=== PATIENT | male | born 1945 | race Caucasian/White ===

== ENCOUNTER 2019-09-27 08:11 | Outpatient (CLI) | payer OTHER, SELFPAY ==
[2019-09-27 09:05] LABS: INR 1.02 (0.8-1.2)
== END 2019-09-27 08:12 | disposition home or self-care (01) ==
LOC: RAD 08:15
PROVIDERS: Family Provider Emergency Medicine Emergency Medical Services; PCP Emergency Medicine Emergency Medical Services; Visit Provider Emergency Medicine Emergency Medical Services
DX: D49.2 Neoplasm of unspecified behavior of bone, soft tissue, and skin (principal); M24.08 Loose body, other site; M41.86 Other forms of scoliosis, lumbar region; M48.061 Spinal stenosis, lumbar region without neurogenic claudication; Z96.82 Presence of neurostimulator; Z98.890 Other specified postprocedural states
CPT/HCPCS: 85610

== ENCOUNTER 2019-10-12 08:54 | Outpatient (CLI) | payer OTHER, SELFPAY ==
--- NOTE | 2019-10-12 09:10 | IR_ITS ---
WS: [id number] MYELOGRAM LUMBAR SPINE Fluoroscopic guided lumbar myelogram CLINICAL INFORMATION: NEOPLASM UNSPECIFIED BEHAVIOR OF BONE,SOFT TISSUE AND SKIN COMPARISON: November 03, 2018 TECHNIQUE: The procedure, including risks, benefits, and complications, were discussed with the patie nt who agreed to proceed. A timeout was performed to confirm correct patient, procedure, and site. Using sterile technique, the patient was prepped and draped in the usual sterile fashion. After admin istration of local anesthesia using 1% preservative-free lidocaine and using fluoroscopic guidance, a 22-gauge spinal needle was advanced into the subarachnoid space at the L2-3 level. Subsequently 13 c c of Omnipaque 240 was administered into the thecal sac. The needle was removed and hemostasis was ac hieved. Spot fluoroscopic images were obtained. FLUOROSCOPIC TIME: 0.[address] myelogram report for additional detail. IR/IR myelogram sp lumbar [id number] IMPRESSION: 1. Uncomplicated lumbar myelogram. 2. Please see CT myelogram report for anatomic detail.
--- NOTE | 2019-10-12 09:10 | CT_ITS ---
WS: [id number] CT LUMBAR SPINE TECHNIQUE: Contrast-enhanced CT of the lumbar spine with coronal and sagittal reformatted images. CLINICAL INFORMATION: NEOPLASM UNSPECIFIED BEHAVIOR OF BONE,SOFT TISSUE AND SKIN COMPARISON: CT myelogram November 03, 2018 DLP: 1737.[address] scans at [facility] use at least one of these dose optimization techniques: automat ed exposure control; mA and/or kV adjustment per patient size (includes targeted exams where dose is matched to clinical indication); or iterative reconstruction. FINDINGS: 6 lumbar type vertebral bodies in keeping with the prior numbering convention. L6 is transi tional. No instability on flexion-extension. Lumbar scoliosis convex right. Multilevel degenerative d isc disease with vacuum disc phenomenon. Grade 1 anterolisthesis L4 on L5 measuring 4.1 mm is unchang ed. Slight retrolisthesis L1 on L2 and L2 on L3. Alignment is overall unchanged since 2019. Disc space na rrowing worse at L5-L6 with subchondral cystic change. Endplate sclerosis L3-L4 and L5-L6. Previously described intrathecal nodule at the L4 level measuring 5.1 mm is unchanged from previous m ost consistent with a small schwannoma L1-L2: Mild annular bulging. Vacuum disc phenomenon. Spinal canal and foramen are patent. L2-L3: Mild annular bulging. Mild facet arthropathy. Mild left and no significant right foraminal sveta rowing. L3-L4: Vacuum disc phenomenon with osteophytic ridging. Moderate central canal stenosis. Moderate fac et arthropathy ligament flavum hypertrophy. Moderate left and no significant right foraminal narrowin g. L4-L5: Severe central canal stenosis unchanged from previous. Advanced facet arthropathy. Severe left greater than right foraminal narrowing. L5-L6: Disc osteophyte complex with endplate ridging. Moderate right greater than left foraminal narr owing. Mild central canal stenosis. Narrowing of the subarticular recess. Moderate facet arthropathy. Osteophytic ridging. Spinal canal and foramen are patent. L6 is partially sacralized in the right. Visualized pelvic bony structures: Normal. Paravertebral soft tissues: Normal. CT/CT lumbar spine w con [id number] IMPRESSION: 1. 6 lumbar type vertebral bodies labeled 1 through 6 for the purposes of this dictation. L6 is transitional and partially sacralized. 2. 5 mm intrathecal nodule at the L4 level likely represents a small schwannom a and is unchanged. 3. Lumbar scoliosis with advanced multilevel degenerative disc disease is unch anged. 4. Stable grade 1 anterolisthesis L4 on L5. No instability on flexion-extensio n. 5. Severe central canal stenosis L4-5 is unchanged. 6. Multilevel foraminal narrowing is stable. 7. Partially visualized dorsal spinal stimulator
[2019-10-12] MEDS: iohexol 240 mg/mL 50 mL Btl INTRATHECA (10:21)
== END 2019-10-12 08:55 | disposition home or self-care (01) ==
LOC: RADWPI 08:59
PROVIDERS: Family Provider Emergency Medicine Emergency Medical Services; PCP Emergency Medicine Emergency Medical Services; Visit Provider Emergency Medicine Emergency Medical Services
DX: D49.2 Neoplasm of unspecified behavior of bone, soft tissue, and skin (principal); M47.896 Other spondylosis, lumbar region; M48.061 Spinal stenosis, lumbar region without neurogenic claudication; Z96.82 Presence of neurostimulator; M41.86 Other forms of scoliosis, lumbar region
CPT/HCPCS: 62304; 72120; 72132; J2001

== ENCOUNTER → 2019-11-13 09:04 | Outpatient (BNVA) | payer OTHER, SELFPAY | PROVIDERS: Family Provider Emergency Medicine Emergency Medical Services; PCP Emergency Medicine Emergency Medical Services; Referring Provider Emergency Medicine Emergency Medical Services; Visit Provider Specialist | DX: M25.512 Pain in left shoulder (principal); M19.012 Primary osteoarthritis, left shoulder | CPT/HCPCS: 73030 ==

== ENCOUNTER 2020-01-10 08:00 | Day surgery (SDC) | payer OTHER, SELFPAY ==
[2020-01-10 10:55] VITALS: BMI 31.8
--- NOTE | 2020-01-10 11:03 | ECG_ITS ---
Measurements Intervals [place] Rate: 72 P: 41 [place]: 168 QRS: 5 QRSD: 97 T: 31 QT: 378 QTc: 415 SINUS RHYTHM WITH SINUS ARRHYTHMIA Compared to ECG 10/05/2017 11:20:39 Myocardial infarct finding no longer present Electronically Signed On 01-10-2020 20:08:31 CDT by Mariela Borden M.D. [id number]
--- NOTE | 2020-01-10 11:04 | PC.NURSE ---
ANESTHESIA UNABLE TO SEE PT AT THIS TIME, WILL SEE HIM DOS.
== END 2020-01-10 09:00 | disposition home or self-care (01) ==
LOC: OPS 04-04 14:59
PROVIDERS: PCP Emergency Medicine Emergency Medical Services; Visit Provider Specialist
DX: Z01.818 Encounter for other preprocedural examination (principal); M19.012 Primary osteoarthritis, left shoulder
CPT/HCPCS: 93005

== ENCOUNTER 2020-04-16 12:23 | Outpatient (CLI) | payer OTHER, SELFPAY ==
--- NOTE | 2020-04-16 12:37 | IR_ITS ---
WS: [id number] SHOULDER ARTHROGRAM LEFT Fluoroscopic guided left shoulder arthrogram CLINICAL INFORMATION: ARTHRITIS OF LEFT SHOULDER Fluoroscopy time 0.5 minutes COMPARISON: None. PROCEDURE: The procedure including risks, benefits and complications were discussed with the patient, who agreed to proceed. Using sterile technique, the patient was prepped and draped in the usual ster ile fashion. After 1% lidocaine injection using fluoroscopic guidance, a 22-gauge spinal needle was a dvanced into the glenohumeral joint via the rotator interval. Approximately 13 ml of a solution conta ining 10 ml normal saline and 10 ml Omnipaque 300 was administered. No immediate complications. FLUOROSCOPY TIME: 0.5 minutes. IR/IR arthrogram shoulderLT [id number] IMPRESSION: Uncomplicated fluoroscopic-guided left shoulder arthrogram. CT to follow.
[2020-04-16] MEDS: iohexol 300 mg/mL 50 mL Btl INTRA-ARTI (13:41)
--- NOTE | 2020-04-16 14:00 | CT_ITS ---
WS: [id number] CT LEFT SHOULDER ARTHROGRAM TECHNIQUE: CT left shoulder arthrogram with coronal and sagittal reformatted images. CLINICAL INFORMATION: ARTHRITIS OF LEFT SHOULDER COMPARISON: None. DLP: 753.[address] scans at [facility] use at least one of these dose optimization techniques: automat ed exposure control; mA and/or kV adjustment per patient size (includes targeted exams where dose is matched to clinical indication); or iterative reconstruction. FINDINGS: Mild degenerative arthritis at the AC joint. Loss of the subacromial space. Advanced degenerative art hritis of the glenohumeral joint with hypertrophic spurring along the inferior glenoid. No acute frac tures. Mild subchondral cystic change involving the humeral head. Calcified loose bodies in the subco racoid bursa. Large loose bodies measuring up to 3.5 x 1.5 cm. Marked degenerative fraying of the gle noid labrum. Biceps labral anchor appears intact. Chronic thinning of the distal supraspinatus. Supraspinatus intact distally. Mild chronic thinning of the infraspinatus which is intact. Normal teres minor. Subscapularis tendon appears intact. Normal b iceps tendon in the proximal bicipital groove. Biceps tendon along the mid humerus appears irregular and partially calcified likely due to chronic tear and tendinopathy. This appears chronically torn di stally. Visualized left lung is normal in appearance. CT/CT shoulder LT w con [id number] IMPRESSION: 1. Advanced arthritis the glenohumeral joint with loss of the joint space and subchondral cystic change. Chronic mild flattening of the humeral head likely p osttraumatic or degenerative. 2. Subacromial narrowing with chronic thinning of the supraspinatus distally w hich appears intact. Infraspinatus and teres minor appear intact. Subscapularis appears intact. No full-thickness rotator cuff tears. 3. Calcified loose bodies in the subcoracoid bursa the largest measuring 3.5 x 1.5 cm. 4. Biceps tendon is intact within the bicipital groove proximally. This is irr egular and thickened along the proximal to mid humerus with evidence of chronic tear and tendinopathy. This appears chronically torn distally.
== END 2020-04-16 12:24 | disposition home or self-care (01) ==
PROVIDERS: PCP Emergency Medicine Emergency Medical Services; Visit Provider Specialist
DX: M19.012 Primary osteoarthritis, left shoulder (principal)
CPT/HCPCS: 23350; 73201; 77002; Q9967

== ENCOUNTER 2020-10-04 14:30 | Inpatient (IN) | payer OTHER, MEDICARE, SELFPAY ==
[2020-10-04] VITALS (12 sets, daily range): BP systolic 111–137; BP diastolic 63–87; PULSE 48–112; RESP 18–28; TEMP 36.9–37.3; O2SAT 85–98; BMI 32.6
--- NOTE | 2020-10-04 15:03 | PC.NURSE ---
upon transporting from w/c to bed pt becomes very dyspneic and o2 sats consistently 80% on ra and bp dropped to 91/65. pt placed on 4l nc. pt reports hx of copd but does not use home o2
--- NOTE | 2020-10-04 15:18 | PC.NURSE ---
rt contacted for abg and to place pt on high flow oxygen per verbal order from cesilia
--- NOTE | 2020-10-04 15:24 | XR_ITS ---
WS: [id number] PORTABLE CHEST HISTORY: dyspnea, low o2 sats COMPARISON: 10/05/2017 New mild interstitial thickening throughout both lungs, predominantly in the periphery and at the nai g bases. No pleural effusion or pneumothorax. Cardiac size: Normal. Mediastinum/Aorta: Normal mediastinum. Advanced degenerative changes at the glenohumeral joints. Stimulator electrodes noted over the mid thoracic spine. XR/XR chest 1V portable [id number] IMPRESSION: New mild peripheral and basilar interstitial thickening. May be due to pneumoni tis or interval development of interstitial lung disease.
[2020-10-04 15:49] LABS: ABG PCO2 34.7 mmHg (35-45); ABG PH Result 7.42 (7.35-7.45); Alveolar-Arterial Oxygen Gradi 8.4 mmHg (5-10); Arterial Blood Gas Hematocrit 43.9 % (42-52); Base Excess ABG -1.4 mmol/L (-2.0-2.0); Blood Gas Allen Test Pos; Blood Gas Operator Identificat AMH; Blood Gas Sample Site Radial, left; Blood Gas Sample Type Arterial; Carboxyhemoglobin 1.3 %THgb (0.4-20.1); HCO3 ABG 22.5 mmol/L (22-26); HGB O2 Sat 80.9 % (95-100); Ionized Calcium Level - ABG 1.1 mmol/L (1.1-1.4); Methemoglobin 0.7 % (0.4-1.5); Oxygen Device ROOM AIR; Oxygen Saturation ABG 82.5; Potassium Level - ABG 4.4 mmol/L (3.5-5.0); Total Hemoglobin 14.3 g/dL (14-18)
--- NOTE | 2020-10-04 16:08 | ECG_ITS ---
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 Measurements Intervals [place] Rate: 107 P: [place]: QRS: -12 QRSD: 97 T: 69 QT: 314 QTc: 419 Interpretive Statements ATRIAL FIBRILLATION WITH RAPID VENTRICULAR RESPONSE NONSPECIFIC T-WAVE ABNORMALITY ABNORMAL RHYTHM ECG Compared to ECG 01/10/2020 11:00:30 T-wave abnormality now present Sinus rhythm no longer present Sinus arrhythmia no longer present Electronically Signed On 10-04-2020 16:16:47 [employer] WORK[employer] by Lupe Du M.D. [id number]
[2020-10-04 16:11] LABS: INR 1.11 (0.8-1.2)
[2020-10-04 16:12] LABS: Hematocrit 42.5 % (42.0-52.0); Hemoglobin 13.5 g/dL (11.7-16.6); Mean Corpuscular HGB Conc 31.8 g/dL (30.0-36.0); Mean Corpuscular Hemoglobin 28.1 pg (28.0-34.0); Mean Corpuscular Volume 88.5 fL (80-94); Mean Platelet Volume 8.8 fL (7.4-10.4); Platelet Count 258 10^3/cmm (130-400); Red Cell Distribution Width 14.5 % (12.1-15.1); White Blood Count 9.1 10^3/uL (4.0-10.0)
[2020-10-04 16:14] LABS: D Dimer 0.65 ug/mIFEU (0-0.59)
[2020-10-04 16:17] LABS: Lactic Sepsis W/Reflex 1.3 mmol/L (0.5-2.2)
[2020-10-04 16:18] LABS: Alanine Aminotransferase 30 U/L (0-41); Albumin Level 3.4 g/dL (3.5-5.2); Alkaline Phosphatase 78 IU/L (40-130); Blood Urea Nitrogen 51 mg/dL (8-23); C Reactive Protein 152.4 mg/L (0.0-4.9); Calcium 7.9 mg/dL (8.5-10.5); Carbon Dioxide 23 mmol/L (22-29); Chloride 96 mmol/L (98-107); Ferritin 975 ng/mL (30-400); Globulin 2.6 g/dL (1.3-4.6); Glucose 98 mg/dL (65-115); Osmolality Calculated 288 mOsm/kg (285-295); Sodium 132 mmol/L (136-145); Total Bilirubin 0.4 mg/dL (0.15-1.2)
[2020-10-04 16:20] LABS: Anion Gap 18.3 (5-19); Aspartate Amino Transferase 54 U/L (0-40); Potassium 5.3 mmol/L (3.5-5.1)
[2020-10-04 16:31] LABS: Influenza A by IFA Negative (Negative); Influenza B by IFA Negative (Negative); SARS Covid-2 Antigen Positive (Negative)
--- NOTE | 2020-10-04 16:37 | W.ED.COVID ---
HPI - COVID General: Chief Complaint: COVID symptoms Stated Complaint: fever, sob, covid symptoms Time Seen by Provider: 10/04/20 14:54 Source: patient Mode of arrival: ambulatory Limitations: no limitations Triage information: Has fever, cough or shortness of breath. No known COVID + exposure last 14 days History of Present Illness: HPI Narrative: Patient is a 75-year-old male with a history of hypertension and COPD who presents to the emergency department with fever, cough, shortness of breath that has been going on for about 4 days. He got tested at the [facility] for COVID-19 yesterday but the results are still pending. Because his symptoms are worsening he is here to be evaluated. MD complaint: has COVID symptoms Prior covid testing: yes, results pending at other location COVID 19 common symptoms: positive fever(s), chills, cough, dyspnea, fatigue, body aches and diarrhea; negative headache(s), loss of sense of smell and/or taste, throat pain, nasal congestion, nausea or vomiting COVID 19 other sytmptoms: positive requiring oxygen; negative chest pressure, chest pain, pleuritic pain, respiratory distress, cyanosis, lethargy, confusion, new neurological complaints or other concerning symptoms Onset (ago): day(s) (4) Severity: severe Pertinent comorbid conditions: hypertension and COPD/respiratory disease Treatment prior to arrival: none COVID Results: SARS-CoV-2 Antigen (Rapid) Positive (Negative) H 10/04/20 15:45 10/04/20 Nasal/Oral Coronavirus 2019 PCR Pending 10/04/20 15:45 10/04/20 Review of Systems General: Reports: 10 or more systems reviewed and unremarkable except in HPI and below Const: Reports: fever(s), chills, body aches and fatigue Eyes: Denies: change in vision or blurry vision ENMT: Denies: throat pain or nasal congestion Card: Denies: chest pain Resp: Reports: dyspnea GI: Reports: diarrhea; Denies: nausea or vomiting : Denies: flank pain, dysuria, urinary frequency, urinary urgency or urinary hesitancy Musc: Denies: neck pain, back pain or extremity swelling Skin/Breast: Denies: rash, pruritus or erythema Neuro: Denies: headache(s) or confusion Endo: Denies: polyuria, polydipsia or tired all the time PFSH ED PFSH: Medical History (Updated 10/04/20 @ 21:40 by Adenike Reyes MD, 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 [place] [place]) H/O arthroscopic knee surgery H/O carpal tunnel repair H/O vasectomy S/P insertion of spinal cord stimulator (~10/15/16) Family History Grandmother Cancer Social History (Reviewed 10/04/20 @ 19:00 by Adenike Reyes MD, [facility] [place]) Smoking and tobacco status: former smoker Alcohol intake: current Lives independently: Yes Household members: spouse Marital status: Current occupational status: retired Physical Exam Const: COMMON NORMALS: average body habitus, patient oriented x3, no limitations, healthy appearing, alert and well nourished GENERAL APPEARANCE: ill appearing NUTRITIONAL APPEARANCE: obese HENMT: COMMON NORMALS: normocephalic, atraumatic and moist oral mucous membranes HEAD & SCALP: normocephalic and atraumatic Neck/C-Spine: COMMON NORMALS: no meningeal signs and no JVD Resp: COMMON NORMALS: No retractions, No use of accessory muscles and percussion normal EFFORT & INSPECTION: Yes tachypneic, Yes respiratory distress and Yes labored AUSCULTATION: crackles and diminished lung sounds PERCUSSION: percussion normal Cardio: COMMON NORMALS: no JVD, regular rhythm, S1 normal heart sound present, S2 normal heart sound present, No gallops present (Cardio), No clicks present (Cardio), No murmurs present (Cardio), No rub (Cardio) and Peripheral pulses 2+ throughout RATE: tachycardic RHYTHM: regular rhythm HEART SOUNDS: S1 normal heart sound present and S2 normal heart sound present PERIPHERAL PULSES: Peripheral pulses 2+ throughout GI: COMMON NORMALS: Normal to inspection, nondistended, normoactive bowel sounds present, Soft to palpation, non-tender, No hepatosplenomegaly present, no masses and no bruits PALPATION: Yes Soft to palpation and Yes No hepatosplenomegaly present Extremity: COMMON NORMALS: normal to inspection, full ROM, capillary refill normal, no calf tenderness and no pedal edema Neuro: COMMON NORMALS: patient oriented x3 SENSORIUM/ORIENTATION: Yes alert MENINGEAL SIGNS: Yes no meningeal signs Skin: COMMON NORMALS: no rashes or lesions noted, no wounds, turgor normal, no jaundice, no petechiae and no mottling GENERAL SKIN EXAM: no rashes or lesions noted and turgor normal Course Consultations: Consultation #1: Discussed the patient with Dr. Gonzalez, hospitalist. He kindly accepted patient to his service. Time: 16:35 Vital Signs: Vital signs: Vital Signs Temperature 98.5 F 10/04/20 20:00 Pulse Rate 96 10/04/20 21:05 Respiratory Rate 20 H 10/04/20 20:58 Blood Pressure 117/63 10/04/20 20:01 Pulse Oximetry 91 10/04/20 20:58 MDM - COVID MDM Narrative: Medical decision making narrative: 75-year-old male who presents to the emergency department with fever, shortness of breath, difficulty breathing. He was hypoxic with significant hypoxemia on his blood gas. He required high flow oxygen to maintain his oxygen saturations. He tested positive for COVID-19 in the ED, and he is admitted to the hospital for further evaluation and management. In the ED he was given a dose of remdesivir and dexamethasone. Medical Records: Attestation: I reviewed the patient's medical records. Lab Data: Attestation: I reviewed the patient's lab results. Labs: Lab Results 10/04/20 10/04/20 10/04/20 Range/Units 15:38 15:44 15:44 WBC 9.1 (4.0-10.0) 10^3/ uL RBC 4.80 (4.1-5.3) 10^6/u L Hgb 13.5 (11.7-16.6) g/dL Hct 42.5 (42.0-52.0) % MCV 88.5 (80-94) fL MCH 28.1 (28.0-34.0) pg MCHC 31.8 (30.0-36.0) g/dL RDW 14.5 (12.1-15.1) % Plt Count 258 (130-400) 10^3/c mm MPV 8.8 (7.4-10.4) fL Total Counted 100 (0-100) Atypical Lymphs % 0.0 (0-5) % Absolute Neutrophi ls 8.1 H (1.4-6.5) 10^3/c mm Segmented Neutroph ils 69 % Abs Segm Neuts (Ma n) 6.3 (1.6-7.1) 10/cmm Band Neutrophils 20.0 % Abs Band Neuts (Ma n) 1.8 H (0.0-1.2) 10^3/c mm Lymphocytes (Manua l) 8 % Monocytes (Manual) 3.0 % Absolute Monocytes 0.3 (0.1-0.6) 10^3/c mm Eosinophils (Manua l) 0 % Absolute Eosinophi ls 0.0 (0.0-0.7) 10^3/c mm Basophils (Manual) 0.0 % Absolute Basophils 0.0 (0.0-0.2) 10^3/c mm Platelet Estimate Normal (Normal) Anisocytosis 1+ H PT (12.1-14.9) SECO NDS INR (0.8-1.2) Fibrinogen (174-498) mg/dL D-Dimer (0-0.59) ug/mIFE U Specimen Type Arterial Sample Site Radial, left ABG pH 7.42 (7.35-7.45) ABG pCO2 34.7 L (35-45) mmHg ABG pO2 44.0 L (80.0-100.0) mmH g ABG HCO3 22.5 (22-26) mmol/L ABG O2 Saturation 82.5 ABG Base Excess -1.4 (-2.0-2.0) mmol/ L Walt Test Pos A-a O2 Gradient 8.4 (5-10) mmHg Hematocrit 43.9 (42-52) % Hgb O2 Saturation 80.9 L (95-100) % Carboxyhemoglobin 1.3 (0.4-20.1) %THgb Methemoglobin 0.7 (0.4-1.5) % Total Hemoglobin 14.3 (14-18) g/dL Sodium 131.0 132 L (131-143) mmol/L Potassium 4.4 5.3 H (3.5-5.0) mmol/L Glucose 111.0 98 (70-115) mg/dL Ionized Calcium 1.1 (1.1-1.4) mmol/L O2 Delivery Device Room air FiO2 21.0 % Inventory Clerk ID Amh Chloride 96 L (98-107) mmol/L Carbon Dioxide 23 (22-29) mmol/L Anion Gap 18.3 (5-19) BUN 51 H (8-23) mg/dL Creatinine 1.9 H (0.7-1.2) mg/dL GFR Calculation Not Reportable Calculated Osmolal ity 288 (285-295) mOsm/k g Lactic Acid (0.5-2.2) mmol/L Calcium 7.9 L (8.5-10.5) mg/dL Ferritin 975 H (30-400) ng/mL Total Bilirubin 0.4 (0.15-1.2) mg/dL AST 54 H (0-40) U/L ALT 30 (0-41) U/L Alkaline Phosphata se 78 (40-130) IU/L C-Reactive Protein 152.4 H (0.0-4.9) mg/L Total Protein 6.0 L (6.6-8.7) g/dL Albumin 3.4 L (3.5-5.2) g/dL Globulin 2.6 (1.3-4.6) g/dL Influenza Type A A g (Negative) Influenza Type B A g (Negative) SARS-CoV-2 Ag (Rap id) (Negative) 10/04/20 10/04/20 10/04/20 Range/Units 15:44 15:44 15:45 WBC (4.0-10.0) 10^3/ uL RBC (4.1-5.3) 10^6/u L Hgb (11.7-16.6) g/dL Hct (42.0-52.0) % MCV (80-94) fL MCH (28.0-34.0) pg MCHC (30.0-36.0) g/dL RDW (12.1-15.1) % Plt Count (130-400) 10^3/c mm MPV (7.4-10.4) fL Total Counted (0-100) Atypical Lymphs % (0-5) % Absolute Neutrophi ls (1.4-6.5) 10^3/c mm Segmented Neutroph ils % Abs Segm Neuts (Ma n) (1.6-7.1) 10/cmm Band Neutrophils % Abs Band Neuts (Ma n) (0.0-1.2) 10^3/c mm Lymphocytes (Manua l) % Monocytes (Manual) % Absolute Monocytes (0.1-0.6) 10^3/c mm Eosinophils (Manua l) % Absolute Eosinophi ls (0.0-0.7) 10^3/c mm Basophils (Manual) % Absolute Basophils (0.0-0.2) 10^3/c mm Platelet Estimate (Normal) Anisocytosis PT 14.70 (12.1-14.9) SECO NDS INR 1.11 (0.8-1.2) Fibrinogen 772 H (174-498) mg/dL D-Dimer 0.65 H (0-0.59) ug/mIFE U Specimen Type Sample Site ABG pH (7.35-7.45) ABG pCO2 (35-45) mmHg ABG pO2 (80.0-100.0) mmH g ABG HCO3 (22-26) mmol/L ABG O2 Saturation ABG Base Excess (-2.0-2.0) mmol/ L Walt Test A-a O2 Gradient (5-10) mmHg Hematocrit (42-52) % Hgb O2 Saturation (95-100) % Carboxyhemoglobin (0.4-20.1) %THgb Methemoglobin (0.4-1.5) % Total Hemoglobin (14-18) g/dL Sodium (131-143) mmol/L Potassium (3.5-5.0) mmol/L Glucose (70-115) mg/dL Ionized Calcium (1.1-1.4) mmol/L O2 Delivery Device FiO2 % Inventory Clerk ID Chloride (98-107) mmol/L Carbon Dioxide (22-29) mmol/L Anion Gap (5-19) BUN (8-23) mg/dL Creatinine (0.7-1.2) mg/dL GFR Calculation Calculated Osmolal ity (285-295) mOsm/k g Lactic Acid 1.3 (0.5-2.2) mmol/L Calcium (8.5-10.5) mg/dL Ferritin (30-400) ng/mL Total Bilirubin (0.15-1.2) mg/dL AST (0-40) U/L ALT (0-41) U/L Alkaline Phosphata se (40-130) IU/L C-Reactive Protein (0.0-4.9) mg/L Total Protein (6.6-8.7) g/dL Albumin (3.5-5.2) g/dL Globulin (1.3-4.6) g/dL Influenza Type A A g Negative (Negative) Influenza Type B A g Negative (Negative) SARS-CoV-2 Ag (Rap id) (Negative) 10/04/20 Range/Units 15:45 WBC (4.0-10.0) 10^3/ uL RBC (4.1-5.3) 10^6/u L Hgb (11.7-16.6) g/dL Hct (42.0-52.0) % MCV (80-94) fL MCH (28.0-34.0) pg MCHC (30.0-36.0) g/dL RDW (12.1-15.1) % Plt Count (130-400) 10^3/c mm MPV (7.4-10.4) fL Total Counted (0-100) Atypical Lymphs % (0-5) % Absolute Neutrophi ls (1.4-6.5) 10^3/c mm Segmented Neutroph ils % Abs Segm Neuts (Ma n) (1.6-7.1) 10/cmm Band Neutrophils % Abs Band Neuts (Ma n) (0.0-1.2) 10^3/c mm Lymphocytes (Manua l) % Monocytes (Manual) % Absolute Monocytes (0.1-0.6) 10^3/c mm Eosinophils (Manua l) % Absolute Eosinophi ls (0.0-0.7) 10^3/c mm Basophils (Manual) % Absolute Basophils (0.0-0.2) 10^3/c mm Platelet Estimate (Normal) Anisocytosis PT (12.1-14.9) SECO NDS INR (0.8-1.2) Fibrinogen (174-498) mg/dL D-Dimer (0-0.59) ug/mIFE U Specimen Type Sample Site ABG pH (7.35-7.45) ABG pCO2 (35-45) mmHg ABG pO2 (80.0-100.0) mmH g ABG HCO3 (22-26) mmol/L ABG O2 Saturation ABG Base Excess (-2.0-2.0) mmol/ L Walt Test A-a O2 Gradient (5-10) mmHg Hematocrit (42-52) % Hgb O2 Saturation (95-100) % Carboxyhemoglobin (0.4-20.1) %THgb Methemoglobin (0.4-1.5) % Total Hemoglobin (14-18) g/dL Sodium (131-143) mmol/L Potassium (3.5-5.0) mmol/L Glucose (70-115) mg/dL Ionized Calcium (1.1-1.4) mmol/L O2 Delivery Device FiO2 % Inventory Clerk ID Chloride (98-107) mmol/L Carbon Dioxide (22-29) mmol/L Anion Gap (5-19) BUN (8-23) mg/dL Creatinine (0.7-1.2) mg/dL GFR Calculation Calculated Osmolal ity (285-295) mOsm/k g Lactic Acid (0.5-2.2) mmol/L Calcium (8.5-10.5) mg/dL Ferritin (30-400) ng/mL Total Bilirubin (0.15-1.2) mg/dL AST (0-40) U/L ALT (0-41) U/L Alkaline Phosphata se (40-130) IU/L C-Reactive Protein (0.0-4.9) mg/L Total Protein (6.6-8.7) g/dL Albumin (3.5-5.2) g/dL Globulin (1.3-4.6) g/dL Influenza Type A A g (Negative) Influenza Type B A g (Negative) SARS-CoV-2 Ag (Rap id) Positive H (Negative) Imaging Data: CXR: Attestation: I personally reviewed and interpreted this imaging study as follows: Radiologist's impression: [address] [address] XRay Report Signed Patient: Abdiel DuranJesseeraimundo #: [id number] : 5Acct#:[id number] Age/Sex: 75 / MADM Date: 10/04/20 Loc: ERRoom/Bed: Attending Dr: Ordering Provider/Ordering MD: Adenike Reyes MD, [facility] Date of Service: 10/04/20 Procedure(s): XR chest 1V portable [id number] Accession Number(s): [id number] Report Number: [id number] WS: [id number] PORTABLE CHEST HISTORY: dyspnea, low o2 sats COMPARISON: 10/05/2017 New mild interstitial thickening throughout both lungs, predominantly in the periphery and at the lung bases. No pleural effusion or pneumothorax. Cardiac size: Normal. Mediastinum/Aorta: Normal mediastinum. Advanced degenerative changes at the glenohumeral joints. Stimulator electrodes noted over the mid thoracic spine. XR/XR chest 1V portable [id number] IMPRESSION: New mild peripheral and basilar interstitial thickening. May be due to pneumonitis or interval development of interstitial lung disease. Dictated By:Harper Escobar DO Signed By:Harper Escobar DOSigned Date/Time:10/04/201558 DD/ 1558 CT Chest: Attestation: I personally reviewed and interpreted this imaging study as follows: Radiologist's impression: [address] [address] [address] Scan Report Signed Patient: Sebastian Duran #: [id number] : 5Acct#:[id number] Age/Sex: 75 / MADM Date: 10/04/20 Loc: [facility]/Bed: [facility] Attending Dr: Abelardo Gonzalez MD Ordering Provider/Ordering MD: Adenike Reyes MD, [facility] Date of Service: 10/04/20 Procedure(s): CT chest wo [facility] [address] Accession Number(s): [id number] Report Number: [id number] PROCEDURE INFORMATION: Exam: CT Chest Without Contrast; Diagnostic Exam date and time: 10/04/2020 7:50 PM Age: 75 years old Clinical indication: Cough and shortness of breath; Prior surgery; Surgery type: Nerve stim; Additional info: Covid, SOB TECHNIQUE: Imaging protocol: Diagnostic computed tomography of the chest without contrast. Radiation optimization: All CT scans at this facility use at least one of these dose optimization techniques: automated exposure control; mA and/or kV adjustment per patient size (includes targeted exams where dose is matched to clinical indication); or iterative reconstruction. COMPARISON: CR XR chest 1V portable [id number] 10/04/2020 3:42 PM RADIATION DOSE METRICS: Total DLP (mGy-cm): 968.78 FINDINGS: Tubes, catheters and devices: Thoracic spine epidural stimulator device terminates at the superior margin of T6 within the posterior epidural space. Lungs: Patchy scattered irregular ground-glass attenuation opacities both centrally and peripherally in both lungs. Mild to moderate diffuse emphysema. No focal endobronchial lesion. Pleural spaces: Trace left-sided pleural effusion. Heart: Unremarkable. No cardiomegaly. No pericardial effusion. Aorta: Unremarkable. No aortic aneurysm. Lymph nodes: Unremarkable. No enlarged lymph nodes. 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 Thoracic spinal alignment is anatomic. No aggressive bone lesion or acute fracture. Soft tissues: Unremarkable. CT/CT chest wo con [id number] IMPRESSION: 1. Scattered nonspecific airspace disease in both lungs. 2. Imaging features can be seen with COVID-19 pneumonia, though are nonspecific and can occur with a variety of infectious and noninfectious processes. (Reference: Kwabena) REFERENCES: Kwabena Blakely, et al., Radiological Society of [place] Expert Consensus Statement on Reporting Chest CT Findings Related to COVID-19. Endorsed by the Society of Thoracic Radiology, the [place] [employer], and RSNA. Published November 08, 2019. Radiation Dose CTDIVOL = (mGy): DLP = 968.78 (mGy-cm) Dictated By:Sherman Salinas Signed By:Reji Salinas Date/Time:10/04/202028 DD/ 26 EKG Data: EKG 1: Attestation: I personally reviewed and interpreted this EKG as follows: EKG interpretation date: 10/04/20 EKG interpretation time: 15:42 Prior EKG tracings: not available for review Interpretation: Atrial fibrillation with RVR. Heart rate [address] changes. COVID Results: SARS-CoV-2 Antigen (Rapid) Positive (Negative) H 10/04/20 15:45 10/04/20 Nasal/Oral Coronavirus 2019 PCR Pending 10/04/20 15:45 10/04/20 Critical Care Time Critical Care Time: Critical Care Time: Yes Total Critical Care Time: 60 Attestation: This case had a high probability of a clinically significant, sudden, or life threatening deterioration of this patient's condition which required my full and direct attention, intervention and personal management. Discharge Plan Discharge Patient Disposition: Admitted As Inpatient Admit Provider: Abelardo Gonzalez Clinical Impression: Pneumonia due to COVID-19 virus, Hyperkalemia, Hyponatremia, GEETHA (acute kidney injury) Respiratory failure with hypoxia Qualifiers: Chronicity: acute Qualified Code(s): J96.01 - Acute respiratory failure with hypoxia Condition: Stable Coding Level of Care Code ED Car Shifter for [facility] Fwd Exam Comprehensive
[2020-10-04] MEDS: remdesivir 200 MG in sodium chloride 0.9% (100 ml) 100 ML 100 MG IV (16:49)
[2020-10-04] MEDS: dexamethasone 4 mg/mL INJ 6 MG IVP (16:50)
[2020-10-04] MEDS: sodium chloride 0.9% 1,000 ML 999 ML IV (16:50)
[2020-10-04 16:51] LABS: Absolute Segmented Neutrophil 6.3 10/cmm (1.6-7.1); Band Neutrophils Absolute 1.8 10^3/cmm (0.0-1.2); Lymphocytes 8 %; Monocytes Absolute 0.3 10^3/cmm (0.1-0.6); Segmented Neutrophils 69 %; Total Cells Counted 100 (0-100)
[2020-10-04 16:52] LABS: Absolute Neutrophil 8.1 10^3/cmm (1.4-6.5); Anisocytosis 1+; Eosinophils 0 %; Platelet Estimate Normal (Normal)
[2020-10-04 17:06] LABS: Fibrinogen 772 mg/dL (174-498)
--- NOTE | 2020-10-04 17:45 | PM.HP ---
Providers/Chief Complaint Primary Care Provider: Keshawn Little DO Chief Complaint: fever, sob, covid symptoms History of Present Illness Abdiel Duran is a 75 year old male with past medical history of hypertension,COPD, came in with chief complaint of worsening shortness of breath fever cough, started about a week, shortness of breath and cough is progressively worsened,currently he says that he is short of breath even with minimal exertion,he is also complaining of progressively worsening of nonproductive cough.He is having fever at home. His has also got similar symptom. Upon arrival in the ER he was worked up for the above-mentioned, complaint. X-ray chest: mild peripheral and basilar interstitial thickening. May be due to pneumonitis or interval development of interstitial lung disease. ABG: pH: 7.4, PCO2: 34, PO2: 44, on room air. Rapid Covid testing: Positive Pertinent lab: Sodium 132, K: 5.3 , serum creatinine: 1.9 , lactic acid: 1.9, fibrinogen: 772, D-dimer: 0.65. Pertinent medications: Started on remdesivir 5-day course. Dexamethasone 6 mg IV x1 dose. Review of Systems Card: Denies: palpitations, edema, swelling of feet/ankles, dyspnea on exertion, orthopnea or leg pain with exertion GI: Denies: abdominal pain, nausea, vomiting or constipation : Denies: flank pain or difficulty urinating Musc: Denies: back pain, extremity pain or extremity swelling Neuro: Denies: headache(s), difficulty walking or confusion Medications/Allergies Home Medications Medication Instructions Recorded Confirmed Last Taken Type budesonide-formoterol HFA 160 2 puff INHALATION BID@0800,1900 10/23/19 10/04/20 10/04/20 History mcg-4.5 mcg/actuation aerosol inhaler cetirizine 10 mg capsule 10 mg PO DAILY@0800 cap 10/23/19 10/04/20 10/04/20 History cholecalciferol (vitamin D3) 1,250 1,250 mcg PO DAILY@0800 10/23/19 10/04/20 10/04/20 History mcg (50,000 unit) tablet cyclobenzaprine 10 mg tablet 10 mg PO TID PRN 10/23/19 10/04/20 Unknown History diltiazem HCl 240 mg 240 mg PO DAILY@0800 10/23/19 10/04/20 10/04/20 History capsule,extended release 24 hr ipratropium 20 mcg-albuterol 100 1 puff INHALATION QID PRN 10/23/19 10/04/20 Unknown History mcg/actuation mist for inhalation levothyroxine 50 mcg capsule 50 mcg PO DAILY@0800 10/23/19 10/04/20 10/04/20 History lisinopril 40 mg tablet 40 mg PO DAILY@0800 10/23/19 10/04/20 10/04/20 History naproxen 500 mg tablet 500 mg PO DAILY PRN tab 10/23/19 10/04/20 Unknown History guaifenesin 400 mg tablet 400 mg PO Q4H PRN 11/13/19 10/04/20 10/04/20 History custom orthotics #1 ea 07/03/20 10/04/20 Unknown Rx acetaminophen [Tylenol Extra 500 mg PO Q6H PRN 10/04/20 10/04/20 Unknown History Strength] ketoconazole 1 applic TOPICAL BID 10/04/20 10/04/20 Unknown History Allergies Allergy/AdvReac Type Severity Reaction Status Date / Time Sulfa (Sulfonamide Allergy Mild Unknown Verified 10/04/20 14:32 Antibiotics) tamsulosin [From Flomax] AdvReac Mild rash Verified 10/04/20 14:32 PFSH Acute PFSH: Medical History (Updated 10/04/20 @ 18:04 by Abelardo Gonzalez MD) COPD (chronic obstructive pulmonary disease) History of cardiac dysrhythmia Hydrocele, left 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, lumbar region Spondylolisthesis, lumbar region Urinary retention Surgical History H/O arthroscopic knee surgery H/O carpal tunnel repair H/O vasectomy S/P insertion of spinal cord stimulator (~10/15/16) Family History Grandmother Cancer Social History Smoking and tobacco status: former smoker Alcohol intake: current Lives independently: Yes Household members: spouse Marital status: Current occupational status: retired Vitals/I&O/Wt Last Vital Signs Temp 99.2 F 10/04/20 14:32 Pulse 101 H 10/04/20 17:20 Resp 28 H 10/04/20 17:20 BP 137/87 10/04/20 17:14 Pulse Ox 85 L 10/04/20 17:20 Weight last 48 hrs Weight 100.244 kg Physical Exam Const: COMMON NORMALS: patient oriented x3 HENMT: COMMON NORMALS: normocephalic and atraumatic HEAD & SCALP: normocephalic and atraumatic EXTERNAL EAR: Yes external ears normal Chest: CHEST: Yes Symmetrical chest wall rise Resp: OTHER: Diminished air entry likely secondary to body habitus. Cardio: COMMON NORMALS: regular rate, regular rhythm, S1 normal heart sound present, S2 normal heart sound present, No gallops present (Cardio), No murmurs present (Cardio), No rub (Cardio) and Peripheral pulses 2+ throughout RATE: regular rate RHYTHM: regular rhythm HEART SOUNDS: S1 normal heart sound present and S2 normal heart sound present PERIPHERAL PULSES: Peripheral pulses 2+ throughout GI: COMMON NORMALS: Normal to inspection, nondistended, normoactive bowel sounds present, Soft to palpation, non-tender, No hepatosplenomegaly present and no masses AUSCULTATION: Yes normoactive bowel sounds PALPATION: Yes Soft to palpation and Yes No hepatosplenomegaly present RECTAL EXAM: Yes deferred Extremity: COMMON NORMALS: no clubbing, cyanosis or edema and no pedal edema Neuro: COMMON NORMALS: patient oriented x3 Data : 10/04/20 15:44 10/04/20 15:44 Micro: Microbiology 10/04/20 15:44 Blood Culture - Preliminary Blood SPECIMEN COLLECTED A&P Assessment and plan (1) Respiratory failure with hypoxia: Acute hypoxic respiratory failure 2/2 Covid pneumonia. Decadron 6 mg I.V daily for 10 days Remdesivir 200 mg IV x1 dose - > 100 mg IV daily x 4 days Vitamin C 500 mg po daily Zinc 50 mg po daily Nebs Robutasssin DM PRN for cough Levaquin 750 mg IV daily ( 10/04 ) On HHFONC 60 % and 35Ls Lovenox 40 subcu every 12 hours Pro-calcitonin : Ferritin :975 CRP:152 D-dimer: 0.65 Monitor Serial chest x-ray: Monitor ABG: Airborne/droplet precautions Status: Acute (2) Pneumonia due to COVID-19 virus: Status: Acute (3) COPD (chronic obstructive pulmonary disease): Status: Acute (4) GEETHA (acute kidney injury): GEETHA: Versus GEETHA on worsening CKD Baseline serum creatinine: Unknown Admission serum creatinine 1.9 Status: Acute (5) Hypertension: Status: Acute (6) Hyperkalemia: Status: Acute (7) Hyponatremia: Status: Acute Additional A&P Information Code Status: Full code DVT prophylaxis: Lovenox Attestations Medical Necessity Statement*: Patient needs to be in hospital for management of respiratory failure secondary to Covid PNA. Anticipated length of stay greater than 2 midnight. Coding Level of Care Code Acute [employer]ol[employer] Management Technician for [facility] Fwd Exam Detailed Diagnoses Respiratory failure with hypoxia J96.91 Pneumonia due to COVID-19 virus U07.1; J12.89 COPD (chronic obstructive pulmonary disease) J44.9 GEETHA (acute kidney injury) N17.9 Hypertension I10 Hyperkalemia E87.5 Hyponatremia E87.1
[2020-10-04] MEDS: levofloxacin-dextrose 5 % 750 MG/150 ML PREMIX 100 MG IV (18:05)
[2020-10-04] MEDS: enoxaparin 40 mg/0.4 mL Syringe SUBCUT (18:05)
--- NOTE | 2020-10-04 18:47 | PC.NURSE ---
attempted to call report, unknown who is the nurse assigned, states will call back
[2020-10-04] MEDS: FUROsemide 10 mg/mL SDV 4mL 40 MG IVP (19:15)
--- NOTE | 2020-10-04 19:38 | PC.NURSE ---
report given to sung becerra
[2020-10-04 21:46] LABS: Add Urine Microscopic? NO
[2020-10-04 21:58] LABS: Bilirubin Urine Neg (Negative); Blood Urine Neg (Negative); Glucose Urine UA Norm (Normal); Ketones Urine Negative (Negative); Leukocyte Esterase Urine Negative (Negative); Nitrate Urine Negative (Negative); Protein Urine Neg (Negative); Urine Appearance Clear (CLEAR); Urine Color Yellow (Yellow); Urobilinogen Urine Norm (Negative); pH Urine 5 (5-7)
[2020-10-05] VITALS (15 sets, daily range): BP systolic 99–136; BP diastolic 57–75; PULSE 82–93; RESP 17–24; TEMP 36.4–37.1; O2SAT 87–95
[2020-10-05] MEDS: dexamethasone 4 mg/mL INJ 6 MG IVP (06:16)
[2020-10-05] MEDS: enoxaparin 40 mg/0.4 mL Syringe SUBCUT ×2 (06:17→18:48)
[2020-10-05 06:58] LABS: Hemoglobin 12.1 g/dL (11.7-16.6); Lymphocytes # 0.4 10^3/uL (0.8-4.8); Lymphocytes % 6.4 %; Mean Corpuscular HGB Conc 31.8 g/dL (30.0-36.0); Mean Corpuscular Hemoglobin 27.9 pg (28.0-34.0); Mean Corpuscular Volume 87.6 fL (80-94); Mean Platelet Volume 8.7 fL (7.4-10.4); Monocytes # 0.4 10^3/uL (0.2-0.9); Monocytes % 5.9 %; Neutrophils # 5.88 10^3/uL (1.8-7.7); Neutrophils % 87.3 %; Nucleated Red Blood Cells % 0 %; Platelet Count 278 10^3/cmm (130-400); Red Blood Count 4.34 10^6/uL (4.1-5.3); Red Cell Distribution Width 14.4 % (12.1-15.1); White Blood Count 6.7 10^3/uL (4.0-10.0)
[2020-10-05 07:17] LABS: INR 1.17 (0.8-1.2)
[2020-10-05 07:20] LABS: D Dimer 0.66 ug/mIFEU (0-0.59)
[2020-10-05 07:25] LABS: NT Pro B Type Natriuretic Pept 90 pg/mL (0-450); Procalcitonin 0.23 ng/mL (0-0.5); Thyroid Stimulating Hormone 0.66 uIU/mL (0.27-4.20)
[2020-10-05 07:39] LABS: Alanine Aminotransferase 28 U/L (0-41); Albumin Level 2.9 g/dL (3.5-5.2); Alkaline Phosphatase 66 IU/L (40-130); Anion Gap 19.7 (5-19); Aspartate Amino Transferase 37 U/L (0-40); Blood Urea Nitrogen 50 mg/dL (8-23); Calcium 7.6 mg/dL (8.5-10.5); Carbon Dioxide 20 mmol/L (22-29); Chloride 101 mmol/L (98-107); Globulin 3.1 g/dL (1.3-4.6); Glucose 138 mg/dL (65-115); Magnesium 2.5 mg/dL (1.7-2.3); Osmolality Calculated 298 mOsm/kg (285-295); Potassium 4.7 mmol/L (3.5-5.1); Sodium 136 mmol/L (136-145); Total Bilirubin 0.2 mg/dL (0.15-1.2)
[2020-10-05 08:07] LABS: Ferritin 936 ng/mL (30-400)
[2020-10-05 09:02] LABS: Erythrocyte Sedimentation Rate 53 mm/hr (0-10)
[2020-10-05] MEDS: zinc gluconate 50 mg Tablet PO (09:40)
[2020-10-05] MEDS: cetirizine 10 mg Tablet PO (09:40)
[2020-10-05] MEDS: dilTIAZem ER (24HR) 240 mg Capsule PO (09:41)
[2020-10-05] MEDS: ascorbic acid 500 mg Tablet 1000 MG PO ×2 (09:41→18:47)
[2020-10-05] MEDS: lisinopril 20 mg Tablet 40 MG PO (09:41)
[2020-10-05] MEDS: levothyroxine 50 mcg Tablet PO (09:41)
[2020-10-05] MEDS: FUROsemide 10 mg/mL SDV 4mL 40 MG IVP (09:55)
--- NOTE | 2020-10-05 14:47 | PM.PN ---
Subjective Subjective: Interval history: Patient was seen and examined this morning.Was complaining of epigastric discomfort, SOB has improved. Currently on heated high flow oxygen through nasal cannula. 65% FiO2 and 40 L flow. He has remained afebrile, vitals and labs have been reviewed. Medications: Reviewed: Yes Vitals/I&O/Wt Last Vital Signs Temp 98.7 F 10/05/20 12:00 Pulse 89 10/05/20 12:18 Resp 24 H 10/05/20 12:18 BP 136/75 10/05/20 12:00 Pulse Ox 91 10/05/20 12:18 10/04/20 10/05/20 10/05/20 22:59 06:59 14:59 Intake Total 390 / 390 200 / 590 240 / 240 Output Total 1300 / 1300 300 / 1600 Balance -910 / -910 -100 / -1010 240 / 240 Weight last 48 hrs Weight 99.518 kg Weight 100.244 kg Physical Exam Const: COMMON NORMALS: patient oriented x3 HENMT: COMMON NORMALS: normocephalic, atraumatic and external ears normal HEAD & SCALP: normocephalic and atraumatic EXTERNAL EAR: Yes external ears normal Chest: CHEST: Yes Symmetrical chest wall rise Resp: OTHER: Diminished air entry at bases. Cardio: COMMON NORMALS: regular rate, regular rhythm, S1 normal heart sound present, S2 normal heart sound present, No gallops present (Cardio), No murmurs present (Cardio), No rub (Cardio) and Peripheral pulses 2+ throughout RATE: regular rate RHYTHM: regular rhythm HEART SOUNDS: S1 normal heart sound present and S2 normal heart sound present PERIPHERAL PULSES: Peripheral pulses 2+ throughout GI: COMMON NORMALS: Normal to inspection, nondistended, normoactive bowel sounds present, Soft to palpation, non-tender, No hepatosplenomegaly present and no masses AUSCULTATION: Yes normoactive bowel sounds PALPATION: Yes Soft to palpation and Yes No hepatosplenomegaly present RECTAL EXAM: Yes deferred Extremity: COMMON NORMALS: no clubbing, cyanosis or edema and no pedal edema Neuro: COMMON NORMALS: patient oriented x3 Data : 10/05/20 06:16 10/05/20 06:16 Micro: Microbiology 10/04/20 17:27 Blood Culture - Preliminary Blood SPECIMEN COLLECTED 02/19/21 15:44 Blood Culture - Preliminary Blood SPECIMEN COLLECTED A&P Assessment and plan (1) Respiratory failure with hypoxia: Acute hypoxic respiratory failure 2/2 Covid pneumonia. Decadron 6 mg I.V daily for 10 days Remdesivir 200 mg IV x1 dose - > 100 mg IV daily x 4 days Vitamin C 500 mg po daily Zinc 50 mg po daily Nebs Robutasssin DM PRN for cough Levaquin 750 mg IV daily ( 10/04 ) On HHFONC 60 % and 35Ls Lovenox 40 subcu every 12 hours Pro-calcitonin : Ferritin :975 CRP:152 D-dimer: 0.65 C.T chest without contrast : Patchy scattered irregular ground-glass attenuation opacities both centrally and peripherally in both lungs. Mild to moderate diffuse emphysema. Monitor Serial chest x-ray: Monitor ABG: Airborne/droplet precautions Status: Acute Qualifiers: Chronicity: acute Qualified Code(s): J96.01 - Acute respiratory failure with hypoxia (2) Pneumonia due to COVID-19 virus: Status: Acute (3) COPD (chronic obstructive pulmonary disease): Status: Acute (4) GEETHA (acute kidney injury): GEETHA: Versus GEETHA on worsening CKD Baseline serum creatinine: Unknown Admission serum creatinine 1.9 Status: Acute (5) Hypertension: Status: Acute (6) Hyperkalemia: Status: Acute (7) Hyponatremia: Status: Acute Additional A&P Information Code Status: Full code DVT prophylaxis: Lovenox Attestations Medical Necessity Statement*: Patient needs to be in hospital for management of respiratory failure secondary to Covid pna Coding Level of Care Code Acute Crop Roller for [facility] Diagnoses Respiratory failure with hypoxia J96.01 Chronicity: acute Pneumonia due to COVID-19 virus U07.1; J12.89 COPD (chronic obstructive pulmonary disease) J44.9 GEETHA (acute kidney injury) N17.9 Hypertension I10 Hyperkalemia E87.5 Hyponatremia E87.1
[2020-10-05] MEDS: remdesivir 100 MG in sodium chloride 0.9% (100 ml) 100 ML IV (18:50)
[2020-10-05] MEDS: pantoprazole DR 40 mg Tablet PO (22:29)
[2020-10-06] VITALS (17 sets, daily range): BP systolic 93–114; BP diastolic 53–73; PULSE 18–93; RESP 17–80; TEMP 36.9–37.2; O2SAT 88–92
[2020-10-06 05:58] LABS: Basophils % 0.1 %; Hemoglobin 12.4 g/dL (11.7-16.6); Lymphocytes # 0.7 10^3/uL (0.8-4.8); Lymphocytes % 6.9 %; Mean Corpuscular HGB Conc 31.8 g/dL (30.0-36.0); Mean Corpuscular Hemoglobin 28.4 pg (28.0-34.0); Mean Corpuscular Volume 89.4 fL (80-94); Mean Platelet Volume 8.5 fL (7.4-10.4); Monocytes # 0.6 10^3/uL (0.2-0.9); Monocytes % 5.9 %; Neutrophils # 8.83 10^3/uL (1.8-7.7); Neutrophils % 86.4 %; Nucleated Red Blood Cells % 0 %; Platelet Count 326 10^3/cmm (130-400); Red Blood Count 4.36 10^6/uL (4.1-5.3); Red Cell Distribution Width 14.3 % (12.1-15.1); White Blood Count 10.2 10^3/uL (4.0-10.0)
[2020-10-06 06:12] LABS: D Dimer 0.46 ug/mIFEU (0-0.59)
[2020-10-06] MEDS: dexamethasone 4 mg/mL INJ 6 MG IVP (06:13)
[2020-10-06 06:18] LABS: Alanine Aminotransferase 26 U/L (0-41); Albumin Level 2.8 g/dL (3.5-5.2); Alkaline Phosphatase 61 IU/L (40-130); Anion Gap 17.3 (5-19); Aspartate Amino Transferase 29 U/L (0-40); Blood Urea Nitrogen 65 mg/dL (8-23); C Reactive Protein 76.6 mg/L (0.0-4.9); Calcium 7.7 mg/dL (8.5-10.5); Carbon Dioxide 22 mmol/L (22-29); Chloride 101 mmol/L (98-107); Globulin 3.2 g/dL (1.3-4.6); Glucose 156 mg/dL (65-115); Osmolality Calculated 304 mOsm/kg (285-295); Potassium 4.3 mmol/L (3.5-5.1); Sodium 136 mmol/L (136-145); Total Bilirubin 0.2 mg/dL (0.15-1.2)
[2020-10-06 06:43] LABS: Glucose Point of Care 149 mg/dL (70-110)
[2020-10-06] MEDS: enoxaparin 40 mg/0.4 mL Syringe SUBCUT ×2 (06:56→17:05)
[2020-10-06 07:18] LABS: Erythrocyte Sedimentation Rate 72 mm/hr (0-10)
[2020-10-06] MEDS: pantoprazole DR 40 mg Tablet PO (08:44)
[2020-10-06] MEDS: cetirizine 10 mg Tablet PO (08:44)
[2020-10-06] MEDS: levothyroxine 50 mcg Tablet PO (08:44)
[2020-10-06] MEDS: ascorbic acid 500 mg Tablet 1000 MG PO ×2 (08:44→17:05)
[2020-10-06] MEDS: dilTIAZem ER (24HR) 240 mg Capsule PO (08:45)
[2020-10-06] MEDS: zinc gluconate 50 mg Tablet PO (08:45)
[2020-10-06] MEDS: FUROsemide 10 mg/mL SDV 4mL 40 MG IVP (08:56)
[2020-10-06 10:54] LABS: Ferritin 917 ng/mL (30-400)
[2020-10-06 11:23] LABS: Glucose Point of Care 282 mg/dL (70-110)
[2020-10-06 13:42] LABS: Coronavirus Test Green County Detected
[2020-10-06] MEDS: levofloxacin-dextrose 5 % 750 MG/150 ML PREMIX 100 MG IV (17:05)
[2020-10-06 17:17] LABS: Glucose Point of Care 205 mg/dL (70-110)
[2020-10-06] MEDS: remdesivir 100 MG in sodium chloride 0.9% (100 ml) 100 ML IV (18:51)
--- NOTE | 2020-10-06 19:00 | P.PN_ITS ---
Subjective Subjective: Interval history: was seen and examined this morning.His shortness of breath has improved.His supplemental oxygen requirement continues to remain currently he is on heated high flow oxygen through nasal cannula: Fio2: 70 % with 40 L/MIN. He has remained afebrile.Has good urine output. His other Vitals and labs have been reviewed. Medications: Reviewed: Yes Vitals/I&O/Wt Last Vital Signs Temp 98.6 F 10/06/20 15:35 Pulse 77 10/06/20 15:35 Resp 17 10/06/20 15:35 BP 93/57 10/06/20 15:35 Pulse Ox 90 10/06/20 15:35 10/06/20 10/06/20 10/06/20 06:59 14:59 22:59 Intake Total 660 / 1480 240 / 240 290 / 530 Output Total 460 / 660 400 / 400 Balance 200 / 820 -160 / -160 290 / 130 Weight last 48 hrs Weight 89.811 kg Weight 99.518 kg Physical Exam Const: COMMON NORMALS: patient oriented x3 HENMT: COMMON NORMALS: normocephalic, atraumatic and external ears normal HEAD & SCALP: normocephalic and atraumatic EXTERNAL EAR: Yes external ears normal Chest: CHEST: Yes Symmetrical chest wall rise Resp: OTHER: Diminished air entry at bases. Cardio: COMMON NORMALS: regular rate, regular rhythm, S1 normal heart sound present, S2 normal heart sound present, No gallops present (Cardio), No murmurs present (Cardio), No rub (Cardio) and Peripheral pulses 2+ throughout RATE: regular rate RHYTHM: regular rhythm HEART SOUNDS: S1 normal heart sound present and S2 normal heart sound present PERIPHERAL PULSES: Peripheral pulses 2+ throughout GI: COMMON NORMALS: Normal to inspection, nondistended, normoactive bowel sounds present, Soft to palpation, non-tender, No hepatosplenomegaly present and no masses AUSCULTATION: Yes normoactive bowel sounds PALPATION: Yes Soft to palpation and Yes No hepatosplenomegaly present RECTAL EXAM: Yes deferred Extremity: COMMON NORMALS: no clubbing, cyanosis or edema and no pedal edema Neuro: COMMON NORMALS: patient oriented x3 Data : 10/06/20 05:48 10/06/20 05:48 Micro: Microbiology 10/04/20 17:27 Blood Culture - Preliminary Blood NEGATIVE TO DATE 10/04/20 15:44 Blood Culture - Preliminary Blood NEGATIVE TO DATE A&P Assessment and plan (1) Respiratory failure with hypoxia: Acute hypoxic respiratory failure 2/2 Covid pneumonia. Decadron 6 mg I.V daily for 10 days Remdesivir 200 mg IV x1 dose - > 100 mg IV daily x 4 days Vitamin C 500 mg po daily Zinc 50 mg po daily Nebs Robutasssin DM PRN for cough Levaquin 750 mg IV daily ( 10/04 ) On HHFONC 70 % and 40Ls Lovenox 40 subcu every 12 hours Lasix 40 i.v Daily Pro-calcitonin :0.23 Ferritin :975 CRP:152 D-dimer: 0.65---> 0.66--> 0.46 C.T chest without contrast : Patchy scattered irregular ground-glass attenuation opacities both centrally and peripherally in both lungs. Mild to moderate diffuse emphysema. Monitor Serial chest x-ray: Monitor ABG: Airborne/droplet precautions Status: Acute Qualifiers: Chronicity: acute Qualified Code(s): J96.01 - Acute respiratory failure with hypoxia (2) Pneumonia due to COVID-19 virus: Status: Acute (3) COPD (chronic obstructive pulmonary disease): Status: Acute (4) GEETHA (acute kidney injury): GEETHA: Versus GEETHA on worsening CKD Baseline serum creatinine: Unknown Admission serum creatinine 1.9 Status: Acute (5) Hypertension: B/P Well controlled Status: Acute (6) Hyperkalemia: Resolved Status: Acute (7) Hyponatremia: Resolved Status: Acute Additional A&P Information Code Status: Full code DVT prophylaxis: Lovenox Attestations Medical Necessity Statement*: Patient needs to be in hospital for the management of R/F 2/2 COVID PNA Coding Level of Care Code Acute Maintenance Craftsman for [facility] Fwd Diagnoses Respiratory failure with hypoxia J96.01 Chronicity: acute Pneumonia due to COVID-19 virus U07.1; J12.89 COPD (chronic obstructive pulmonary disease) J44.9 GEETHA (acute kidney injury) N17.9 Hypertension I10 Hyperkalemia E87.5 Hyponatremia E87.1
[2020-10-07] VITALS (36 sets, daily range): BP systolic 91–123; BP diastolic 55–76; PULSE 72–139; RESP 16–34; TEMP 36.3–37.2; O2SAT 82–94; BMI 31.1
[2020-10-07 02:53] LABS: ABG PCO2 32.1 mmHg (35-45); ABG PH Result 7.43 (7.35-7.45); Arterial Blood Gas Hematocrit 38.5 % (42-52); Base Excess ABG -2.2 mmol/L (-2.0-2.0); Blood Gas Allen Test Pos; Blood Gas Sample Site Radial, left; Blood Gas Sample Type Arterial; Carboxyhemoglobin 0.6 %THgb (0.4-20.1); HCO3 ABG 21.4 mmol/L (22-26); HGB O2 Sat 90.5 % (95-100); Ionized Calcium Level - ABG 1.1 mmol/L (1.1-1.4); Methemoglobin 0.8 % (0.4-1.5); Oxygen Device NC; Oxygen Saturation ABG 91.8; PO2 ABG 57.9 mmHg (80.0-100.0); Potassium Level - ABG 4.2 mmol/L (3.5-5.0); Total Hemoglobin 12.6 g/dL (14-18)
[2020-10-07 05:19] LABS: Basophils % 0.1 %; Hematocrit 37.1 % (42.0-52.0); Lymphocytes # 0.8 10^3/uL (0.8-4.8); Lymphocytes % 6.9 %; Mean Corpuscular HGB Conc 32.3 g/dL (30.0-36.0); Mean Corpuscular Hemoglobin 28.5 pg (28.0-34.0); Mean Corpuscular Volume 88.1 fL (80-94); Mean Platelet Volume 8.8 fL (7.4-10.4); Monocytes # 0.6 10^3/uL (0.2-0.9); Monocytes % 5.4 %; Neutrophils # 9.45 10^3/uL (1.8-7.7); Nucleated Red Blood Cells % 0 %; Platelet Count 351 10^3/cmm (130-400); Red Blood Count 4.21 10^6/uL (4.1-5.3); Red Cell Distribution Width 14.2 % (12.1-15.1); White Blood Count 10.9 10^3/uL (4.0-10.0)
[2020-10-07 05:27] LABS: D Dimer <= 0.27 ug/mIFEU (0-0.59)
[2020-10-07 05:32] LABS: Alanine Aminotransferase 25 U/L (0-41); Albumin Level 2.9 g/dL (3.5-5.2); Alkaline Phosphatase 59 IU/L (40-130); Anion Gap 18.5 (5-19); Aspartate Amino Transferase 23 U/L (0-40); Blood Urea Nitrogen 70 mg/dL (8-23); C Reactive Protein 36.4 mg/L (0.0-4.9); Calcium 7.6 mg/dL (8.5-10.5); Carbon Dioxide 21 mmol/L (22-29); Chloride 98 mmol/L (98-107); Globulin 3.1 g/dL (1.3-4.6); Glucose 157 mg/dL (65-115); Osmolality Calculated 300 mOsm/kg (285-295); Potassium 4.5 mmol/L (3.5-5.1); Sodium 133 mmol/L (136-145); Total Bilirubin 0.2 mg/dL (0.15-1.2)
[2020-10-07] MEDS: enoxaparin 40 mg/0.4 mL Syringe SUBCUT ×2 (05:37→17:56)
--- NOTE | 2020-10-07 06:00 | XR_ITS ---
WS: [id number] Exam: XR chest 1V portable [id number] Date/Time of Exam: 10/07/2020 6:20 AM Reason For Exam: PNA Comparison 10/04/2020. Again noted are scattered patchy airspace densities in both lungs which show no change. This could re present active pneumonia or chronic pulmonary disease. Plaque atelectasis in the left base is stable. Normal heart size. No pleural effusions or pneumothorax. The mediastinum is not widened. Monitoring leads superimpose the chest. XR/XR chest 1V portable [id number] IMPRESSION: 1. Patchy airspace densities noted in both lungs showing no change. This may re present active pneumonia or chronic pulmonary disease.
[2020-10-07 06:07] LABS: Erythrocyte Sedimentation Rate 68 mm/hr (0-10)
[2020-10-07] MEDS: dexamethasone 4 mg/mL INJ 6 MG IVP (06:59)
[2020-10-07] MEDS: cetirizine 10 mg Tablet PO (07:46)
[2020-10-07] MEDS: levothyroxine 50 mcg Tablet PO (07:47)
[2020-10-07] MEDS: dilTIAZem ER (24HR) 240 mg Capsule PO (07:48)
[2020-10-07 07:52] LABS: Ferritin 848 ng/mL (30-400)
[2020-10-07] MEDS: pantoprazole DR 40 mg Tablet PO (08:01)
[2020-10-07] MEDS: ascorbic acid 500 mg Tablet 1000 MG PO ×2 (08:01→17:57)
[2020-10-07] MEDS: zinc gluconate 50 mg Tablet PO (08:01)
[2020-10-07] MEDS: FUROsemide 10 mg/mL SDV 4mL 40 MG IVP (08:01)
--- NOTE | 2020-10-07 08:57 | PC.SOCIAL ---
IMM Update storage center manager gave IMM update to patient via phone. He understood. 10/07/20 @ 8:50am Initialed, dated, timed and placed in chart.
--- NOTE | 2020-10-07 17:53 | PM.PN ---
Subjective Subjective: Interval history: 02 sat 87-88% on 70% fi02 40lpm Medications: Reviewed: Yes Vitals/I&O/Wt Last Vital Signs Temp 98.9 F 10/07/20 10:44 Pulse 78 10/07/20 15:23 Resp 20 H 10/07/20 15:22 BP 113/59 10/07/20 10:44 Pulse Ox 92 10/07/20 15:22 10/07/20 10/07/20 10/07/20 06:59 14:59 22:59 Intake Total 100 / 630 720 / 720 Output Total 640 / 1340 200 / 200 Balance -540 / -710 520 / 520 Weight last 48 hrs Weight 95.821 kg Weight 89.811 kg Physical Exam Narrative: EXAM NARRATIVE: GEN: Awake, alert and oriented, no acute distress CVS: S1S2 N RS: CTA B/L Abd: Soft, nt/nd , bs+ MIRROR MAKER: no focal neuro deficits Data : 10/07/20 04:53 10/07/20 04:53 A&P Assessment and plan (1) Respiratory failure with hypoxia: Acute hypoxic respiratory failure 2/2 Covid pneumonia. Decadron 6 mg I.V daily for 10 days Remdesivir 200 mg IV x1 dose - > 100 mg IV daily x 4 days Vitamin C 500 mg po daily Zinc 50 mg po daily Nebs Robutasssin DM PRN for cough Levaquin 750 mg IV daily ( 10/04 ) On HHFONC 70 % and 40Ls Lovenox 40 subcu every 12 hours Lasix 40 i.v Daily Pro-calcitonin :0.23 Ferritin :975 CRP:152 D-dimer: 0.65---> 0.66--> 0.46 C.T chest without contrast : Patchy scattered irregular ground-glass attenuation opacities both centrally and peripherally in both lungs. Mild to moderate diffuse emphysema. Monitor Serial chest x-ray: Monitor ABG: Airborne/droplet precautions Status: Acute Qualifiers: Chronicity: acute Qualified Code(s): J96.01 - Acute respiratory failure with hypoxia (2) Pneumonia due to COVID-19 virus: Status: Acute (3) COPD (chronic obstructive pulmonary disease): Status: Acute (4) GEETHA (acute kidney injury): GEETHA: Versus GEETHA on worsening CKD Baseline serum creatinine: Unknown Admission serum creatinine 1.9 Status: Acute (5) Hypertension: B/P Well controlled Status: Acute (6) Hyperkalemia: Resolved Status: Acute (7) Hyponatremia: Resolved Status: Acute Additional A&P Information Code Status: Full code DVT prophylaxis: Lovenox Attestations Medical Necessity Statement*: move to ICU for increasing 02 requirements, closely monitor, may need to proceed to intubation Coding Level of Care Code Acute Visiting Nurse for [facility] Fwd Diagnoses Respiratory failure with hypoxia J96.01 Chronicity: acute Pneumonia due to COVID-19 virus U07.1; J12.89 COPD (chronic obstructive pulmonary disease) J44.9 GEETHA (acute kidney injury) N17.9 Hypertension I10 Hyperkalemia E87.5 Hyponatremia E87.1
--- NOTE | 2020-10-07 17:57 | PC.RESP ---
Pulmonary Rehab information sent to patient.
[2020-10-07] MEDS: remdesivir 100 MG in sodium chloride 0.9% (100 ml) 100 ML IV (18:45)
[2020-10-08] VITALS (42 sets, daily range): BP systolic 100–143; BP diastolic 56–108; PULSE 73–103; RESP 16–34; TEMP 36.8–37.3; O2SAT 70–91
[2020-10-08 05:37] LABS: Basophils % 0.2 %; Hematocrit 41.3 % (42.0-52.0); Hemoglobin 12.9 g/dL (11.7-16.6); Lymphocytes # 0.6 10^3/uL (0.8-4.8); Mean Corpuscular HGB Conc 31.2 g/dL (30.0-36.0); Mean Corpuscular Hemoglobin 28.3 pg (28.0-34.0); Mean Corpuscular Volume 90.6 fL (80-94); Mean Platelet Volume 8.6 fL (7.4-10.4); Monocytes # 0.5 10^3/uL (0.2-0.9); Monocytes % 4.3 %; Neutrophils # 9.83 10^3/uL (1.8-7.7); Neutrophils % 89.6 %; Nucleated Red Blood Cells % 0 %; Platelet Count 386 10^3/cmm (130-400); Red Blood Count 4.56 10^6/uL (4.1-5.3); Red Cell Distribution Width 14.2 % (12.1-15.1)
[2020-10-08 06:07] LABS: Alanine Aminotransferase 26 U/L (0-41); Albumin Level 2.9 g/dL (3.5-5.2); Alkaline Phosphatase 83 IU/L (40-130); Anion Gap 15.6 (5-19); Aspartate Amino Transferase 24 U/L (0-40); Blood Urea Nitrogen 61 mg/dL (8-23); Calcium 8.3 mg/dL (8.5-10.5); Carbon Dioxide 23 mmol/L (22-29); Chloride 103 mmol/L (98-107); Globulin 3.2 g/dL (1.3-4.6); Glucose 173 mg/dL (65-115); Osmolality Calculated 305 mOsm/kg (285-295); Potassium 4.6 mmol/L (3.5-5.1); Sodium 137 mmol/L (136-145); Total Bilirubin 0.3 mg/dL (0.15-1.2); Total Protein 6.1 g/dL (6.6-8.7)
[2020-10-08] MEDS: dexamethasone 4 mg/mL INJ 6 MG IVP (06:30)
[2020-10-08] MEDS: enoxaparin 40 mg/0.4 mL Syringe SUBCUT ×2 (06:31→18:56)
[2020-10-08 06:49] LABS: Procalcitonin 0.08 ng/mL (0-0.5)
[2020-10-08 07:01] LABS: C Reactive Protein 25.9 mg/L (0.0-4.9)
[2020-10-08] MEDS: FUROsemide 10 mg/mL SDV 4mL 40 MG IVP (09:35)
[2020-10-08] MEDS: zinc gluconate 50 mg Tablet PO (09:35)
[2020-10-08] MEDS: ascorbic acid 500 mg Tablet 1000 MG PO ×2 (09:35→18:56)
--- NOTE | 2020-10-08 09:35 | PC.CHAP ---
Pastoral Care Encounter/Spiritual Assessment Type of Contact [] Declined director of safety visit [] Patient/Family/Request visit [] Outpatient visit [] Follow-up visit [] Physician referral [] Code/Alert [x] Routine visit [] Staff referral [] Actively dying [] Patient sleeping [] Family support [] [] Out of room [] Palliative care [] [] Receiving care in room [] Pre-surgical visit [] Trauma [] Long length of stay [x] ICU visit [] Other: Relational/Emotional Strength [] Patient feels connected with others/family/visitors/staff [] Distress [] Loneliness/isolation [] Abandonment Spirituality of Patient [] Person of Allie [] Attends Hindu of their Allie [] Believes in Prayer [] Reads Bible or Spiritism materials [] There are Spiritual issues to be addressed Operations Intelligence Interventions [x] Prayer [] Active listening [] Non-anxious presence [] Spiritual/emotional support [] Crisis/trauma care [] Spiritual counseling [] Bereavement support [] Provided bereavement packet [] Provided Bible/devotional materials [] Provided toy/stuffed animal, coloring book to patient or family member [] Provided Communion [] Anointing/[place] [] Salvation [x] Completed spiritual assessment [] Other: Impact on Illness or Injury [] Angry [] Fearful [] Anxious [] Often cries [] Exhaustion [] Unable to work [] Unable to attend jain [] Unable to walk/stand [] Unable to read [] Unable to drive [] Unable to eat/drink [] Unable to sleep [] Unable to be with family [] Patient intubated [] Other: Summary Time spent with patient
[2020-10-08] MEDS: dilTIAZem ER (24HR) 240 mg Capsule PO (09:36)
[2020-10-08] MEDS: levothyroxine 50 mcg Tablet PO (09:36)
[2020-10-08] MEDS: cetirizine 10 mg Tablet PO (09:36)
[2020-10-08] MEDS: pantoprazole DR 40 mg Tablet PO (09:36)
--- NOTE | 2020-10-08 15:50 | P.PN_ITS ---
Subjective Subjective: Interval history: feels subjective improvement today, less dyspnea, fi02 65% @ 40lpm today, ambulating in the room Medications: Reviewed: Yes Vitals/I&O/Wt Last Vital Signs Temp 98.5 F 10/08/20 04:00 Pulse 88 10/08/20 12:54 Resp 18 10/08/20 12:50 BP 143/108 10/08/20 12:00 Pulse Ox 90 10/08/20 12:50 10/08/20 10/08/20 10/08/20 06:59 14:59 22:59 Intake Total 250 / 1540 240 / 240 Output Total 550 / 1300 550 / 550 Balance -300 / 240 -310 / -310 Weight last 48 hrs Weight 95.831 g Weight 95.821 kg Physical Exam Narrative: EXAM NARRATIVE: GEN: Awake, alert and oriented, no acute distress HEENT: heated hi flow NC in place CVS: S1S2 N RS: Fine crackles at B/L lung bases Abd: Soft, nt/nd , bs+ SEMICONDUCTOR WAFERS SAW OPERATOR: no focal neuro deficits Data : 10/08/20 05:00 10/08/20 05:00 A&P Assessment and plan (1) Respiratory failure with hypoxia: Acute hypoxic respiratory failure 09/17 Covid pneumonia. Decadron 6 mg I.V daily for 10 days Remdesivir 200 mg IV x1 dose - > 100 mg IV daily x 4 days started 10/04- Vitamin C 500 mg po daily Zinc 50 mg po daily Nebs Robutasssin DM PRN for cough Levaquin 750 mg IV daily ( 10/04 - ) On HHFONC 65% % and 40Ls Lovenox 40 subcu every 12 hours Lasix 40 i.v Daily Pro-calcitonin :0.23 --> 0.08 Ferritin :975 CRP:152 --> 25.9 D-dimer: 0.65---> 0.66--> 0.46 C.T chest without contrast : Patchy scattered irregular ground-glass attenuation opacities both centrally and peripherally in both lungs. Mild to moderate diffuse emphysema. Monitor Serial chest x-ray: stable on 10/07 Monitor ABG: Airborne/droplet precautions Status: Acute Qualifiers: Chronicity: acute Qualified Code(s): J96.01 - Acute respiratory failure with hypoxia (2) Pneumonia due to COVID-19 virus: Status: Acute (3) COPD (chronic obstructive pulmonary disease): Status: Acute (4) GEETHA (acute kidney injury): GEETHA: Versus GEETHA on worsening CKD Baseline serum creatinine: Unknown Admission serum creatinine 1.9, now improved at 1.6 Status: Acute (5) Hypertension: B/P Well controlled Status: Acute (6) Hyperkalemia: Resolved Status: Acute (7) Hyponatremia: Resolved Status: Acute Additional A&P Information Code Status: Full code DVT prophylaxis: Lovenox Inflammtory markers trending down, CXR stable 10/07, high fi02 requirements thouh symptomatically feel sbetter, continue to closely monitor in the ICU Attestations Medical Necessity Statement*: hypoxic respiratory failure 09/17 COVID ARDS , monitor closely in the ICU Critical Care Time: The high probability of a clinically significant, sudden or life threatening deterioration of the patient's [respiratory] system(s) required my full and direct attention, intervention and personal management. The critical care time is as shown. This time is in addition to time spent performing any reported procedures but includes the following: [x] Data and vital sign review and interpretation [x] Patient assessment, examination and intervention [x] Documentation [x] Medication orders and management Critical Care Time (min): 35 Coding Level of Care Code Acute Watch Engineer for [facility] Fwd Diagnoses Respiratory failure with hypoxia J96.01 Chronicity: acute Pneumonia due to COVID-19 virus U07.1; J12.89 COPD (chronic obstructive pulmonary disease) J44.9 GEETHA (acute kidney injury) N17.9 Hypertension I10 Hyperkalemia E87.5 Hyponatremia E87.1
[2020-10-08] MEDS: remdesivir 100 MG in sodium chloride 0.9% (100 ml) 100 ML 300 MG IV (18:56)
[2020-10-08] MEDS: levofloxacin-dextrose 5 % 750 MG/150 ML PREMIX 150 MG IV (18:56)
[2020-10-08] MEDS: acetaminophen 325 mg Tablet 650 MG PO (21:48)
[2020-10-09] VITALS (33 sets, daily range): BP systolic 95–141; BP diastolic 60–80; PULSE 77–127; RESP 17–35; TEMP 36.7–37.2; O2SAT 75–95
[2020-10-09] MEDS: dexamethasone 4 mg/mL INJ 6 MG IVP (06:03)
[2020-10-09] MEDS: enoxaparin 40 mg/0.4 mL Syringe SUBCUT ×2 (06:03→18:26)
--- NOTE | 2020-10-09 09:19 | PC.CHAP ---
Pastoral Care Encounter/Spiritual Assessment Type of Contact [] Declined expert witness visit [] Patient/Family/Request visit [] Outpatient visit [] Follow-up visit [] Physician referral [] Code/Alert [x] Routine visit [] Staff referral [] Actively dying [] Patient sleeping [] Family support [] [] Out of room [] Palliative care [] [] Receiving care in room [] Pre-surgical visit [] Trauma [] Long length of stay [x] ICU visit [] Other: Relational/Emotional Strength [] Patient feels connected with others/family/visitors/staff [] Distress [] Loneliness/isolation [] Abandonment Spirituality of Patient [] Person of Allie [] Attends Mormon of their Allie [] Believes in Prayer [] Reads Bible or Jew materials [] There are Spiritual issues to be addressed Certified Wellness Program Coordinator Interventions [x] Prayer [] Active listening [] Non-anxious presence [] Spiritual/emotional support [] Crisis/trauma care [] Spiritual counseling [] Bereavement support [] Provided bereavement packet [] Provided Bible/devotional materials [] Provided toy/stuffed animal, coloring book to patient or family member [] Provided Communion [] Anointing/Welcome [] Salvation [x] Completed spiritual assessment [] Other: Impact on Illness or Injury [] Angry [] Fearful [] Anxious [] Often cries [] Exhaustion [] Unable to work [] Unable to attend gnosticist [] Unable to walk/stand [] Unable to read [] Unable to drive [] Unable to eat/drink [] Unable to sleep [] Unable to be with family [] Patient intubated [] Other: Summary Time spent with patient
[2020-10-09] MEDS: ascorbic acid 500 mg Tablet 1000 MG PO ×2 (11:13→18:26)
[2020-10-09] MEDS: zinc gluconate 50 mg Tablet PO (11:13)
[2020-10-09] MEDS: dilTIAZem ER (24HR) 240 mg Capsule PO (11:14)
[2020-10-09] MEDS: pantoprazole DR 40 mg Tablet PO (11:14)
[2020-10-09] MEDS: cetirizine 10 mg Tablet PO (11:14)
[2020-10-09] MEDS: levothyroxine 50 mcg Tablet PO (11:14)
[2020-10-09] MEDS: FUROsemide 10 mg/mL SDV 4mL 40 MG IVP (11:14)
--- NOTE | 2020-10-09 17:00 | ECG_ITS ---
[facility] Test Date: 2020-10-09 Pat Name: Abdiel Duran Department: Room: [facility] Gender: Male Lawyers: : 1945 Requested By: Maggie Cook Order Number: [id number] Reading MD: SHANAE OSORIO Measurements Intervals [place] Rate: 95 P: SD: QRS: -17 QRSD: 99 T: 65 QT: 326 QTc: 411 Interpretive Statements ATRIAL FIBRILLATION ABNORMAL RHYTHM ECG Compared to ECG 10/04/2020 15:42:17 T-wave abnormality no longer present Electronically Signed On 10-09-2020 20:08:22 OUTSIDE UPHOLSTERER by SHANAE OSORIO [id number]
--- NOTE | 2020-10-09 20:05 | ECG_ITS ---
[facility] Test Date: 2020-10-09 Pat Name: Abdiel Duran Department: Room: [facility] Gender: Male [employer] Advanced Operator Maintainer: : 1945 Requested By: Maggie Cook Order Number: [id number] Ernestina MD: Lupe Du M.D. Measurements Intervals [place] Rate: 102 P: MN: QRS: -15 QRSD: 106 T: 77 QT: 336 QTc: 438 Interpretive Statements Multifocal atrial tachycardia ABNORMAL RHYTHM ECG Compared to ECG 10/09/2020 17:18:28 No significant changes Electronically Signed On 10-10-2020 20:09:44 MOTORBOAT MECHANIC HELPER by Lupe Du M.D. [email or web address]
[2020-10-10] VITALS (34 sets, daily range): BP systolic 100–135; BP diastolic 58–82; PULSE 71–113; RESP 13–28; TEMP 36.9–37.2; O2SAT 77–94
[2020-10-10] MEDS: dexamethasone 4 mg/mL INJ 6 MG IVP (06:00)
[2020-10-10] MEDS: enoxaparin 40 mg/0.4 mL Syringe SUBCUT (06:00)
[2020-10-10] MEDS: levothyroxine 50 mcg Tablet PO (07:44)
[2020-10-10] MEDS: cetirizine 10 mg Tablet PO (07:44)
[2020-10-10] MEDS: dilTIAZem ER (24HR) 240 mg Capsule PO (07:44)
[2020-10-10] MEDS: FUROsemide 10 mg/mL SDV 4mL 40 MG IVP (08:55)
[2020-10-10] MEDS: pantoprazole DR 40 mg Tablet PO (08:55)
[2020-10-10] MEDS: ascorbic acid 500 mg Tablet 1000 MG PO ×2 (08:55→17:57)
[2020-10-10] MEDS: zinc gluconate 50 mg Tablet PO (08:55)
--- NOTE | 2020-10-10 10:43 | PC.NURSE ---
Nurse assisted patient with bedside exercises. Stood at bed side and walked in place. Nurse changed linens and gown while patient was up, and ordered efferdent for dental care.
[2020-10-10] MEDS: efferdent effervescent 1 EACH DENTAL (11:37)
--- NOTE | 2020-10-10 13:14 | PC.NURSE ---
NUrse encouraged patient to do some exercises again. Suggested standing and walking in place, but patient said he is very tired. WOuld like to try agian later.
[2020-10-10] MEDS: levofloxacin-dextrose 5 % 750 MG/150 ML PREMIX 100 MG IV (17:57)
[2020-10-10] MEDS: acetaminophen 325 mg Tablet 650 MG PO (18:08)
[2020-10-10] MEDS: apixaban 5 mg Tablet PO (20:02)
--- NOTE | 2020-10-10 20:51 | PC.NURSE ---
ASSUMING CARE Patient resting in chair watching tv on F[employer] on 45L and 55%. Levaquin running. Patient is alert and oriented x 4 and denies any needs at this time. Call light in reach.
--- NOTE | 2020-10-10 21:32 | PM.PN ---
Subjective Subjective: Interval history: States feeling subjectively improved, however continues to be on 60% FiO2 at 40 L/min. Noted to be desaturating down to early 80s with minimal ambulation today. Denies any chest pain. Atrial fibrillation noted, anticoagulation started. Medications: Reviewed: Yes Vitals/I&O/Wt Last Vital Signs Temp 98.8 F 10/10/20 20:00 Pulse 91 10/10/20 20:25 Resp 19 H 10/10/20 20:23 BP 135/69 10/10/20 20:00 Pulse Ox 91 10/10/20 20:23 10/10/20 10/10/20 10/10/20 06:59 14:59 22:59 Intake Total 150 / 1760 600 / 600 390 / 990 Output Total 250 / 1950 1125 / 1125 250 / 1375 Balance -100 / -190 -525 / -525 140 / -385 Weight last 48 hrs Weight 95.913 kg Weight 95.824 g Physical Exam Narrative: EXAM NARRATIVE: GEN: Awake, alert and oriented, no acute distress HEENT: heated hi flow NC in place CVS: S1S2 N RS: Fine crackles at B/L lung bases Abd: Soft, nt/nd , bs+ SLUDGE CONTROL ATTENDANT: no focal neuro deficits Data : 10/08/20 05:00 10/08/20 05:00 Micro: Microbiology 10/04/20 17:27 Blood Culture - Final Blood NO GROWTH AFTER 5 DAYS 10/04/20 15:44 Blood Culture - Final Blood NO GROWTH AFTER 5 DAYS A&P Assessment and plan (1) Respiratory failure with hypoxia: Acute hypoxic respiratory failure 2/2 Covid pneumonia. Decadron 6 mg I.V daily for 10 days Remdesivir 200 mg IV x1 dose - > 100 mg IV daily x 4 days; 10/04-10/08 Vitamin C 500 mg po daily Zinc 50 mg po daily Nebs Robutasssin DM PRN for cough Levaquin 750 mg IV daily ( 10/04 - ) On HHFONC 65% % and 40Ls Lovenox 40 subcu every 12 hours Lasix 40 i.v Daily Pro-calcitonin :0.23 --> 0.08 Ferritin :975 CRP:152 --> 25.9 D-dimer: 0.65---> 0.66--> 0.46 C.T chest without contrast : Patchy scattered irregular ground-glass attenuation opacities both centrally and peripherally in both lungs. Mild to moderate diffuse emphysema. Monitor Serial chest x-ray: stable on 10/07 Monitor ABG: Airborne/droplet precautions Status: Acute Qualifiers: Chronicity: acute Qualified Code(s): J96.01 - Acute respiratory failure with hypoxia (2) Pneumonia due to COVID-19 virus: Status: Acute (3) COPD (chronic obstructive pulmonary disease): Status: Acute (4) GEETHA (acute kidney injury): GEETHA: Versus GEETHA on worsening CKD Baseline serum creatinine: Unknown Admission serum creatinine 1.9, now improved at 1.6 Status: Acute (5) Hypertension: B/P Well controlled Status: Acute (6) Hyperkalemia: Resolved Status: Acute (7) Hyponatremia: Resolved Status: Acute (8) Atrial fibrillation: currently rate controlled started eliquis 5mg po BID Status: Acute Additional A&P Information Code Status: Full code DVT prophylaxis: Lovenox Continues to have high fi02 requirements, desaturates with minimal exertion in room, closely monitor in ICU Dispo: LTAC vs home if able to be weaned off Hi flow Date of positive test : 10/04/20 Attestations Medical Necessity Statement*: respiratory failure 2/2 COVID, needs close monitoring Coding Level of Care Code Acute Editor & Co Founder for [facility] Fwd Diagnoses Respiratory failure with hypoxia J96.01 Chronicity: acute Pneumonia due to COVID-19 virus U07.1; J12.89 COPD (chronic obstructive pulmonary disease) J44.9 GEETHA (acute kidney injury) N17.9 Hypertension I10 Hyperkalemia E87.5 Hyponatremia E87.1 Atrial fibrillation I48.91
[2020-10-11] VITALS (34 sets, daily range): BP systolic 100–143; BP diastolic 57–85; PULSE 72–106; RESP 16–29; TEMP 36.6–37.1; O2SAT 79–91
--- NOTE | 2020-10-11 01:14 | PC.NURSE ---
DESATURATION Patients oxygen saturation noted to be decreasing, but patient does not appear to be in respiratory distress or short of breath. Respiratory notified and changed cannula. Patients oxygen has been greater than 90% since cannula changed.
--- NOTE | 2020-10-11 04:00 | XR_ITS ---
WS: [id number] Exam: XR chest 1V portable [id number] Date/Time of Exam: 10/11/2020 5:09 AM Reason For Exam: f/up infiltrates Comparison 10/07/2020. Some increase in infiltrate and atelectasis in the right lower lung zone since prior study. Left basa l pulmonary infiltrates have improved. Normal heart size. The mediastinum is not widened. Monitoring leads superimpose the chest. Advanced degenerative changes of both shoulders. XR/XR chest 1V portable [id number] IMPRESSION: 1. Some increase in infiltrate and atelectasis in the right lower lung zone sin ce prior study. Left basal infiltrates show improvement. No other change.
[2020-10-11 04:39] LABS: Basophils % 0.1 %; Eosinophils % 0.3 %; Hemoglobin 13.5 g/dL (11.7-16.6); Lymphocytes # 0.6 10^3/uL (0.8-4.8); Lymphocytes % 4.7 %; Mean Corpuscular HGB Conc 32.1 g/dL (30.0-36.0); Mean Platelet Volume 8.7 fL (7.4-10.4); Monocytes # 0.4 10^3/uL (0.2-0.9); Monocytes % 3.6 %; Neutrophils # 10.48 10^3/uL (1.8-7.7); Neutrophils % 90.1 %; Nucleated Red Blood Cells % 0 %; Platelet Count 519 10^3/cmm (130-400); Red Blood Count 4.83 10^6/uL (4.1-5.3); Red Cell Distribution Width 13.5 % (12.1-15.1); White Blood Count 11.6 10^3/uL (4.0-10.0)
[2020-10-11 04:56] LABS: Alanine Aminotransferase 27 U/L (0-41); Albumin Level 2.9 g/dL (3.5-5.2); Alkaline Phosphatase 70 IU/L (40-130); Anion Gap 14.9 (5-19); Aspartate Amino Transferase 14 U/L (0-40); Blood Urea Nitrogen 52 mg/dL (8-23); Calcium 8.3 mg/dL (8.5-10.5); Carbon Dioxide 26 mmol/L (22-29); Chloride 98 mmol/L (98-107); Globulin 3.6 g/dL (1.3-4.6); Glucose 183 mg/dL (65-115); Osmolality Calculated 297 mOsm/kg (285-295); Potassium 4.9 mmol/L (3.5-5.1); Sodium 134 mmol/L (136-145); Total Bilirubin 0.6 mg/dL (0.15-1.2); Total Protein 6.5 g/dL (6.6-8.7)
[2020-10-11] MEDS: dexamethasone 4 mg/mL INJ 6 MG IVP (06:12)
--- NOTE | 2020-10-11 06:25 | PC.NURSE ---
SHIFT SUMMARY Patient has been in chair this shift and alert and oriented x 4. Patient had 475 mL of bright yellow urine output. No PRN medications given and no complaints of pain. Afebrile. HHFNC this shift at 45L and 55%. See previous desaturation note.
[2020-10-11] MEDS: pantoprazole DR 40 mg Tablet PO (08:25)
[2020-10-11] MEDS: dilTIAZem ER (24HR) 240 mg Capsule PO (08:34)
[2020-10-11] MEDS: levothyroxine 50 mcg Tablet PO (08:34)
[2020-10-11] MEDS: ascorbic acid 500 mg Tablet 1000 MG PO ×2 (08:35→17:19)
[2020-10-11] MEDS: FUROsemide 10 mg/mL SDV 4mL 40 MG IVP (08:35)
[2020-10-11] MEDS: apixaban 5 mg Tablet PO ×2 (08:35→21:32)
[2020-10-11] MEDS: zinc gluconate 50 mg Tablet PO (08:35)
[2020-10-11] MEDS: cetirizine 10 mg Tablet PO (08:35)
--- NOTE | 2020-10-11 10:17 | PC.CHAP ---
Pastoral Care Encounter/Spiritual Assessment Type of Contact [] Declined stamping die maker bench visit [] Patient/Family/Request visit [] Outpatient visit [] Follow-up visit [] Physician referral [] Code/Alert [x] Routine visit [] Staff referral [] Actively dying [] Patient sleeping [] Family support [] [] Out of room [] Palliative care [] [] Receiving care in room [] Pre-surgical visit [] Trauma [] Long length of stay [x] ICU visit [] Other: Relational/Emotional Strength [] Patient feels connected with others/family/visitors/staff [] Distress [] Loneliness/isolation [] Abandonment Spirituality of Patient [] Person of Allie [] Attends Yarsani of their Allie [] Believes in Prayer [] Reads Bible or Sabianism materials [] There are Spiritual issues to be addressed Spot Facer Interventions [x] Prayer [] Active listening [] Non-anxious presence [] Spiritual/emotional support [] Crisis/trauma care [] Spiritual counseling [] Bereavement support [] Provided bereavement packet [] Provided Bible/devotional materials [] Provided toy/stuffed animal, coloring book to patient or family member [] Provided Communion [] Anointing/[place] [] Salvation [x] Completed spiritual assessment [] Other: Impact on Illness or Injury [] Angry [] Fearful [] Anxious [] Often cries [] Exhaustion [] Unable to work [] Unable to attend yarsanism [] Unable to walk/stand [] Unable to read [] Unable to drive [] Unable to eat/drink [] Unable to sleep [] Unable to be with family [] Patient intubated [] Other: Summary Time spent with patient
[2020-10-11] MEDS: ondansetron 2 mg/ML SDV 2 mL 4 MG IVP (14:07)
--- NOTE | 2020-10-11 17:53 | PC.NURSE ---
Dr Viera rounded at 1700, discussed with patient about [facility], waiting results from [facility] Recieved [facility] results from [facility] at 1730, COVID positive test was on the 03 of October, plan to send patient to [facility] Wednesday.
[2020-10-11] MEDS: levofloxacin-dextrose 5 % 750 MG/150 ML PREMIX 100 MG IV (17:56)
--- NOTE | 2020-10-11 18:36 | P.PN_ITS ---
Subjective Subjective: Interval history: Saturating between 87 to 91%. Currently on heated high flow 65% FiO2 at 40 L/min. Patient reports feeling unchanged, however does appear more fatigued compared to previous exams. Reports today that he had tested positive for Covid at the [facility] on October 03, 2020. Medications: Reviewed: Yes Vitals/I&O/Wt Last Vital Signs Temp 98.8 F 10/11/20 16:00 Pulse 86 10/11/20 17:00 Resp 28 H 10/11/20 17:00 BP 105/65 10/11/20 17:00 Pulse Ox 84 L 10/11/20 17:00 10/11/20 10/11/20 10/11/20 06:59 14:59 22:59 Intake Total 590 / 590 350 / 940 Output Total 200 / 1850 1200 / 1200 200 / 1400 Balance -200 / -860 -610 / -610 150 / -460 Weight last 48 hrs Weight 95.913 kg Physical Exam Narrative: EXAM NARRATIVE: GEN: Awake, alert and oriented, no acute distress HEENT: heated hi flow NC in place CVS: S1S2 N RS: Fine crackles at B/L lung bases Abd: Soft, nt/nd , bs+ PROGRAM ENGINEER: no focal neuro deficits Data : 10/11/20 04:04 10/11/20 04:04 A&P Assessment and plan (1) Respiratory failure with hypoxia: Acute hypoxic respiratory failure 2/2 Covid pneumonia. Decadron 6 mg I.V daily for 10 days Remdesivir 200 mg IV x1 dose - > 100 mg IV daily x 4 days; 10/04-10/08 Vitamin C 500 mg po daily Zinc 50 mg po daily Nebs Robutasssin DM PRN for cough Levaquin 750 mg IV daily ( 10/04 - ) On HHFONC 65% % and 40Ls Lovenox 40 subcu every 12 hours Lasix 40 i.v Daily Pro-calcitonin :0.23 --> 0.08 Ferritin :975 CRP:152 --> 25.9 D-dimer: 0.65---> 0.66--> 0.46 C.T chest without contrast : Patchy scattered irregular ground-glass attenuation opacities both centrally and peripherally in both lungs. Mild to moderate diffuse emphysema. Monitor Serial chest x-ray: stable on 10/07 Monitor ABG: Airborne/droplet precautions Status: Acute Qualifiers: Chronicity: acute Qualified Code(s): J96.01 - Acute respiratory failure with hypoxia (2) Pneumonia due to COVID-19 virus: Status: Acute (3) COPD (chronic obstructive pulmonary disease): Status: Acute (4) GEETHA (acute kidney injury): GEETHA: Versus GEETHA on worsening CKD Baseline serum creatinine: Unknown Admission serum creatinine 1.9, now improved at 1.6 Status: Acute (5) Hypertension: B/P Well controlled Status: Acute (6) Hyperkalemia: Resolved Status: Acute (7) Hyponatremia: Resolved Status: Acute (8) Atrial fibrillation: currently rate controlled started eliquis 5mg po BID Status: Acute Additional A&P Information Code Status: Full code DVT prophylaxis: Lovenox Continues to have high fi02 requirements, desaturates with minimal exertion in room, closely monitor in ICU Dispo: LTAC vs home if able to be weaned off Hi flow Date of positive test : 10/03/2020 Plan for today: Continue supplemental oxygen via heated high flow, still at bedtime saturates with exertion from bedside commode to chair and into bed. Appears more fatigued than on previous exams. Continue to wean off of heated high flow. Attestations Medical Necessity Statement*: Patient still with extremely high FiO2 requirements, unable to be weaned off of high flow oxygen at this time, will plan to discharge to LTAC if remains stable over the next 24 to 48 hours. Coding Level of Care Code Acute Corrosion Control Engineer for [facility] Diagnoses Respiratory failure with hypoxia J96.01 Chronicity: acute Pneumonia due to COVID-19 virus U07.1; J12.89 COPD (chronic obstructive pulmonary disease) J44.9 GEETHA (acute kidney injury) N17.9 Hypertension I10 Hyperkalemia E87.5 Hyponatremia E87.1 Atrial fibrillation I48.91
--- NOTE | 2020-10-11 18:45 | PC.NURSE ---
Received bedside report on patient from Franca LANGFORD. Assumed care at this time.
[2020-10-12] VITALS (44 sets, daily range): BP systolic 92–127; BP diastolic 62–76; PULSE 75–99; RESP 13–29; TEMP 36.4–37; O2SAT 73–92; BMI 31.2
[2020-10-12] MEDS: dexamethasone 4 mg/mL INJ 6 MG IVP (06:35)
--- NOTE | 2020-10-12 07:51 | P.PN_ITS ---
Subjective Subjective: Interval history: progress note from 10/09 , no new complaints, wishes to return home, has been counselled extensively today that Hi flow NC will not be able to be replicated at home. Medications: Reviewed: Yes Vitals/I&O/Wt Last Vital Signs Temp 97.5 F L 10/12/20 04:00 Pulse 78 10/12/20 06:00 Resp 24 H 10/12/20 04:00 BP 99/68 10/12/20 04:00 Pulse Ox 86 L 10/12/20 04:00 10/11/20 10/12/20 10/12/20 22:59 06:59 14:59 Intake Total 350 / 940 220 / 1160 Output Total 200 / 1400 700 / 2100 Balance 150 / -460 -480 / -940 Weight last 48 hrs Weight 95.913 kg Physical Exam Narrative: EXAM NARRATIVE: GEN: Awake, alert and oriented, no acute distress CVS: S1S2 N RS: CTA B/L Abd: Soft, nt/nd , bs+ FILAMENT WOUND PARTS FABRICATOR: no focal neuro deficits Data : 10/11/20 04:04 10/11/20 04:04 A&P Additional A&P Information (1) Respiratory failure with hypoxia: Acute hypoxic respiratory failure 09/17 Covid pneumonia. Decadron 6 mg I.V daily for 10 days Remdesivir 200 mg IV x1 dose - > 100 mg IV daily x 4 days started 10/04-10/08 Vitamin C 500 mg po daily Zinc 50 mg po daily Nebs Robutasssin DM PRN for cough Levaquin 750 mg IV daily ( 10/04 - ) On HHFONC 65% % and 40Ls Lovenox 40 subcu every 12 hours Lasix 40 i.v Daily Pro-calcitonin :0.23 --> 0.08 Ferritin :975 CRP:152 --> 25.9 D-dimer: 0.65---> 0.66--> 0.46 C.T chest without contrast : Patchy scattered irregular ground-glass attenuation opacities both centrally and peripherally in both lungs. Mild to moderate diffuse emphysema. Monitor Serial chest x-ray: stable on 10/07 Monitor ABG: Airborne/droplet precautions (2) Pneumonia due to COVID-19 virus: (3) COPD (chronic obstructive pulmonary disease): (4) GEETHA (acute kidney injury): Improving (5) Hypertension: B/P Well controlled Code Status: Full code DVT prophylaxis: Lovenox Attestations Medical Necessity Statement*: needing Hi Flow nasal cannula, cannot be replicated at home Coding Level of Care Code Acute Ophthalmic Medical Technician for Charlee Givens
[2020-10-12] MEDS: cetirizine 10 mg Tablet PO (08:09)
[2020-10-12] MEDS: levothyroxine 50 mcg Tablet PO (08:09)
[2020-10-12] MEDS: dilTIAZem ER (24HR) 240 mg Capsule PO (08:09)
[2020-10-12] MEDS: zinc gluconate 50 mg Tablet PO (08:09)
[2020-10-12] MEDS: ascorbic acid 500 mg Tablet 1000 MG PO ×2 (08:09→17:17)
[2020-10-12] MEDS: pantoprazole DR 40 mg Tablet PO (08:09)
[2020-10-12] MEDS: FUROsemide 10 mg/mL SDV 4mL 40 MG IVP (08:09)
[2020-10-12] MEDS: apixaban 5 mg Tablet PO ×2 (08:10→21:57)
--- NOTE | 2020-10-12 13:40 | PM.PN ---
Subjective Subjective: Interval history: no new complaints, continues on hi flow NC at 65% fi02 at 40lpm, does not wish to try sleep in prone position, prefers to be in recliner Medications: Reviewed: Yes Vitals/I&O/Wt Last Vital Signs Temp 98.6 F 10/12/20 08:00 Pulse 78 10/12/20 12:39 Resp 16 10/12/20 12:39 BP 127/70 10/12/20 11:00 Pulse Ox 92 10/12/20 12:39 10/11/20 10/12/20 10/12/20 22:59 06:59 14:59 Intake Total 350 / 940 220 / 1160 300 / 300 Output Total 200 / 1400 700 / 2100 750 / 750 Balance 150 / -460 -480 / -940 -450 / -450 Weight last 48 hrs Weight 95.913 kg Physical Exam Narrative: EXAM NARRATIVE: GEN: Awake, alert and oriented, no acute distress CVS: S1S2 N RS: CTA B/L Abd: Soft, nt/nd , bs+ GENERAL MERCHANDISE MANAGER: no focal neuro deficits Data : 10/11/20 04:04 10/11/20 04:04 A&P Assessment and plan (1) Respiratory failure with hypoxia: Acute hypoxic respiratory failure 09/17 Covid pneumonia. Decadron 6 mg I.V daily for 10 days Remdesivir 200 mg IV x1 dose - > 100 mg IV daily x 4 days; 10/04-10/08 Vitamin C 500 mg po daily Zinc 50 mg po daily Nebs Robutasssin DM PRN for cough Levaquin 750 mg IV daily ( 10/04 - ) On HHFONC 65% % and 40Ls Lovenox 40 subcu every 12 hours Lasix 40 i.v Daily Pro-calcitonin :0.23 --> 0.08 Ferritin :975 CRP:152 --> 25.9 D-dimer: 0.65---> 0.66--> 0.46 C.T chest without contrast : Patchy scattered irregular ground-glass attenuation opacities both centrally and peripherally in both lungs. Mild to moderate diffuse emphysema. Monitor Serial chest x-ray: stable on 10/07 Monitor ABG: Airborne/droplet precautions until 10 days Plan for today: wean down fi02 to 50% and monitor response Status: Acute Qualifiers: Chronicity: acute Qualified Code(s): J96.01 - Acute respiratory failure with hypoxia (2) Pneumonia due to COVID-19 virus: Status: Acute (3) COPD (chronic obstructive pulmonary disease): Status: Acute (4) GEETHA (acute kidney injury): GEETHA: Versus GEETHA on worsening CKD Baseline serum creatinine: Unknown Admission serum creatinine 1.9, now improved at 1.6 Status: Acute (5) Hypertension: B/P Well controlled Status: Acute (6) Hyperkalemia: Resolved Status: Acute (7) Hyponatremia: Resolved Status: Acute (8) Atrial fibrillation: currently rate controlled started eliquis 5mg po BID Status: Acute Additional A&P Information Plan to today: wean down fi02 to 50%, monitor for response, mild nose bleed today, monitor for now, if persisting or worsened, will need to hold eliquis. Dispo: Transfer to LTAC, pending placement, will need to be off isolation precautions prior to transfer, awaiting 10 day ann, unable to discharge home as heated Hi flow cannot be replcated at home. Add nasal saline drops Attestations Medical Necessity Statement*: pending LTAC transfer, needs to be off isolation, cannot return home on Hi flow Coding Level of Care Code Acute Potato Chip Packaging Machine Operator for [facility] Diagnoses Respiratory failure with hypoxia J96.01 Chronicity: acute Pneumonia due to COVID-19 virus U07.1; J12.89 COPD (chronic obstructive pulmonary disease) J44.9 GEETHA (acute kidney injury) N17.9 Hypertension I10 Hyperkalemia E87.5 Hyponatremia E87.1 Atrial fibrillation I48.91
--- NOTE | 2020-10-12 17:03 | PC.NURSE ---
Patient plan with Dr Viera is to go to [facility] on wednesday, We changed the patients FIo2 to 50% to see how the patient would tolerate it, Dr Viera is okay with patients saturation being 88 and above on 50% and wants us to titrate up by 5% instead of jumping straight to 65% Patient tolerates 50%n well except with activity he drops down to 84-85% but recovers after.
[2020-10-12] MEDS: levofloxacin-dextrose 5 % 750 MG/150 ML PREMIX 100 MG IV (17:16)
[2020-10-13] VITALS (46 sets, daily range): BP systolic 98–135; BP diastolic 58–98; PULSE 60–800; RESP 16–31; TEMP 36.9–37.2; O2SAT 35–95
--- NOTE | 2020-10-13 02:40 | PC.NURSE ---
ASSUMING CARE Report received from ANASTASIYA Schulte. Patient resting in chair on HHFNC at 40L and 50%. Reported by day shift RN that patient has been on 50% since around 3 PM. Levaquin is running. Patient complaining of pain in the wrist where levaquin infusing, nurse checked site, red and swollen. Right wrist IV removed and new IV obtained in L forearm. Patient is alert and oriented x 4 and denies any pain or needs at this time.
--- NOTE | 2020-10-13 03:41 | PC.NURSE ---
BM Patient had small BM on BSC, but was telling nurse he felt it was difficult to go and requests stool softener. Dr. Hall notified.
[2020-10-13] MEDS: sennosides-docusate Tablet 1 TAB PO ×2 (04:25→08:09)
[2020-10-13] MEDS: dexamethasone 4 mg/mL INJ 6 MG IVP (06:23)
[2020-10-13] MEDS: FUROsemide 10 mg/mL SDV 4mL 40 MG IVP (08:06)
[2020-10-13] MEDS: cetirizine 10 mg Tablet PO (08:07)
[2020-10-13] MEDS: dilTIAZem ER (24HR) 240 mg Capsule PO (08:07)
[2020-10-13] MEDS: levothyroxine 50 mcg Tablet PO (08:07)
[2020-10-13] MEDS: apixaban 5 mg Tablet PO ×2 (08:07→20:31)
[2020-10-13] MEDS: zinc gluconate 50 mg Tablet PO (08:09)
[2020-10-13] MEDS: pantoprazole DR 40 mg Tablet PO (08:10)
[2020-10-13] MEDS: ascorbic acid 500 mg Tablet 1000 MG PO ×2 (08:13→17:34)
--- NOTE | 2020-10-13 16:54 | PC.NURSE ---
Patient Plan for [facility] tomorrow, Dr Brownlee came by at 1600 and talked to patient about goals of care, able to wean Oxygen down to 55% and flow down to 35, Patient up in chair, diuresing well had over 1L of urine out.
--- NOTE | 2020-10-13 17:31 | PM.PN ---
Subjective Subjective: Interval history: Oxygen requirements mildly improving today.'s been titrated down to 35 L/min, 55% FiO2. Saturating 89 to 90% on the same. No new complaints. Medications: Reviewed: Yes Vitals/I&O/Wt Last Vital Signs Temp 99 F 10/13/20 12:00 Pulse 80 10/13/20 15:42 Resp 18 10/13/20 15:41 BP 107/69 10/13/20 15:30 Pulse Ox 89 L 10/13/20 15:41 10/13/20 10/13/20 10/13/20 06:59 14:59 22:59 Intake Total 500 / 1290 550 / 550 Output Total 375 / 1875 1325 / 1325 Balance 125 / -585 -775 / -775 Weight last 48 hrs Weight 95.913 kg Physical Exam Narrative: EXAM NARRATIVE: GEN: Awake, alert and oriented, no acute distress CVS: S1S2 N RS: CTA B/L Abd: Soft, nt/nd , bs+ INSIDE UPHOLSTERER: no focal neuro deficits Data : 10/11/20 04:04 10/11/20 04:04 A&P Assessment and plan (1) Respiratory failure with hypoxia: Acute hypoxic respiratory failure 09/17 Covid pneumonia. Decadron 6 mg I.V daily for 10 days Remdesivir 200 mg IV x1 dose - > 100 mg IV daily x 4 days; 10/04-10/08 Vitamin C 500 mg po daily Zinc 50 mg po daily Nebs Robutasssin DM PRN for cough Levaquin 750 mg IV daily ( 10/04 - ) On HHFONC 65% % and 40Ls Lovenox 40 subcu every 12 hours Lasix 40 i.v Daily Pro-calcitonin :0.23 --> 0.08 Ferritin :975 CRP:152 --> 25.9 D-dimer: 0.65---> 0.66--> 0.46 C.T chest without contrast : Patchy scattered irregular ground-glass attenuation opacities both centrally and peripherally in both lungs. Mild to moderate diffuse emphysema. Monitor Serial chest x-ray: stable on 10/07 Monitor ABG: Airborne/droplet precautions until 10 days Status: Acute Qualifiers: Chronicity: acute Qualified Code(s): J96.01 - Acute respiratory failure with hypoxia (2) Pneumonia due to COVID-19 virus: Status: Acute (3) COPD (chronic obstructive pulmonary disease): Status: Acute (4) GEETHA (acute kidney injury): GEETHA: Versus GEETHA on worsening CKD Baseline serum creatinine: Unknown Admission serum creatinine 1.9, now improved at 1.6 Status: Acute (5) Hypertension: B/P Well controlled Status: Acute (6) Hyperkalemia: Resolved Status: Acute (7) Hyponatremia: Resolved Status: Acute (8) Atrial fibrillation: currently rate controlled started eliquis 5mg po BID Status: Acute Additional A&P Information Plan to today: Oxygen weaned down to 55% FiO2 at 35 L/min. Currently tolerating. Does not wish to try prone positioning to sleep. Prefers to be in his recliner. No further nosebleeds Dispo: Transfer to LTAC, likely in the upcoming 24 hours for continuous attempts at weaning off of heated high flow. Attestations Medical Necessity Statement*: Needs heated high flow, which cannot be replicated outside of hospital setting, desaturates with minimal exertion. Critical Care Time: Critical Care Time (min): 35 Coding Level of Care Code Acute Product Safety Associate for [employer] Diagnoses Respiratory failure with hypoxia J96.01 Chronicity: acute Pneumonia due to COVID-19 virus U07.1; J12.89 COPD (chronic obstructive pulmonary disease) J44.9 GEETHA (acute kidney injury) N17.9 Hypertension I10 Hyperkalemia E87.5 Hyponatremia E87.1 Atrial fibrillation I48.91
--- NOTE | 2020-10-13 18:23 | PC.SOCIAL ---
IM follow explained and copy provided. No questions voiced
[2020-10-14] VITALS (33 sets, daily range): BP systolic 89–139; BP diastolic 56–78; PULSE 76–108; RESP 17–28; TEMP 36.6–36.9; O2SAT 80–95
[2020-10-14] MEDS: dexamethasone 4 mg/mL INJ 6 MG IVP (06:07)
[2020-10-14] MEDS: cetirizine 10 mg Tablet PO (07:41)
[2020-10-14] MEDS: dilTIAZem ER (24HR) 240 mg Capsule PO (07:42)
[2020-10-14] MEDS: levothyroxine 50 mcg Tablet PO (07:42)
[2020-10-14] MEDS: pantoprazole DR 40 mg Tablet PO (08:14)
[2020-10-14] MEDS: ascorbic acid 500 mg Tablet 1000 MG PO ×2 (08:15→17:02)
[2020-10-14] MEDS: FUROsemide 10 mg/mL SDV 4mL 40 MG IVP ×2 (08:15→16:55)
[2020-10-14] MEDS: sennosides-docusate Tablet 1 TAB PO (08:16)
[2020-10-14] MEDS: zinc gluconate 50 mg Tablet PO (08:16)
[2020-10-14] MEDS: apixaban 5 mg Tablet PO ×2 (08:16→21:31)
--- NOTE | 2020-10-14 09:32 | PC.CHAP ---
Pastoral Care Encounter/Spiritual Assessment Type of Contact [] Declined hall director visit [] Patient/Family/Request visit [] Outpatient visit [] Follow-up visit [] Physician referral [] Code/Alert [x] Routine visit [] Staff referral [] Actively dying [] Patient sleeping [] Family support [] [] Out of room [] Palliative care [] [] Receiving care in room [] Pre-surgical visit [] Trauma [] Long length of stay [x] ICU visit [] Other: Relational/Emotional Strength [] Patient feels connected with others/family/visitors/staff [] Distress [] Loneliness/isolation [] Abandonment Spirituality of Patient [] Person of Allie [] Attends Oriental Orthodox of their Allie [] Believes in Prayer [] Reads Bible or Restorationist materials [] There are Spiritual issues to be addressed Computer Forensic Examiner Interventions [x] Prayer [] Active listening [] Non-anxious presence [] Spiritual/emotional support [] Crisis/trauma care [] Spiritual counseling [] Bereavement support [] Provided bereavement packet [] Provided Bible/devotional materials [] Provided toy/stuffed animal, coloring book to patient or family member [] Provided Communion [] Anointing/[place] [] Salvation [x] Completed spiritual assessment [] Other: Impact on Illness or Injury [] Angry [] Fearful [] Anxious [] Often cries [] Exhaustion [] Unable to work [] Unable to attend hoahaoism [] Unable to walk/stand [] Unable to read [] Unable to drive [] Unable to eat/drink [] Unable to sleep [] Unable to be with family [] Patient intubated [] Other: Summary Time spent with patient
--- NOTE | 2020-10-14 13:01 | PM.PN ---
Subjective Subjective: Interval history: Patient was seen and examined this morning, he was sitting comfortably in the chair,continue to be on heated high flow oxygen through nasal cannula. He has been afebrile.His other vitals and labs have been reviewed. Medications: Reviewed: Yes Vitals/I&O/Wt Last Vital Signs Temp 98.4 F 10/14/20 02:42 Pulse 90 10/14/20 12:28 Resp 18 10/14/20 12:28 BP 125/56 10/14/20 12:00 Pulse Ox 89 L 10/14/20 12:28 10/13/20 10/14/20 10/14/20 22:59 06:59 14:59 Intake Total 200 / 750 100 / 850 200 / 200 Output Total 300 / 1625 400 / 2025 850 / 850 Balance -100 / -875 -300 / -1175 -650 / -650 Weight last 48 hrs Weight 95.913 kg Physical Exam Const: COMMON NORMALS: patient oriented x3 HENMT: COMMON NORMALS: normocephalic, atraumatic and external ears normal HEAD & SCALP: normocephalic and atraumatic EXTERNAL EAR: Yes external ears normal Chest: CHEST: Yes Symmetrical chest wall rise Resp: OTHER: Diminished air entry at bases. Cardio: COMMON NORMALS: regular rate, regular rhythm, S1 normal heart sound present, S2 normal heart sound present, No gallops present (Cardio), No murmurs present (Cardio), No rub (Cardio) and Peripheral pulses 2+ throughout RATE: regular rate RHYTHM: regular rhythm HEART SOUNDS: S1 normal heart sound present and S2 normal heart sound present PERIPHERAL PULSES: Peripheral pulses 2+ throughout GI: COMMON NORMALS: Normal to inspection, nondistended, normoactive bowel sounds present, Soft to palpation, non-tender, No hepatosplenomegaly present and no masses AUSCULTATION: Yes normoactive bowel sounds PALPATION: Yes Soft to palpation and Yes No hepatosplenomegaly present RECTAL EXAM: Yes deferred Extremity: COMMON NORMALS: no clubbing, cyanosis or edema and no pedal edema Neuro: COMMON NORMALS: patient oriented x3 Data : 10/11/20 04:04 10/11/20 04:04 A&P Assessment and plan (1) Respiratory failure with hypoxia: Acute hypoxic respiratory failure 2/2 Covid pneumonia. Decadron 6 mg I.V daily for 10 days Remdesivir 200 mg IV x1 dose - > 100 mg IV daily x 4 days; 10/04-10/08 Vitamin C 500 mg po daily Zinc 50 mg po daily Nebs Robutasssin DM PRN for cough Levaquin 750 mg IV daily ( 10/04 - ) On HHFONC 65% % and 40Ls Eliquis 5 mg q12 h daily Lasix 40 i.v Daily Pro-calcitonin :0.23 --> 0.08 Ferritin :975 CRP:152 --> 25.9 D-dimer: 0.65---> 0.66--> 0.46 C.T chest without contrast : Patchy scattered irregular ground-glass attenuation opacities both centrally and peripherally in both lungs. Mild to moderate diffuse emphysema. Monitor Serial chest x-ray: Monitor ABG: Airborne/droplet precautions until 10 days Status: Acute Qualifiers: Chronicity: acute Qualified Code(s): J96.01 - Acute respiratory failure with hypoxia (2) Pneumonia due to COVID-19 virus: Status: Acute (3) COPD (chronic obstructive pulmonary disease): Status: Acute (4) GEETHA (acute kidney injury): GEETHA: Versus GEETHA on worsening CKD Baseline serum creatinine: Unknown Admission serum creatinine 1.9, now improved at 1.6 Status: Acute (5) Hypertension: B/P Well controlled Status: Acute (6) Hyperkalemia: Resolved Status: Acute (7) Atrial fibrillation: currently rate controlled Cardizem CD 240 MG PO DAILY eliquis 5mg po BID Status: Acute (8) Hyponatremia: Status: Acute Additional A&P Information Code Status :Full code Dispo: Transfer to LTAC, likely in the upcoming 24 hours for continuous attempts at weaning off of heated high flow. Attestations Medical Necessity Statement*: Patient needs to be in hospital for management of respiratory failure secondary to Covid pneumonia Coding Level of Care Code Acute River Guide for [facility] Diagnoses Respiratory failure with hypoxia J96.01 Chronicity: acute Pneumonia due to COVID-19 virus U07.1; J12.89 COPD (chronic obstructive pulmonary disease) J44.9 GEETHA (acute kidney injury) N17.9 Hypertension I10 Hyperkalemia E87.5 Atrial fibrillation I48.91 Hyponatremia E87.1
--- NOTE | 2020-10-14 18:45 | PC.NURSE ---
Received bedside report on patient from Gosia LANGFORD. Assumed care at this time. Patient remains sitting up in recliner with no complaints voiced.
[2020-10-15] VITALS (29 sets, daily range): BP systolic 100–130; BP diastolic 59–84; PULSE 78–105; RESP 14–27; TEMP 36.5–37.1; O2SAT 84–94
[2020-10-15] MEDS: dexamethasone 4 mg/mL INJ 6 MG IVP (06:33)
[2020-10-15] MEDS: cetirizine 10 mg Tablet PO (07:43)
[2020-10-15] MEDS: levothyroxine 50 mcg Tablet PO (07:43)
[2020-10-15] MEDS: dilTIAZem ER (24HR) 240 mg Capsule PO (07:43)
[2020-10-15] MEDS: ascorbic acid 500 mg Tablet 1000 MG PO ×2 (08:35→18:23)
[2020-10-15] MEDS: zinc gluconate 50 mg Tablet PO (08:35)
[2020-10-15] MEDS: pantoprazole DR 40 mg Tablet PO (08:35)
[2020-10-15] MEDS: sennosides-docusate Tablet 1 TAB PO (08:35)
[2020-10-15] MEDS: FUROsemide 10 mg/mL SDV 4mL 40 MG IVP (08:35)
[2020-10-15] MEDS: cyclobenzaprine 10 mg Tablet PO (08:36)
[2020-10-15] MEDS: apixaban 5 mg Tablet PO ×2 (08:36→21:30)
[2020-10-15 09:03] LABS: Basophils % 0.2 %; Eosinophils % 0.2 %; Hematocrit 48.2 % (42.0-52.0); Hemoglobin 15.5 g/dL (11.7-16.6); Lymphocytes # 1.3 10^3/uL (0.8-4.8); Lymphocytes % 7.6 %; Mean Corpuscular HGB Conc 32.2 g/dL (30.0-36.0); Mean Corpuscular Hemoglobin 27.9 pg (28.0-34.0); Mean Corpuscular Volume 86.8 fL (80-94); Monocytes # 1.1 10^3/uL (0.2-0.9); Monocytes % 6.6 %; Neutrophils # 14.06 10^3/uL (1.8-7.7); Neutrophils % 83.8 %; Nucleated Red Blood Cells % 0 %; Platelet Count 512 10^3/cmm (130-400); Red Blood Count 5.55 10^6/uL (4.1-5.3); Red Cell Distribution Width 13.2 % (12.1-15.1); White Blood Count 16.8 10^3/uL (4.0-10.0)
[2020-10-15 09:21] LABS: Alanine Aminotransferase 17 U/L (0-41); Albumin Level 3.3 g/dL (3.5-5.2); Alkaline Phosphatase 75 IU/L (40-130); Blood Urea Nitrogen 67 mg/dL (8-23); Calcium 8.7 mg/dL (8.5-10.5); Carbon Dioxide 26 mmol/L (22-29); Chloride 94 mmol/L (98-107); Globulin 3.6 g/dL (1.3-4.6); Glucose 154 mg/dL (65-115); Osmolality Calculated 292 mOsm/kg (285-295); Sodium 130 mmol/L (136-145); Total Bilirubin 0.8 mg/dL (0.15-1.2); Total Protein 6.9 g/dL (6.6-8.7)
[2020-10-15 09:32] LABS: Anion Gap 15.1 (5-19); Aspartate Amino Transferase 17 U/L (0-40); Potassium 5.1 mmol/L (3.5-5.1)
--- NOTE | 2020-10-15 09:43 | PC.CHAP ---
Pastoral Care Encounter/Spiritual Assessment Type of Contact [] Declined line ordering clinician visit [] Patient/Family/Request visit [] Outpatient visit [] Follow-up visit [] Physician referral [] Code/Alert [x] Routine visit [] Staff referral [] Actively dying [] Patient sleeping [] Family support [] [] Out of room [] Palliative care [] [] Receiving care in room [] Pre-surgical visit [] Trauma [] Long length of stay [x] ICU visit [] Other: Relational/Emotional Strength [] Patient feels connected with others/family/visitors/staff [] Distress [] Loneliness/isolation [] Abandonment Spirituality of Patient [] Person of Allie [] Attends Amish of their Allie [] Believes in Prayer [] Reads Bible or Mandaen materials [] There are Spiritual issues to be addressed It Technical Specialist Interventions [x] Prayer [] Active listening [] Non-anxious presence [] Spiritual/emotional support [] Crisis/trauma care [] Spiritual counseling [] Bereavement support [] Provided bereavement packet [] Provided Bible/devotional materials [] Provided toy/stuffed animal, coloring book to patient or family member [] Provided Communion [] Anointing/[place] [] Salvation [x] Completed spiritual assessment [] Other: Impact on Illness or Injury [] Angry [] Fearful [] Anxious [] Often cries [] Exhaustion [] Unable to work [] Unable to attend jewish [] Unable to walk/stand [] Unable to read [] Unable to drive [] Unable to eat/drink [] Unable to sleep [] Unable to be with family [] Patient intubated [] Other: Summary Time spent with patient
--- NOTE | 2020-10-15 11:47 | PC.SOCIAL ---
IMM Update. Page 2. IMM update given to , Lisa over the phone. She verbalized an understanding. Intialed, dated, and timed in the chart.
--- NOTE | 2020-10-15 18:45 | PC.NURSE ---
Received report on patient from Iwona LANGFORD. Assumed care at this time.
--- NOTE | 2020-10-15 18:56 | P.PN_ITS ---
Subjective Subjective: Interval history: Patient was seen and examined this morning.He is comfortably sitting in his recliner. Has no active complaints.Supplemental oxygen requirement is going down. Vitals and labs have been reviewed. Medications: Reviewed: Yes Vitals/I&O/Wt Last Vital Signs Temp 97.7 F 10/15/20 12:00 Pulse 79 10/15/20 16:00 Resp 23 H 10/15/20 18:00 BP 100/73 10/15/20 18:00 Pulse Ox 89 L 10/15/20 18:00 10/15/20 10/15/20 10/15/20 06:59 14:59 22:59 Intake Total 240 / 540 500 / 500 500 / 1000 Output Total 750 / 2400 650 / 650 700 / 1350 Balance -510 / -1860 -150 / -150 -200 / -350 Weight last 48 hrs Weight 95.913 kg Physical Exam Const: COMMON NORMALS: patient oriented x3 HENMT: COMMON NORMALS: normocephalic, atraumatic and external ears normal HEAD & SCALP: normocephalic and atraumatic EXTERNAL EAR: Yes external ears normal Chest: CHEST: Yes Symmetrical chest wall rise Resp: OTHER: Diminished air entry at bases. Cardio: COMMON NORMALS: regular rate, regular rhythm, S1 normal heart sound present, S2 normal heart sound present, No gallops present (Cardio), No murmurs present (Cardio), No rub (Cardio) and Peripheral pulses 2+ throughout RATE: regular rate RHYTHM: regular rhythm HEART SOUNDS: S1 normal heart sound present and S2 normal heart sound present PERIPHERAL PULSES: Peripheral pulses 2+ throughout GI: COMMON NORMALS: Normal to inspection, nondistended, normoactive bowel sounds present, Soft to palpation, non-tender, No hepatosplenomegaly present and no masses AUSCULTATION: Yes normoactive bowel sounds PALPATION: Yes Soft to palpation and Yes No hepatosplenomegaly present RECTAL EXAM: Yes deferred Extremity: COMMON NORMALS: no clubbing, cyanosis or edema and no pedal edema Neuro: COMMON NORMALS: patient oriented x3 Data : 10/15/20 08:47 10/15/20 08:47 A&P Assessment and plan (1) Respiratory failure with hypoxia: Acute hypoxic respiratory failure 2/2 Covid pneumonia. Completed Decadron 6 mg I.V daily for 10 days Remdesivir 200 mg IV x1 dose - > 100 mg IV daily x 4 days; 10/04-10/08 Vitamin C 500 mg po daily Zinc 50 mg po daily Nebs Robutasssin DM PRN for cough Levaquin 750 mg IV daily ( 10/04 -10/15 ) On HHFONC 65% % and 40Ls Eliquis 5 mg q12 h daily Initially on Lasix 40 i.v Daily.Now on Lasix 40 po daily. Pro-calcitonin :0.23 --> 0.08 Ferritin :975 CRP:152 --> 25.9 D-dimer: 0.65---> 0.66--> 0.46 C.T chest without contrast : Patchy scattered irregular ground-glass attenuation opacities both centrally and peripherally in both lungs. Mild to moderate diffuse emphysema. Monitor Serial chest x-ray: Monitor ABG: Airborne/droplet precautions until 10 days Status: Acute Qualifiers: Chronicity: acute Qualified Code(s): J96.01 - Acute respiratory failure with hypoxia (2) Pneumonia due to COVID-19 virus: Status: Acute (3) COPD (chronic obstructive pulmonary disease): Status: Acute (4) GEETHA (acute kidney injury): GEETHA: Versus GEETHA on worsening CKD Baseline serum creatinine: Unknown Admission serum creatinine 1.9, now improved at 1.6 Status: Acute (5) Hypertension: B/P Well controlled Status: Acute (6) Hyperkalemia: Resolved Status: Acute (7) Atrial fibrillation: currently rate controlled Cardizem CD 240 MG PO DAILY eliquis 5mg po BID Status: Acute (8) Hyponatremia: Status: Acute Additional A&P Information Code Status :Full code Dispo: Transfer to LTAC, likely in the upcoming 24 hours for continuous attempts at weaning off of heated high flow. Attestations Medical Necessity Statement*: Patient is to the hospital for management of respiratory failure2/2 Covid pneumonia. 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
[2020-10-16] VITALS (34 sets, daily range): BP systolic 93–125; BP diastolic 55–81; PULSE 77–110; RESP 13–28; TEMP 36.4–36.9; O2SAT 84–92
[2020-10-16] MEDS: acetaminophen 325 mg Tablet 650 MG PO (00:55)
--- NOTE | 2020-10-16 03:54 | PC.NURSE ---
Up to BSC with stand by assist. Moderate formed BM. Retured to chair with standby assist. Sats dropped to 85% with activity but slowly returned to low 90's.
[2020-10-16 03:55] LABS: Basophils % 0.2 %; Eosinophils # 0.1 10^3/uL (0.0-0.8); Eosinophils % 0.7 %; Hematocrit 48.7 % (42.0-52.0); Hemoglobin 15.4 g/dL (11.7-16.6); Lymphocytes # 1.4 10^3/uL (0.8-4.8); Lymphocytes % 7.7 %; Mean Corpuscular HGB Conc 31.6 g/dL (30.0-36.0); Mean Corpuscular Hemoglobin 27.8 pg (28.0-34.0); Mean Corpuscular Volume 88.1 fL (80-94); Mean Platelet Volume 8.5 fL (7.4-10.4); Monocytes # 1.2 10^3/uL (0.2-0.9); Monocytes % 6.9 %; Neutrophils # 14.43 10^3/uL (1.8-7.7); Neutrophils % 82.2 %; Nucleated Red Blood Cells % 0 %; Platelet Count 461 10^3/cmm (130-400); Red Blood Count 5.53 10^6/uL (4.1-5.3); Red Cell Distribution Width 13.3 % (12.1-15.1); White Blood Count 17.6 10^3/uL (4.0-10.0)
[2020-10-16 04:18] LABS: Anion Gap 16.7 (5-19); Blood Urea Nitrogen 68 mg/dL (8-23); Calcium 8.2 mg/dL (8.5-10.5); Carbon Dioxide 25 mmol/L (22-29); Chloride 95 mmol/L (98-107); Glucose 165 mg/dL (65-115); Osmolality Calculated 297 mOsm/kg (285-295); Potassium 4.7 mmol/L (3.5-5.1); Sodium 132 mmol/L (136-145)
[2020-10-16] MEDS: pantoprazole DR 40 mg Tablet PO (08:44)
[2020-10-16] MEDS: cetirizine 10 mg Tablet PO (08:44)
[2020-10-16] MEDS: ascorbic acid 500 mg Tablet 1000 MG PO ×2 (08:44→18:03)
[2020-10-16] MEDS: sennosides-docusate Tablet 1 TAB PO (08:44)
[2020-10-16] MEDS: FUROsemide 40 mg Tablet PO (08:44)
[2020-10-16] MEDS: levothyroxine 50 mcg Tablet PO (08:44)
[2020-10-16] MEDS: dilTIAZem ER (24HR) 240 mg Capsule PO (08:44)
[2020-10-16] MEDS: zinc gluconate 50 mg Tablet PO (08:44)
[2020-10-16] MEDS: apixaban 5 mg Tablet PO (08:45)
--- NOTE | 2020-10-16 09:24 | XR_ITS ---
WS: [id number] PORTABLE CHEST HISTORY: SOB COMPARISON: 10/11/2020 Hyperexpanded lungs from emphysema. Moderate peripheral interstitial thickening with coarse reticular pattern. Atelectasis is subsegmental at the LEFT costophrenic angle. Overall slight improvement sinc e 10/11/2020. Slight improvement in pulmonary congestion. No pleural effusion or pneumothorax. Cardiac size: Normal. Mediastinum/Aorta: Mild atherosclerosis aorta. No osseous abnormality seen. XR/XR chest 1V portable [id number] IMPRESSION: 1. Mild improvement in the bilateral pulmonary opacifications probably due to Covid 19. 2. Mild improvement in pulmonary congestion.
--- NOTE | 2020-10-16 15:22 | P.PN_ITS ---
Subjective Subjective: Interval history: Patient was seen and examined this morning.He is comfortably sitting in his recliner. Has no active complaints.Supplemental oxygen requirement is going down. Vitals and labs have been reviewed. Medications: Reviewed: Yes Vitals/I&O/Wt Last Vital Signs Temp 97.5 F L 10/16/20 11:00 Pulse 85 10/16/20 14:30 Resp 26 H 10/16/20 14:30 BP 101/69 10/16/20 14:30 Pulse Ox 90 10/16/20 14:30 10/16/20 10/16/20 10/16/20 06:59 14:59 22:59 Intake Total 180 / 1180 320 / 320 Output Total 600 / 1950 925 / 925 Balance -420 / -770 -605 / -605 Physical Exam Const: COMMON NORMALS: patient oriented x3 HENMT: COMMON NORMALS: normocephalic, atraumatic and external ears normal HEAD & SCALP: normocephalic and atraumatic EXTERNAL EAR: Yes external ears normal Chest: CHEST: Yes Symmetrical chest wall rise Resp: OTHER: Diminished air entry at bases. Cardio: COMMON NORMALS: regular rate, regular rhythm, S1 normal heart sound present, S2 normal heart sound present, No gallops present (Cardio), No murmurs present (Cardio), No rub (Cardio) and Peripheral pulses 2+ throughout RATE: regular rate RHYTHM: regular rhythm HEART SOUNDS: S1 normal heart sound present and S2 normal heart sound present PERIPHERAL PULSES: Peripheral pulses 2+ throughout GI: COMMON NORMALS: Normal to inspection, nondistended, normoactive bowel sounds present, Soft to palpation, non-tender, No hepatosplenomegaly present and no masses AUSCULTATION: Yes normoactive bowel sounds PALPATION: Yes Soft to palpation and Yes No hepatosplenomegaly present RECTAL EXAM: Yes deferred Extremity: COMMON NORMALS: no clubbing, cyanosis or edema and no pedal edema Neuro: COMMON NORMALS: patient oriented x3 Data : 10/16/20 03:26 10/16/20 03:26 A&P Assessment and plan (1) Respiratory failure with hypoxia: Acute hypoxic respiratory failure 2/2 Covid pneumonia. Completed Decadron 6 mg I.V daily for 10 days Remdesivir 200 mg IV x1 dose - > 100 mg IV daily x 4 days; 10/04-10/08 Vitamin C 500 mg po daily Zinc 50 mg po daily Nebs Robutasssin DM PRN for cough Levaquin 750 mg IV daily ( 10/04 -10/15 ) On HFONC 8Ls/Min Eliquis 5 mg q12 h daily Initially on Lasix 40 i.v Daily.Now on Lasix 40 po daily. Pro-calcitonin :0.23 --> 0.08 Ferritin :975 CRP:152 --> 25.9 D-dimer: 0.65---> 0.66--> 0.46 C.T chest without contrast : Patchy scattered irregular ground-glass attenuation opacities both centrally and peripherally in both lungs. Mild to moderate diffuse emphysema. Monitor Serial chest x-ray: Monitor ABG: Airborne/droplet precautions until 10 days Status: Acute Qualifiers: Chronicity: acute Qualified Code(s): J96.01 - Acute respiratory failure with hypoxia (2) Pneumonia due to COVID-19 virus: Status: Acute (3) COPD (chronic obstructive pulmonary disease): Status: Acute (4) GEETHA (acute kidney injury): GEETHA: Versus GEETHA on worsening CKD Baseline serum creatinine: Unknown Admission serum creatinine 1.9, now improved at 1.6 Status: Acute (5) Hypertension: B/P Well controlled Status: Acute (6) Hyperkalemia: Resolved Status: Acute (7) Atrial fibrillation: currently rate controlled Cardizem CD 240 MG PO DAILY eliquis 5mg po BID Status: Acute (8) Hyponatremia: Status: Acute Additional A&P Information Code Status :Full code Dispo: Transfer to LTAC, likely in the upcoming 24 hours for continuous attempts at weaning off of heated high flow. Attestations Medical Necessity Statement*: Patient needs to be in hospital for management of respiratory failure 2/2 to COVID PNA Coding Level of Care Code Acute Supervisor [employer] for [facility] Fwd Diagnoses Respiratory failure with hypoxia J96.01 Chronicity: acute Pneumonia due to COVID-19 virus U07.1; J12.89 COPD (chronic obstructive pulmonary disease) J44.9 GEETHA (acute kidney injury) N17.9 Hypertension I10 Hyperkalemia E87.5 Atrial fibrillation I48.91 Hyponatremia E87.1
--- NOTE | 2020-10-16 15:43 | PM.TDS ---
Transfer Summary Providers Date of Admission: 10/04/20 16:40 Date of Discharge: 10/16/20 Attending Provider at Admission: Abelardo Gonzalez MD Attending Provider at Transfer: Abelardo Gonzalez MD Primary Care Provider: Keshawn Little DO Anticipated Date of Transfer: Anticipated date of transfer: 10/16/20 Receiving Facility & Provider: Receiving Provider: [] Receiving facility: [] Diagnoses at Discharge Discharge Diagnosis (1) Respiratory failure with hypoxia: Status: Acute Permanent problem details: Improving Qualifiers: Chronicity: acute Qualified Code(s): J96.01 - Acute respiratory failure with hypoxia (2) Pneumonia due to COVID-19 virus: Status: Acute (3) COPD (chronic obstructive pulmonary disease): Status: Chronic (4) GEETHA (acute kidney injury): Status: Acute Permanent problem details: GEETHA V/S GEETHA ON CKD Stage 3 (5) Hypertension: Status: Chronic (6) Atrial fibrillation: Status: Acute Reason for Visit Reason for Visit: fever, sob, covid symptoms Hospital Course Hospital Course 75 year old male with past medical history of hypertension,COPD, came in with chief complaint of worsening shortness of breath fever cough, started about a week, shortness of breath and cough is progressively worsened,currently he says that he is short of breath even with minimal exertion,he is also complaining of progressively worsening of nonproductive cough.He is having fever at home. His has also got similar symptom. Upon arrival in the ER he was worked up for the above-mentioned, complaint. X-ray chest: mild peripheral and basilar interstitial thickening. May be due to pneumonitis or interval development of interstitial lung disease. ABG: pH: 7.4, PCO2: 34, PO2: 44, on room air. Rapid Covid testing: Positive Pertinent lab: Sodium 132, K: 5.3 , serum creatinine: 1.9 , lactic acid: 1.9, fibrinogen: 772, D-dimer: 0.65. Pertinent medications: Started on remdesivir 5-day course. Dexamethasone 6 mg IV x1 dose. He was admitted for the management of Ac Hypoxic r/f 2/2 covid PNA/Possible superimposed bacterial PNA/ Respiratory failure with hypoxia: Acute hypoxic respiratory failure 2/2 Covid pneumonia. Completed Decadron 6 mg I.V daily for 10 days Remdesivir 200 mg IV x1 dose - > 100 mg IV daily x 4 days; 10/04-10/08 Vitamin C 500 mg po daily , Zinc 50 mg po daily Duo Nebs Robutasssin DM PRN for cough Levaquin 750 mg IV daily ( 10/04 -10/15 ) On HFONC 8Ls/Min, Eliquis 5 mg q12 h daily Initially on Lasix 40 i.v Daily.Now on Lasix 40 po daily. currently on hold for worsening SCR. C.T chest without contrast : Patchy scattered irregular ground-glass attenuation opacities both centrally and peripherally in both lungs. Mild to moderate diffuse emphysema.Hospital course was complicated by new onset A. fib, currently rate controlled on Cardizem CD 240 MG PO DAILY. On eliquis 5mg po BID. For GEETHA: Versus GEETHA on worsening CKD stage 3 Baseline serum creatinine: Unknown Admission serum creatinine 1.9, current scr is 2.Will hold lasix for now.Continue to monitor BMP.Gentle I.V Hydration. Patient has responded well to the above medical management and is being transferred to [facility] ( [facility] for continued care as he is still on HFONC 8Ls/Min. Physical Exam Const: COMMON NORMALS: patient oriented x3 HENMT: COMMON NORMALS: normocephalic, atraumatic and external ears normal HEAD & SCALP: normocephalic and atraumatic EXTERNAL EAR: Yes external ears normal Chest: CHEST: Yes Symmetrical chest wall rise Resp: OTHER: Diminished air entry at bases. Cardio: COMMON NORMALS: regular rate, regular rhythm, S1 normal heart sound present, S2 normal heart sound present, No gallops present (Cardio), No murmurs present (Cardio), No rub (Cardio) and Peripheral pulses 2+ throughout RATE: regular rate RHYTHM: regular rhythm HEART SOUNDS: S1 normal heart sound present and S2 normal heart sound present PERIPHERAL PULSES: Peripheral pulses 2+ throughout GI: COMMON NORMALS: Normal to inspection, nondistended, normoactive bowel sounds present, Soft to palpation, non-tender, No hepatosplenomegaly present and no masses AUSCULTATION: Yes normoactive bowel sounds PALPATION: Yes Soft to palpation and Yes No hepatosplenomegaly present RECTAL EXAM: Yes deferred Extremity: COMMON NORMALS: no clubbing, cyanosis or edema and no pedal edema Neuro: COMMON NORMALS: patient oriented x3 TS Data Data Completed and Pending: Completed Studies During Hospitalization Category Date Time Status CT chest wo con 7 1250 Urgent Cat Scan 10/04/20 16:37 Completed XR chest 1V loly ble 34030 AM LABS Exams 10/11/20 04:00 Completed XR chest 1V loly ble 05166 Routine Exams 10/07/20 06:00 Completed XR chest 1V loly ble [id number] Routine Exams 10/16/20 09:24 Completed XR chest 1V loly ble [id number] Stat Exams 10/04/20 15:24 Completed Labs from last 24 hours 10/16/20 10/16/20 03:26 03:26 WBC 17.6 H RBC 5.53 H Hgb 15.4 Hct 48.7 MCV 88.1 MCH 27.8 L MCHC 31.6 RDW 13.3 Plt Count 461 H MPV 8.5 Neut % (Auto) 82.2 Lymph % (Auto) 7.7 [place] % (Auto) 6.9 Eos % (Auto) 0.7 Baso % (Auto) 0.2 Neut # (Auto) 14.43 H Lymph # (Auto) 1.4 [place] # (Auto) 1.2 H Eos # (Auto) 0.1 Baso # (Auto) 0.0 Nucleated RBC % (a uto) 0 Nucleated RBCs # 0.0 Sodium 132 L Potassium 4.7 Chloride 95 L Carbon Dioxide 25 Anion Gap 16.7 BUN 68 H Creatinine 2.0 H GFR Calculation Not Reportable Glucose 165 H Calculated Osmolal ity 297 H Calcium 8.2 L Vitals: Last Vital Signs Temp 97.5 F L 10/16/20 11:00 Pulse 85 10/16/20 14:30 Resp 26 H 10/16/20 14:30 BP 101/69 10/16/20 14:30 Pulse Ox 90 10/16/20 14:30 TS Medications Medications Home Medications budesonide-formoterol HFA 160 mcg-4.5 mcg/actuation aerosol inhaler 2 puff INHALATION BID@0800,1900 10/23/19 [History Confirmed 10/04/20] cetirizine 10 mg capsule 10 mg PO DAILY@0800 cap 10/23/19 [History Confirmed 10/04/20] cholecalciferol (vitamin D3) 1,250 mcg (50,000 unit) tablet 1,250 mcg PO DAILY@0800 10/23/19 [History Confirmed 10/04/20] cyclobenzaprine 10 mg tablet 10 mg PO TID PRN 10/23/19 [History Confirmed 10/04/20] diltiazem HCl 240 mg capsule,extended release 24 hr 240 mg PO DAILY@0800 10/23/19 [History Confirmed 10/04/20] ipratropium 20 mcg-albuterol 100 mcg/actuation mist for inhalation 1 puff INHALATION QID PRN 10/23/19 [History Confirmed 10/04/20] levothyroxine 50 mcg capsule 50 mcg PO DAILY@0800 10/23/19 [History Confirmed 10/04/20] lisinopril 40 mg tablet 40 mg PO DAILY@0800 10/23/19 [History Confirmed 10/04/20] naproxen 500 mg tablet 500 mg PO DAILY PRN tab 10/23/19 [History Confirmed 10/04/20] guaifenesin 400 mg tablet 400 mg PO Q4H PRN 11/13/19 [History Confirmed 10/04/20] custom orthotics #1 ea 07/03/20 [Rx Confirmed 10/04/20] acetaminophen [Tylenol Extra Strength] 500 mg PO Q6H PRN 10/04/20 [History Confirmed 10/04/20] ketoconazole 1 applic TOPICAL BID 10/04/20 [History Confirmed 10/04/20] Active Medications Acetaminophen (Acetaminophen 325 Mg Tablet) 650 mg PO Q6H PRN PRN Reason: Mild/Mod Pain Or Temp >/= 101 Last Admin: 10/16/20 00:55 Dose: 650 mg Documented by: Albuterol/Ipratropium (Ipratropium-Albuterol 4 Gm Mdi) 1 puff INHALATION QID PRN PRN Reason: Shortness Of Breath Last Admin: 10/16/20 08:08 Dose: 1 puff Documented by: Apixaban (Apixaban 5 Mg Tablet) 5 mg PO BID@0900,2100 [facility] Last Admin: 10/16/20 08:45 Dose: 5 mg Documented by: Ascorbic Acid (Ascorbic Acid 500 Mg Tablet) 1,000 mg PO BID [facility] Last Admin: 10/16/20 08:44 Dose: 1,000 mg Documented by: Bisacodyl (Bisacodyl 5 Mg Tablet) 10 mg PO DAILY PRN PRN Reason: CONSTIPATION Cetirizine HCl (Cetirizine 10 Mg Tablet) 10 mg PO DAILY@0800 [facility] Last Admin: 10/16/20 08:44 Dose: 10 mg Documented by: Cyclobenzaprine HCl (Cyclobenzaprine 10 Mg Tablet) 10 mg PO TID PRN PRN Reason: muscle spasms Last Admin: 10/15/20 08:36 Dose: 10 mg Documented by: Diltiazem HCl (Diltiazem Er (24hr) 240 Mg Capsule) 240 mg PO DAILY@0800 [facility] Last Admin: 10/16/20 08:44 Dose: 240 mg Documented by: Furosemide (Furosemide 40 Mg Tablet) 40 mg PO DAILY@0800 [facility] Last Admin: 10/16/20 08:44 Dose: 40 mg Documented by: Lanolin (Lanolin Oint 7 Gm) 1 applic TOPICAL PRN PRN PRN Reason: DRYNESS Levothyroxine Sodium (Levothyroxine 50 Mcg Tablet) 50 mcg PO DAILY@0800 [facility] Last Admin: 10/16/20 08:44 Dose: 50 mcg Documented by: Naloxone HCl (Naloxone 0.4 Mg/Ml Sdv) 0.1 mg IVP Q2M PRN PRN Reason: OPIATERV Non-Formulary Medication (Cholecalciferol (Vitamin D3)) 1,250 mcg PO DAILY@0800 [facility] Last Admin: 10/16/20 08:41 Dose: Not Given Documented by: Non-Formulary Medication (Guaifenesin) 400 mg PO Q4H PRN PRN Reason: Cough Ondansetron HCl (Ondansetron 2 Mg/Ml Sdv 2 Ml) 4 mg IVP Q8H PRN PRN Reason: vomiting, or N/V if npo Last Admin: 10/11/20 14:07 Dose: 4 mg Documented by: Pantoprazole Sodium (Pantoprazole Dr 40 Mg Tablet) 40 mg PO DAILY [facility] Last Admin: 10/16/20 08:44 Dose: 40 mg Documented by: Fluticasone/Salmeterol (Fluticasone-Salmeterol 500-50 Diskus) 1 puff INHALATION BID.RESPIRATORY [facility] Last Admin: 10/16/20 08:07 Dose: 1 puff Documented by: Senna/Docusate Sodium (Sennosides-Docusate Tablet) 1 tab PO DAILY [facility] Last Admin: 10/16/20 08:44 Dose: 1 tab Documented by: Sodium Chloride (Saline Nasal [place] 44ml Btl) 1 spray NASAL PRN PRN PRN Reason: DRYNESS Zinc Gluconate (Zinc Gluconate 50 Mg Tablet) 50 mg PO DAILY [facility] Last Admin: 10/16/20 08:44 Dose: 50 mg Documented by: Discharge Plan Discharge Patient Disposition: Xfer [facility] Condition: Stable Prescriptions: New Vitamin C 500 mg Tablet 1,000 mg PO BID 10 Days Qty: 40 RF: 0 zinc gluconate 50 mg Tablet 50 mg PO DAILY 10 Days RF: 0 Eliquis 5 mg Tablet 5 mg PO BID@0900,2100 30 Days RF: 3 Continued guaifenesin 400 mg tablet 400 mg PO Q4H PRN (Reason: Cough) RF: 0 Combivent Respimat 20-100 mcg/actuation mist 1 puff INHALATION QID PRN (Reason: Shortness Of Breath) RF: 0 cholecalciferol (vitamin D3) 1,250 mcg (50,000 unit) tablet 1,250 mcg PO DAILY@0800 RF: 0 levothyroxine 50 mcg capsule 50 mcg PO DAILY@0800 RF: 0 diltiazem HCl 240 mg capsule,extended release 24hr 240 mg PO DAILY@0800 RF: 0 cetirizine 10 mg capsule 10 mg PO DAILY@0800 RF: 0 Symbicort 160-4.5 mcg/actuation HFA aerosol inhaler 2 puff INHALATION BID@0800,1900 RF: 0 cyclobenzaprine 10 mg tablet 10 mg PO TID PRN (Reason: muscle spasms) RF: 0 ketoconazole 2 % cream 1 applic TOPICAL BID RF: 0 Tylenol Extra Strength 500 mg Tablet 500 mg PO Q6H PRN (Reason: Pain) RF: 0 Held lisinopril 40 mg tablet 40 mg PO DAILY@0800 RF: 0 Hold Instructions: Resume on 10/30/20. Discontinued naproxen 500 mg tablet 500 mg PO DAILY PRN (Reason: Pain) RF: 0 No Action (DME) custom orthotics See Rx Instructions .Route .MEDSUPPLY Qty: 1 RF: 0 Discharge Orders: Discharge Order (Routine); Ordered 10/16/20 Ordered By: Abelardo Gonzalez Discharge Diet: Low Salt Discharge Activity: Resume usual activity Transfer Attestations Time Spent in Transfer Care*: less than 30 min Specific Discharge Activities: Specific discharge activities: educating patient, educating and/or supporting family/caregiver, discussing with behavioral health case manager/social workers/dc planners, documenting/other paperwork and evaluating patient/reviewing data Status at Transfer: Cognitive status at transfer: cognitively intact, Behavioral status at transfer: cooperative, Functional status at transfer: independent ambulation Overall status at transfer: patient is progressing back to baseline Quality Metrics Clinical Quality Measures: During this hospital stay, did patient experience: None Coding Level of Care Code Acute Chief Ophthalmic Technician for [facility] Fwd Exam Detailed Diagnoses Respiratory failure with hypoxia J96.01 Chronicity: acute Pneumonia due to COVID-19 virus U07.1; J12.89 COPD (chronic obstructive pulmonary disease) J44.9 GEETHA (acute kidney injury) N17.9 Hypertension I10 Atrial fibrillation I48.91
--- NOTE | 2020-10-16 17:50 | PC.NURSE ---
Patient sitting up to the chair, has a transfer order but instead is going to select, received a bed at 1500, patient will be transfering to room 110 to [facility] in [facility], aware. Dr Gonzalez at bedside at this time, discussed goals of care with patient, and placed transfer to [facility] discharge orders. Report called to Rosy at [facility] at 1600. Patients belongings packed up and ready including, cell phone, rfid systems architect, laptop, wallet, clothes, and shoes. Waiting on EMS to arrive at 1815
== END 2020-10-16 18:30 | DRG 177 ==
LOC: ER 16:46 → MEDSURG 18:32 → ICU 10-07 14:01
PROVIDERS: Student in an Organized Health Care Education/Training Program; Admitting Provider Internal Medicine; Emergency Provider Family Medicine; PCP Emergency Medicine Emergency Medical Services; Visit Provider Internal Medicine
DX: U07.1 COVID-19 (principal); J12.82 Pneumonia due to coronavirus disease 2019; J96.01 Acute respiratory failure with hypoxia; N17.9 Acute kidney failure, unspecified; E87.1 Hypo-osmolality and hyponatremia; I12.9 Hypertensive chronic kidney disease with stage 1 through stage 4 chronic kidney disease, or unspecified chronic kidney disease; N18.30 Chronic kidney disease, stage 3 unspecified; J43.9 Emphysema, unspecified; Z85.89 Personal history of malignant neoplasm of other organs and systems; M43.16 Spondylolisthesis, lumbar region; Z96.82 Presence of neurostimulator; Z87.891 Personal history of nicotine dependence; I48.91 Unspecified atrial fibrillation
CPT/HCPCS: 36415; 36416; 36600; 71045; 71250; 80048; 80051; 80053; 81003; 82330; 82728; 82805; 82962; 83605; 83735; 83880; 84145; 84443; 85007; 85025; 85027; 85378; 85384; 85610; 85651; 86140; 87040; 87426; 87635; 87804; 93005; 94640; 94762; 96365; 96367; 96372; 96375; 99285; J1100; J1650; J1940; J1956; J2405; J3535; J7030

== ENCOUNTER 2021-03-27 13:03 | Outpatient (CLI) | payer OTHER, SELFPAY ==
--- NOTE | 2021-03-27 13:30 | USCV_ITS ---
Abdiel Duran Age: 75 Gender: M : 1945 Exam Date: 03/27/2021 13:14 Ordering Phys: Ramon Toussaint M.D ([email or web address]) Technologist: Jessi Becerra [place]am [place] [facility] [place]ication: AFIB BP: / HR: 93 Rhythm: Sinus Technical Quality: Adequate MEASUREMENTS (Male / Female) Normal Values 2D ECHO LV Diastolic Diameter PLAX 4.2 cm 4.2 - 5.9 / 3.9 - 5.3 cm LV Systolic Diameter PLAX 3.4 cm LV Chamber Size 3.0 cm IVS Diastolic Thickness 1.3 cm 0.6 - 1.0 / 0.6 - 0.9 cm IVS Systolic Thickness 1.4 cm LVPW Diastolic Thickness 1.3 cm 0.6 - 1.0 / 0.6 - 0.9 cm LVPW Systolic Thickness 1.7 cm RV Chamber Size 3.0 cm LVOT Diameter 2.0 cm LV Ejection Fraction 2D Teich 40.4 % LV Ejection Fraction MOD 2C 64.8 % LV Ejection Fraction 2C AL 63.8 % LA Diameter 2.7 cm LA Width 2.3 cm LA Height 4.5 cm RA Width 3.3 cm RA Height 3.1 cm Aorta at Sinotubular Diameter 3.5 cm M-MODE LV Diastolic Diameter MM 4.5 cm 4.2 - 5.9 / 3.9 - 5.3 cm LV Systolic Diameter MM 2.4 cm LV Ejection Fraction MM Teich 77.7 % IVS Diastolic Thickness MM 1.3 cm 0.6 - 1.0 / 0.6 - 0.9 cm IVS Systolic Thickness MM 1.7 cm LVPW Diastolic Thickness MM 1.6 cm 0.6 - 1.0 / 0.6 - 0.9 cm LVPW Systolic Thickness MM 2.0 cm Aortic Annulus Diameter 3.9 cm LA Ao Ratio MM 0.9 MV E Point Septal Separation 0.7 cm DOPPLER AV Peak Velocity 207.4 cm/s LVOT Peak Velocity 98.0 cm/s AV Area Cont Eq vti 1.7 cm squared AV Area Cont Eq pk 1.5 cm squared MV Area PHT 2.5 cm squared Mitral E to A Ratio 0.7 MV E' Velocity 41.5 cm/s Mitral E to MV E' Ratio 7.3 Mitral E to LV E' Lateral Ratio 9.0 Mitral E to LV E' Septal Ratio 6.1 TR Peak Velocity 178.6 cm/s TR Peak Gradient 12.8 mmHg TR Mean Velocity 117.1 cm/s TR Mean Gradient 6.5 mmHg TR Velocity Time Integral 37.4 cm TV Peak E Velocity 80.0 cm/s Right Atrial Pressure 3.0 mmHg Pulmonary Artery Systolic Pressu 15.8 mmHg PV Peak Velocity 83.0 cm/s RV Acceleration Time 0.1 s RV Ejection Time 0.3 s RV AcT/ET 0.4 FINDINGS Left Ventricle Normal left ventricular size. LV systolic function is normal with EF of 50-55%.No regional wall motion abnormalities. Diastolic function is indeterminate because of atrial fibrillation Right Ventricle The right ventricle is normal in size and function. Right Atrium The right atrium is normal in size. Left Atrium The left atrium is normal in size. Mitral Valve Structurally normal mitral valve without significant stenosis or prolapse. There is no mitral regurgitation. Aortic Valve Structurally normal aortic valve without significant sclerosis or stenosis. There is no aortic regurgitation. Tricuspid Valve Structurally normal tricuspid valve without significant stenosis or regurgitation. Insufficient TR jet to calculate RVSP Pulmonic Valve Not well visualized Pericardium Normal pericardium without effusion. Aorta Normal ascending aorta dimension. CONCLUSIONS Technically limited echocardiogram because of atrial fibrillation LV systolic function is normal with EF of 50-55%. Diastolic function is indeterminate because of atrial fibrillation No significant valvular heart disease noted No comparison studies are available Ramon Toussaint MD (Electronically Signed) Final Date: 31 March 2021 16:22 S
== END 2021-03-27 13:04 | disposition home or self-care (01) ==
LOC: US 13:07
PROVIDERS: PCP Emergency Medicine Emergency Medical Services; Visit Provider Internal Medicine
DX: I48.91 Unspecified atrial fibrillation (principal)
CPT/HCPCS: 93306

== ENCOUNTER 2021-05-14 08:39 | Outpatient (CLI) | payer OTHER, SELFPAY ==
--- NOTE | 2021-05-14 08:59 | CT_ITS ---
WS: [id number] CT CHEST TECHNIQUE: Noncontrast CT of the chest with coronal and sagittal reformatted images. CLINICAL INFORMATION: HEMOPTYSIS COMPARISON: October 04, 2020 DLP: 766.[address] scans at [facility] use at least one of these dose optimization techniques: automated e xposure control; mA and/or kV adjustment per patient size (includes targeted exams where dose is matc hed to clinical indication); or iterative reconstruction. FINDINGS: Advanced chronic emphysematous changes. Previously described groundglass infiltrates have improved an d essentially resolved since October 04, 2020. Tiny amount of residual faint hazy groundglass infilt rates in the right upper lobe laterally, right lower lobe and lingula. No focal pneumonia or pleural fluid. Normal caliber thoracic aorta. Coronary calcification. Small esophageal hiatal hernia. Adrenal glands are normal. Fatty atrophy of the pancreas. Left hepatic cyst or hemangioma measuring 18 mm. Addition al smaller low-attenuation lesions too small to characterize but likely hepatic cysts. These appear u nchanged. Mild thoracic kyphosis. Dorsal spinal stimulator. CT/CT chest wo con [id number] IMPRESSION: 1. Advanced chronic emphysematous changes. 2. Previously described hazy groundglass infiltrates have essentially resolved compared to October 04, 2020 3. Tiny amount of faint residual hazy subpleural infiltrates in the right uppe r lobe laterally, right lower lobe and lingula. 4. No focal pneumonia or pleural fluid. 5. No mediastinal or hilar lymphadenopathy. 6. No other changes from previous.
== END 2021-05-14 08:40 | disposition home or self-care (01) ==
PROVIDERS: PCP Emergency Medicine Emergency Medical Services; Visit Provider Emergency Medicine Emergency Medical Services
DX: R04.2 Hemoptysis (principal); R91.8 Other nonspecific abnormal finding of lung field
CPT/HCPCS: 71250

== ENCOUNTER 2021-10-08 12:11 | Emergency (ER) | payer OTHER, SELFPAY ==
[2021-10-08 12:14] VITALS: BP 154/80; PULSE 82; RESP 20; TEMP 36.4; O2SAT 95; BMI 32.5
--- NOTE | 2021-10-08 12:27 | ED_ITS ---
HPI - Extremity Problem General: Chief complaint: Extremity Injury, Lower Stated complaint: Lower back in severe pain Time Seen by Provider: 10/08/21 12:14 Source: patient Mode of arrival: ambulatory Limitations: no limitations History of Present Illness: 76-year-old male has a history of chronic back pain he states he is a pain stimulator he has been having increasing pain over the last 2 weeks he states it is much worse with sudden movements and walking. States he feels like he is having spasm in his low back denies any bowel or bladder incontinence rates his pain a 5 out of 10 currently is improved with rest. Associated symptoms: Deny chest pain, fever(s) or rash Review of Systems Const: Denies: fever(s), chills, body aches or change in appetite Eyes: Denies: blurry vision or eye discomfort ENMT: Denies: throat pain or dental pain Card: Denies: chest pain Resp: Denies: dyspnea GI: Denies: abdominal pain, nausea, vomiting or diarrhea : Denies: dysuria Musc: Reports: back pain Skin/Breast: Denies: rash Neuro: Denies: headache(s) Psych: Denies: depression Guy/Lymph: Denies: easy bruising All/Imm: Denies: urticaria PFSH ED PFSH: Medical History (Updated 10/08/21 @ 12:28 by Juan Murray MD) Acute bronchitis with chronic obstructive pulmonary disease (COPD) GEETHA (acute kidney injury) GEETHA V/S GEETHA ON CKD Stage 3 Atrial fibrillation COPD (chronic obstructive pulmonary disease) COPD (chronic obstructive pulmonary disease) History of cardiac dysrhythmia Hydrocele, left Hyperkalemia Hypertension Hyponatremia Hyponatremia 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, lumbar region Pneumonia due to COVID-19 virus Respiratory failure with hypoxia Improving Spondylolisthesis, lumbar region Testalgia Urinary retention Surgical History H/O arthroscopic knee surgery H/O carpal tunnel repair H/O vasectomy S/P insertion of spinal cord stimulator (~10/15/16) Family History Grandmother Cancer Social History Smoking and tobacco status: never smoked Quit status (tobacco): has quit using tobacco Year quit tobacco: 1984 Alcohol intake: current Lives independently: Yes Household members: spouse Marital status: Current occupational status: retired Physical Exam Const: COMMON NORMALS: no acute distress, patient oriented x3 and healthy appearing HENMT: COMMON NORMALS: normocephalic and atraumatic HEAD & SCALP: normocephalic and atraumatic Eye: COMMON NORMALS: Equal, round and reactive pupils present and EOMs intact bilaterally PUPIL: Yes Equal, round and reactive pupils present Neck/C-Spine: COMMON NORMALS: full ROM and supple Chest: COMMONS NORMALS: normal inspection of the chest and normal palpation of entire chest wall Resp: COMMON NORMALS: normal respiratory effort, No retractions, No use of accessory muscles and clear to auscultation bilaterally AUSCULTATION: clear to auscultation bilaterally Cardio: COMMON NORMALS: regular rate, regular rhythm and No murmurs present (Cardio) RATE: regular rate RHYTHM: regular rhythm GI: COMMON NORMALS: Normal to inspection, nondistended, normoactive bowel sounds present, Soft to palpation, non-tender and no masses PALPATION: Yes Soft to palpation Back/Pelvis: OTHER: Lower paraspinal tenderness is no midline tenderness no saddle anesthesia Extremity: COMMON NORMALS: normal to inspection and full ROM Neuro: COMMON NORMALS: patient oriented x3, moves all extremities and no focal motor deficits Psych: COMMON NORMALS: mental status grossly normal, Normal thought process present and cooperative THOUGHT PROCESS: Normal thought process present Skin: COMMON NORMALS: no rashes or lesions noted and no wounds GENERAL SKIN EXAM: no rashes or lesions noted Course Vital Signs: Vital signs: Vital Signs Temperature 97.5 F L 10/08/21 12:14 Pulse Rate 82 10/08/21 12:14 Respiratory Rate 20 H 10/08/21 12:14 Blood Pressure 154/80 10/08/21 12:14 Pulse Oximetry 95 10/08/21 12:14 MDM - Extremity (Nontraumatic) Medical Decision Making Patient presents with low back pain that is chronic in nature is no signs of cord compression or epidural abscess we will start patient on pain meds along with muscle relaxer he is to follow-up with his chronic pain specialist in 3 to 5 days return if worsening. Discharge Plan Discharge Patient Disposition: Home Clinical Impression: Chronic back pain Condition: Stable Prescriptions: New hydrocodone-acetaminophen 5-325 mg tablet 1 tab PO Q6H PRN (Reason: pain) Qty: 14 0RF methocarbamol 750 mg tablet 750 mg PO Q6H PRN (Reason: spasms) Qty: 20 0RF Naprosyn 500 mg tablet 500 mg PO BID PRN (Reason: pain) Qty: 20 0RF No Action guaifenesin 400 mg tablet 400 mg PO Q4H PRN (Reason: Cough) 0RF Combivent Respimat 20-100 mcg/actuation mist 1 puff INHALATION QID PRN (Reason: Shortness Of Breath) 0RF cholecalciferol (vitamin D3) 1,250 mcg (50,000 unit) tablet 1,250 mcg PO DAILY@0800 0RF levothyroxine 50 mcg capsule 50 mcg PO DAILY@0800 0RF lisinopril 40 mg tablet 40 mg PO DAILY@0800 0RF Hold Instructions: Resume on 10/30/20. diltiazem HCl 240 mg capsule,extended release 24hr 240 mg PO DAILY@0800 0RF cetirizine 10 mg capsule 10 mg PO DAILY@0800 0RF Symbicort 160-4.5 mcg/actuation HFA aerosol inhaler 2 puff INHALATION BID@0800,1900 0RF cyclobenzaprine 10 mg tablet 10 mg PO TID PRN (Reason: muscle spasms) 0RF albuterol sulfate 90 mcg/actuation HFA aerosol inhaler 1 inh inhalation QID PRN (Reason: shortness of breath or wheezing) Qty: 8.5 5RF Spiriva Respimat 1.25 mcg/actuation mist 2 puff inhalation DAILY Qty: 4 3RF (DME) custom orthotics See Rx Instructions .Route .MEDSUPPLY Qty: 1 0RF Rx Instructions: As directed prednisone 20 mg tablet 60 mg PO DAILY Qty: 21 0RF doxycycline hyclate 100 mg tablet 100 mg PO BID Qty: 20 0RF Tylenol Extra Strength 500 mg Tablet 500 mg PO Q6H PRN (Reason: Pain) 0RF Discharge Orders: Discharge ED (Routine); Ordered 10/08/21 Ordered By: Juan Murray Referrals: Keshawn Little, [Primary Care Provider] - Discharge Diet: Advance as tolerated Discharge Activity: Resume usual activity Patient Instructions: Back Pain (ED), Opioid Safety Coding Level of Care Code ED Lead Recreation Assistant for Charlee Givens
[2021-10-08] MEDS: dexamethasone 10 mg/mL INJ IM (12:36)
[2021-10-08] MEDS: ketorolac 30 mg/mL INJ IM (12:36)
[2021-10-08 12:37] VITALS: BP 138/71; PULSE 77; RESP 16; TEMP 36.6; O2SAT 98
== END 2021-10-08 12:45 | disposition home or self-care (01) ==
PROVIDERS: Emergency Provider Emergency Medicine; PCP Emergency Medicine Emergency Medical Services
DX: G89.29 Other chronic pain (principal); M54.9 Dorsalgia, unspecified; J44.9 Chronic obstructive pulmonary disease, unspecified; I10 Essential (primary) hypertension; Z87.891 Personal history of nicotine dependence
CPT/HCPCS: 96372; 99283; J1100; J1885

== ENCOUNTER → 2021-10-31 13:02 | Outpatient (BNVA) | payer OTHER, SELFPAY | PROVIDERS: PCP Emergency Medicine Emergency Medical Services; Visit Provider Registered Nurse Neonatal Intensive Care | DX: S49.91XA Unspecified injury of right shoulder and upper arm, initial encounter (principal); X58.XXXA Exposure to other specified factors, initial encounter; M19.011 Primary osteoarthritis, right shoulder | CPT/HCPCS: 73030 ==

== ENCOUNTER 2021-11-01 11:52 | Emergency (ER) | payer OTHER, SELFPAY ==
[2021-11-01 12:11] VITALS: BP 148/84; PULSE 97; RESP 16; TEMP 37.1; O2SAT 99; BMI 34.0
--- NOTE | 2021-11-01 12:55 | W.ED.EXTPRO ---
HPI - Extremity Problem General: Chief complaint: Extremity Injury, Upper Stated complaint: Rt Shoulder hurting cant move properly Time Seen by Provider: 11/01/21 11:59 History of Present Illness: Patient presents with right shoulder pain. Patient's had difficulty with his shoulders over the last few years but made worse from a fall this week history patient fell and struck 's computer desk in his head pretty good pain since then. Patient was seen at urgent care and x-rays ordered which showed significant arthrosis and degenerative disease possible fracture. Patient already had appointment made for orthopedic follow-up patient is requesting treatment for pain. Associated symptoms: Deny chest pain, fever(s) or rash Review of Systems Narrative: Patient states had general weakness in his legs since he had a Covid shot. And he fell yesterday which is happened couple times striking his right shoulder and computer desk went to urgent care had x-ray done. Patient is follow-up at the [facility] for his weakness. Const: Denies: fever(s), chills or body aches Eyes: Denies: eye discomfort ENMT: Denies: throat pain Card: Denies: chest pain Resp: Denies: dyspnea GI: Denies: abdominal pain, nausea or vomiting Musc: Reports: joint pain Skin/Breast: Denies: rash Neuro: Denies: headache(s) Psych: Denies: depression or suicidal ideation [facility] ED PFSH: Medical History (Updated 11/01/21 @ 12:49 by JAGDEEP Luis) Acute bronchitis with chronic obstructive pulmonary disease (COPD) GEETHA (acute kidney injury) GEETHA V/S GEETHA ON CKD Stage 3 Atrial fibrillation COPD (chronic obstructive pulmonary disease) COPD (chronic obstructive pulmonary disease) History of cardiac dysrhythmia Hydrocele, left Hyperkalemia Hypertension Hyponatremia Hyponatremia 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, lumbar region Pneumonia due to COVID-19 virus Respiratory failure with hypoxia Improving Spondylolisthesis, lumbar region Testalgia Urinary retention Surgical History H/O arthroscopic knee surgery H/O carpal tunnel repair H/O vasectomy S/P insertion of spinal cord stimulator (~10/15/16) Family History Grandmother Cancer Social History Smoking and tobacco status: never smoked Quit status (tobacco): has quit using tobacco Year quit tobacco: 1984 Alcohol intake: current Lives independently: Yes Household members: spouse Marital status: Current occupational status: retired Physical Exam Const: COMMON NORMALS: no acute distress, patient oriented x3 and alert HENMT: COMMON NORMALS: normocephalic and external ears normal HEAD & SCALP: normocephalic EXTERNAL EAR: Yes external ears normal Eye: COMMON NORMALS: EOMs intact bilaterally Neck/C-Spine: COMMON NORMALS: no JVD Resp: COMMON NORMALS: normal respiratory effort and No use of accessory muscles Cardio: COMMON NORMALS: no JVD GI: INSPECTION: Yes normal to inspection Extremity: RIGHT UPPER EXTREMITY: Yes shoulder joint (Nurse throughout the joint.) Right shoulder: Yes Right shoulder joint inspection exam (Normal), Yes palpation, Yes Right shoulder joint ROM exam (Significantly decreased due to pain) and Yes Right shoulder joint neurovascular exam (Intact) Neuro: COMMON NORMALS: patient oriented x3 SENSORIUM/ORIENTATION: Yes alert Psych: COMMON NORMALS: mental status grossly normal Skin: COMMON NORMALS: no rashes or lesions noted GENERAL SKIN EXAM: no rashes or lesions noted Course Vital Signs: Vital signs: Vital Signs Temperature 98.7 F 11/01/21 12:11 Pulse Rate 97 11/01/21 12:11 Respiratory Rate 16 11/01/21 12:11 Blood Pressure 148/84 11/01/21 12:11 Pulse Oximetry 99 11/01/21 12:11 MDM - Extremity (Nontraumatic) Medical Decision Making Patient with right shoulder pain worsening since his fall here recently. X-rays done yesterday revealed severe degenerative changes. Possibility of an occult fracture bicep tendinosis area. Pain medication given, patient has sling, referral made to orthopedic clinic. Discharge Plan Discharge Patient Disposition: Home Clinical Impression: Acute shoulder pain Condition: Stable Prescriptions: New hydrocodone-acetaminophen 5-325 mg tablet 1 tab PO TID PRN (Reason: pain) Qty: 14 0RF Voltaren Arthritis Pain 1 % gel 4 g topical QID Qty: 100 0RF No Action guaifenesin 400 mg tablet 400 mg PO Q4H PRN (Reason: Cough) 0RF Combivent Respimat 20-100 mcg/actuation mist 1 puff INHALATION QID PRN (Reason: Shortness Of Breath) 0RF cholecalciferol (vitamin D3) 1,250 mcg (50,000 unit) tablet 1,250 mcg PO DAILY@0800 0RF levothyroxine 50 mcg capsule 50 mcg PO DAILY@0800 0RF lisinopril 40 mg tablet 40 mg PO DAILY@0800 0RF Hold Instructions: Resume on 10/30/20. diltiazem HCl 240 mg capsule,extended release 24hr 240 mg PO DAILY@0800 0RF cetirizine 10 mg capsule 10 mg PO DAILY@0800 0RF Symbicort 160-4.5 mcg/actuation HFA aerosol inhaler 2 puff INHALATION BID@0800,1900 0RF cyclobenzaprine 10 mg tablet 10 mg PO TID PRN (Reason: muscle spasms) 0RF albuterol sulfate 90 mcg/actuation HFA aerosol inhaler 1 inh inhalation QID PRN (Reason: shortness of breath or wheezing) Qty: 8.5 5RF Spiriva Respimat 1.25 mcg/actuation mist 2 puff inhalation DAILY Qty: 4 3RF (DME) custom orthotics See Rx Instructions .Route .MEDSUPPLY Qty: 1 0RF Rx Instructions: As directed prednisone 20 mg tablet 60 mg PO DAILY Qty: 21 0RF doxycycline hyclate 100 mg tablet 100 mg PO BID Qty: 20 0RF Tylenol Extra Strength 500 mg Tablet 500 mg PO Q6H PRN (Reason: Pain) 0RF hydrocodone-acetaminophen 5-325 mg tablet 1 tab PO Q6H PRN (Reason: pain) Qty: 14 0RF methocarbamol 750 mg tablet 750 mg PO Q6H PRN (Reason: spasms) Qty: 20 0RF Naprosyn 500 mg tablet 500 mg PO BID PRN (Reason: pain) Qty: 20 0RF Discharge Orders: Discharge ED (Routine); Ordered 11/01/21 Ordered By: Abhay Farris Referrals: Keshawn Little DO [Primary Care Provider] - Discharge Diet: Usual diet Discharge Activity: Limit activity as instructed Activity Restrictions/Additional Instructions: Follow-up with medical provider as directed. Take medications as prescribed. Return to the ER or your medical provider if condition worsens. Please read and understand discharge instructions. If any questions ask please. Hospital will contact you on Wednesday with a follow-up appointment for orthopedic clinic. If you do not hear back from the hospital by Wednesday please call the orthopedic clinic for an appointment. Ask to get appoint with Dr. Li. Can apply ice to area. Coding Level of Care Code ED Evaporator Operator for Adam Fwd Exam Comprehensive
[2021-11-01 13:06] VITALS: BP 128/84; PULSE 96; RESP 17; O2SAT 96
[2021-11-01 13:16] VITALS: RESP 15
--- NOTE | 2021-11-03 11:06 | DCPLANNER ---
Addendum entered by Hemalatha Trujillo 11/13/21 08:59: Patient had a follow up appointment scheduled for 11.04.[address] Li at ortho - patient did attend appointment. Addendum entered by Hemalatha Trujillo 11/04/21 08:31: Patient has a follow up appointment scheduled for Thursday, November 04, 2021 at 2:[address] Li at ortho. Clinic will call patient with appointment information. Addendum entered by Hemalatha Trujillo 11/03/21 11:13: Patient has [employer] insurance, upper caser sent patients information to November with [employer] [facility] [employer] [facility], so that the authorization process could be started. Original Note: plant hr manager had message to schedule a follow up appointment for patient with ortho. plant hr manager called the ortho clinic, spoke with Marta, gave clinic patients information. plant hr manager was told that patients information would be printed and reviewed. Clinic will call patient with appointment information.
== END 2021-11-01 13:17 | disposition home or self-care (01) ==
PROVIDERS: Emergency Provider Nurse Practitioner Family; PCP Emergency Medicine Emergency Medical Services
DX: M25.511 Pain in right shoulder (principal); J44.9 Chronic obstructive pulmonary disease, unspecified; Z87.891 Personal history of nicotine dependence
CPT/HCPCS: 99282

== ENCOUNTER → 2021-11-10 08:31 | Outpatient (BNVA) | payer OTHER, SELFPAY | PROVIDERS: PCP Emergency Medicine Emergency Medical Services; Visit Provider Internal Medicine Pulmonary Disease | DX: J43.2 Centrilobular emphysema (principal); I48.20 Chronic atrial fibrillation, unspecified; R06.09 Other forms of dyspnea; U09.9 Post COVID-19 condition, unspecified; Z01.811 Encounter for preprocedural respiratory examination; Z79.01 Long term (current) use of anticoagulants; Z87.891 Personal history of nicotine dependence; I10 Essential (primary) hypertension; E78.5 Hyperlipidemia, unspecified; E87.1 Hypo-osmolality and hyponatremia | CPT/HCPCS: 99214 ==

== ENCOUNTER 2021-11-11 13:07 | Inpatient (IN) | payer OTHER, MEDICARE, SELFPAY ==
[2021-11-11] VITALS (13 sets, daily range): BP systolic 109–139; BP diastolic 68–80; PULSE 68–93; RESP 14–18; TEMP 36.7–36.9; O2SAT 90–100; BMI 32.5; BMI 31.5
--- NOTE | 2021-11-11 | USCV_ITS ---
Transthoracic Echo Abdiel Duran Age: 76 Gender: M : 1945 Exam Date: 11/11/2021 23:41 Ordering Phys: Eva Hall MD Technologist: TRAM [place] [facility] [place]: CHF BP: 105 / 68 HR: 92 Rhythm: Sinus Technical Quality: Suboptimal MEASUREMENTS (Male / Female) Normal Values 2D ECHO LV Diastolic Diameter PLAX 4.0 cm 4.2 - 5.9 / 3.9 - 5.3 cm LV Systolic Diameter PLAX 1.4 cm IVS Diastolic Thickness 1.0 cm 0.6 - 1.0 / 0.6 - 0.9 cm IVS Systolic Thickness 2.0 cm LVPW Diastolic Thickness 1.7 cm 0.6 - 1.0 / 0.6 - 0.9 cm LVPW Systolic Thickness 2.0 cm LVOT Diameter 2.7 cm LV Ejection Fraction 2D Teich 92.8 % LV Ejection Fraction MOD 2C 46.5 % LV Ejection Fraction 2C AL 49.1 % LA Diameter 3.7 cm LA Width 3.4 cm LA Height 5.0 cm RA Width 3.5 cm RA Height 5.0 cm Aorta at Sinotubular Diameter 3.1 cm M-MODE Aortic Annulus Diameter 3.3 cm LA Ao Ratio MM 1.2 MV E Point Septal Separation 1.8 cm DOPPLER AV Peak Velocity 338.5 cm/s LVOT Peak Velocity 105.0 cm/s AV Area Cont Eq vti 1.9 cm squared AV Area Cont Eq pk 1.7 cm squared MV Peak Velocity 111.0 cm/s MV Area PHT 3.6 cm squared Mitral E to A Ratio 0.9 MV E' Velocity 56.0 cm/s Mitral E to MV E' Ratio 11.0 Mitral E to LV E' Lateral Ratio 10.8 Mitral E to LV E' Septal Ratio 11.3 TR Peak Velocity 189.2 cm/s TR Peak Gradient 14.3 mmHg TR Mean Velocity 109.9 cm/s TR Mean Gradient 6.3 mmHg TR Velocity Time Integral 33.0 cm Right Atrial Pressure 5.0 mmHg Pulmonary Artery Systolic Pressu 19.3 mmHg PV Peak Velocity 121.0 cm/s RV Acceleration Time 0.2 s RV Ejection Time 0.3 s RV AcT/ET 0.6 FINDINGS Left Ventricle Normal left ventricular cavity size. Normal left ventricular wall thickness. Mildly decreased left ventricular systolic function. Left ventricular ejection fraction is estimated at 50 %. Grade I/IV diastolic dysfunction (abnormal relaxation filling pattern), normal to mildly elevated filling pressures. No regional wall motion abnormalities. Right Ventricle Normal right ventricular size and systolic function. Normal right ventricular systolic pressure. Right Atrium Normal right atrial size. Left Atrium Normal left atrial size. Mitral Valve Mitral valve not well visualized. No mitral valve stenosis. No mitral valve regurgitation. Aortic Valve Structurally normal trileaflet aortic valve. Mild aortic valve calcification. No aortic valve regurgitation. Mild aortic valve stenosis, mean gradient 21.2 mmHg, KEMI 1.9 cm squared. Tricuspid Valve Structurally normal tricuspid valve. Trace tricuspid valve regurgitation. Pulmonic Valve Pulmonic valve not well visualized. Pericardium No pericardial effusion. Aorta Normal aorta. CONCLUSIONS Normal left ventricular cavity size. Normal left ventricular wall thickness. Mildly decreased left ventricular systolic function. Left ventricular ejection fraction is estimated at 50 %. Grade I/IV diastolic dysfunction (abnormal relaxation filling pattern), normal to mildly elevated filling pressures. No regional wall motion abnormalities. Structurally normal trileaflet aortic valve. Mild aortic valve calcification. No aortic valve regurgitation. Mild aortic valve stenosis, mean gradient 21.2 mmHg, KEMI 1.[address] Sherman Roy MD (Electronically Signed) Final Date: 12 November 2021 08:50 S
--- NOTE | 2021-11-11 15:54 | ED_ITS ---
Documented by User: ILA Kaur 11/12/21 07:12 HPI - GI Bleed General: Chief complaint: GI Bleed Stated complaint: RECTAL BLEED Time Seen by Provider: 11/11/21 15:36 History of Present Illness: Patient is a 76-year-old male who comes to the ED with rectal bleeding. Patient has a history of COPD, A. fib and is currently taking Pradaxa. Patient says approximately 4 days ago he started passing red blood with his bowel movements. Stool has a lot of red blood in it and he describes it as a paste. Patient says he normally has 1-2 bowel movements a day and for the last 4 days he is having 2-3 bowel movements a day. Each bowel movement has a lot of red blood in it. Denies active bleeding in between bowel movements. He did stop taking his Pradaxa yesterday and today due to his concern for bleeding. Says his last colonoscopy was several years ago and the doctor told him it was all clear. Endorses history of hemorrhoids. He feels some generalized fatigue since onset of symptoms but denies any other symptoms. Patient did state that due to the bleeding denies any constipation, diarrhea, abdominal pain, nausea/vomiting, painful bowel movements. Associated symptoms: Denies abdominal pain, chills, fever(s), headache(s), nausea, rash or vomiting Review of Systems Const: Reports: fatigue; Denies: fever(s) or chills Eyes: Denies: change in vision or eye discomfort ENMT: Denies: throat pain, odynophagia, nasal discharge or nasal congestion Card: Denies: chest pain, palpitations, edema, swelling of feet/ankles, dyspnea on exertion or orthopnea Resp: Denies: dyspnea, productive cough or non-productive cough GI: Reports: hematochezia; Denies: abdominal pain, nausea, vomiting, diarrhea or constipation : Denies: flank pain, difficulty urinating, dysuria or hematuria Musc: Denies: neck pain, back pain or extremity swelling Skin/Breast: Denies: rash or new lesions Neuro: Denies: headache(s), numbness in extremities or weakness in extremities PFS ED PFSH: Medical History Acute bronchitis with chronic obstructive pulmonary disease (COPD) GEETHA (acute kidney injury) GEETHA V/S GEETHA ON CKD Stage 3 Atrial fibrillation COPD (chronic obstructive pulmonary disease) COPD (chronic obstructive pulmonary disease) History of cardiac dysrhythmia Hydrocele, left Hyperkalemia Hypertension Hyponatremia Hyponatremia 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, lumbar region Pneumonia due to COVID-19 virus Respiratory failure with hypoxia Improving Spondylolisthesis, lumbar region Testalgia Urinary retention Surgical History H/O arthroscopic knee surgery H/O carpal tunnel repair H/O vasectomy S/P insertion of spinal cord stimulator (~10/15/16) Family History Grandmother Cancer Social History Smoking and tobacco status: former smoker Quit status (tobacco): has quit using tobacco Year quit tobacco: 1984 Alcohol intake: current Lives independently: Yes Household members: spouse Marital status: Current occupational status: retired Physical Exam Const: COMMON NORMALS: patient oriented x3 and alert GENERAL APPEARANCE: cooperative HENMT: COMMON NORMALS: normocephalic HEAD & SCALP: normocephalic MOUTH: Normal oral and palatal mucosa present THROAT: posterior oropharynx normal and uvula midline Neck/C-Spine: COMMON NORMALS: supple GENERAL: Yes normal visual inspection Resp: COMMON NORMALS: normal respiratory effort, No retractions, No use of accessory muscles and clear to auscultation bilaterally AUSCULTATION: clear to auscultation bilaterally Cardio: COMMON NORMALS: regular rate, regular rhythm, S1 normal heart sound present, S2 normal heart sound present, No gallops present (Cardio), No clicks present (Cardio), No murmurs present (Cardio) and Peripheral pulses 2+ throughout RATE: regular rate RHYTHM: regular rhythm HEART SOUNDS: S1 normal heart sound present and S2 normal heart sound present PERIPHERAL PULSES: Peripheral pulses 2+ throughout GI: COMMON NORMALS: Normal to inspection, nondistended, normoactive bowel sounds present, Soft to palpation, non-tender and no masses PALPATION: Yes Soft to palpation RECTAL EXAM: Yes normal sphincter tone, Yes heme positive stool, Yes hemorrhoids (External hemorrhoids seen. No thrombosed hemorrhoids) and Yes other (No visible red blood or active bleeding.) : COMMON NORMALS: Yes no CVA tenderness BLADDER/KIDNEY EXAM: Yes no CVA tenderness Back/Pelvis: COMMON NORMALS: no CVA tenderness Extremity: COMMON NORMALS: normal to inspection and no pedal edema Neuro: COMMON NORMALS: patient oriented x3 and moves all extremities SENSORIUM/ORIENTATION: Yes alert Skin: GENERAL SKIN EXAM: dry skin Procedures Stool Hemoccult Procedural Steps Taken: stool placed in appropriate test area, developer placed on stool and control areas and controls appropriately positive and negative Hemoccult result: positive Additional Comments: Stool Hemoccult test performed after digital rectal exam. Course Vital Signs: Vital signs: Vital Signs Temperature 98.5 F 11/12/21 02:10 Pulse Rate 84 11/12/21 05:26 Respiratory Rate 16 11/12/21 02:10 Blood Pressure 120/82 11/12/21 02:10 Pulse Oximetry 90 11/11/21 23:11 MDM - GI Bleed Lab Data I reviewed the patient's lab results. : 11/12/21 04:20 11/12/21 04:20 Radiology Impressions Abdomen/Pelvis CTA 11/11/21 16:19 IMPRESSION: 1. Negative for contrast extravasation seen to indicate active bleeding 2. Emphysematous changes. 3. Lingular 6.2 mm pulmonary nodule, somewhat more prominent compared to prior exam, series 3 image 7. Dedicated nonemergent chest CT could further evaluate this. A stable left lower lobe 7.1 mm pulmonary nodule is also seen series 3, image 21. 4. Left hepatic lobe cyst. 5. Diverticulosis without diverticulitis. 6. Nodular prostate gland enlargement. 7. Fusiform infrarenal abdominal aortic aneurysm measuring up to 2.8 cm without findings of rupture. Laboratory Results WBC 9.6 10^3/uL (4.0-10.0) 11/11/21 15:45 RBC 2.69 10^6/uL (4.1-5.3) L 11/11/21 15:45 Hgb 7.1 g/dL (11.7-16.6) L 11/11/21 15:45 Hct 24.5 % (42.0-52.0) L 11/11/21 15:45 MCV 91.1 fl (80-94) 11/11/21 15:45 MCH 26.4 pg (28.0-34.0) L 11/11/21 15:45 MCHC 29.0 g/dL (30.0-36.0) L 11/11/21 15:45 RDW 15.8 % (12.1-15.1) H 11/11/21 15:45 Plt Count 553 10^3/cmm (130-400) H 11/11/21 15:45 MPV 7.9 fL (7.4-10.4) 11/11/21 15:45 Neut % (Auto) 70.8 % 11/11/21 15:45 Lymph % (Auto) 16.3 % 11/11/21 15:45 [place] % (Auto) 8.2 % 11/11/21 15:45 Eos % (Auto) 2.3 % 11/11/21 15:45 Baso % (Auto) 0.6 % 11/11/21 15:45 Neut # (Auto) 6.80 10^3/uL (1.8-7.7) 11/11/21 15:45 Lymph # (Auto) 1.6 10^3/uL (0.8-4.8) 11/11/21 15:45 [place] # (Auto) 0.8 10^3/uL (0.2-0.9) 11/11/21 15:45 Eos # (Auto) 0.2 10^3/uL (0.0-0.8) 11/11/21 15:45 Baso # (Auto) 0.1 10^3/uL (0.0-0.1) 11/11/21 15:45 Nucleated RBC % (auto) 0 % 11/11/21 15:45 Nucleated RBCs # 0.0 /100WBC 11/11/21 15:45 PT 17.60 SECONDS (12.1-14.9) H 11/11/21 15:45 INR 1.41 (0.8-1.2) H 11/11/21 15:45 APTT 60.0 SECONDS (23.9-36.7) H 11/11/21 15:45 Sodium 137 mmol/L (136-145) 11/11/21 15:45 Potassium 5.5 mmol/L (3.5-5.1) H 11/11/21 15:45 Chloride 105 mmol/L (98-107) 11/11/21 15:45 Carbon Dioxide 22 mmol/L (22-29) 11/11/21 15:45 Anion Gap 15.5 (5-19) 11/11/21 15:45 BUN 33 mg/dL (8-23) H 11/11/21 15:45 Creatinine 1.6 mg/dL (0.7-1.2) H 11/11/21 15:45 GFR Calculation Not Reportable 11/11/21 15:45 Glucose 104 mg/dL (65-115) 11/11/21 15:45 Calculated Osmolality 292 mOsm/kg (285-295) 11/11/21 15:45 Calcium 9.1 mg/dL (8.5-10.5) 11/11/21 15:45 Iron 19 ug/dL (59-158) L 11/11/21 15:45 TIBC 313 mcg/dl 11/11/21 15:45 % Saturation 6.0 % (20-50) L 11/11/21 15:45 Unsat Iron Binding 294 ug/dL (112-347) 11/11/21 15:45 Ferritin 66 ng/mL (30-400) 11/11/21 15:45 Total Bilirubin 0.2 mg/dL (0.15-1.2) 11/11/21 15:45 AST 13 U/L (0-40) 11/11/21 15:45 ALT 13 U/L (0-41) 11/11/21 15:45 Alkaline Phosphatase 95 IU/L (40-130) 11/11/21 15:45 Total Protein 6.5 g/dL (6.6-8.7) L 11/11/21 15:45 Albumin 3.6 g/dL (3.5-5.2) 11/11/21 15:45 Globulin 2.9 g/dL (1.3-4.6) 11/11/21 15:45 Lipase 39 U/L (13-60) 11/11/21 15:45 Blood Type O Positive 11/11/21 16:35 Rho(D) Type Positive 11/11/21 16:35 Antibody Screen Negative 11/11/21 16:35 Crossmatch See Detail 11/11/21 16:35 Discharge Plan Discharge Patient Disposition: Admitted As Inpatient Admit Provider: Eva Hall Clinical Impression: Acute GI bleeding, Hypertension, Atrial fibrillation, Anticoagulant long-term use, Anemia Condition: Stable Sign Out Sign Out Data: Patient Sign Out occurred on 11/11/21 at 17:26. Patient's care was discussed, and care was transferred from to Parminder Sims DO. Coding Level of Care Code ED Thermodynamics Teacher for Chg Fwd Exam Comprehensive Documented by User: Parminder Sims DO 11/12/21 06:20 HPI - GI Bleed General: Chief complaint: GI Bleed Stated complaint: RECTAL BLEED Time Seen by Provider: 11/11/21 15:36 History of Present Illness: Patient is a 76-year-old male who comes to the ED with rectal bleeding. Patient has a history of COPD, A. fib and is currently taking Pradaxa. Patient says approximately 4 days ago he started passing red blood with his bowel movements. Stool has a lot of red blood in it and he describes it as a paste. Patient says he normally has 1-2 bowel movements a day and for the last 4 days he is having 2-3 bowel movements a day. Each bowel movement has a lot of red blood in it. Denies active bleeding in between bowel movements. He did stop taking his Pradaxa yesterday and today due to his concern for bleeding. Says his last colonoscopy was several years ago and the doctor told him it was all clear. Endorses history of hemorrhoids. He feels some generalized fatigue since onset of symptoms but denies any other symptoms. Patient did state that due to the bleeding denies any constipation, diarrhea, abdominal pain, nausea/vomiting, painful bowel movements. Patient initially seen by ILA Kaur. Agree with history of present illness. I interviewed the patient and received the same history as outlined above. MD complaint: gross hematochezia Onset (ago): day(s) Relieving factors: none Exacerbating factors: none Context: other (Recently initiated oral anticoagulant) Review of Systems General: Reports: Other (Reviewed ROS with patient no changes from Yemi Edgar's dictation) PFSH ED PFSH: Medical History Acute bronchitis with chronic obstructive pulmonary disease (COPD) GEETHA (acute kidney injury) GEETHA V/S GEETHA ON CKD Stage 3 Atrial fibrillation COPD (chronic obstructive pulmonary disease) COPD (chronic obstructive pulmonary disease) History of cardiac dysrhythmia Hydrocele, left Hyperkalemia Hypertension Hyponatremia Hyponatremia 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, lumbar region Pneumonia due to COVID-19 virus Respiratory failure with hypoxia Improving Spondylolisthesis, lumbar region Testalgia Urinary retention Surgical History H/O arthroscopic knee surgery H/O carpal tunnel repair H/O vasectomy S/P insertion of spinal cord stimulator (~10/15/16) Family History Grandmother Cancer Social History Smoking and tobacco status: former smoker Quit status (tobacco): has quit using tobacco Year quit tobacco: 1984 Alcohol intake: current Lives independently: Yes Household members: spouse Marital status: Current occupational status: retired Physical Exam Const: COMMON NORMALS: no acute distress GENERAL APPEARANCE: cooperative and comfortable ORIENTATION/CONSCIOUSNESS: Yes awake, Yes oriented to person, Yes oriented to place and Yes oriented to time HENMT: COMMON NORMALS: normocephalic, atraumatic and hearing grossly normal bilaterally HEAD & SCALP: normocephalic and atraumatic Neck/C-Spine: COMMON NORMALS: no JVD Resp: COMMON NORMALS: normal respiratory effort, No retractions, No use of accessory muscles and clear to auscultation bilaterally AUSCULTATION: clear to auscultation bilaterally Cardio: COMMON NORMALS: no JVD, regular rate, regular rhythm and No murmurs present (Cardio) RATE: regular rate RHYTHM: regular rhythm GI: COMMON NORMALS: Soft to palpation and No hepatosplenomegaly present AUSCULTATION: Yes normoactive bowel sounds PALPATION: Yes Soft to palpation, No Tenderness to palpation present (GI), No Guarding due to palpation present (GI) and Yes No hepatosplenomegaly present Extremity: COMMON NORMALS: normal to inspection, capillary refill normal, no clubbing, cyanosis or edema, no calf tenderness and no pedal edema Neuro: SENSORIUM/ORIENTATION: Yes oriented to person, Yes oriented to place and Yes oriented to time Skin: COMMON NORMALS: no rashes or lesions noted GENERAL SKIN EXAM: no rashes or lesions noted Course Vital Signs: Vital signs: Vital Signs Temperature 98.5 F 11/12/21 02:10 Pulse Rate 84 11/12/21 05:26 Respiratory Rate 16 11/12/21 02:10 Blood Pressure 120/82 11/12/21 02:10 Pulse Oximetry 90 11/11/21 23:11 MDM - GI Bleed Medical Decision Making Labs and imaging reviewed. Patient is significantly anemic will transfuse 1 unit. Admit consult general surgery. Suspect he is bleeding from diverticuli however he does not appear to have any diverticulitis on CT or on exam. Currently holding anticoagulant. Medical Records I reviewed the patient's medical records. Lab Data I reviewed the patient's lab results. : 11/12/21 04:20 11/12/21 04:20 Radiology Impressions Abdomen/Pelvis CTA 11/11/21 16:19
[2021-11-11 16:05] LABS: Basophils # 0.1 10^3/uL (0.0-0.1); Basophils % 0.6 %; Eosinophils # 0.2 10^3/uL (0.0-0.8); Eosinophils % 2.3 %; Hematocrit 24.5 % (42.0-52.0); Hemoglobin 7.1 g/dL (11.7-16.6); Lymphocytes # 1.6 10^3/uL (0.8-4.8); Lymphocytes % 16.3 %; Mean Corpuscular Hemoglobin 26.4 pg (28.0-34.0); Mean Corpuscular Volume 91.1 fl (80-94); Mean Platelet Volume 7.9 fL (7.4-10.4); Monocytes # 0.8 10^3/uL (0.2-0.9); Monocytes % 8.2 %; Neutrophils % 70.8 %; Nucleated Red Blood Cells % 0 %; Platelet Count 553 10^3/cmm (130-400); Red Blood Count 2.69 10^6/uL (4.1-5.3); Red Cell Distribution Width 15.8 % (12.1-15.1); White Blood Count 9.6 10^3/uL (4.0-10.0)
--- NOTE | 2021-11-11 16:19 | CTR_ITS ---
PROCEDURE INFORMATION: Exam: CT Angiography Abdomen and Pelvis With Contrast, GI Bleeding Exam date and time: 11/11/2021 4:52 PM Age: 76 years old Clinical indication: Other: Rectal bleeding; Prior surgery; Surgery date: 6+ months; Surgery type: Spinal stimulator; Additional info: Bloody stools TECHNIQUE: Imaging protocol: Computed tomographic angiography of the abdomen and pelvis with contrast. 3D rendering (Not supervised by radiologist): MIP and/or 3D reconstructed images were created by the technologist. Radiation optimization: All CT scans at this facility use at least one of these dose optimization techniques: automated exposure control; mA and/or kV adjustment per patient size (includes targeted exams where dose is matched to clinical indication); or iterative reconstruction. Contrast material: VISIPAQUE 320; Contrast volume: 95 ml; Contrast route: INTRAVENOUS (IV); COMPARISON: CT chest wo con [id number] 05/14/2021 9:13 AM RADIATION DOSE METRICS: Total DLP (mGy-cm): 1296.09 FINDINGS: Lungs: Emphysematous changes. Lingular 6.2 mm pulmonary nodule, somewhat more prominent compared to prior exam, series 3 image 7. A stable left lower lobe 7.1 mm pulmonary nodule is also seen series 3, image 21. Aorta: Fusiform infrarenal abdominal aortic aneurysm measuring up to 2.8 cm without findings of rupture. Celiac trunk and mesenteric arteries: No occlusion or significant stenosis. Renal arteries: No occlusion or significant stenosis. Right iliac arteries: No occlusion or significant stenosis. Left iliac arteries: No occlusion or significant stenosis. Liver: Left hepatic lobe cyst. Gallbladder and bile ducts: Unremarkable. No calcified stones. No ductal dilation. Pancreas: Unremarkable. No mass. No ductal dilation. Spleen: Unremarkable. No splenomegaly. Adrenal glands: Normal. No mass. Kidneys and ureters: Unremarkable. No solid mass. No hydronephrosis. Stomach and bowel: Diverticulosis without diverticulitis. Appendix: No evidence of appendicitis. Intraperitoneal space: Unremarkable. No free air. No significant fluid collection. Lymph nodes: Unremarkable. No enlarged lymph nodes. Urinary bladder: Unremarkable. No mass. Reproductive: Nodular prostate gland enlargement. Bones/joints: No acute fracture. No dislocation. Soft tissues: Unremarkable. CT/CT angio abdomen pelvis [id number] IMPRESSION: 1. Negative for contrast extravasation seen to indicate active bleeding 2. Emphysematous changes. 3. Lingular 6.2 mm pulmonary nodule, somewhat more prominent compared to prior exam, series 3 image 7. Dedicated nonemergent chest CT could further evaluate this. A stable left lower lobe 7.1 mm pulmonary nodule is also seen series 3, image 21. 4. Left hepatic lobe cyst. 5. Diverticulosis without diverticulitis. 6. Nodular prostate gland enlargement. 7. Fusiform infrarenal abdominal aortic aneurysm measuring up to 2.8 cm without findings of rupture.
[2021-11-11 16:25] LABS: Alanine Aminotransferase 13 U/L (0-41); Albumin Level 3.6 g/dL (3.5-5.2); Alkaline Phosphatase 95 IU/L (40-130); Anion Gap 15.5 (5-19); Aspartate Amino Transferase 13 U/L (0-40); Blood Urea Nitrogen 33 mg/dL (8-23); Calcium 9.1 mg/dL (8.5-10.5); Carbon Dioxide 22 mmol/L (22-29); Chloride 105 mmol/L (98-107); Globulin 2.9 g/dL (1.3-4.6); Glucose 104 mg/dL (65-115); Lipase 39 U/L (13-60); Osmolality Calculated 292 mOsm/kg (285-295); Potassium 5.5 mmol/L (3.5-5.1); Sodium 137 mmol/L (136-145); Total Bilirubin 0.2 mg/dL (0.15-1.2); Total Protein 6.5 g/dL (6.6-8.7)
--- NOTE | 2021-11-11 16:33 | ECG_ITS ---
[facility] Test Date: 2021-11-11 Pat Name: Abdiel Duran Department: Room: Gender: Male Clinical Outcomes Manager: : 1945 Requested By: Yemi Edgar Order Number: [id number] Ernestina MD: Sherman Roy M.D. Measurements Intervals [place] Rate: 83 P: 52 [place]: 176 QRS: 12 QRSD: 94 T: 61 QT: 351 QTc: 415 Interpretive Statements SINUS RHYTHM Compared to ECG 10/09/2020 20:03:46 Ectopic atrial tachycardia, multifocal no longer present Electronically Signed On 11-12-2021 17:04:46 CDT by Sherman Roy M.D. [id number]
[2021-11-11] MEDS: iodixanol 320 mg/mL 100mL Btl IV (16:55)
[2021-11-11] MEDS: sodium chloride 0.9% 1,000 ML 999 ML IV (17:49)
--- NOTE | 2021-11-11 18:23 | PM.HP ---
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 fib since last year presented to the hospital for chief complaint of dark stools. Patient is stating that he started noticing dark stools recently, he has not noticed rash bright bleed per rectum. No chest pain shortness of breath diarrhea or dizziness. Because of active dark stools he decided to come to the hospital for further evaluation. His last dose of Pradaxa was 9 AM yesterday. Tomorrow morning it would be 48 hours. In the ER he was diagnosed with severe anemia normocytic anemia hemoglobin 7.1 last hemoglobin was 15, he is hemodynamically stable. Dr. Callahan has been consulted. Patient is stating that he has been diagnosed with sleep apnea, there was a recall on his CPAP machine he has not been using it, his has told him that he gets apneic spells overnight, snores, not he has bilateral lower extremity swelling, for his right shoulder pain he is seeing Dr. Barakat who is planning for surgery I will get echo, overnight pulse ox study, we will keep him on clear liquids, n.p.o. after midnight Review of Systems Const: Reports: fatigue; Denies: fever(s) Eyes: Denies: change in vision ENMT: Denies: throat pain Card: Denies: chest pain Resp: Denies: dyspnea GI: Reports: change in bowel habits, hematochezia and melena; Denies: abdominal pain or nausea : Denies: flank pain Musc: Denies: neck pain Skin/Breast: Denies: rash Neuro: Denies: headache(s) Psych: Denies: anxiety Endo: Denies: polyuria Guy/Lymph: Denies: easy bruising All/Imm: Denies: urticaria Medications/Allergies Home Medications Medication Instructions Recorded Confirmed Last Taken Type cetirizine 10 mg capsule 10 mg PO DAILY@0800 cap 10/23/19 11/11/21 11/11/21 History cholecalciferol (vitamin D3) 1,250 1,250 mcg PO DAILY@0800 10/23/19 11/11/21 11/11/21 History mcg (50,000 unit) tablet cyclobenzaprine 10 mg tablet 10 mg PO TID PRN 10/23/19 11/11/21 Unknown History diltiazem HCl 240 mg 240 mg PO DAILY@0800 10/23/19 11/11/21 11/11/21 History capsule,extended release 24 hr levothyroxine 50 mcg capsule 50 mcg PO DAILY@0800 10/23/19 11/11/21 11/11/21 History lisinopril 40 mg tablet 40 mg PO DAILY@0800 10/23/19 11/11/21 11/11/21 History guaifenesin 400 mg tablet 400 mg PO Q4H PRN 11/13/19 11/11/21 10/04/20 History acetaminophen 500 mg tablet 500 mg PO Q6H PRN 10/04/20 11/11/21 Unknown History (Tylenol Extra Strength) tiotropium bromide 1.25 2 puff INHALATION DAILY #4 g 06/09/21 11/11/21 11/11/21 Rx mcg/actuation mist for inhalation (Spiriva Respimat) albuterol sulfate 90 mcg/actuation 1 inh INHALATION QID PRN #8.5 g 07/16/21 11/11/21 Unknown Rx aerosol inhaler custom orthotics #1 ea 09/02/21 11/11/21 Unknown Rx hydrocodone 5 mg-acetaminophen 325 1 tab PO Q6H PRN 14 Days #30 tab 11/05/21 11/11/21 Unknown Rx mg tablet dabigatran etexilate 150 mg 150 mg PO BID 11/11/21 11/11/21 11/10/21 History capsule (Pradaxa) diclofenac sodium 1 % topical gel 4 g TOPICAL QID PRN 11/11/21 11/11/21 Unknown History (Voltaren Arthritis Pain) mometasone-formoterol HFA 200 2 puff INHALATION BID 11/11/21 11/11/21 11/11/21 History mcg-5 mcg/actuation aerosol inhaler (Dulera) Allergies Allergy/AdvReac Type Severity Reaction Status Date / Time Sulfa (Sulfonamide Allergy Mild Unknown Verified 11/11/21 13:54 Antibiotics) clopidogrel [From Plavix] Allergy ALGY-Rash Verified 11/11/21 13:54 tamsulosin [From Flomax] AdvReac Mild rash Verified 11/11/21 13:54 PFSH Acute PFSH: Medical History Acute bronchitis with chronic obstructive pulmonary disease (COPD) GEETHA (acute kidney injury) GEETHA V/S GEETHA ON CKD Stage 3 Atrial fibrillation COPD (chronic obstructive pulmonary disease) COPD (chronic obstructive pulmonary disease) History of cardiac dysrhythmia Hydrocele, left Hyperkalemia Hypertension Hyponatremia Hyponatremia 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, lumbar region Pneumonia due to COVID-19 virus Respiratory failure with hypoxia Improving Spondylolisthesis, lumbar region Testalgia Urinary retention Surgical History H/O arthroscopic knee surgery H/O carpal tunnel repair H/O vasectomy S/P insertion of spinal cord stimulator (~10/15/16) Family History Grandmother Cancer Social History Smoking and tobacco status: former smoker Quit status (tobacco): has quit using tobacco Year quit tobacco: 1984 Alcohol intake: current Lives independently: Yes Household members: spouse Marital status: Current occupational status: retired Vitals/I&O/Wt Last Vital Signs Temp 98.1 F 11/11/21 13:49 Pulse 84 11/11/21 13:49 Resp 18 11/11/21 13:49 BP 128/69 11/11/21 13:49 Pulse Ox 96 11/11/21 13:49 Weight last 48 hrs Weight 99.79 kg Physical Exam Narrative: Very pleasant male Saturating well on room air Hemodynamically stable 1 unit PRBC at the bedside Distended abdomen Wrist obesity Lower extremity 1+ pitting edema bilaterally Very pleasant and cooperative EOMI, PERRLA Nonfocal neuro exam No signs of hypoperfusion Data : 11/11/21 15:45 11/11/21 15:45 A&P Assessment and plan (1) Anticoagulant long-term use: Status: Acute (2) Acute bronchitis with chronic obstructive pulmonary disease (COPD): Status: Acute (3) Ex-smoker: Status: Acute (4) COPD (chronic obstructive pulmonary disease): Status: Acute Qualifiers: COPD type: emphysema Emphysema type: centrilobular Qualified Code(s): J43.2 - Centrilobular emphysema (5) Atrial fibrillation: Status: Acute Qualifiers: Atrial fibrillation type: unspecified chronic Qualified Code(s): I48.20 - Chronic atrial fibrillation, unspecified (6) Melanotic stools: Status: Acute (7) Degenerative arthritis of left shoulder region: Status: Acute Plan Melanotic stool Severe drop in hemoglobin from 15-7 Hemodynamically stable Previous history of duodenal ulcer in Might benefit from EGD in the morning He will be 48 hours from last dose of Pradaxa Last dose was 9 AM yesterday [address] now [address] Callahan consulted Clear liquid diet for now and n.p.o. after midnight Protonix 40 IV twice daily Patient is full code DVT prophylaxis SCDs Signs of fluid overload, history of sleep apnea, will do echo to rule out congestive heart failure He has not been using his CPAP at home his machine has been recalled Overnight pulse ox study Right shoulder pain: We will give Dilaudid, Dr. Li is planning for surgery in near future Attestations Medical Necessity Statement*: More than 2 midnights anticipated Time Spent in Patient Care: 40mins Coding Level of Care Code Acute [employer] Mechanical for Chg Fwd Diagnoses Anticoagulant long-term use Z79.01 Acute bronchitis with chronic obstructive pulmonary disease (COPD) J44.0; J20.9 Ex-smoker Z87.891 COPD (chronic obstructive pulmonary disease) J43.2 COPD type: emphysema Emphysema type: centrilobular Atrial fibrillation I48.20 Atrial fibrillation type: unspecified chronic Melanotic stools K92.1 Degenerative arthritis of left shoulder region M19.012
[2021-11-11 18:24] LABS: INR 1.41 (0.8-1.2)
[2021-11-11] MEDS: sodium chloride 0.9% (100 ml) 100 ML (19:17)
[2021-11-11] MEDS: HYDROmorphone 1 mg/mL INJ 1 mL 0.4 MG IVP (19:23)
[2021-11-11 19:41] LABS: Ferritin 66 ng/mL (30-400); Iron 19 ug/dL (59-158); Total Iron Binding Capacity 313 mcg/dl; Unsaturated Iron Binding 294 ug/dL (112-347)
[2021-11-11] MEDS: sodium chloride 0.9% (100 ml) 100 ML 130 ML (22:50)
[2021-11-12] VITALS (8 sets, daily range): BP systolic 118–169; BP diastolic 72–82; PULSE 67–100; RESP 15–20; TEMP 36.8–36.9; O2SAT 94–99
[2021-11-12] MEDS: HYDROmorphone 1 mg/mL INJ 1 mL 0.4 MG IVP ×2 (03:52→20:50)
[2021-11-12 04:42] LABS: Basophils # 0.1 10^3/uL (0.0-0.1); Basophils % 0.6 %; Eosinophils # 0.3 10^3/uL (0.0-0.8); Eosinophils % 2.9 %; Hematocrit 26.8 % (42.0-52.0); Hemoglobin 8.1 g/dL (11.7-16.6); Lymphocytes # 1.3 10^3/uL (0.8-4.8); Lymphocytes % 14.7 %; Mean Corpuscular HGB Conc 30.2 g/dL (30.0-36.0); Mean Corpuscular Volume 92.7 fl (80-94); Monocytes # 0.7 10^3/uL (0.2-0.9); Monocytes % 8.2 %; Neutrophils # 6.14 10^3/uL (1.8-7.7); Neutrophils % 71.5 %; Nucleated Red Blood Cells % 0 %; Platelet Count 452 10^3/cmm (130-400); Red Blood Count 2.89 10^6/uL (4.1-5.3); Red Cell Distribution Width 15.4 % (12.1-15.1); White Blood Count 8.6 10^3/uL (4.0-10.0)
[2021-11-12 04:59] LABS: Alanine Aminotransferase 9 U/L (0-41); Albumin Level 3.1 g/dL (3.5-5.2); Alkaline Phosphatase 87 IU/L (40-130); Anion Gap 16.1 (5-19); Aspartate Amino Transferase 10 U/L (0-40); Blood Urea Nitrogen 27 mg/dL (8-23); Calcium 8.6 mg/dL (8.5-10.5); Carbon Dioxide 19 mmol/L (22-29); Chloride 108 mmol/L (98-107); Globulin 2.6 g/dL (1.3-4.6); Glucose 129 mg/dL (65-115); Osmolality Calculated 293 mOsm/kg (285-295); Potassium 5.1 mmol/L (3.5-5.1); Sodium 138 mmol/L (136-145); Total Bilirubin 0.8 mg/dL (0.15-1.2); Total Protein 5.7 g/dL (6.6-8.7)
[2021-11-12 05:35] LABS: NT Pro B Type Natriuretic Pept 192 pg/mL (0-450)
--- NOTE | 2021-11-12 05:58 | PC.RESP ---
overnight pox study started at 2311, nursing staff turned off pox and took patient to restroom at approximately 0300. Nursing did not place pox back on patient when he returned from restroom. Machine was turned off, and patient was placed on nurses vitals machine instead. This was discovered when this RT went to retrieve pox for download per order. Study is incomplete.
--- NOTE | 2021-11-12 08:24 | P.PN_ITS ---
Subjective Subjective: No active melanotic stools since admission Inadequate response to 2 units PRBC hemoglobin around 8 Patient is laying comfortably in his bed not endorsing any complaints Will follow up with general surgery for EGD today, he remained hemodynamically stable BNP not high, Low iron levels noted,, check B12 Vitals/I&O/Wt Last Vital Signs Temp 98.5 F 11/12/21 02:10 Pulse 88 11/12/21 08:07 Resp 17 11/12/21 08:07 BP 120/82 11/12/21 02:10 Pulse Ox 94 11/12/21 08:07 11/11/21 11/12/21 11/12/21 22:59 06:59 14:59 Intake Total 350 / 350 450 / 800 Balance 350 / 350 450 / 800 Weight last 48 hrs Weight 99.79 kg Weight 99.79 kg Physical Exam Narrative: Patient is laying comfortably in his bed saturating well on room air pleasant and cooperative during my evaluation No active chest pain S1, S2 I did not appreciate any murmur No audible stridor or wheezing, EOMI, PERRLA Euvolemic Trace edema of legs Data : 11/12/21 04:20 11/12/21 04:20 A&P Assessment and plan (1) Acute GI bleeding: Status: Acute (2) Anemia: Status: Acute (3) Melanotic stools: Status: Acute (4) Anticoagulant long-term use: Status: Acute (5) COPD (chronic obstructive pulmonary disease): Status: Acute Qualifiers: COPD type: emphysema Emphysema type: centrilobular Qualified Code(s): J43.2 - Centrilobular emphysema (6) Hypertension: Status: Acute (7) Atrial fibrillation: Status: Acute Plan melanotic stools Status post 2 units PRBC Inadequate response Hemodynamically stable Abdomen is soft N.p.o. We will follow for general surgery recommendations, Patient is full code Overnight we were not able to pulse ox study Echo report is pending, BNP is not high trace edema of legs noted History of sleep apnea We should repeat pulse ox study overnight SCDs Advance diet after EGD Attestations Medical Necessity Statement*: Continue medical management Time Spent in Patient Care: 20min Coding Level of Care Code Acute Men'S Furnishings Salesperson for Chg Fwd Diagnoses Acute GI bleeding K92.2 Anemia D64.9 Melanotic stools K92.1 Anticoagulant long-term use Z79.01 COPD (chronic obstructive pulmonary disease) J43.2 COPD type: emphysema Emphysema type: centrilobular Hypertension I10 Atrial fibrillation I48.91
[2021-11-12] MEDS: pantoprazole 40 mg SDV IVP ×2 (08:44→17:40)
[2021-11-12] MEDS: dilTIAZem ER (24HR) 240 mg Capsule PO (08:44)
--- NOTE | 2021-11-12 12:21 | PC.CHAP ---
Pastoral Care Encounter/Spiritual Assessment Type of Contact [] Declined medical record coder visit [] Patient/Family/Request visit [] Outpatient visit [] Follow-up visit [] Physician referral [] Code/Alert [x] Routine visit [] Staff referral [] Actively dying [] Patient sleeping [] Family support [] [] Out of room [] Palliative care [] [] Receiving care in room [] Pre-surgical visit [] Trauma [] Long length of stay [] ICU visit [] Other: Relational/Emotional Strength [x] Patient feels connected with others/family/visitors/staff [] Distress [] Loneliness/isolation [] Abandonment Spirituality of Patient [x] Person of Allie [x] Attends Congregational of their Allie [x] Believes in Prayer [] Reads Bible or Jew materials [] There are Spiritual issues to be addressed Sheriff Detective Interventions [x] Prayer [x] Active listening [x] Non-anxious presence [x Spiritual/emotional support [] Crisis/trauma care [] Spiritual counseling [] Bereavement support [] Provided bereavement packet [] Provided Bible/devotional materials [] Provided toy/stuffed animal, coloring book to patient or family member [] Provided Communion [] Anointing/[place] [] Salvation [x] Completed spiritual assessment [] Other: Impact on Illness or Injury [] Angry [] Fearful [] Anxious [] Often cries [] Exhaustion [] Unable to work [] Unable to attend jain [] Unable to walk/stand [] Unable to read [] Unable to drive [] Unable to eat/drink [] Unable to sleep [] Unable to be with family [] Patient intubated [] Other: Summary Time spent with patient 10 min
[2021-11-12] MEDS: peg /e-lyte soln 4,000 mL Btl PO (12:30)
--- NOTE | 2021-11-12 14:51 | P.CONIM_ITS ---
Providers/Reason For Consult Consulting Physician/Specialty*: General Surgery Dr. Callahan Reason for Consult*: gi bleed Attending Physician: Eva Hall MD Primary Care Provider: Keshawn Little DO History of Present Illness History of Present Illness Abdiel Duran is a 76 year old male who presented to the ER with complaints of bleeding per rectum of 5 days duration. Patient states that the bleeding started spontaneously and he denies any abdominal pain, nausea, vomiting. No fevers or chills. He denies any constipation or diarrhea. No similar episodes in the past. No hematemesis or melena. He states that he was diagnosed with duodenal ulcer in the and he had a colonoscopy couple of years ago where he was noted to have diverticulosis. He received 2 units PRBC overnight. Review of Systems General: Reports: 10 or more systems reviewed and unremarkable except in HPI and below Medications/Allergies Home Medications Medication Instructions Recorded Confirmed Last Taken Type cetirizine 10 mg capsule 10 mg PO DAILY@0800 cap 10/23/19 11/11/21 11/11/21 History cholecalciferol (vitamin D3) 1,250 1,250 mcg PO DAILY@0800 10/23/19 11/11/21 11/11/21 History mcg (50,000 unit) tablet cyclobenzaprine 10 mg tablet 10 mg PO TID PRN 10/23/19 11/11/21 Unknown History diltiazem HCl 240 mg 240 mg PO DAILY@0800 10/23/19 11/11/21 11/11/21 History capsule,extended release 24 hr levothyroxine 50 mcg capsule 50 mcg PO DAILY@0800 10/23/19 11/11/21 11/11/21 History lisinopril 40 mg tablet 40 mg PO DAILY@0800 10/23/19 11/11/21 11/11/21 History guaifenesin 400 mg tablet 400 mg PO Q4H PRN 11/13/19 11/11/21 10/04/20 History acetaminophen 500 mg tablet 500 mg PO Q6H PRN 10/04/20 11/11/21 Unknown History (Tylenol Extra Strength) tiotropium bromide 1.25 2 puff INHALATION DAILY #4 g 06/09/21 11/11/21 11/11/21 Rx mcg/actuation mist for inhalation (Spiriva Respimat) albuterol sulfate 90 mcg/actuation 1 inh INHALATION QID PRN #8.5 g 07/16/21 11/11/21 Unknown Rx aerosol inhaler custom orthotics #1 ea 09/02/21 11/11/21 Unknown Rx hydrocodone 5 mg-acetaminophen 325 1 tab PO Q6H PRN 14 Days #30 tab 11/05/21 11/11/21 Unknown Rx mg tablet dabigatran etexilate 150 mg 150 mg PO BID 11/11/21 11/11/21 11/10/21 History capsule (Pradaxa) diclofenac sodium 1 % topical gel 4 g TOPICAL QID PRN 11/11/21 11/11/21 Unknown History (Voltaren Arthritis Pain) mometasone-formoterol HFA 200 2 puff INHALATION BID 11/11/21 11/11/21 11/11/21 History mcg-5 mcg/actuation aerosol inhaler (Dulera) Allergies Allergy/AdvReac Type Severity Reaction Status Date / Time Sulfa (Sulfonamide Allergy Mild Unknown Verified 11/11/21 13:54 Antibiotics) apixaban [From Eliquis] Allergy ALGY-Rash Verified 11/11/21 22:10 clopidogrel [From Plavix] Allergy ALGY-Rash Verified 11/11/21 13:54 tamsulosin [From Flomax] AdvReac Mild rash Verified 11/11/21 13:54 Current Medications Generic Name Dose Route Start Last Admin Trade Name Freq PRN Reason Stop Dose Admin Diltiazem HCl 240 mg 11/12/21 08:00 11/12/21 08:44 Diltiazem Er (24hr) 240 Mg Capsule PO 240 mg DAILY@0800 PINKY Administration Hydromorphone HCl 0.4 mg 11/11/21 21:11 11/12/21 03:52 Hydromorphone 1 Mg/Ml Inj 1 Ml IVP 0.4 mg Q4H PRN Administration pain Pantoprazole Sodium 40 mg 11/12/21 09:00 11/12/21 08:44 Pantoprazole 40 Mg Sdv IVP 40 mg BID PINKY Administration PFSH Acute PFSH: Medical History Acute bronchitis with chronic obstructive pulmonary disease (COPD) GEETHA (acute kidney injury) GEETHA V/S GEETHA ON CKD Stage 3 Atrial fibrillation COPD (chronic obstructive pulmonary disease) COPD (chronic obstructive pulmonary disease) History of cardiac dysrhythmia Hydrocele, left Hyperkalemia Hypertension Hyponatremia Hyponatremia 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, lumbar region Pneumonia due to COVID-19 virus Respiratory failure with hypoxia Improving Spondylolisthesis, lumbar region Testalgia Urinary retention Surgical History H/O arthroscopic knee surgery H/O carpal tunnel repair H/O vasectomy S/P insertion of spinal cord stimulator (~10/15/16) Family History Grandmother Cancer Social History Smoking and tobacco status: former smoker Quit status (tobacco): has quit using tobacco Year quit tobacco: 1984 Alcohol intake: current Lives independently: Yes Household members: spouse Marital status: Current occupational status: retired Vitals/I&O/Wt Last Vital Signs Temp 98.5 F 11/12/21 02:10 Pulse 88 11/12/21 08:07 Resp 17 11/12/21 08:07 BP 120/82 11/12/21 02:10 Pulse Ox 94 11/12/21 08:07 11/11/21 11/12/21 11/12/21 22:59 06:59 14:59 Intake Total 350 / 800 450 / 800 360 / 360 Balance 350 / 800 450 / 800 360 / 360 Weight last 48 hrs Weight 220 lb Weight 220 lb Physical Exam Narrative: HEENT: Normocephalic Eye: Sclera /conjunctiva normal Abdomen: Soft to palpation, nontender, nondistended Neurologic: Oriented to place person and time Skin: Intact, no lesions appreciated on gross exam Data : 11/12/21 04:20 11/12/21 04:20 A&P Assessment and plan (1) Acute GI bleedin-year-old gentleman who presents with 5-day history of fresh blood per rectum. Patient has history of duodenal ulcer. He is currently hemodynamically stable and his hemoglobin is up to 8.4 after receiving 2 units PRBC. Plan for EGD/colonoscopy under [facility] tomorrow [facility] today Clear liquid diet today N.p.o. after midnight Procedure, risks, benefits and alternatives have been discussed with the patient who wishes to proceed with surgery. Status: Acute Consult Attestations Medical Necessity Statement: As per attending physician Coding Level of Care Code Acute [facility]ists for Charlee Givens Diagnoses Acute GI bleeding K92.2
[2021-11-13] VITALS (11 sets, daily range): BP systolic 106–160; BP diastolic 61–86; PULSE 87–98; RESP 16–18; TEMP 36.1–37.1; O2SAT 91–98
--- NOTE | 2021-11-13 00:15 | PC.RESP ---
11/12/21- attempted to do overnight pulse oximetry study as 11/11/21's study because someone had turned off the pulse ox machine- Study attempted due to Dr Hall's request in progress notes. Patient is taking Sade for a procedure tomorrow- he asked that we not do this study because he is up and down to and from bathroom
[2021-11-13 01:35] LABS: Adenovirus Not Detected (NOT DETECT); Chlamydia Pneumoniae Not Detected (NOT DETECT); Coronavirus 229E,HKU1,NL63,OC4 Not Detected (NOT DETECT); Human Metapneumovirus Not Detected (NOT DETECT); Human Rhinovirus/Enterovirus Not Detected (NOT DETECT); Influenza A Not Detected (NOT DETECT); Influenza A H1 Not Detected (NOT DETECT); Influenza A H1-2009 Not Detected (NOT DETECT); Influenza A H3 Not Detected (NOT DETECT); Influenza B Not Detected (NOT DETECT); Mycoplasma Pneumoniae Not Detected (NOT DETECT); Parainfluenza Virus Type 1 Not Detected (NOT DETECT); Parainfluenza Virus Type 2 Not Detected (NOT DETECT); Parainfluenza Virus Type 3 Not Detected (NOT DETECT); Parainfluenza Virus Type 4 Not Detected (NOT DETECT); Respiratory Syncytial Virus A Not Detected (NOT DETECT); Respiratory Syncytial Virus B Not Detected (NOT DETECT); SARS-COV-2 Not Detected (NOT DETECT)
--- NOTE | 2021-11-13 04:32 | PC.NURSE ---
Pt lying in bed resting with eyes closed. Resp even and non-labored no distress noted. Pt had no s/s of pain or discomfort at the present time. No needs voiced. Call light in reach. Will cont to monitor.
[2021-11-13 05:35] LABS: Basophils # 0.1 10^3/uL (0.0-0.1); Basophils % 0.7 %; Eosinophils # 0.2 10^3/uL (0.0-0.8); Eosinophils % 2.7 %; Hematocrit 29.3 % (42.0-52.0); Hemoglobin 8.4 g/dL (11.7-16.6); Lymphocytes # 1.4 10^3/uL (0.8-4.8); Lymphocytes % 16.2 %; Mean Corpuscular HGB Conc 28.7 g/dL (30.0-36.0); Mean Corpuscular Hemoglobin 27.9 pg (28.0-34.0); Mean Corpuscular Volume 97.3 fl (80-94); Mean Platelet Volume 7.8 fL (7.4-10.4); Monocytes # 0.7 10^3/uL (0.2-0.9); Monocytes % 8.1 %; Neutrophils # 6.01 10^3/uL (1.8-7.7); Neutrophils % 70.5 %; Nucleated Red Blood Cells % 0 %; Platelet Count 468 10^3/cmm (130-400); Red Blood Count 3.01 10^6/uL (4.1-5.3); Red Cell Distribution Width 15.8 % (12.1-15.1); White Blood Count 8.5 10^3/uL (4.0-10.0)
[2021-11-13 06:05] LABS: Anion Gap 17.4 (5-19); Blood Urea Nitrogen 20 mg/dL (8-23); Calcium 8.6 mg/dL (8.5-10.5); Carbon Dioxide 18 mmol/L (22-29); Chloride 106 mmol/L (98-107); Creatinine Clr Calc Pharmacy 57.2417; Glucose 113 mg/dL (65-115); Osmolality Calculated 287 mOsm/kg (285-295); Potassium 4.4 mmol/L (3.5-5.1); Sodium 137 mmol/L (136-145)
[2021-11-13] MEDS: dilTIAZem ER (24HR) 240 mg Capsule PO (08:31)
[2021-11-13] MEDS: pantoprazole 40 mg SDV IVP ×2 (08:31→18:33)
[2021-11-13] MEDS: lisinopril 20 mg Tablet PO (08:31)
--- NOTE | 2021-11-13 11:01 | PC.CHAP ---
Pastoral Care Encounter/Spiritual Assessment Type of Contact [] Declined remote sensing specialist visit [] Patient/Family/Request visit [] Outpatient visit [] Follow-up visit [] Physician referral [] Code/Alert [x] Routine visit [] Staff referral [] Actively dying [] Patient sleeping [] Family support [] [] Out of room [] Palliative care [] [] Receiving care in room [x] Pre-surgical visit [] Trauma [x] Long length of stay [] ICU visit [] Other: Relational/Emotional Strength [x] Patient feels connected with others/family/visitors/staff [] Distress [] Loneliness/isolation [] Abandonment Spirituality of Patient [x] Person of Allie [] Attends Rastafarian of their Allie [x] Believes in Prayer [] Reads Bible or Denominational materials [] There are Spiritual issues to be addressed Air Quality Instrument Specialist Interventions [x] Prayer [x] Active listening [x] Non-anxious presence [x] Spiritual/emotional support [] Crisis/trauma care [x] Spiritual counseling [] Bereavement support [] Provided bereavement packet [] Provided Bible/devotional materials [] Provided toy/stuffed animal, coloring book to patient or family member [] Provided Communion [] Anointing/[place] [] Salvation [x] Completed spiritual assessment [] Other: Impact on Illness or Injury [] Angry [] Fearful [x] Anxious [] Often cries [] Exhaustion [x] Unable to work [] Unable to attend orthodoxy [] Unable to walk/stand [] Unable to read [] Unable to drive [] Unable to eat/drink [] Unable to sleep [] Unable to be with family [] Patient intubated [] Other: Summary Has health issues will take some time dealing with recovery time will ne able to go home haf a postive attitude Time spent with patient 10 mins
--- NOTE | 2021-11-13 11:05 | P.PN_ITS ---
Subjective Subjective: Patient is stable, hemoglobin 8.4, hemodynamically stable, plan for EGD and colonoscopy today Requested charge nurse to verify regarding the timing No melanotic stools endorsed by the patient We did discuss echo results and indication of CPAP for his sleep apnea, medical case worker updated, Vitals/I&O/Wt Last Vital Signs Temp 98.7 F 11/13/21 08:00 Pulse 94 11/13/21 08:00 Resp 18 11/13/21 08:00 BP 127/75 11/13/21 08:00 Pulse Ox 93 11/13/21 08:00 11/12/21 11/13/21 11/13/21 22:59 06:59 14:59 Intake Total 500 / 860 Output Total 400 / 400 Balance 500 / 860 -400 / 460 Weight last 48 hrs Weight 99.79 kg Weight 99.79 kg Physical Exam Narrative: Clinically stable, patient is euvolemic Mild signs of edema of legs almost resolved Hemodynamically stable Satting well on room air Distended abdomen, abdomen is soft No signs of peritonitis S1, S2 No audible stridor or wheezing Saturating well on room air Very pleasant & cooperative Data : 11/13/21 04:20 11/13/21 04:20 A&P Assessment and plan (1) Acute GI bleeding: Status: Acute (2) Anemia: Status: Acute (3) Melanotic stools: Status: Acute (4) Anticoagulant long-term use: Status: Acute (5) Diastolic CHF: Status: Acute (6) CKD (chronic kidney disease): Status: Acute Plan Melanotic stools Anticoagulation on hold Status post 2 unit PRBC No active bleeding Plan for EGD and colonoscopy by Dr. Callahan today Diastolic CHF without acute exacerbation Most likely underlying sleep apnea related There is a recall on his previous CPAP machine at home, medical case worker updated him to follow the instructions of the letter that received He can get it arranged via [place] Chronic kidney disease without acute exacerbation A. fib without RVR, will make recommendations regarding continuation of anticoagulation after EGD colonoscopy results N.p.o. Can advance diet after his scope Full code Attestations Medical Necessity Statement*: Plan to discharge him later today versus tomorrow Time Spent in Patient Care: 20min Coding Level of Care Code Acute Health Information Technologist for Chg Fwd Diagnoses Acute GI bleeding K92.2 Anemia D64.9 Melanotic stools K92.1 Anticoagulant long-term use Z79.01 Diastolic CHF I50.30 CKD (chronic kidney disease) N18.9
[2021-11-13] MEDS: sodium chloride 0.9% 1,000 ML 30 ML IV (11:16)
--- NOTE | 2021-11-13 11:26 | PM.PN ---
Subjective Subjective: No issues overnight Vitals/I&O/Wt Last Vital Signs Temp 97 F L 11/13/21 11:17 Pulse 89 11/13/21 11:17 Resp 18 11/13/21 11:17 BP 143/86 11/13/21 11:17 Pulse Ox 96 11/13/21 11:17 11/12/21 11/13/21 11/13/21 22:59 06:59 14:59 Intake Total 500 / 860 Output Total 400 / 400 Balance 500 / 460 -400 / 460 Weight last 48 hrs Weight 220 lb Weight 220 lb Physical Exam Narrative: Abdomen: soft Data : 11/13/21 04:20 11/13/21 04:20 A&P Assessment and plan (1) Acute GI bleedin-year-old gentleman who presents with 5-day history of fresh blood per rectum. Patient has history of duodenal ulcer. He is currently hemodynamically stable and his hemoglobin is stable Plan for EGD/colonoscopy under [facility] today Status: Acute Attestations Medical Necessity Statement*: gi bleed Coding Level of Care Code Acute Therapeutic Consultant for Charlee Givens Diagnoses Acute GI bleeding K92.2
--- NOTE | 2021-11-13 11:30 | ANES.PREANE2 ---
Pre-Anesthetic Assessment Height/Weight: Height 1.78 m Weight 99.79 kg Temp Pulse Resp BP Pulse Ox 98.3 F 91 18 133/79 98 11/13/21 12:35 11/13/21 12:35 11/13/21 12:35 11/13/21 12:35 11/13/21 12:35 Preop Diagnosis: gi bleed Operation Date: 11/13/21 15:00 Proposed Procedures p EGD(Not Applicable) - Oni Callahan MD s Colonoscopy(Not Applicable) - Oni Callahan MD Was Beta Henry taken within 24 hours: N/A Was Clonidine taken within 24 hours: N/A Social No alcohol and No tobacco (former smoker, quit in 1984) Exam alert, oriented x 3 and clear to auscultation bilaterally Airway Submandibular: within normal limits Cervical ROM: within normal limits Mallampati: Class IV Dentition: false History/ROS No significant history except as noted Pulmonary Asthma, Chronic Obstructive Pulmonary Disease and Sleep Apnea CV/HEM Atrial Fibrillation, Arrythmia (SVT in 2009) and Hypertension None reported Hepatic None reported GI None reported Metabolic Hyperlipidemia, Morbid Obesity and Thyroid Disease Musc/skel Lower Back Pain Neuropsych None reported Anesthetic Plan ASA status: 3 Anesthesia: Anesthesia Evaluation and MAC Risk of > 500 ml blood loss (7ml/kg in children): No Medications/Allergies Home Medications Medication Instructions Recorded Confirmed Last Taken Type cetirizine 10 mg capsule 10 mg PO DAILY@0800 cap 10/23/19 11/11/21 11/11/21 History cholecalciferol (vitamin D3) 1,250 1,250 mcg PO DAILY@0800 10/23/19 11/11/21 11/11/21 History mcg (50,000 unit) tablet cyclobenzaprine 10 mg tablet 10 mg PO TID PRN 10/23/19 11/11/21 Unknown History diltiazem HCl 240 mg 240 mg PO DAILY@0800 10/23/19 11/11/21 11/11/21 History capsule,extended release 24 hr levothyroxine 50 mcg capsule 50 mcg PO DAILY@0800 10/23/19 11/11/21 11/11/21 History lisinopril 40 mg tablet 40 mg PO DAILY@0800 10/23/19 11/11/21 11/11/21 History guaifenesin 400 mg tablet 400 mg PO Q4H PRN 11/13/19 11/11/21 10/04/20 History acetaminophen 500 mg tablet 500 mg PO Q6H PRN 10/04/20 11/11/21 Unknown History (Tylenol Extra Strength) tiotropium bromide 1.25 2 puff INHALATION DAILY #4 g 06/09/21 11/11/21 11/11/21 Rx mcg/actuation mist for inhalation (Spiriva Respimat) albuterol sulfate 90 mcg/actuation 1 inh INHALATION QID PRN #8.5 g 07/16/21 11/11/21 Unknown Rx aerosol inhaler custom orthotics #1 ea 09/02/21 11/11/21 Unknown Rx hydrocodone 5 mg-acetaminophen 325 1 tab PO Q6H PRN 14 Days #30 tab 11/05/21 11/11/21 Unknown Rx mg tablet dabigatran etexilate 150 mg 150 mg PO BID 11/11/21 11/11/21 11/10/21 History capsule (Pradaxa) diclofenac sodium 1 % topical gel 4 g TOPICAL QID PRN 11/11/21 11/11/21 Unknown History (Voltaren Arthritis Pain) mometasone-formoterol HFA 200 2 puff INHALATION BID 11/11/21 11/11/21 11/11/21 History mcg-5 mcg/actuation aerosol inhaler (Dulera) Allergies Allergy/AdvReac Type Severity Reaction Status Date / Time Sulfa (Sulfonamide Allergy Mild Unknown Verified 11/11/21 13:54 Antibiotics) apixaban [From Eliquis] Allergy ALGY-Rash Verified 11/11/21 22:10 clopidogrel [From Plavix] Allergy ALGY-Rash Verified 11/11/21 13:54 tamsulosin [From Flomax] AdvReac Mild rash Verified 11/11/21 13:54 Current Medications Generic Name Dose Route Start Last Admin Trade Name Freq PRN Reason Stop Dose Admin Diltiazem HCl 240 mg 11/12/21 08:00 11/13/21 08:31 Diltiazem Er (24hr) 240 Mg Capsule PO 240 mg DAILY@0800 PINKY Administration Hydromorphone HCl 0.4 mg 11/11/21 21:11 11/12/21 20:50 Hydromorphone 1 Mg/Ml Inj 1 Ml IVP 0.4 mg Q4H PRN Administration pain Lisinopril 20 mg 11/13/21 08:00 11/13/21 08:31 Lisinopril 20 Mg Tablet PO 20 mg DAILY@0800 PINKY Administration Pantoprazole Sodium 40 mg 11/12/21 09:00 11/13/21 08:31 Pantoprazole 40 Mg Sdv IVP 40 mg BID PINKY Administration PFSH Anesthesia Medical History Acute bronchitis with chronic obstructive pulmonary disease (COPD) GEETHA (acute kidney injury) GEETHA V/S GEETHA ON CKD Stage 3 Atrial fibrillation COPD (chronic obstructive pulmonary disease) COPD (chronic obstructive pulmonary disease) History of cardiac dysrhythmia Hydrocele, left Hyperkalemia Hypertension Hyponatremia Hyponatremia 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, lumbar region Pneumonia due to COVID-19 virus Respiratory failure with hypoxia Improving Spondylolisthesis, lumbar region Testalgia Urinary retention Surgical History H/O arthroscopic knee surgery H/O carpal tunnel repair H/O vasectomy S/P insertion of spinal cord stimulator (~10/15/16) Family History Grandmother Cancer Social History Smoking and tobacco status: former smoker Quit status (tobacco): has quit using tobacco Year quit tobacco: 1984 Alcohol intake: current Lives independently: Yes Household members: spouse Marital status: Current occupational status: retired Data Anesthesia : 11/13/21 04:20 11/13/21 04:20 Short CBC 11/11/21 11/12/21 11/13/21 Range/Units 15:45 04:20 04:20 WBC 9.6 8.6 8.5 (4.0-10.0) 10^3/uL Hgb 7.1 L 8.1 L 8.4 L (11.7-16.6) g/dL Hct 24.5 L 26.8 L 29.3 L (42.0-52.0) % MCV 91.1 92.7 97.3 H (80-94) fl Plt Count 553 H 452 H 468 H (130-400) 10^3/cmm Neut % (Auto) 70.8 71.5 70.5 % Neut # (Auto) 6.80 6.14 6.01 (1.8-7.7) 10^3/uL BMP 11/11/21 11/12/21 11/13/21 15:45 04:20 04:20 Sodium 137 138 137 Potassium 5.5 H 5.1 4.4 Chloride 105 108 H 106 Carbon Dioxide 22 19 L 18 L BUN 33 H 27 H 20 Creatinine 1.6 H 1.5 H 1.3 H Glucose 104 129 H 113 Calcium 9.1 8.6 8.6 Cardiac Enzymes 11/12/21 Range/Units 04:20 NT-Pro-B Natriuret Pep 192 (0-450) pg/mL Liver Function 11/11/21 11/12/21 Range/Units 15:45 04:20 Total Bilirubin 0.2 0.8 (0.15-1.2) mg/dL AST 13 10 (0-40) U/L ALT 13 9 (0-41) U/L Alkaline Phosphatase 95 87 (40-130) IU/L Albumin 3.6 3.1 L (3.5-5.2) g/dL Blood Bank 11/11/21 16:35 Blood Type O Positive Rho(D) Type Positive Antibody Screen Negative COVID Results 11/12/21 11:45 Coronavirus 229E (PCR) Not detected SARS-CoV-2 (PCR) Not detected Coags 11/11/21 15:45 PT 17.60 H INR 1.41 H APTT 60.0 H Cardiac Studies: Echocardiogram 11/11/21 Echocardiogram Ultrasound 03/27/21
--- NOTE | 2021-11-13 12:10 | ANE.PACU2 ---
Inpatient post-anesthesia follow up: Airway intact: Yes Vital signs: Temperature 98.3 F Pulse Rate 91 Respiratory Rate 18 Blood Pressure 133/79 Pulse Oximetry 98 Oxygen Delivery Me thod Room Air Oxygen Flow Rate Fraction of Inspir ed Oxygen Hydration adequate: Yes Nausea and vomiting: No Pain level: 1 Mental status: Baseline
[2021-11-13 12:18] LABS: Vitamin B12 272 pg/mL (232-1245)
--- NOTE | 2021-11-13 16:44 | PM.DCS ---
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 fib since last year presented to the hospital for chief complaint of dark stools.? Patient is stating that he started noticing dark stools recently, he has not noticed rash bright bleed per rectum.? No chest pain shortness of breath diarrhea or dizziness.? Because of active dark stools he decided to come to the hospital for further evaluation.? His last dose of Pradaxa was 9 AM yesterday.? Tomorrow morning it would be 48 hours.? In the ER he was diagnosed with severe anemia normocytic anemia hemoglobin 7.1 last hemoglobin was 15, he is hemodynamically stable.? Dr. Callahan has been consulted. Patient is stating that he has been diagnosed with sleep apnea, there was a recall on his CPAP machine he has not been using it, his has told him that he gets apneic spells overnight, snores, not he has bilateral lower extremity swelling, for his right shoulder pain he is seeing Dr. Barakat who is planning for surgery I will get echo, overnight pulse ox study, we will keep him on clear liquids, n.p.o. after midnight Hospital course Patient was admitted for management and evaluation of melanotic/dark story stools. He was given 2 unit PRBC which improved his hemoglobin from 7.1-8.4. No active melanotic stools were noticed during hospitalization. EGD and colonoscopy done on 11/13 showed nonerosive gastritis, ulcer in ileocecal area no active bleeding ulcer. He was kept on Protonix during hospitalization. He was instructed to hold his Pradaxa until next CBC and evaluation by PCP. He can resume his anticoagulating agent if hemoglobin stays above 8. He was diagnosed with diastolic heart failure, mild exacerbation, EF is preserved, PCP admission does have a recall, machine adjuster leader case trim instructed him to follow instructions which were sent in the letter. [facility] Omeprazole added at the time of discharge. No severe signs of fluid overload, I will hold off on adding Lasix at this point. Physical Exam Narrative: Clinically stable, patient is euvolemic Mild signs of edema of legs almost resolved Hemodynamically stable Satting well on room air Distended abdomen, abdomen is soft No signs of peritonitis S1, S2 No audible stridor or wheezing Saturating well on room air Very pleasant & cooperative Discharge Data Studies Completed and Pending Completed Studies During Hospitalization Category Date Time Status CTA abdomen pelvis [CT angio abdomen pelvis [id number]] Cat Scan 11/11/21 16:19 Completed Urgent CV. echo complete* [id number] Routine Ultrasound 11/11/21 Completed Pending at discharge Category Date Time Status Complete Blood Count w/Auto AM LABS Lab 11/14/21 04:00 Ordered Magnesium AM LABS Lab 11/14/21 04:00 Ordered Pathology: Surgical [PTH] Routine Pth 11/13/21 12:15 Received Radiology Impressions Abdomen/Pelvis CTA 11/11/21 16:19 IMPRESSION: 1. Negative for contrast extravasation seen to indicate active bleeding 2. Emphysematous changes. 3. Lingular 6.2 mm pulmonary nodule, somewhat more prominent compared to prior exam, series 3 image 7. Dedicated nonemergent chest CT could further evaluate this. A stable left lower lobe 7.1 mm pulmonary nodule is also seen series 3, image 21. 4. Left hepatic lobe cyst. 5. Diverticulosis without diverticulitis. 6. Nodular prostate gland enlargement. 7. Fusiform infrarenal abdominal aortic aneurysm measuring up to 2.8 cm without findings of rupture. Laboratory Results WBC 8.5 10^3/uL (4.0-10.0) 11/13/21 04:20 RBC 3.01 10^6/uL (4.1-5.3) L 11/13/21 04:20 Hgb 8.4 g/dL (11.7-16.6) L 11/13/21 04:20 Hct 29.3 % (42.0-52.0) L 11/13/21 04:20 MCV 97.3 fl (80-94) H 11/13/21 04:20 MCH 27.9 pg (28.0-34.0) L 11/13/21 04:20 MCHC 28.7 g/dL (30.0-36.0) L 11/13/21 04:20 RDW 15.8 % (12.1-15.1) H 11/13/21 04:20 Plt Count 468 10^3/cmm (130-400) H 11/13/21 04:20 MPV 7.8 fL (7.4-10.4) 11/13/21 04:20 Neut % (Auto) 70.5 % 11/13/21 04:20 Lymph % (Auto) 16.2 % 11/13/21 04:20 [place] % (Auto) 8.1 % 11/13/21 04:20 Eos % (Auto) 2.7 % 11/13/21 04:20 Baso % (Auto) 0.7 % 11/13/21 04:20 Neut # (Auto) 6.01 10^3/uL (1.8-7.7) 11/13/21 04:20 Lymph # (Auto) 1.4 10^3/uL (0.8-4.8) 11/13/21 04:20 [place] # (Auto) 0.7 10^3/uL (0.2-0.9) 11/13/21 04:20 Eos # (Auto) 0.2 10^3/uL (0.0-0.8) 11/13/21 04:20 Baso # (Auto) 0.1 10^3/uL (0.0-0.1) 11/13/21 04:20 Nucleated RBC % (auto) 0 % 11/13/21 04:20 Nucleated RBCs # 0.0 /100WBC 11/13/21 04:20 PT 17.60 SECONDS (12.1-14.9) H 11/11/21 15:45 INR 1.41 (0.8-1.2) H 11/11/21 15:45 APTT 60.0 SECONDS (23.9-36.7) H 11/11/21 15:45 Sodium 137 mmol/L (136-145) 11/13/21 04:20 Potassium 4.4 mmol/L (3.5-5.1) 11/13/21 04:20 Chloride 106 mmol/L (98-107) 11/13/21 04:20 Carbon Dioxide 18 mmol/L (22-29) L 11/13/21 04:20 Anion Gap 17.4 (5-19) 11/13/21 04:20 BUN 20 mg/dL (8-23) 11/13/21 04:20 Creatinine 1.3 mg/dL (0.7-1.2) H 11/13/21 04:20 GFR Calculation Not Reportable 11/13/21 04:20 Glucose 113 mg/dL (65-115) 11/13/21 04:20 Calculated Osmolality 287 mOsm/kg (285-295) 11/13/21 04:20 Calcium 8.6 mg/dL (8.5-10.5) 11/13/21 04:20 Magnesium 2.0 mg/dL (1.7-2.3) 11/12/21 04:20 Iron 19 ug/dL (59-158) L 11/11/21 15:45 TIBC 313 mcg/dl 11/11/21 15:45 % Saturation 6.0 % (20-50) L 11/11/21 15:45 Unsat Iron Binding 294 ug/dL (112-347) 11/11/21 15:45 Ferritin 66 ng/mL (30-400) 11/11/21 15:45 Total Bilirubin 0.8 mg/dL (0.15-1.2) 11/12/21 04:20 AST 10 U/L (0-40) 11/12/21 04:20 ALT 9 U/L (0-41) 11/12/21 04:20 Alkaline Phosphatase 87 IU/L (40-130) 11/12/21 04:20 NT-Pro-B Natriuret Pep 192 pg/mL (0-450) 11/12/21 04:20 Total Protein 5.7 g/dL (6.6-8.7) L 11/12/21 04:20 Albumin 3.1 g/dL (3.5-5.2) L 11/12/21 04:20 Globulin 2.6 g/dL (1.3-4.6) 11/12/21 04:20 Lipase 39 U/L (13-60) 11/11/21 15:45 Vitamin B12 272 pg/mL (232-1245) 11/13/21 04:20 Coronavirus 229E (PCR) Not detected (NOT DETECT) 11/12/21 11:45 SARS-CoV-2 (PCR) Not detected (NOT DETECT) 11/12/21 11:45 Blood Type O Positive 11/11/21 16:35 Rho(D) Type Positive 11/11/21 16:35 Antibody Screen Negative 11/11/21 16:35 Crossmatch See Detail 11/11/21 16:35 Vitals Last Vital Signs Temp 98.3 F 11/13/21 15:14 Pulse 87 11/13/21 15:14 Resp 18 11/13/21 15:14 BP 106/61 11/13/21 15:14 Pulse Ox 92 11/13/21 15:14 Discharge Plan Discharge Patient Disposition: Home Condition: Stable Prescriptions: New omeprazole 20 mg capsule,delayed release(DR/EC) 20 mg PO DAILY Qty: 90 3RF Continued guaifenesin 400 mg tablet 400 mg PO Q4H PRN (Reason: Cough) 0RF cholecalciferol (vitamin D3) 1,250 mcg (50,000 unit) tablet 1,250 mcg PO DAILY@0800 0RF levothyroxine 50 mcg capsule 50 mcg PO DAILY@0800 0RF lisinopril 40 mg tablet 40 mg PO DAILY@0800 0RF Hold Instructions: Resume on 10/30/20. diltiazem HCl 240 mg capsule,extended release 24hr 240 mg PO DAILY@0800 0RF cetirizine 10 mg capsule 10 mg PO DAILY@0800 0RF cyclobenzaprine 10 mg tablet 10 mg PO TID PRN (Reason: muscle spasms) 0RF albuterol sulfate 90 mcg/actuation HFA aerosol inhaler 1 inh inhalation QID PRN (Reason: shortness of breath or wheezing) Qty: 8.5 5RF Spiriva Respimat 1.25 mcg/actuation mist 2 puff inhalation DAILY Qty: 4 3RF (DME) custom orthotics See Rx Instructions .Route .MEDSUPPLY Qty: 1 0RF Rx Instructions: As directed hydrocodone-acetaminophen 5-325 mg tablet 1 tab PO Q6H PRN (Reason: pain) 14 Days Qty: 30 0RF acetaminophen [Tylenol Extra Strength] 500 mg Tablet 500 mg PO Q6H PRN (Reason: Pain) 0RF Dulera 200-5 mcg/actuation Hfa Aerosol Inhaler 2 puff INHALATION BID 0RF Voltaren Arthritis Pain 1 % gel 4 g topical QID PRN (Reason: Pain) 0RF Held Pradaxa 150 mg Capsule 150 mg PO BID 0RF Hold Instructions: Resume on 11/20/21. Discharge Orders: Discharge Order (Routine); Ordered 11/13/21 Ordered By: Eva Hall Other Ambulatory Orders: Complete Blood Count w/Auto (Routine) Timeframe: 3 Days Location: Determined by Patient Ordered By: Eva Hall Referrals: Keshawn Little DO [Primary Care Provider] - 4-7 days Patient Instructions: GI Discharge Instructions, Opioid Safety Discharge Attestations Time Spent in Discharge Care*: less than 30 min Status at Discharge: Cognitive status at discharge: cognitively intact, Behavioral status at discharge: cooperative, Quality Metrics Clinical Quality Measures [ No reported AMI, CVA or VTE this stay] Coding Level of Care Code Acute Chg FW DC note Diagnoses Acute GI bleeding K92.2
--- NOTE | 2021-11-13 18:51 | PC.NURSE ---
Discussed discharge with patient and spouse. Went over medications and to call office for a follow up. Verbalized understanding
== END 2021-11-13 19:30 | disposition home or self-care (01) | DRG 377 ==
LOC: ER 18:00 → MEDSURG 20:22
PROVIDERS: Anesthesiology; Emergency Medicine; Surgery; Admitting Provider Internal Medicine; Emergency Provider Family Medicine; PCP Emergency Medicine Emergency Medical Services; Visit Provider Internal Medicine
PROC: 0DJ08ZZ Inspection of Upper Intestinal Tract, Via Natural or Artificial Opening Endoscopic (ICD-10-PCS; CPT 43235; principal; 2021-11-13 15:00)
PROC: 0DJD8ZZ Inspection of Lower Intestinal Tract, Via Natural or Artificial Opening Endoscopic (ICD-10-PCS; CPT 45378; 2021-11-13 15:00)
DX: K92.1 Melena (principal); I50.31 Acute diastolic (congestive) heart failure; I48.20 Chronic atrial fibrillation, unspecified; I13.0 Hypertensive heart and chronic kidney disease with heart failure and stage 1 through stage 4 chronic kidney disease, or unspecified chronic kidney disease; K63.3 Ulcer of intestine; J43.2 Centrilobular emphysema; Z96.82 Presence of neurostimulator; Z87.891 Personal history of nicotine dependence; N18.9 Chronic kidney disease, unspecified; D64.9 Anemia, unspecified; G47.33 Obstructive sleep apnea (adult) (pediatric); Z99.89 Dependence on other enabling machines and devices; Z91.19 Patient's noncompliance with other medical treatment and regimen; M19.012 Primary osteoarthritis, left shoulder; Z79.01 Long term (current) use of anticoagulants; K57.30 Diverticulosis of large intestine without perforation or abscess without bleeding; K29.70 Gastritis, unspecified, without bleeding; Z79.891 Long term (current) use of opiate analgesic; Z79.51 Long term (current) use of inhaled steroids; Z87.01 Personal history of pneumonia (recurrent); Z86.16 Personal history of COVID-19
CPT/HCPCS: 36415; 36430; 43235; 45380; 74174; 80048; 80053; 82607; 82728; 83540; 83550; 83690; 83735; 83880; 85025; 85610; 85730; 86850; 86900; 86920; 87635; 88305; 93005; 93306; 99285; C9113; J1170; J2704; J7030; P9016; Q9967

== ENCOUNTER 2021-11-15 19:45 | Inpatient (IN) | payer OTHER, MEDICARE, SELFPAY ==
[2021-11-15] VITALS (7 sets, daily range): BP systolic 97–124; BP diastolic 58–74; PULSE 64–101; RESP 16–20; TEMP 37.1; O2SAT 92–96; BMI 31.2
--- NOTE | 2021-11-15 20:12 | ED_ITS ---
Documented by User: [email or web address] Jacques 11/16/21 17:23 HPI - Back Pain/Injury General: Chief Complaint: Back Pain/Injury Stated Complaint: back pain Time Seen by Provider: 11/15/21 20:06 History of Present Illness: 76-year-old male patient comes in today for complaints of low back pain. Patient reports that he has a history of chronic back pain that was worse today. Patient recently been discharged from the hospital on the for a GI bleed. Patient reports he awakened this morning with low back pain but has progressively worsened throughout the day to the point he is been unable to walk with it. Patient lives at home with his spouse who is unable to help him or assist him with ambulation or getting in and out of bed. Patient appears well. Patient appears in mild pain at rest. Patient denies any falls or other injuries. MD elicited complaint: back pain Pertinent past history: back surgery Onset (ago): hour(s) Timing: progressively worsening Similar Symptoms Previously: Yes Quality: sharp and aching Location: lumbar spine Exacerbating factors: movement and walking Relieving factors: supine Associated symptoms: Deny fever(s), nausea or vomiting Review of Systems General: Reports: 10 or more systems reviewed and unremarkable except in HPI and below Const: Denies: fever(s) Card: Denies: chest pain Resp: Denies: dyspnea GI: Denies: nausea or vomiting Musc: Reports: back pain Skin/Breast: Denies: rash PFSH ED PFSH: Medical History Acute bronchitis with chronic obstructive pulmonary disease (COPD) GEETHA (acute kidney injury) GEETHA V/S GEETHA ON CKD Stage 3 Anticoagulant long-term use Atrial fibrillation COPD (chronic obstructive pulmonary disease) COPD (chronic obstructive pulmonary disease) Degenerative arthritis of left shoulder region Ex-smoker History of cardiac dysrhythmia Hydrocele, left Hyperkalemia Hypertension Hyponatremia Hyponatremia 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, lumbar region Pneumonia due to COVID-19 virus Respiratory failure with hypoxia Improving Spondylolisthesis, lumbar region Testalgia Urinary retention Surgical History H/O arthroscopic knee surgery H/O carpal tunnel repair H/O vasectomy S/P insertion of spinal cord stimulator (~10/15/16) Family History Grandmother Cancer Social History Smoking and tobacco status: former smoker Quit status (tobacco): has quit using tobacco Year quit tobacco: 1984 Alcohol intake: current Lives independently: Yes Household members: spouse Marital status: Current occupational status: retired Physical Exam Const: COMMON NORMALS: alert HENMT: COMMON NORMALS: atraumatic HEAD & SCALP: atraumatic Neck/C-Spine: COMMON NORMALS: full ROM Resp: COMMON NORMALS: normal respiratory effort and clear to auscultation bilaterally AUSCULTATION: clear to auscultation bilaterally Cardio: COMMON NORMALS: regular rate and regular rhythm RATE: regular rate RHYTHM: regular rhythm GI: COMMON NORMALS: Soft to palpation and non-tender PALPATION: Yes Soft to palpation Back/Pelvis: LUMBAR SPINE/LOWER BACK: Yes lumbar spinal tenderness and Yes paraspinal muscle tenderness Extremity: COMMON NORMALS: normal to inspection Neuro: SENSORIUM/ORIENTATION: Yes alert Psych: COMMON NORMALS: cooperative Skin: COMMON NORMALS: no rashes or lesions noted GENERAL SKIN EXAM: no rashes or lesions noted Course ED course: 2244, CT scan come back showing no significant interval change from prior exam done in September 2019. We attempted to get patient up to the bedside but he was unable to tolerate even sitting at the bed. Patient has decreased pain with laying supine. Vital Signs: Vital signs: Vital Signs Temperature 97.7 F 11/16/21 12:00 Pulse Rate 83 11/16/21 12:00 Respiratory Rate 18 11/16/21 14:58 Blood Pressure 138/80 11/16/21 12:00 Pulse Oximetry 98 11/16/21 12:00 MDM - Back Pain/Injury Medical Decision Making 76-year-old male patient comes in today with low back pain. Patient has a history of severe spondylosis of the lumbar spine with final canal stenosis at L3-L4 and L4-L5. Patient has been unable to get out of bed today due to pain and discomfort. Patient did take some hydrocodone at home which helps his pain when he lies supine. Patient denies any bladder retention or stool difficul ties. Patient does have a positive leg lift test that greater than 45 degrees. Distal pulses and sensation are intact. Patient does have some decreased sensation in bilateral lower extremities. Vital signs are normal. Differential diagnosis includes not limited to vertebral fracture, vertebral disc disease, facet arthropathy, spinal stenosis. Laboratory values noted some mild anemia at 9 and 30, CMP noted a bump in his creatinine of 2.1. CT of the lumbar spine noted severe spondylosis throughout the lumbar spine but no significant change since September 2019. Even after administration of dexamethasone and Dilaudid for back pain we were still unable to get patient to stand. Patient is unable to care for himself at home and only has his spouse that lives with him. I reviewed this with Dr. Boswell who will discuss with hospitalist for admission to hospital. Labs : 11/15/21 20:00 11/15/21 20:00 Radiology Impressions Lumbar Spine CT 11/15/21:19 IMPRESSION: 1. Diffuse severe spondylosis throughout the lumbar spine, as above. 2. Severe spinal canal stenosis demonstrated at L3-L4 and L4-L5. 3. No acute abnormality demonstrated. 4. There is no interval change from the prior examination of 10/12/2019. Laboratory Results WBC 12.5 10^3/uL (4.0-10.0) H 11/15/21 20:00 RBC 3.33 10^6/uL (4.1-5.3) L 11/15/21 20:00 Hgb 9.0 g/dL (11.7-16.6) L 11/15/21 20:00 Hct 30.7 % (42.0-52.0) L 11/15/21 20: MCV 92.2 fl (80-94) 11/15/21 20:00 MCH 27.0 pg (28.0-34.0) L 11/15/21 20:00 MCHC 29.3 g/dL (30.0-36.0) L 11/15/21 20:00 RDW 16.0 % (12.1-15.1) H 11/15/21 20:00 Plt Count 562 10^3/cmm (130-400) H 11/15/21 20:00 MPV 8.0 fL (7.4-10.4) 11/15/21 20:00 Neut % (Auto) 73.9 % 11/15/21 20:00 Lymph % (Auto) 12.9 % 11/15/21 20:00 [place] % (Auto) 8.5 % 11/15/21 20:00 Eos % (Auto) 2.9 % 11/15/21 20:00 Baso % (Auto) 0.6 % 11/15/21 20:00 Neut # (Auto) 9.26 10^3/uL (1.8-7.7) H 11/15/21 20:00 Lymph # (Auto) 1.6 10^3/uL (0.8-4.8) 11/15/21 20:00 [place] # (Auto) 1.1 10^3/uL (0.2-0.9) H 11/15/21 20:00 Eos # (Auto) 0.4 10^3/uL (0.0-0.8) 11/15/21 20:00 Baso # (Auto) 0.1 10^3/uL (0.0-0.1) 11/15/21 20:00 Nucleated RBC % (auto) 0 % 11/15/21 20:00 Nucleated RBCs # 0.0 /100WBC 11/15/21 20:00 Sodium 133 mmol/L (136-145) L 11/15/21 20:00 Potassium 4.7 mmol/L (3.5-5.1) 11/15/21 20:00 Chloride 102 mmol/L (98-107) 11/15/21 20:00 Carbon Dioxide 19 mmol/L (22-29) L 11/15/21 20:00 Anion Gap 16.7 (5-19) 11/15/21 20:00 BUN 27 mg/dL (8-23) H 11/15/21 20:00 Creatinine 2.1 mg/dL (0.7-1.2) H 11/15/21 20:00 GFR Calculation Not Reportable 11/15/21 20:00 Glucose 111 mg/dL (65-115) 11/15/21 20:00 Calculated Osmolality 282 mOsm/kg (285-295) L 11/15/21 20:00 Calcium 8.4 mg/dL (8.5-10.5) L 11/15/21 20:00 Total Bilirubin 0.3 mg/dL (0.15-1.2) 11/15/21 20:00 AST 14 U/L (0-40) 11/15/21 20:00 ALT 10 U/L (0-41) 11/15/21 20:00 Alkaline Phosphatase 98 IU/L (40-130) 11/15/21 20:00 Total Protein 6.6 g/dL (6.6-8.7) 11/15/21 20:00 Albumin 3.4 g/dL (3.5-5.2) L 11/15/21 20:00 Globulin 3.2 g/dL (1.3-4.6) 11/15/21 20:00 Urine Color Yellow (Yellow) 11/15/21 22:30 Urine Appearance Clear (CLEAR) 11/15/21 22:30 Urine pH 5 (5-7) 11/15/21 22:30 Ur Specific [place] 1.025 (1.005-1.030) 11/15/21 22:30 Urine Protein Neg (Negative) 11/15/21 22:30 Urine Glucose (UA) Norm (Normal) 11/15/21 22:30 Urine Ketones 1+ (Negative) H 11/15/21 22:30 Urine Blood Neg (Negative) 11/15/21 22:30 Urine Nitrate Negative (Negative) 11/15/21 22:30 Urine Bilirubin 1+ (Negative) H 11/15/21 22:30 Urine Urobilinogen 1 mg/dL (Negative) H 11/15/21 22:30 Ur Leukocyte Esterase Negative (Negative) 11/15/21 22:30 Discharge Plan Discharge Admit Provider: Timoteo Abad Clinical Impression: Acute renal insufficiency, Spinal stenosis of lumbar region with radiculopathy Condition: Stable Discharge Diet: Usual diet Discharge Activity: Increase activity as tolerated Coding Level of Care Code ED Instructional Consultant for Chg Fwd Exam Comprehensive Documented by User: Paulino Boswell DO 11/16/21 14:27 HPI - Back Pain/Injury General: Chief Complaint: Back Pain/Injury Stated Complaint: back pain Time Seen by Provider: 11/15/21 20:06 [facility] PFSH: Medical History Acute bronchitis with chronic obstructive pulmonary disease (COPD) GEETHA (acute kidney injury) GEETHA V/S GEETHA ON CKD Stage 3 Anticoagulant long-term use Atrial fibrillation COPD (chronic obstructive pulmonary disease) COPD (chronic obstructive pulmonary disease) Degenerative arthritis of left shoulder region Ex-smoker History of cardiac dysrhythmia Hydrocele, left Hyperkalemia Hypertension Hyponatremia Hyponatremia 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, lumbar region Pneumonia due to COVID-19 virus Respiratory failure with hypoxia Improving Spondylolisthesis, lumbar region Testalgia Urinary retention Surgical History H/O arthroscopic knee surgery H/O carpal tunnel repair H/O vasectomy S/P insertion of spinal cord stimulator (~10/15/16) Family History Grandmother Cancer Social History Smoking and tobacco status: former smoker Quit status (tobacco): has quit using tobacco Year quit tobacco: 1984 Alcohol intake: current Lives independently: Yes Household members: spouse Marital status: Current occupational status: retired Course Consultations: Consultation #1: Selena Vital Signs: Vital signs: Vital Signs Temperature 97.7 F 11/16/21 12:00 Pulse Rate 83 11/16/21 12:00 Respiratory Rate 18 11/16/21 14:58 Blood Pressure 138/80 11/16/21 12:00 Pulse Oximetry 98 11/16/21 12:00 MDM - Back Pain/Injury Medical Decision Making 76-year-old male patient comes in today with low back pain. Patient has a history of severe spondylosis of the lumbar spine with final canal stenosis at L3-L4 and L4-L5. Patient has been unable to get out of bed today due to pain and discomfort. Patient did take some hydrocodone at home which helps his pain when he lies supine. Patient denies any bladder retention or stool difficulties. Patient does have a positive leg lift test that greater than 45 degrees. Distal pulses and sensation are intact. Patient does have some decreased sensation in bilateral lower extremities. Vital signs are normal. Differential diagnosis includes not limited to vertebral fracture, vertebral disc disease, facet arthropathy, spinal stenosis. Laboratory values noted some mild anemia at 9 and 30, CMP noted a bump in his creatinine of 2.1. CT of the lumbar spine noted severe spondylosis throughout the lumbar spine but no significant change since September 2019. Even after administration of dexamethasone and Dilaudid for back pain we were still unable to get patient to stand. Patient is unable to care for himself at home and only has his spouse that lives with him. I reviewed this with Dr. Boswell who will discuss with hospitalist for admission to hospital. This patient was originally seen by JAGDEEP English I agree with his history, evaluation, and management. This patient has significant back pain, such that he cannot walk. No red flag symptoms for cauda equina syndrome. hemoglobin is 9. bicarbonate is 19 with a creatinine up to 2.1. There is a component of acute kidney injury. He'll be placed in the hospital. Hospitalist will see the patient in the ER. Labs : 11/15/21 20:00 11/15/21 20:00 Radiology Impressions Lumbar Spine CT 11/15/21: IMPRESSION: 1. Diffuse severe spondylosis throughout the lumbar spine, as above. 2. Severe spinal canal stenosis demonstrated at L3-L4 and L4-L5. 3. No acute abnormality demonstrated. 4. There is no interval change from the prior examination of 10/12/2019. Laboratory Results WBC 12.5 10^3/uL (4.0-10.0) H 11/15/21 20:00 RBC 3.33 10^6/uL (4.1-5.3) L 11/15/21 20:00 Hgb 9.0 g/dL (11.7-16.6) L 11/15/21 20:00 Hct 30.7 % (42.0-52.0) L 11/15/21 20:00 MCV 92.2 fl (80-94) 11/15/21 20: MCH 27.0 pg (28.0-34.0) L 11/15/21 20: MCHC 29.3 g/dL (30.0-36.0) L 11/15/21 20:00 RDW 16.0 % (12.1-15.1) H 11/15/21 20:00 Plt Count 562 10^3/cmm (130-400) H 11/15/21 20:00 MPV 8.0 fL (7.4-10.4) 11/15/21 20:00 Neut % (Auto) 73.9 % 11/15/21 20:00 Lymph % (Auto) 12.9 % 11/15/21 20:00 [place] % (Auto) 8.5 % 11/15/21 20:00 Eos % (Auto) 2.9 % 11/15/21 20:00 Baso % (Auto) 0.6 % 11/15/21 20:00 Neut # (Auto) 9.26 10^3/uL (1.8-7.7) H 11/15/21 20:00 Lymph # (Auto) 1.6 10^3/uL (0.8-4.8) 11/15/21 20:00 [place] # (Auto) 1.1 10^3/uL (0.2-0.9) H 11/15/21 20:00 Eos # (Auto) 0.4 10^3/uL (0.0-0.8) 11/15/21 20:00 Baso # (Auto) 0.1 10^3/uL (0.0-0.1) 11/15/21 20:00 Nucleated RBC % (auto) 0 % 11/15/21 20:00 Nucleated RBCs # 0.0 /100WBC 11/15/21 20:00 Sodium 133 mmol/L (136-145) L 11/15/21 20:00 Potassium 4.7 mmol/L (3.5-5.1) 11/15/21 20:00 Chloride 102 mmol/L (98-107) 11/15/21 20:00 Carbon Dioxide 19 mmol/L (22-29) L 11/15/21 20:00 Anion Gap 16.7 (5-19) 11/15/21 20:00 BUN 27 mg/dL (8-23) H 11/15/21 20:00 Creatinine 2.1 mg/dL (0.7-1.2) H 11/15/21 20:00 GFR Calculation Not Reportable 11/15/21 20:00 Glucose 111 mg/dL (65-115) 11/15/21 20:00 Calculated Osmolality 282 mOsm/kg (285-295) L 11/15/21 20:00 Calcium 8.4 mg/dL (8.5-10.5) L 11/15/21 20:00 Total Bilirubin 0.3 mg/dL (0.15-1.2) 11/15/21 20:00 AST 14 U/L (0-40) 11/15/21 20:00 ALT 10 U/L (0-41) 11/15/21 20:00 Alkaline Phosphatase 98 IU/L (40-130) 11/15/21 20:00 Total Protein 6.6 g/dL (6.6-8.7) 11/15/21 20:00 Albumin 3.4 g/dL (3.5-5.2) L 11/15/21 20:00 Globulin 3.2 g/dL (1.3-4.6) 11/15/21 20:00 Urine Color Yellow (Yellow) 11/15/21 22:30 Urine Appearance Clear (CLEAR) 11/15/21 22:30 Urine pH 5 (5-7) 11/15/21 22:30 Ur Specific [place] 1.025 (1.005-1.030) 11/15/21 22:30 Urine Protein Neg (Negative) 11/15/21 22:30 Urine Glucose (UA) Norm (Normal) 11/15/21 22:30 Urine Ketones 1+ (Negative) H 11/15/21 22:30 Urine Blood Neg (Negative) 11/15/21 22:30 Urine Nitrate Negative (Negative) 11/15/21 22:30 Urine Bilirubin 1+ (Negative) H 11/15/21 22:30 Urine Urobilinogen 1 mg/dL (Negative) H 11/15/21 22:30 Ur Leukocyte Esterase Negative (Negative) 11/15/21 22:30 Discharge Plan Discharge Admit Provider: Timoteo Abad Clinical Impression: Acute renal insufficiency, Spinal stenosis of lumbar region with radiculopathy Condition: Stable Discharge Diet: Usual diet Discharge Activity: Increase activity as tolerated Coding Level of Care Code ED Instructional Consultant for Chg Fwd Exam Comprehensive
--- NOTE | 2021-11-15 20:19 | CTR_ITS ---
PROCEDURE INFORMATION: Exam: CT Lumbar Spine Without Contrast Exam date and time: 11/15/2021 9:44 PM Age: 76 years old Clinical indication: Low back pain; Prior surgery; Surgery date: 6+ months; Surgery type: Stim; Patient HX: C/O worsening chronic lbp; Additional info: Back pain, leg weakness, HX of spinal tumor TECHNIQUE: Imaging protocol: Computed tomography images of the lumbar spine without contrast. Radiation optimization: All CT scans at this facility use at least one of these dose optimization techniques: automated exposure control; mA and/or kV adjustment per patient size (includes targeted exams where dose is matched to clinical indication); or iterative reconstruction. COMPARISON: CT lumbar spine w con [id number] 10/12/2019 10:25 AM RADIATION DOSE METRICS: Total DLP (mGy-cm): 2218.63 FINDINGS: Vertebrae: Mild scoliosis of the lumbar spine. 7 mm chronic anterior subluxation of L4 on L5, secondary to degeneration of the facet joints. Mild retrograde subluxation of L1 on L2. No spondylolysis at any level. Vertebral body heights are preserved. There are no compression fractures noted. Discs/Spinal canal/Neural foramina: There is severe disc degeneration with vacuum disc phenomenon for at each lumbar level with the exception of L2-L3. Severe spinal canal stenosis demonstrated at L3-L4 and L4-L5. Soft tissues: Unremarkable. CT/CT lumbar spine wo con* [id number] IMPRESSION: 1. Diffuse severe spondylosis throughout the lumbar spine, as above. 2. Severe spinal canal stenosis demonstrated at L3-L4 and L4-L5. 3. No acute abnormality demonstrated. 4. There is no interval change from the prior examination of 10/12/2019.
[2021-11-15] MEDS: HYDROmorphone 1 mg/mL INJ 1 mL IVP (20:25)
[2021-11-15 20:34] LABS: Basophils # 0.1 10^3/uL (0.0-0.1); Basophils % 0.6 %; Eosinophils # 0.4 10^3/uL (0.0-0.8); Eosinophils % 2.9 %; Hematocrit 30.7 % (42.0-52.0); Lymphocytes # 1.6 10^3/uL (0.8-4.8); Lymphocytes % 12.9 %; Mean Corpuscular HGB Conc 29.3 g/dL (30.0-36.0); Mean Corpuscular Volume 92.2 fl (80-94); Monocytes # 1.1 10^3/uL (0.2-0.9); Monocytes % 8.5 %; Neutrophils # 9.26 10^3/uL (1.8-7.7); Neutrophils % 73.9 %; Nucleated Red Blood Cells % 0 %; Platelet Count 562 10^3/cmm (130-400); Red Blood Count 3.33 10^6/uL (4.1-5.3); White Blood Count 12.5 10^3/uL (4.0-10.0)
[2021-11-15 20:45] LABS: Alanine Aminotransferase 10 U/L (0-41); Albumin Level 3.4 g/dL (3.5-5.2); Alkaline Phosphatase 98 IU/L (40-130); Anion Gap 16.7 (5-19); Aspartate Amino Transferase 14 U/L (0-40); Blood Urea Nitrogen 27 mg/dL (8-23); Calcium 8.4 mg/dL (8.5-10.5); Carbon Dioxide 19 mmol/L (22-29); Chloride 102 mmol/L (98-107); Globulin 3.2 g/dL (1.3-4.6); Glucose 111 mg/dL (65-115); Osmolality Calculated 282 mOsm/kg (285-295); Potassium 4.7 mmol/L (3.5-5.1); Sodium 133 mmol/L (136-145); Total Bilirubin 0.3 mg/dL (0.15-1.2); Total Protein 6.6 g/dL (6.6-8.7)
[2021-11-15 22:38] LABS: Add Urine Microscopic? NO; Charge for UA Resulting for Rev
[2021-11-15 22:41] LABS: Glucose Urine UA Norm (Normal); Protein Urine Neg (Negative); Specific Gravity, Urine 1.025 (1.005-1.030); Urine Appearance Clear (CLEAR); Urine Color Yellow (Yellow); pH Urine 5 (5-7)
[2021-11-15 22:42] LABS: Bilirubin Urine 1+ (Negative); Blood Urine Neg (Negative); Ketones Urine 1+ (Negative); Leukocyte Esterase Urine Negative (Negative); Nitrate Urine Negative (Negative); Urobilinogen Urine 1 mg/dL (Negative)
[2021-11-15] MEDS: dexamethasone 10 mg/mL INJ IVP (22:55)
[2021-11-15] MEDS: sodium chloride 0.9% 1,000 ML 125 ML IV (23:25)
[2021-11-16] VITALS (16 sets, daily range): BP systolic 101–155; BP diastolic 62–91; PULSE 69–88; RESP 12–20; TEMP 36.4–36.8; O2SAT 91–98; BMI 31.5
--- NOTE | 2021-11-16 03:41 | P.HP_ITS ---
Providers/Chief Complaint Admitting Physician: Timoteo Abad Primary Care Provider: Keshawn Little DO Chief Complaint: back pain History of Present Illness Pleasant 76-year-old gentleman came in for evaluation to the hospital due to severe low back pain, states normally he has been dealing with chronic back pain issues, has had spinal cord stimulator implanted in the past, follows with pain medicine, however, states after recent hospitalization pain has gotten progress ively worse to the point that he cannot ambulate currently due to any movement of his legs causing pain. He denies any urinary or fecal incontinence. Denies any sensation loss. Pain is sharp, severe, radiating down the back of his thighs. He otherwise denies fever chills. States has not had any further melanotic or bloody stools after recent hospitalization for GI bleed. He has continued holding his Pradaxa. He has been taking Tylenol Extra Strength. Denies NSAID use. States appetite has been okay. CT lumbar spine obtained in ER shows diffuse severe spondylosis throughout the lumbar spine. Severe spinal canal stenosis L3-4, L4-5. No acute abnormality or interval change. Noted mild leukocytosis, 12.5. Hemoglobin is 9, prior last hemoglobin 8.4. Platelets 562. Noted BUN 27, creatinine 2.1. UA with 1+ ketones, 1+ bilirubin, 1 urobilinogen. Review of Systems Const: Denies: fever(s), chills, body aches or malaise Eyes: Denies: change in vision, eye discomfort or eye redness ENMT: Denies: throat pain, oral sores or ear or mastoid pain Card: Denies: chest pain, edema, pre-syncope or dyspnea on exertion Resp: Denies: dyspnea, productive cough, change in phlegm color or hemoptysis GI: Denies: abdominal pain, nausea, vomiting, diarrhea, constipation, hematochezia or melena : Denies: flank pain, difficulty urinating, urinary frequency or hematuria Musc: Reports: back pain; Denies: joint swelling or joint redness Skin/Breast: Denies: rash or new lesions Neuro: Reports: difficulty walking; Denies: headache(s), numbness in extremities, dizziness, confusion or seizure- like activity Endo: Denies: polyuria or polydipsia Guy/Lymph: Denies: easy bleeding or tender lymph nodes All/Imm: Denies: urticaria or tongue swelling Medications/Allergies Home Medications Medication Instructions Recorded Confirmed Last Taken Type cetirizine 10 mg capsule 10 mg PO DAILY@0800 cap 10/23/19 11/11/21 11/11/21 History cholecalciferol (vitamin D3) 1,250 1,250 mcg PO DAILY@0800 10/23/19 11/11/21 11/11/21 History mcg (50,000 unit) tablet cyclobenzaprine 10 mg tablet 10 mg PO TID PRN 10/23/19 11/11/21 Unknown History diltiazem HCl 240 mg 240 mg PO DAILY@0800 10/23/19 11/11/21 11/11/21 History capsule,extended release 24 hr levothyroxine 50 mcg capsule 50 mcg PO DAILY@0800 10/23/19 11/11/21 11/11/21 History lisinopril 40 mg tablet 40 mg PO DAILY@0800 10/23/19 11/11/21 11/11/21 History guaifenesin 400 mg tablet 400 mg PO Q4H PRN 11/13/19 11/11/21 10/04/20 History acetaminophen 500 mg tablet 500 mg PO Q6H PRN 10/04/20 11/11/21 Unknown History (Tylenol Extra Strength) tiotropium bromide 1.25 2 puff INHALATION DAILY #4 g 06/09/21 11/11/21 11/11/21 Rx mcg/actuation mist for inhalation (Spiriva Respimat) albuterol sulfate 90 mcg/actuation 1 inh INHALATION QID PRN #8.5 g 07/16/21 11/11/21 Unknown Rx aerosol inhaler custom orthotics #1 ea 09/02/21 11/11/21 Unknown Rx hydrocodone 5 mg-acetaminophen 325 1 tab PO Q6H PRN 14 Days #30 tab 11/05/21 11/11/21 Unknown Rx mg tablet dabigatran etexilate 150 mg 150 mg PO BID 11/11/21 11/11/21 11/10/21 History capsule (Pradaxa) diclofenac sodium 1 % topical gel 4 g TOPICAL QID PRN 11/11/21 11/11/21 Unknown History (Voltaren Arthritis Pain) mometasone-formoterol HFA 200 2 puff INHALATION BID 11/11/21 11/11/21 11/11/21 History mcg-5 mcg/actuation aerosol inhaler (Dulera) omeprazole 20 mg capsule,delayed 20 mg PO DAILY #90 cap 11/13/21 Unknown Rx release Allergies Allergy/AdvReac Type Severity Reaction Status Date / Time Sulfa (Sulfonamide Allergy Mild Unknown Verified 11/15/21 19:58 Antibiotics) apixaban [From Eliquis] Allergy ALGY-Rash Verified 11/15/21 19:58 clopidogrel [From Plavix] Allergy ALGY-Rash Verified 11/15/21 19:58 tamsulosin [From Flomax] AdvReac Mild rash Verified 11/15/21 19:58 PFSH Acute PFSH: Medical History Acute bronchitis with chronic obstructive pulmonary disease (COPD) GEETHA (acute kidney injury) GEETHA V/S GEETHA ON CKD Stage 3 Anticoagulant long-term use Atrial fibrillation COPD (chronic obstructive pulmonary disease) COPD (chronic obstructive pulmonary disease) Degenerative arthritis of left shoulder region Ex-smoker History of cardiac dysrhythmia Hydrocele, left Hyperkalemia Hypertension Hyponatremia Hyponatremia 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, lumbar region Pneumonia due to COVID-19 virus Respiratory failure with hypoxia Improving Spondylolisthesis, lumbar region Testalgia Urinary retention Surgical History H/O arthroscopic knee surgery H/O carpal tunnel repair H/O vasectomy S/P insertion of spinal cord stimulator (~10/15/16) Family History Grandmother Cancer Social History Smoking and tobacco status: former smoker Quit status (tobacco): has quit using tobacco Year quit tobacco: 1984 Alcohol intake: current Lives independently: Yes Household members: spouse Marital status: Current occupational status: retired Vitals/I&O/Wt Last Vital Signs Temp 98.8 F 11/15/21 19:51 Pulse 75 11/16/21 03:25 Resp 20 H 11/16/21 02:19 BP 133/91 11/16/21 03:25 Pulse Ox 95 11/16/21 03:25 Weight last 48 hrs Weight 98.883 kg Physical Exam Const: COMMON NORMALS: alert GENERAL APPEARANCE: cooperative; not comfortable (Severe lower back pain with certain unexpected slight movement of lower ext) NUTRITIONAL APPEARANCE: overweight ORIENTATION/CONSCIOUSNESS: Yes awake HENMT: COMMON NORMALS: normocephalic, EAC's normal, Normal external nose present and moist oral mucous membranes HEAD & SCALP: normocephalic NOSE: Normal external nose present EXTERNAL AUDITORY CANAL: EAC's normal Neck/C-Spine: COMMON NORMALS: no meningeal signs Chest: CHEST: Yes Symmetrical chest wall rise Resp: COMMON NORMALS: clear to auscultation bilaterally AUSCULTATION: clear to auscultation bilaterally Cardio: COMMON NORMALS: regular rate, regular rhythm and No murmurs present (Cardio) RATE: regular rate RHYTHM: regular rhythm GI: COMMON NORMALS: Normal to inspection, nondistended, normoactive bowel sounds present, Soft to palpation and non-tender PALPATION: Yes Soft to palpation Back/Pelvis: OTHER: Severe pain in lower back at times unexpected with repositioning or PROM of lower extremities. Antalgic positioning. Extremity: COMMON NORMALS: no pedal edema OTHER: Severe shooting back pain, electric-like down the posterior thigh with straight leg raise on the left side. We did not attempt a right side. Neuro: SENSORIUM/ORIENTATION: Yes alert MENINGEAL SIGNS: Yes no meningeal signs OTHER: Symmetrical sensation. Denies sensory loss lower extremities to touch. Psych: COMMON NORMALS: mental status grossly normal Skin: COMMON NORMALS: no wounds RASHES: no rashes Data : 11/15/21 20:00 11/15/21 20:00 A&P Assessment and plan (1) Intractable back pain: Acute on chronic, severe, currently disabling with inability to ambulate lower back pain. Has history of spinal stimulator, following with pain medicine. Pain worse after recent hospitalization. He denies any recent trauma, other than staying in bed during hospitalization and transferring between beds. Not responding to his usual treatments. Spinal stenosis noted on CT scan, no grossly acute changes noted. Stenosis severe. Symptoms of radiculopathy. Morphine IV for breakthrough pain for now to start. Hydrocodone. Lidocaine patch. TLSO brace. He states that putting on a belt at home had helped stabilize his back somewhat and reduce pain with repositioning. Bedrest for now. Subsequently please obtain PT assessment. If persistently severe symptoms may require surgical decompression. This will be somewhat more elevated risk given his comorbid conditions. Status: Acute (2) Spinal stenosis: Status: Acute (3) Lumbosacral radiculopathy: Status: Acute (4) Unable to ambulate: Status: Acute (5) Acute renal insufficiency: Acute kidney injury on chronic kidney disease. Creatinine up to 2.1. Not entirely clear etiology. BUN is elevated. Denies taking NSAIDs at home, but appears to use Voltaren gel. Would discontinue. Takes lisinopril, will hold for now. Gentle fluid challenge. Reassess renal function. Kidney US. Straight cath as needed. Status: Acute Plan Recent GI bleed: He continues to hold Pradaxa. Is on Protonix. A. fib COPD, not normally on oxygen. Not in exacerbation. KERRY: On nightly CPAP HTN Spinal cord stimulator Please review and resume home medications once reconciled. Attestations Medical Necessity Statement*: Place in observation for assessment management of severe intractable pain with severe lumbar stenosis, inability to ambulate. Coding Level of Care Code Acute Weld Technician for Charlee Givens Diagnoses Intractable back pain M54.9 Spinal stenosis M48.00 Lumbosacral radiculopathy M54.17 Unable to ambulate R26.2 Acute renal insufficiency N28.9
--- NOTE | 2021-11-16 04:00 | US_ITS ---
WS: [id number] RENAL ULTRASOUND HISTORY: GEETHA COMPARISON: CT 11/11/2021 TECHNIQUE: 2-D and color Doppler imaging of the kidney submitted. Right kidney: 9.0 cm x 5.4 cm x 6.1 cm. Low normal size kidney. Cortex measures 1.2 cm. No mass or obstruction. Left kidney: 9.6 cm x 4.2 cm x 4.2 cm. Low normal size kidney. Cortical measurement of 1.6 cm. No mass or hydronephrosis. Aorta: Not imaged. Urinary Bladder: Normally distended urinary bladder. Prostate gland is enlarged encroaching into the bladder. Prostate measures 2.7 x 3.2 cm and extends over length of 4.0 cm. US/US renal BI* [id number] IMPRESSION: 1. Low normal size kidneys. 2. No hydronephrosis or solid mass. 3. Moderate prostate gland encroachment into the bladder.
[2021-11-16] MEDS: sodium chloride 0.9% 1,000 ML 125 ML IV ×3 (06:46→22:44)
[2021-11-16] MEDS: morphine 4 mg/mL SDV 1 mL IVP ×3 (09:13→22:44)
[2021-11-16] MEDS: pantoprazole DR 40 mg Tablet PO (09:15)
[2021-11-16] MEDS: lidocaine 5% Patch 1 PATCH TOPICAL ×2 (09:16→20:14)
[2021-11-17] VITALS (10 sets, daily range): BP systolic 113–144; BP diastolic 69–77; PULSE 69–103; RESP 17–22; TEMP 36.8–37.1; O2SAT 90–96
[2021-11-17 04:09] LABS: Basophils % 0.1 %; Eosinophils % 0.1 %; Hematocrit 26.9 % (42.0-52.0); Lymphocytes # 0.9 10^3/uL (0.8-4.8); Mean Corpuscular HGB Conc 29.7 g/dL (30.0-36.0); Mean Corpuscular Hemoglobin 26.9 pg (28.0-34.0); Mean Corpuscular Volume 90.6 fl (80-94); Mean Platelet Volume 8.2 fL (7.4-10.4); Monocytes # 1.1 10^3/uL (0.2-0.9); Monocytes % 7.6 %; Neutrophils # 12.45 10^3/uL (1.8-7.7); Neutrophils % 85.1 %; Nucleated Red Blood Cells % 0 %; Platelet Count 501 10^3/cmm (130-400); Red Blood Count 2.97 10^6/uL (4.1-5.3); Red Cell Distribution Width 15.7 % (12.1-15.1); White Blood Count 14.6 10^3/uL (4.0-10.0)
[2021-11-17 04:32] LABS: Anion Gap 13.6 (5-19); Blood Urea Nitrogen 26 mg/dL (8-23); Calcium 8.4 mg/dL (8.5-10.5); Carbon Dioxide 21 mmol/L (22-29); Chloride 105 mmol/L (98-107); Glucose 144 mg/dL (65-115); Osmolality Calculated 287 mOsm/kg (285-295); Potassium 4.6 mmol/L (3.5-5.1); Sodium 135 mmol/L (136-145)
[2021-11-17] MEDS: sodium chloride 0.9% 1,000 ML 125 ML IV (06:39)
[2021-11-17] MEDS: pantoprazole DR 40 mg Tablet PO ×2 (07:59→10:05)
[2021-11-17] MEDS: cyclobenzaprine 10 mg Tablet PO ×2 (07:59→15:50)
[2021-11-17] MEDS: lidocaine 5% Patch 1 PATCH TOPICAL ×2 (07:59→20:31)
[2021-11-17] MEDS: morphine 4 mg/mL SDV 1 mL IVP ×3 (09:15→19:21)
--- NOTE | 2021-11-17 11:59 | XR_ITS ---
WS: [id number] XR lumbar spine 6V w f/e [id number] REASON FOR EXAM: back pain FINDINGS: Rotatory scoliosis of the lumbar spine convex right on the AP view. No significant compression deformity or focal vertebral body lesion. Rudimentary disc space formation between S1 and S2. Severe narrowing of the intervertebral disc spaces L2-S1 with adjacent endplate sclerosis and osteoph ytic spurring. 9 of anterolisthesis of L4 on L5 and 5-6 millimeters of anterolisthesis of S1 in relation to L5. No significant vertebral body movement with flexion and extension. There has been increased anterolisthesis of S1 in relation to L5 since the previous examination of . XR/XR lumbar spine 6V w f/e [id number] IMPRESSION: Multilevel degenerative spondylosis with interval change as above.
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
--- NOTE | 2021-11-17 13:38 | P.PN_ITS ---
Subjective Subjective: Patient has continued to complain of severe back pain, to the extent that he has not been able to participate with the physical therapy.Ortho was consulted today ,plan is to do lumber C.T Myelogram as MRI cannot be done due to presence of spinal stimulator as well as start him on dexamethasone. Medications: Medication Review Details: Generic Name Dose Route Start Last Admin Trade Name Freq PRN Reason Stop Dose Admin Cyclobenzaprine HC l 10 mg 11/16/21 23:13 11/17/21 07:59 Cyclobenzaprine 10 Mg Tablet PO 10 mg TID PRN Administration MUSCLE SPASMS Sodium Chloride 1,000 mls @ 50 ml s/hr 11/15/21 23:00 11/17/21 09:15 Sodium Chloride 0.9% IV 50 mls/hr .Q20H PINKY Infusion Lidocaine 1 patch 11/16/21 09:00 11/17/21 07:59 Lidocaine 5% Pat ch TOPICAL 1 patch [id number] PINKY Administration Morphine Sulfate 4 mg 11/16/21 03:50 11/17/21 09:15 Morphine 4 Mg/Ml Sdv 1 Ml IVP 4 mg Q4H PRN Administration SEVERE PAIN Non-Formulary Medi cation 2 puff 11/17/21 09:00 11/17/21 09:35 Tiotropium Bromi de [Spiriva Respim at] INHALATION Not Given DAILY PINKY Pantoprazole Sodiu m 40 mg 11/16/21 09:00 11/17/21 07:[address] 40 Mg Tablet PO 40 mg DAILY PINKY Administration Pantoprazole Sodiu m 40 mg 11/17/21 09:00 11/17/21 10:[address] 40 Mg Tablet PO 40 mg DAILY PINKY Administration Vitals/I&O/Wt Last Vital Signs Temp 98.7 F 11/17/21 11:29 Pulse 69 11/17/21 11:29 Resp 17 11/17/21 11:29 BP 130/71 11/17/21 11:29 Pulse Ox 90 11/17/21 11:29 11/16/21 11/17/21 11/17/21 22:59 06:59 14:59 Intake Total 1070.833 / 2430.833 989.583 / 3420.416 1165 / 1165 Output Total 320 / 820 900 / 1720 Balance 750.833 / 1610.833 89.583 / 3415.234 7874 / 1165 Weight last 48 hrs Weight 99.79 kg Weight 98.883 kg Physical Exam Const: COMMON NORMALS: patient oriented x3 HENMT: COMMON NORMALS: normocephalic and atraumatic HEAD & SCALP: normocephalic and atraumatic Chest: CHEST: Yes Symmetrical chest wall rise Resp: COMMON NORMALS: normal respiratory effort, No retractions, No use of accessory muscles and clear to auscultation bilaterally EFFORT & INSPECTION: Yes symmetric chest movement AUSCULTATION: clear to auscultation bilaterally Cardio: COMMON NORMALS: regular rate, regular rhythm, S1 normal heart sound present, S2 normal heart sound present, No gallops present (Cardio), No murmurs present (Cardio), No rub (Cardio) and Peripheral pulses 2+ throughout RATE: regular rate RHYTHM: regular rhythm HEART SOUNDS: S1 normal heart sound present and S2 normal heart sound present PERIPHERAL PULSES: Peripheral pulses 2+ throughout GI: COMMON NORMALS: Normal to inspection, nondistended, normoactive bowel sounds present, Soft to palpation, non-tender, No hepatosplenomegaly present and no masses AUSCULTATION: Yes normoactive bowel sounds PALPATION: Yes Soft to palpation and Yes No hepatosplenomegaly present RECTAL EXAM: Yes deferred Extremity: COMMON NORMALS: no clubbing, cyanosis or edema and no pedal edema Neuro: COMMON NORMALS: patient oriented x3 Data : 11/17/21 03:32 11/17/21 03:32 A&P Assessment and plan (1) Intractable back pain: Acute on chronic, severe, currently disabling with inability to ambulate lower back pain. Has history of spinal stimulator, following with pain medicine. Pain worse after recent hospitalization. He denies any recent trauma, other than staying in bed during hospitalization and transferring between beds. Not responding to his usual treatments. Spinal stenosis noted on CT scan, no grossly acute changes noted. Stenosis severe. Symptoms of radiculopathy. Morphine IV for breakthrough pain for now to start. Hydrocodone. Lidocaine patch. TLSO brace. He states that putting on a belt at home had helped stabilize his back somewhat and reduce pain with repositioning. Bedrest for now. Subsequently please obtain PT assessment. If persistently severe symptoms may require surgical decompression. This will be somewhat more elevated risk given his comorbid conditions. Status: Acute (2) Spinal stenosis: Status: Acute (3) Lumbosacral radiculopathy: Status: Acute (4) Unable to ambulate: Status: Acute (5) Acute renal insufficiency: Acute kidney injury on chronic kidney disease. Creatinine up to 2.1. Not entirely clear etiology. BUN is elevated. Denies taking NSAIDs at home, but appears to use Voltaren gel. Would discontinue. Takes lisinopril, will hold for now. Gentle fluid challenge. Reassess renal function. Kidney US. Straight cath as needed. Status: Acute Plan Recent GI bleed: He continues to hold Pradaxa. Is on Protonix. A. fib COPD, not normally on oxygen. Not in exacerbation. KERRY: On nightly CPAP HTN Spinal cord stimulator Please review and resume home medications once reconciled. Attestations Medical Necessity Statement*: Patient needs to be in hospital for the management of intractable lower back pain. Coding Level of Care Code Acute Chief Cloth Finishing Range Operator for [facility] Fwd Exam Detailed Diagnoses Intractable back pain M54.9 Spinal stenosis M48.00 Lumbosacral radiculopathy M54.17 Unable to ambulate R26.2 Acute renal insufficiency N28.9
[2021-11-17] MEDS: dexamethasone 10 mg/mL INJ IVP (15:03)
[2021-11-17] MEDS: sodium chloride 0.9% 1,000 ML 50 ML IV (22:29)
[2021-11-18] VITALS (12 sets, daily range): BP systolic 109–162; BP diastolic 68–87; PULSE 70–91; RESP 14–20; TEMP 36.6–37.2; O2SAT 90–96
[2021-11-18] MEDS: iohexol 240 mg/mL 50 mL Btl INTRATHECA (01:35)
[2021-11-18] MEDS: morphine 4 mg/mL SDV 1 mL IVP ×3 (05:00→12:57)
[2021-11-18 05:20] LABS: Basophils % 0.1 %; Hematocrit 28.7 % (42.0-52.0); Hemoglobin 8.2 g/dL (11.7-16.6); Lymphocytes % 6.8 %; Mean Corpuscular HGB Conc 28.6 g/dL (30.0-36.0); Mean Corpuscular Hemoglobin 27.3 pg (28.0-34.0); Mean Corpuscular Volume 95.7 fl (80-94); Monocytes # 0.8 10^3/uL (0.2-0.9); Monocytes % 5.4 %; Neutrophils # 12.33 10^3/uL (1.8-7.7); Neutrophils % 87.2 %; Nucleated Red Blood Cells % 0 %; Platelet Count 505 10^3/cmm (130-400); Red Cell Distribution Width 15.7 % (12.1-15.1); White Blood Count 14.1 10^3/uL (4.0-10.0)
[2021-11-18 05:35] LABS: Anion Gap 15.9 (5-19); Blood Urea Nitrogen 26 mg/dL (8-23); Calcium 8.6 mg/dL (8.5-10.5); Carbon Dioxide 19 mmol/L (22-29); Chloride 105 mmol/L (98-107); Glucose 149 mg/dL (65-115); Osmolality Calculated 288 mOsm/kg (285-295); Potassium 4.9 mmol/L (3.5-5.1); Sodium 135 mmol/L (136-145)
[2021-11-18] MEDS: pantoprazole DR 40 mg Tablet PO ×2 (08:50→08:52)
[2021-11-18] MEDS: cholecalciferol (vitamin D3) 1,000 unit Tablet 1000 UNIT PO (08:50)
[2021-11-18] MEDS: lidocaine 5% Patch 1 PATCH TOPICAL (08:50)
[2021-11-18] MEDS: dilTIAZem ER (24HR) 240 mg Capsule PO (08:50)
[2021-11-18] MEDS: levothyroxine 50 mcg Tablet PO (08:50)
[2021-11-18] MEDS: cyclobenzaprine 10 mg Tablet PO ×2 (09:06→23:38)
--- NOTE | 2021-11-18 09:57 | PC.CHAP ---
Pastoral Care Encounter/Spiritual Assessment Type of Contact [] Declined journalist visit [] Patient/Family/Request visit [] Outpatient visit [] Follow-up visit [] Physician referral [] Code/Alert [x] Routine visit [] Staff referral [] Actively dying [] Patient sleeping [] Family support [] [] Out of room [] Palliative care [] [] Receiving care in room [] Pre-surgical visit [] Trauma [] Long length of stay [] ICU visit [] Other: Relational/Emotional Strength [x] Patient feels connected with others/family/visitors/staff [] Distress [] Loneliness/isolation [] Abandonment Spirituality of Patient [x] Person of Allie [x] Attends Protestant of their Allie [x] Believes in Prayer [] Reads Bible or Uatsdin materials [] There are Spiritual issues to be addressed Research And Development Specialist Interventions [x] Prayer [x] Active listening [x] Non-anxious presence [x] Spiritual/emotional support [] Crisis/trauma care [] Spiritual counseling [] Bereavement support [] Provided bereavement packet [] Provided Bible/devotional materials [] Provided toy/stuffed animal, coloring book to patient or family member [] Provided Communion [] Anointing/Nemo [] Salvation [x] Completed spiritual assessment [] Other: Impact on Illness or Injury [] Angry [] Fearful [] Anxious [] Often cries [] Exhaustion [] Unable to work [] Unable to attend rastafari [] Unable to walk/stand [] Unable to read [] Unable to drive [] Unable to eat/drink [] Unable to sleep [] Unable to be with family [] Patient intubated [] Other: Summary Pt is a strong person of allie. Parents were ministers in [place]. Pt stated he strayed as a teen but upon the of his mother, he turned his life around and has been a person of allie since. Pt is a big talker and has many stories to tell. Very pleasant individual to visit with. He is in extreme pain and is facing surgery to help relieve at least some of the pain. Time spent with patient 30m
[2021-11-18] MEDS: dexamethasone 10 mg/mL INJ IVP (12:57)
--- NOTE | 2021-11-18 13:00 | IR_ITS ---
WS: [id number] LUMBAR MYELOGRAM HISTORY: Severe spinal canal stenosis demonstrated at L3-L4 and L4-L5 COMPARISON: 10/12/2019 FLUOROSCOPY TIME: 1.2 minutes. # of spot films: 1. Procedure, risks and complications were explained to the patient. Risks including bleeding, infection , headaches, allergic reaction and seizures. Consent has been obtained. With the patient in prone position the skin over the lumbar region is cleansed with ChloraPrep and an esthetized with lidocaine. 22-gauge spinal needle is inserted into the thecal sac at the appropriate level determined by fluoroscopy. Omnipaque 240; 12 ml is injected slowly under fluoroscopy with no co mplications. Needle bevel is perpendicular to the longitudinal fibers of the dura. Stylet is reinsert ed prior to removal of the needle. Patient tolerated the procedure well. Patient will proceed to CT f or further evaluation. Severe rotary scoliosis of the lumbar spine with curvature towards the RIGHT. Asymmetric disc space n arrowing. There is an abrupt termination of the contrast column at the L4 level. This may be due to s evere stenosis but a mass cannot be excluded. Known well-circumscribed nodule measuring 7 mm at the L 4 level which has been described. This is just above the termination of the contrast column. The nerv e roots in the distal conus are tortuous and thickened. As described on prior imaging studies there are 6 lumbar type vertebral bodies. L4 anterolisthesis by r 6 mm. No fractures. IR/[place] [id number] IMPRESSION: 1. Uncomplicated lumbar myelogram. 2. Abrupt termination of the contrast column at the L4 level. Probably combina tion of disc disease and facet disease and ligamentum flavum disease. Without a n MRI with contrast additional mass causing the obstruction would be difficult to exclude. Patient has a known 7 mm nodule at the L4 level which is not respon sible for the obstruction. 3. Advanced lumbar spondylosis and degenerative scoliosis.
--- NOTE | 2021-11-18 14:07 | CT_ITS ---
WS: [id number] CT MYELOGRAM LUMBAR SPINE HISTORY: Myelogram TECHNIQUE: Contiguous 2.5 mm axial imaging performed from T12 through the mid sacral level. Bone and soft tissue windows reviewed. Sagittal and coronal reformats are submitted and reviewed. DLP: 2553.[address] scans at [facility] use at least one of these dose optimization techniques: automated e xposure control; mA and/or kV adjustment per patient size (includes targeted exams where dose is matc hed to clinical indication); or iterative reconstruction. COMPARISON: Lumbar spine with contrast 10/12/2019. The numbering pattern utilized on today's examination will be the same as the numbering pattern descr ibed on 10/12/2019. 6 lumbar type vertebral bodies were identified at that time. L6 is transitional an d partially sacralized. No fractures. L4 anterolisthesis by 6 mm. Advanced degenerative disc disease at L3-4, L4-5 and L5-S1. Conus tapers normally and ends at the mid L1-2 level. No acute fractures. Minimal retrolisthesis L1 on L2 and L2. No interval change since previously noted MRI intrathecal nodule at the L4 level, reide ntified measuring 5.5 mm posterior to the superior L4 vertebral body with no change. L1-L2: Mild annular disc bulging without significant stenosis. L2-L3: Mild annular disc bulging asymmetric to the LEFT. There is mild disc encroachment upon the the mark sac, mildly progressed since the prior exam. Mild bilateral foraminal narrowing. L3-L4: Diffuse annular disc bulging. Disc is asymmetric to the LEFT encroaching into the LEFT foramen and contacting the LEFT L3 nerve root. Moderate to severe LEFT foraminal stenosis and mild on the RI GHT. L4-L5: Complete effacement of the intrathecal contrast at the L4-5 level consistent with high-grade s tenosis and block of the contrast. The nerve roots are being distorted. Severe central, bilateral sub articular recess and foraminal stenosis. There is disc contacting the thecal sac with severe narrowin g of the LEFT subarticular recess and foramen. The nerve roots are being displaced and distorted with the thecal sac. It would be difficult to exclude soft tissue mass in the central column. L5-L6: Mild diffuse disc bulging. Focal central disc protrusion extends caudad from the disc space. M oderate central and [id number] bilateral foraminal stenosis, RIGHT greater than LEFT. Atherosclerotic changes within the abdominal aorta and iliac arteries. The entire aorta is not imaged to evaluate for aneurysm. CT/CT lumbar spine w con [id number] IMPRESSION: 1. 6 lumbar type vertebral bodies labeled 1 through 6 for the purposes of this dictation. This similar numbering pattern will be utilized as on 10/12/2019. 2. Severe central stenosis at L4-5 with complete block of the column of contra st. Combination of disc and facet disease. Very similar in appearance to the pr ior study from 10/12/2019. It would be difficult to exclude a mass at this locat ion. Patient has a known intrathecal nodule measuring 5.5 mm at the L4 level wh ich is stable. 3. Severe subarticular and bilateral foraminal stenosis at L4-5. 4. Moderate to severe LEFT foraminal stenosis at L3-4. 5. Moderate central with [id number] bilateral foraminal stenosis at L5-L 6. Mild progression. Advanced multilevel degenerative disc disease with facet a rthritis.
[2021-11-18] MEDS: oxyCODONE-APAP 5-325 mg Tablet 1 TAB PO ×2 (14:57→23:38)
--- NOTE | 2021-11-18 17:45 | PC.NURSE ---
PATIENT'S PAIN IS BETTER CONTROLLED NOW THAT ORAL PAIN MEDICATIONS ARE ON BOARD. GOOD URINE OUTPUT. BRACE IN PLACE. PATIENT CURRENTLY RESTING IN BED.
--- NOTE | 2021-11-18 19:43 | P.PN_ITS ---
Subjective Subjective: Patient has continued to complain of severe back pain, to the extent that he has not been able to participate with the physical therapy.Awaiting C.T Myelogram. On dexamethasone. Medications: Medication Review Details: Generic Name Dose Route Start Last Admin Trade Name Freq PRN Reason Stop Dose Admin Cyclobenzaprine HC l 10 mg 11/16/21 23:13 11/17/21 07:59 Cyclobenzaprine 10 Mg Tablet PO 10 mg TID PRN Administration MUSCLE SPASMS Sodium Chloride 1,000 mls @ 50 ml s/hr 11/15/21 23:00 11/17/21 09:15 Sodium Chloride 0.9% IV 50 mls/hr .Q20H PINKY Infusion Lidocaine 1 patch 11/16/21 09:00 11/17/21 07:59 Lidocaine 5% Pat ch TOPICAL 1 patch [id number] PINKY Administration Morphine Sulfate 4 mg 11/16/21 03:50 11/17/21 09:15 Morphine 4 Mg/Ml Sdv 1 Ml IVP 4 mg Q4H PRN Administration SEVERE PAIN Non-Formulary Medi cation 2 puff 11/17/21 09:00 11/17/21 09:35 Tiotropium Bromi de [Spiriva Respim at] INHALATION Not Given DAILY PINKY Pantoprazole Sodiu m 40 mg 11/16/21 09:00 11/17/21 07:[address] 40 Mg Tablet PO 40 mg DAILY PINKY Administration Pantoprazole Sodiu m 40 mg 11/17/21 09:00 11/17/21 10:[address] 40 Mg Tablet PO 40 mg DAILY PINKY Administration Vitals/I&O/Wt Last Vital Signs Temp 97.9 F 11/18/21 15:43 Pulse 75 11/18/21 15:43 Resp 18 11/18/21 15:43 BP 150/78 11/18/21 15:43 Pulse Ox 91 11/18/21 15:43 11/18/21 11/18/21 11/18/21 06:59 14:59 22:59 Output Total 900 / 2600 350 / 350 600 / 950 Balance -900 / -773.333 -350 / -350 -600 / -950 Physical Exam Const: COMMON NORMALS: patient oriented x3 HENMT: COMMON NORMALS: normocephalic and atraumatic HEAD & SCALP: normocephalic and atraumatic Eye: COMMON NORMALS: no scleral icterus GENERAL EYE: appearance normal, both eyes and all related structures Chest: COMMONS NORMALS: normal inspection of the chest and normal palpation of entire chest wall CHEST: Yes Symmetrical chest wall rise Resp: COMMON NORMALS: normal respiratory effort, No retractions, No use of accessory muscles and clear to auscultation bilaterally EFFORT & INSPECTION: Yes symmetric chest movement AUSCULTATION: clear to auscultation bilaterally Cardio: COMMON NORMALS: regular rate, regular rhythm, S1 normal heart sound present, S2 normal heart sound present, No gallops present (Cardio), No murmurs present (Cardio), No rub (Cardio) and Peripheral pulses 2+ throughout RATE: regular rate RHYTHM: regular rhythm HEART SOUNDS: S1 normal heart sound present and S2 normal heart sound present PERIPHERAL PULSES: Peripheral pulses 2+ throughout GI: COMMON NORMALS: Normal to inspection, nondistended, normoactive bowel soun ds present, Soft to palpation, non-tender, No hepatosplenomegaly present and no masses AUSCULTATION: Yes normoactive bowel sounds PALPATION: Yes Soft to palpation and Yes No hepatosplenomegaly present RECTAL EXAM: Yes deferred Extremity: COMMON NORMALS: no clubbing, cyanosis or edema and no pedal edema Neuro: COMMON NORMALS: patient oriented x3 Data : 11/18/21 05:07 11/18/21 05:07 A&P Assessment and plan (1) Intractable back pain: Acute on chronic, severe, currently disabling with inability to ambulate lower back pain. Has history of spinal stimulator, following with pain medicine. Pain worse after recent hospitalization. He denies any recent trauma, other than staying in bed during hospitalization and transferring between beds. Not responding to his usual treatments. Spinal stenosis noted on CT scan, no grossly acute changes noted. Stenosis severe. Symptoms of radiculopathy. Morphine IV for breakthrough pain for now to start. Hydrocodone. Lidocaine patch. TLSO brace. He states that putting on a belt at home had helped stabilize his back somewhat and reduce pain with repositioning. Bedrest for now. Subsequently please obtain PT assessment. If persistently severe symptoms may require surgical decompression. This will be somewhat more elevated risk given his comorbid conditions. Status: Acute (2) Spinal stenosis: Status: Acute (3) Lumbosacral radiculopathy: Status: Acute (4) Unable to ambulate: Status: Acute (5) Acute renal insufficiency: Acute kidney injury on chronic kidney disease. Creatinine up to 2.1. Not entirely clear etiology. BUN is elevated. Denies taking NSAIDs at home, but appears to use Voltaren gel. Would discontinue. Takes lisinopril, will hold for now. Gentle fluid challenge. Reassess renal function. Kidney US. Straight cath as needed. Status: Acute Plan Recent GI bleed: He continues to hold Pradaxa. Is on Protonix. A. fib COPD, not normally on oxygen. Not in exacerbation. KERRY: On nightly CPAP HTN Spinal cord stimulator Please review and resume home medications once reconciled. Attestations Medical Necessity Statement*: Patient needs to be in hospital for the intractable lower back pain need for Pain control and need for I.V Pain medications. Coding Level of Care Code Acute Pocket Secretary Assembler for Char[facility] Diagnoses Intractable back pain M54.9 Spinal stenosis M48.00 Lumbosacral radiculopathy M54.17 Unable to ambulate R26.2 Acute renal insufficiency N28.9
[2021-11-19] VITALS (14 sets, daily range): BP systolic 106–130; BP diastolic 64–78; PULSE 70–79; RESP 16–20; TEMP 36.5–36.8; O2SAT 79–94
[2021-11-19] MEDS: morphine 4 mg/mL SDV 1 mL IVP ×4 (04:53→22:37)
[2021-11-19 06:10] LABS: Basophils % 0.1 %; Hematocrit 26.4 % (42.0-52.0); Hemoglobin 8.2 g/dL (11.7-16.6); Lymphocytes % 6.8 %; Mean Corpuscular HGB Conc 31.1 g/dL (30.0-36.0); Mean Corpuscular Hemoglobin 27.5 pg (28.0-34.0); Mean Corpuscular Volume 88.6 fl (80-94); Mean Platelet Volume 8.8 fL (7.4-10.4); Monocytes # 0.9 10^3/uL (0.2-0.9); Neutrophils # 12.22 10^3/uL (1.8-7.7); Neutrophils % 86.3 %; Nucleated Red Blood Cells % 0 %; Platelet Count 517 10^3/cmm (130-400); Red Blood Count 2.98 10^6/uL (4.1-5.3); Red Cell Distribution Width 15.8 % (12.1-15.1); White Blood Count 14.2 10^3/uL (4.0-10.0)
[2021-11-19 06:26] LABS: Blood Urea Nitrogen 29 mg/dL (8-23); Calcium 8.7 mg/dL (8.5-10.5); Carbon Dioxide 20 mmol/L (22-29); Chloride 102 mmol/L (98-107); Glucose 150 mg/dL (65-115); Osmolality Calculated 287 mOsm/kg (285-295); Sodium 134 mmol/L (136-145)
[2021-11-19 06:29] LABS: Creatinine Clr Calc Pharmacy 57.2417
[2021-11-19 06:30] LABS: Anion Gap 17.5 (5-19); Potassium 5.5 mmol/L (3.5-5.1)
[2021-11-19] MEDS: levothyroxine 50 mcg Tablet PO (07:49)
[2021-11-19] MEDS: dilTIAZem ER (24HR) 240 mg Capsule PO (07:49)
[2021-11-19] MEDS: oxyCODONE-APAP 5-325 mg Tablet 1 TAB PO ×3 (07:49→20:06)
[2021-11-19] MEDS: cholecalciferol (vitamin D3) 1,000 unit Tablet 1000 UNIT PO (07:49)
[2021-11-19] MEDS: pantoprazole DR 40 mg Tablet PO (07:50)
[2021-11-19] MEDS: lidocaine 5% Patch 1 PATCH TOPICAL ×2 (07:50→20:29)
[2021-11-19] MEDS: cyclobenzaprine 10 mg Tablet PO ×2 (09:30→20:06)
--- NOTE | 2021-11-19 10:11 | PC.CHAP ---
Pastoral Care Encounter/Spiritual Assessment Type of Contact [] Declined team primary care physician visit [] Patient/Family/Request visit [] Outpatient visit [] Follow-up visit [] Physician referral [] Code/Alert [x [] Out of room [] Palliative care [] [] Receiving care in room [] Pre-surgical visit [] Trauma [] Long length of stay [] ICU visit [] Other: Relational/Emotional Strength [] Patient feels connected with others/family/visitors/staff [] Distress [] Loneliness/isolation [] Abandonment Spirituality of Patient [x] Person of Allie [] Attends Latter-Day of their Allie [] Believes in Prayer [] Reads Bible or Adventist materials [] There are Spiritual issues to be addressed Splitting Machine Feeder Interventions [] Prayer [] Active listening [] Non-anxious presence [] Spiritual/emotional support [] Crisis/trauma care [] Spiritual counseling [] Bereavement support [] Provided bereavement packet [] Provided Bible/devotional materials [] Provided toy/stuffed animal, coloring book to patient or family member [] Provided Communion [] Anointing/Lily [] Salvation [x] Completed spiritual assessment [] Other: Impact on Illness or Injury [] Angry [] Fearful [] Anxious [] Often cries [] Exhaustion [] Unable to work [] Unable to attend episcopal [] Unable to walk/stand [] Unable to read [] Unable to drive [] Unable to eat/drink [] Unable to sleep [] Unable to be with family [] Patient intubated [] Other: Summary Time spent with patient 10 min
--- NOTE | 2021-11-19 10:27 | P.PN_ITS ---
Subjective Subjective: Patient resting comfortably still complains of low back and leg pain. She had a TLSO brace. He has failed to mobilize in the halls. He continues to have 50% back pain for percent leg pain with inability to stand for any length of time. Vitals/I&O/Wt Last Vital Signs Temp 98.2 F 11/19/21 08:00 Pulse 77 11/19/21 08:00 Resp 18 11/19/21 09:30 BP 106/70 11/19/21 08:00 Pulse Ox 91 11/19/21 08:00 11/18/21 11/19/21 11/19/21 22:59 06:59 14:59 Intake Total 500 / 500 Output Total 600 / 950 250 / 1200 200 / 200 Balance -100 / -450 -250 / -700 -200 / -200 Physical Exam Narrative: He is alert oriented x 3, good general appearance normal mood and affect. Feet are warm with good cap refill, dorsalis pedis posterior pulses are palpable at 1+. Calves are supple no medial thigh tenderness. Positive straight leg raise bilaterally. HENMT: COMMON NORMALS: normocephalic HEAD & SCALP: normocephalic Resp: COMMON NORMALS: normal respiratory effort Cardio: COMMON NORMALS: regular rate and regular rhythm RATE: regular rate RHYTHM: regular rhythm GI: COMMON NORMALS: Soft to palpation and non-tender PALPATION: Yes Soft to palpation : COMMON NORMALS: Yes no CVA tenderness BLADDER/KIDNEY EXAM: Yes no CVA tenderness Back/Pelvis: COMMON NORMALS: no CVA tenderness Psych: COMMON NORMALS: mental status grossly normal and cooperative Data : 11/19/21 05:36 11/19/21 05:36 Other data: IR/[place] [id number] IMPRESSION: ? 1.? Uncomplicated lumbar myelogram. ? 2.? Abrupt termination of the contrast column at the L4 level. Probably combination of disc disease and facet disease and ligamentum flavum disease. Without an MRI with contrast additional mass causing the obstruction would be difficult to exclude. Patient has a known 7 mm nodule at the L4 level which is not responsible for the obstruction. 3.? Advanced lumbar spondylosis and degenerative scoliosis. A&P Assessment and plan (1) Spinal stenosis, lumbar region, with neurogenic claudication: Discussed. Second option going to the pain clinic for injections more problematic and create worsening of his symptoms with any kind of epidural based on the amount of stenosis. Last option would be decompression but with the rolando unt of back pain and his spondylolisthesis at L3-4 consideration of surgical fusion is more appropriate. With the levels of degenerative changes and L1 to the sacrum instrumented fusion with decompression would be more appropriate once he is medically stable based on his GI bleed and his anticoagulants. Discussed this with Dr. Manning and he agrees above-stated plan will contact the hospitalist team to determine a time frame. More than 50% of the time spent with the patient today involved coordination of care, counseling and discussion of conservative versus surgical treatment options. Total amount of time spent with the patient was 30 minutes. Status: Acute (2) Spondylolisthesis at L3-L4 level: Status: Acute (3) DDD (degenerative disc disease), lumbar: Status: Acute (4) Lumbar spondylosis: Status: Acute Attestations Medical Necessity Statement*: will discuss with Medical team Coding Level of Care Code Acute Sap Developer for Chg Fwd History Expanded Problem Focused Exam Expanded Problem Focused Medical Decision Making Moderate Complexity Diagnoses Spondylolisthesis at L3-L4 level M43.16 DDD (degenerative disc disease), lumbar M51.36 Lumbar spondylosis M47.816 Spinal stenosis, lumbar region, with neurogenic claudication M48.062 Time Spent (min) 30
--- NOTE | 2021-11-19 11:47 | P.PN_ITS ---
Subjective Subjective: pt seen severe back pain and leg pain and weakness Vitals/I&O/Wt Last Vital Signs Temp 98.2 F 11/19/21 08:00 Pulse 79 11/19/21 11:43 Resp 18 11/19/21 11:43 BP 106/70 11/19/21 08:00 Pulse Ox 94 11/19/21 11:43 11/18/21 11/19/21 11/19/21 22:59 06:59 14:59 Intake Total 500 / 500 Output Total 600 / 950 250 / 1200 200 / 200 Balance -100 / -450 -250 / -700 -200 / -200 Physical Exam Narrative: radicular leg pain and weaknes Data : 11/19/21 05:36 11/19/21 05:36 A&P Assessment and plan (1) Spondylolisthesis at L3-L4 level: Plan L1-S1 fusion with decompression for Wednesday11/21/21 I had an open and honest discussion with the patient about the risks, benefits and alternatives to both surgical and nonsurgical treatment. The patient verbalized understanding of the inherent unpredictability associated with surgery. Risk of surgery were discussed including, but not limited to, infection, bleeding, temporary and permanent nerve damage, continued pain, stiffness, incomplete healing, need for revision surgery, blood clot and other complications. The patient verbalized understanding that there is spine is elective in nature and if they find any of these risks to be unacceptable then they should choose not to have the surgery. The patient verbalized understanding of these risks and elected to proceed with the surgery. Status: Acute (2) Spinal stenosis, lumbar region, with neurogenic claudication: Status: Acute Attestations Medical Necessity Statement*: per primary Coding Level of Care Code Acute Warp Tier for [facility] Fwd Diagnoses Spondylolisthesis at L3-L4 level M43.16 Spinal stenosis, lumbar region, with neurogenic claudication M48.062
--- NOTE | 2021-11-19 13:02 | PM.PN ---
Subjective Subjective: Patient has continued to complain of severe back pain. Medications: Medication Review Details: Generic Name Dose Route Start Last Admin Trade Name Freq PRN Reason Stop Dose Admin Cyclobenzaprine HC l 10 mg 11/16/21 23:13 11/17/21 07:59 Cyclobenzaprine 10 Mg Tablet PO 10 mg TID PRN Administration MUSCLE SPASMS Sodium Chloride 1,000 mls @ 50 ml s/hr 11/15/21 23:00 11/17/21 09:15 Sodium Chloride 0.9% IV 50 mls/hr .Q20H PINKY Infusion Lidocaine 1 patch 11/16/21 09:00 11/17/21 07:59 Lidocaine 5% Pat ch TOPICAL 1 patch PINKY Administration Morphine Sulfate 4 mg 11/16/21 03:50 11/17/21 09:15 Morphine 4 Mg/Ml Sdv 1 Ml IVP 4 mg Q4H PRN Administration SEVERE PAIN Non-Formulary Medi cation 2 puff 11/17/21 09:00 11/17/21 09:35 Tiotropium Bromi de [Spiriva Respim at] INHALATION Not Given DAILY PINKY Pantoprazole Sodiu m 40 mg 11/16/21 09:00 11/17/21 07:[address] 40 Mg Tablet PO 40 mg DAILY PINKY Administration Pantoprazole Sodiu m 40 mg 11/17/21 09:00 11/17/21 10:[address] 40 Mg Tablet PO 40 mg DAILY PINKY Administration Vitals/I&O/Wt Last Vital Signs Temp 97.7 F 11/19/21 11:55 Pulse 74 11/19/21 11:55 Resp 17 11/19/21 11:55 BP 118/65 11/19/21 11:55 Pulse Ox 91 11/19/21 11:55 11/18/21 11/19/21 11/19/21 22:59 06:59 14:59 Intake Total 500 / 500 Output Total 600 / 950 250 / 1200 200 / 200 Balance -100 / -450 -250 / -700 -200 / -200 Physical Exam Const: COMMON NORMALS: patient oriented x3 HENMT: COMMON NORMALS: normocephalic and atraumatic HEAD & SCALP: normocephalic and atraumatic Eye: COMMON NORMALS: no scleral icterus GENERAL EYE: appearance normal, both eyes and all related structures Chest: COMMONS NORMALS: normal inspection of the chest and normal palpation of entire chest wall CHEST: Yes Symmetrical chest wall rise Resp: COMMON NORMALS: normal respiratory effort, No retractions, No use of accessory muscles and clear to auscultation bilaterally EFFORT & INSPECTION: Yes symmetric chest movement AUSCULTATION: clear to auscultation bilaterally Cardio: COMMON NORMALS: regular rate, regular rhythm, S1 normal heart sound present, S2 normal heart sound present, No gallops present (Cardio), No murmurs present (Cardio), No rub (Cardio) and Peripheral pulses 2+ throughout RATE: regular rate RHYTHM: regular rhythm HEART SOUNDS: S1 normal heart sound present and S2 normal heart sound present PERIPHERAL PULSES: Peripheral pulses 2+ throughout GI: COMMON NORMALS: Normal to inspection, nondistended, normoactive bowel sounds present, Soft to palpation, non-tender, No hepatosplenomegaly present and no masses AUSCULTATION: Yes normoactive bowel sounds PALPATION: Yes Soft to palpation and Yes No hepatosplenomegaly present RECTAL EXAM: Yes deferred Extremity: COMMON NORMALS: no clubbing, cyanosis or edema and no pedal edema Neuro: COMMON NORMALS: patient oriented x3 Data : 11/19/21 05:36 11/19/21 05:36 A&P Assessment and plan (1) Intractable back pain: Intractable lower back pain: Secondary to spondylolithiasis : Patient has history of chronic lower back pain for which he has been using spinal stimulator in the past and has seen pain specialist as an outpatient. CT : Lumbar spine: Diffuse severe spondylosis throughout the lumbar spine, as above. Severe spinal canal stenosis demonstrated at L3-L4 and L4-L5. ?IR myelogram sp lumbar: ?Abrupt termination of the contrast column at the L4 level. Probably combination of disc disease and facet disease and ligamentum flavum disease. Without an MRI with contrast additional mass causing the obstruction would be difficult to exclude. Patient has a known 7 mm nodule at the L4 level which is not responsible for the obstruction. Advanced lumbar spondylosis and degenerative scoliosis. MRI cannot be done due to presence of a spinal stimulator Repeat CT lumbar spine w con: Severe central stenosis at L4-5 with complete block of the column of contrast. Combination of disc and facet disease. Very similar in appearance to the prior study from 10/12/2019. It would be difficult to exclude a mass at this location. Patient has a known intrathecal nodule measuring 5.5 mm at the L4 level which is stable. Severe subarticular and bilateral foraminal stenosis at L4-5. Moderate to severe LEFT foraminal stenosis at L3-4. Moderate central with [id number] bilateral foraminal stenosis at L5-L6. Mild progression. Advanced multilevel degenerative disc disease with facet arthritis. Current plan is to continue with pain management: MS Contin, morphine, lidocaine patch, Percocet Spine surgery on board: Planning to L1-S1 fusion with decompression tentatively on Wednesday. Status: Acute (2) Spinal stenosis: Status: Acute (3) Lumbosacral radiculopathy: Status: Acute (4) Unable to ambulate: Status: Acute (5) Acute renal insufficiency: Acute kidney injury on chronic kidney disease. Creatinine up to 2.1. Not entirely clear etiology. BUN is elevated. Denies taking NSAIDs at home, but appears to use Voltaren gel. Would discontinue. Takes lisinopril, will hold for now. Gentle fluid challenge. Reassess renal function. Kidney US. Straight cath as needed. Status: Acute (6) Spondylolisthesis at L3-L4 level: Status: Acute Plan Recent GI bleed: He continues to hold Pradaxa. Is on Protonix. A. fib: Currently in sinus: Continue Cardizem Anticoagulation on hold COPD, not normally on oxygen. Not in exacerbation. KERRY: On nightly CPAP HTN Please review and resume home medications once reconciled. Attestations Medical Necessity Statement*: Patient in hospital for management of intractable lower back pain. Coding Level of Care Code Acute Flight Control Specialist for [facility] Exam Comprehensive Diagnoses Intractable back pain M54.9 Spinal stenosis M48.00 Lumbosacral radiculopathy M54.17 Unable to ambulate R26.2 Acute renal insufficiency N28.9 Spondylolisthesis at L3-L4 level M43.16
[2021-11-19] MEDS: morphine ER (12 HR) 30 mg tablet PO (17:33)
--- NOTE | 2021-11-19 19:13 | PC.NURSE ---
PATIENT HAS BEEN IN A GREAT DEAL OF PAIN TODAY. CONTROLLED FOR THE MOST PART, HAS MOMENTS OF BREAKTHROUGH PAIN. PATIENT NOT EATING VERY WELL. GOOD FLUID INTAKE. SWANSON CATHETER PLACED. CURRENTLY RESTING IN BED WITH BRACE IN PLACE.
[2021-11-20] VITALS (16 sets, daily range): BP systolic 137–169; BP diastolic 64–92; PULSE 68–112; RESP 17–22; TEMP 36.7–38.2; O2SAT 90–96
[2021-11-20] MEDS: oxyCODONE-APAP 5-325 mg Tablet 1 TAB PO ×4 (00:25→23:39)
[2021-11-20] MEDS: morphine 4 mg/mL SDV 1 mL IVP ×3 (02:30→17:58)
[2021-11-20] MEDS: cyclobenzaprine 10 mg Tablet PO (06:09)
[2021-11-20] MEDS: ondansetron 2 mg/ML SDV 2 mL 4 MG IVP (07:00)
--- NOTE | 2021-11-20 07:04 | PC.NURSE ---
Patient is unable to get up to chair this am due to severe back pain, due to have surgery on Wednesday.
[2021-11-20] MEDS: metoclopramide 5 mg/mL SDV 2 mL IVP (08:37)
[2021-11-20] MEDS: sodium chloride 0.9% 1,000 ML 75 ML IV ×2 (09:22→23:39)
[2021-11-20] MEDS: cholecalciferol (vitamin D3) 1,000 unit Tablet 1000 UNIT PO (09:24)
[2021-11-20] MEDS: morphine ER (12 HR) 30 mg tablet PO ×2 (09:24→18:00)
[2021-11-20] MEDS: sennosides-docusate Tablet 1 TAB PO ×2 (09:24→18:00)
[2021-11-20] MEDS: pantoprazole 40 mg SDV IVP (09:24)
[2021-11-20] MEDS: dilTIAZem ER (24HR) 240 mg Capsule PO (09:25)
[2021-11-20] MEDS: lidocaine 5% Patch 1 PATCH TOPICAL (09:25)
[2021-11-20] MEDS: levothyroxine 50 mcg Tablet PO (09:25)
[2021-11-20] MEDS: sodium polystyrene sulfonate 15 gm/60 mL Btl PO (11:19)
[2021-11-20] MEDS: lactulose oral liq 20 gm/30 mL UDC PO (15:34)
--- NOTE | 2021-11-20 17:05 | PM.PN ---
Subjective Subjective: Patient has continued to complain of severe back pain.His noted Tmax:Overnight was 100.7, Serum k: is also 5.5, SCR has also slightly trended up, had no BM in last few 4/5 days. No other complaint. Medications: Medication Review Details: Generic Name Dose Route Start Last Admin Trade Name Tdq PRN Reason Stop Dose Admin Cyclobenzaprine HC l 10 mg 11/16/21 23:13 11/17/21 07:59 Cyclobenzaprine 10 Mg Tablet PO 10 mg TID PRN Administration MUSCLE SPASMS Sodium Chloride 1,000 mls @ 50 ml s/hr 11/15/21 23:00 11/17/21 09:15 Sodium Chloride 0.9% IV 50 mls/hr .Q20H PINKY Infusion Lidocaine 1 patch 11/16/21 09:00 11/17/21 07:59 Lidocaine 5% Pat ch TOPICAL 1 patch [id number] PINKY Administration Morphine Sulfate 4 mg 11/16/21 03:50 11/17/21 09:15 Morphine 4 Mg/Ml Sdv 1 Ml IVP 4 mg Q4H PRN Administration SEVERE PAIN Non-Formulary Medi cation 2 puff 11/17/21 09:00 11/17/21 09:35 Tiotropium Bromi de [Spiriva Respim at] INHALATION Not Given DAILY PINKY Pantoprazole Sodiu m 40 mg 11/16/21 09:00 11/17/21 07:[address] 40 Mg Tablet PO 40 mg DAILY PINKY Administration Pantoprazole Sodiu m 40 mg 11/17/21 09:00 11/17/21 10:[address] 40 Mg Tablet PO 40 mg DAILY PINKY Administration Vitals/I&O/Wt Last Vital Signs Temp 98.6 F 11/20/21 16:00 Pulse 68 11/20/21 16:00 Resp 18 11/20/21 16:00 BP 139/64 11/20/21 16:00 Pulse Ox 93 11/20/21 16:00 11/20/21 11/20/21 11/20/21 06:59 14:59 22:59 Intake Total 120 / 720 120 / 120 Output Total 700 / 1400 Balance -580 / -680 120 / 120 Physical Exam Const: COMMON NORMALS: patient oriented x3 HENMT: COMMON NORMALS: normocephalic and atraumatic HEAD & SCALP: normocephalic and atraumatic Eye: COMMON NORMALS: no scleral icterus GENERAL EYE: appearance normal, both eyes and all related structures Chest: COMMONS NORMALS: normal inspection of the chest and normal palpation of entire chest wall CHEST: Yes Symmetrical chest wall rise Resp: COMMON NORMALS: normal respiratory effort, No retractions, No use of accessory muscles and clear to auscultation bilaterally EFFORT & INSPECTION: Yes symmetric chest movement AUSCULTATION: clear to auscultation bilaterally Cardio: COMMON NORMALS: regular rate, regular rhythm, S1 normal heart sound present, S2 normal heart sound present, No gallops present (Cardio), No murmurs present (Cardio), No rub (Cardio) and Peripheral pulses 2+ throughout RATE: regular rate RHYTHM: regular rhythm HEART SOUNDS: S1 normal heart sound present and S2 normal heart sound present PERIPHERAL PULSES: Peripheral pulses 2+ throughout GI: COMMON NORMALS: Normal to inspection, nondistended, normoactive bowel sounds present, Soft to palpation, non-tender, No hepatosplenomegaly present and no masses AUSCULTATION: Yes normoactive bowel sounds PALPATION: Yes Soft to palpation and Yes No hepatosplenomegaly present RECTAL EXAM: Yes deferred Extremity: COMMON NORMALS: no clubbing, cyanosis or edema and no pedal edema Neuro: COMMON NORMALS: patient oriented x3 Urinary Catheter Management: Gallardo: Cath Placed During This Visit: yes Reason for Continuing Indwelling Catheter: Acute Urinary Retention or Obstruction Urinary Catheter Date of Insertion: 11/19/21 Urinary Catheter Time of Insertion: 18:07 Data : 11/19/21 05:36 11/19/21 05:36 A&P Assessment and plan (1) Intractable back pain: Intractable lower back pain: Secondary to spondylolithiasis : Patient has history of chronic lower back pain for which he has been using spinal stimulator in the past and has seen pain specialist as an outpatient. CT : Lumbar spine: Diffuse severe spondylosis throughout the lumbar spine, as above. Severe spinal canal stenosis demonstrated at L3-L4 and L4-L5. ?IR myelogram sp lumbar: ?Abrupt termination of the contrast column at the L4 level. Probably combination of disc disease and facet disease and ligamentum flavum disease. Without an MRI with contrast additional mass causing the obstruction would be difficult to exclude. Patient has a known 7 mm nodule at the L4 level which is not responsible for the obstruction. Advanced lumbar spondylosis and degenerative scoliosis. MRI cannot be done due to presence of a spinal stimulator Repeat CT lumbar spine w con: Severe central stenosis at L4-5 with complete block of the column of contrast. Combination of disc and facet disease. Very similar in appearance to the prior study from 10/12/2019. It would be difficult to exclude a mass at this location. Patient has a known intrathecal nodule measuring 5.5 mm at the L4 level which is stable. Severe subarticular and bilateral foraminal stenosis at L4-5. Moderate to severe LEFT foraminal stenosis at L3-4. Moderate central with [id number] bilateral foraminal stenosis at L5-L6. Mild progression. Advanced multilevel degenerative disc disease with facet arthritis. Current plan is to continue with pain management: MS Contin, morphine, lidocaine patch, Percocet Spine surgery on board: Planning to L1-S1 fusion with decompression tentatively on Wednesday. Status: Acute (2) Spinal stenosis: Status: Acute (3) Lumbosacral radiculopathy: Status: Acute (4) Unable to ambulate: Status: Acute (5) Acute renal insufficiency: Acute kidney injury on chronic kidney disease. Creatinine up to 2.1. Not entirely clear etiology. BUN is elevated. Denies taking NSAIDs at home, but appears to use Voltaren gel. Would discontinue. Takes lisinopril, will hold for now. Gentle fluid challenge. Reassess renal function. Kidney US. Straight cath as needed. Status: Acute (6) Spondylolisthesis at L3-L4 level: Status: Acute (7) Fever: Status: Acute (8) Hyperkalemia: Status: Acute Plan # Recent GI bleed: He continues to hold Pradaxa. Is on Protonix. #A. fib: Currently in sinus: Continue Cardizem Anticoagulation on hold #Hyperkalemia : Received Kyaexlate. Monitor BMP #Constipation : On Lactulose as well as Senna #Fever: Noted Tmax: 100.7,Low clinical suspicion for infection. Will monitor for now. #COPD, not normally on oxygen. Not in exacerbation. #KERRY: On nightly CPAP #HTN Please review and resume home medications once reconciled. Attestations Medical Necessity Statement*: Patient needs to be in hospital for the management of above defined problems. Coding Level of Care Code Acute Toll Service Observer for [facility] Fwd Diagnoses Intractable back pain M54.9 Spinal stenosis M48.00 Lumbosacral radiculopathy M54.17 Unable to ambulate R26.2 Acute renal insufficiency N28.9 Spondylolisthesis at L3-L4 level M43.16 Fever R50.9 Hyperkalemia E87.5
[2021-11-21] VITALS (44 sets, daily range): BP systolic 78–161; BP diastolic 53–83; PULSE 52–122; RESP 7–26; TEMP 36.1–37.2; O2SAT 72–100
--- NOTE | 2021-11-21 | SCC_ITS ---
Procedure done: 1. L1-pelvis posterior spine fusion 2. L1 to S1 Instrumentation 3. Lumbopelvic fixation 4. L3/4 laminectomy with partial facetectomies 5. L4/5 Lamainectomy with partialfacetectomies 6. L5/S1 laminectomies with partial facetectomies 7. Bone marrow aspiration from right iliac crest separate incision 8. Use of computer navigation/ stereotactic for the spine 16 seconds of fluoroscopic guidance, for a cumulative dose of 92.1 mGy, was provided to Dr. Jain by the radiology department. C-arm images of the lumbar spine were saved for the patient's permanent record. [facility]
[2021-11-21] MEDS: bisacodyl 10 mg Supp PR (03:01)
[2021-11-21] MEDS: oxyCODONE-APAP 5-325 mg Tablet 1 TAB PO (04:00)
[2021-11-21] MEDS: cyclobenzaprine 10 mg Tablet PO ×2 (04:01→21:13)
[2021-11-21 05:53] LABS: Basophils # 0.1 10^3/uL (0.0-0.1); Basophils % 0.2 %; Eosinophils % 0.2 %; Hematocrit 30.9 % (42.0-52.0); Hemoglobin 9.3 g/dL (11.7-16.6); Lymphocytes # 1.2 10^3/uL (0.8-4.8); Lymphocytes % 6.1 %; Mean Corpuscular HGB Conc 30.1 g/dL (30.0-36.0); Mean Corpuscular Hemoglobin 26.8 pg (28.0-34.0); Mean Platelet Volume 8.1 fL (7.4-10.4); Monocytes # 1.5 10^3/uL (0.2-0.9); Monocytes % 7.4 %; Neutrophils # 17.26 10^3/uL (1.8-7.7); Neutrophils % 85.2 %; Nucleated Red Blood Cells % 0 %; Platelet Count 591 10^3/cmm (130-400); Red Blood Count 3.47 10^6/uL (4.1-5.3); Red Cell Distribution Width 15.7 % (12.1-15.1); White Blood Count 20.3 10^3/uL (4.0-10.0)
[2021-11-21 06:09] LABS: Anion Gap 15.5 (5-19); Blood Urea Nitrogen 24 mg/dL (8-23); Calcium 9.1 mg/dL (8.5-10.5); Carbon Dioxide 23 mmol/L (22-29); Chloride 97 mmol/L (98-107); Glucose 143 mg/dL (65-115); Osmolality Calculated 279 mOsm/kg (285-295); Potassium 4.5 mmol/L (3.5-5.1); Sodium 131 mmol/L (136-145)
--- NOTE | 2021-11-21 08:41 | W.PM.OPSUD ---
Surgery/Procedure H&P Update DATE OF PROCEDURE: November 21, 2021 DATE H&P PERFORMED: 11/17/21 H&P UPDATE INFORMATION: I have reviewed H&P completed within last 30 days, I have examined patient prior to procedure and No changes to prior documentation PREOP DIAGNOSIS: Lumbar stenosis with neurogenic claudication, degenerative disc disease lum PLANNED PROCEDURE: Operation Date: 11/21/21 10:00 Proposed Procedures p Spinal Fusion L1-Pelvis fusion(Not Applicable) - Joaquín Jain DO s Lumbar Spine Decompression L3-S1(Not Applicable) - Joaquín Jain DO
--- NOTE | 2021-11-21 08:46 | ANES.PREANE2 ---
Pre-Anesthetic Assessment Height/Weight: Height 1.78 m Weight 99.79 kg Temp Pulse Resp BP Pulse Ox 98.7 F 89 20 H 130/80 72 L 11/21/21 04:00 11/21/21 08:14 11/21/21 08:14 11/21/21 04:00 11/21/21 08:14 Preop Diagnosis: Lumbar stenosis with neurogenic claudication, degenerative disc disease lum Operation Date: 11/21/21 10:00 Proposed Procedures p Spinal Fusion L1-Pelvis fusion(Not Applicable) - Joaquín Jain DO s Lumbar Spine Decompression L3-S1(Not Applicable) - Joaquín Jain DO Familial anesthetic complications: none Was Beta Henry taken within 24 hours: N/A Was Clonidine taken within 24 hours: N/A Last intake: Intake Last Liquid Date 11/21/21 Last Liquid Time 02:56 Last Solid Date 11/20/21 Last Solid Time 00:00 Social No alcohol and No tobacco former smoker Exam alert, oriented x 3, clear to auscultation bilaterally and regular rate & rhythm Airway Mallampati: Class IV Dentition: full Comments: Comments: large neck circumference Pulmonary Chronic Obstructive Pulmonary Disease and Sleep Apnea post covid dyspnea CV/HEM Atrial Fibrillation (uanble to be anticoagulated d/t GI bleed), Anemia (discussed need for transfusion during surgery ), Arrythmia and Hypertension GEETHA -improving Hepatic None reported Metabolic Morbid Obesity WBC 20k - surgeon aware Musc/skel Lower Back Pain Neuropsych None reported Anesthetic Plan ASA status: 4 Anesthesia: General Other: A-line Risk of > 500 ml blood loss (7ml/kg in children): Yes, adequate IV access and fluids planned Medications/Allergies Home Medications Medication Instructions Recorded Confirmed Last Taken Type cetirizine 10 mg capsule 10 mg PO DAILY@0800 cap 10/23/19 11/16/21 11/11/21 History cholecalciferol (vitamin D3) 1,250 1,250 mcg PO DAILY@0800 10/23/19 11/16/21 11/11/21 History mcg (50,000 unit) tablet cyclobenzaprine 10 mg tablet 10 mg PO TID PRN 10/23/19 11/16/21 Unknown History diltiazem HCl 240 mg 240 mg PO DAILY@0800 10/23/19 11/16/21 11/11/21 History capsule,extended release 24 hr levothyroxine 50 mcg capsule 50 mcg PO DAILY@0800 10/23/19 11/16/21 11/11/21 History lisinopril 40 mg tablet 40 mg PO DAILY@0800 10/23/19 11/16/21 11/11/21 History guaifenesin 400 mg tablet 400 mg PO Q4H PRN 11/13/19 11/16/21 10/04/20 History acetaminophen 500 mg tablet 500 mg PO Q6H PRN 10/04/20 11/16/21 Unknown History (Tylenol Extra Strength) tiotropium bromide 1.25 2 puff INHALATION DAILY #4 g 06/09/21 11/16/21 11/11/21 Rx mcg/actuation mist for inhalation (Spiriva Respimat) albuterol sulfate 90 mcg/actuation 1 inh INHALATION QID PRN #8.5 g 07/16/21 11/16/21 Unknown Rx aerosol inhaler custom orthotics #1 ea 09/02/21 11/16/21 Unknown Rx hydrocodone 5 mg-acetaminophen 325 1 tab PO Q6H PRN 14 Days #30 tab 11/05/21 11/16/21 Unknown Rx mg tablet dabigatran etexilate 150 mg 150 mg PO BID 11/11/21 11/16/21 11/10/21 History capsule (Pradaxa) diclofenac sodium 1 % topical gel 4 g TOPICAL QID PRN 11/11/21 11/16/21 Unknown History (Voltaren Arthritis Pain) mometasone-formoterol HFA 200 2 puff INHALATION BID 11/11/21 11/16/21 11/11/21 History mcg-5 mcg/actuation aerosol inhaler (Dulera) omeprazole 20 mg capsule,delayed 20 mg PO DAILY #90 cap 11/13/21 11/16/21 Unknown Rx release Allergies Allergy/AdvReac Type Severity Reaction Status Date / Time Sulfa (Sulfonamide Allergy Mild Unknown Verified 11/15/21 19:58 Antibiotics) apixaban [From Eliquis] Allergy ALGY-Rash Verified 11/15/21 19:58 clopidogrel [From Plavix] Allergy ALGY-Rash Verified 11/15/21 19:58 tamsulosin [From Flomax] AdvReac Mild rash Verified 11/15/21 19:58 Current Medications Generic Name Dose Route Start Last Admin Trade Name Freq PRN Reason Stop Dose Admin Cyclobenzaprine HCl 10 mg 11/16/21 23:13 11/21/21 04:01 Cyclobenzaprine 10 Mg Tablet PO 10 mg TID PRN Administration MUSCLE SPASMS Diltiazem HCl 240 mg 11/18/21 08:00 11/20/21 09:25 Diltiazem Er (24hr) 240 Mg Capsule PO 240 mg DAILY@0800 PINKY Administration Sodium Chloride 1,000 mls @ 75 mls/hr 11/20/21 08:30 11/20/21 23:39 Sodium Chloride 0.9% IV 75 mls/hr .[id number] PINKY Administration Lactulose 20 gm 11/20/21 14:00 11/21/21 01:48 Lactulose Oral Liq 20 Gm/30 Ml Udc PO Not Given Q12H [facility] Levothyroxine Sodium 50 mcg 11/18/21 08:00 11/20/21 09:25 Levothyroxine 50 Mcg Tablet PO 50 mcg DAILY@0800 [facility] Administration Lidocaine 1 patch 11/16/21 09:00 11/20/21 22:17 Lidocaine 5% Patch TOPICAL Not Given [id number] [facility] Morphine Sulfate 30 mg 11/19/21 18:00 11/20/21 18:00 Morphine Er (12 Hr) 30 Mg Tablet PO 30 mg BID [facility] Administration Morphine Sulfate 4 mg 11/20/21 08:09 11/20/21 17:58 Morphine 4 Mg/Ml Sdv 1 Ml IVP 4 mg Q4H PRN Administration SEVERE PAIN Non-Formulary Medication 2 puff 11/17/21 09:00 11/20/21 09:33 Tiotropium [place] [Spiriva Respimat] INHALATION Not Given DAILY [facility] Ondansetron HCl 4 mg 11/20/21 06:20 11/20/21 07:00 Ondansetron 2 Mg/Ml Sdv 2 Ml IVP 4 mg Q4H PRN Administration NAUSEA AND VOMITING Oxycodone/Acetaminophen 1 tab 11/18/21 14:30 11/21/21 04:00 Oxycodone-Apap 5-325 Mg Tablet PO 1 tab Q4H PRN Administration MODERATE PAIN Pantoprazole Sodium 40 mg 11/20/21 09:00 11/20/21 09:24 Pantoprazole 40 Mg Sdv IVP 40 mg DAILY PINKY Administration Senna/Docusate Sodium 1 tab 11/20/21 09:00 11/21/21 08:16 Sennosides-Docusate Tablet PO Not Given BID [facility] Vitamin D 1,000 unit 11/18/21 08:00 11/21/21 08:15 Cholecalciferol (Vitamin D3) 1,000 Unit Tablet PO Not Given DAILY@0800 [facility] Additional Medication Information Generic Name Dose Route Start Last Admin Trade Name Freq PRN Reason Stop Dose Admin Cyclobenzaprine HCl 10 mg 11/16/21 23:13 11/17/21 07:59 Cyclobenzaprine 10 Mg Tablet PO 10 mg TID PRN Administration MUSCLE SPASMS Sodium Chloride 1,000 mls @ 50 mls/hr 11/15/21 23:00 11/17/21 09:15 Sodium Chloride 0.9% IV 50 mls/hr .Q20H PINKY Infusion Lidocaine 1 patch 11/16/21 09:00 11/17/21 07:59 Lidocaine 5% Patch TOPICAL 1 patch [id number] PINKY Administration Morphine Sulfate 4 mg 11/16/21 03:50 11/17/21 09:15 Morphine 4 Mg/Ml Sdv 1 Ml IVP 4 mg Q4H PRN Administration SEVERE PAIN Non-Formulary Medication 2 puff 11/17/21 09:00 11/17/21 09:35 Tiotropium [place] [Spiriva Respimat] INHALATION Not Given DAILY [facility] Pantoprazole Sodium 40 mg 11/16/21 09:00 11/17/21 07:[address] 40 Mg Tablet PO 40 mg DAILY PINKY Administration Pantoprazole Sodium 40 mg 11/17/21 09:00 11/17/21 10:[address] 40 Mg Tablet PO 40 mg DAILY PINKY Administration [facility] Anesthesia Medical History Acute bronchitis with chronic obstructive pulmonary disease (COPD) GEETHA (acute kidney injury) GEETHA V/S GEETHA ON CKD Stage 3 Anticoagulant long-term use Atrial fibrillation COPD (chronic obstructive pulmonary disease) COPD (chronic obstructive pulmonary disease) Degenerative arthritis of left shoulder region Ex-smoker History of cardiac dysrhythmia Hydrocele, left Hyperkalemia Hypertension Hyponatremia Hyponatremia 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, lumbar region Pneumonia due to COVID-19 virus Respiratory failure with hypoxia Improving Spondylolisthesis, lumbar region Testalgia Urinary retention Surgical History H/O arthroscopic knee surgery H/O carpal tunnel repair H/O vasectomy S/P insertion of spinal cord stimulator (~10/15/16) Family History Grandmother Cancer Social History Smoking and tobacco status: former smoker Quit status (tobacco): has quit using tobacco Year quit tobacco: 1984 Alcohol intake: current Lives independently: Yes Household members: spouse Marital status: Current occupational status: retired Data Anesthesia : 11/21/21 05:44 11/21/21 05:44 Short CBC 11/21/21 Range/Units 05:44 WBC 20.3 H (4.0-10.0) 10^3/uL Hgb 9.3 L (11.7-16.6) g/dL Hct 30.9 L (42.0-52.0) % MCV 89.0 (80-94) fl Plt Count 591 H (130-400) 10^3/cmm Neut % (Auto) 85.2 % Neut # (Auto) 17.26 H (1.8-7.7) 10^3/uL BMP 11/21/21 05:44 Sodium 131 L Potassium 4.5 Chloride 97 L Carbon Dioxide 23 BUN 24 H Creatinine 1.1 Glucose 143 H Calcium 9.1 Cardiac Studies: Echocardiogram 11/11/21 Echocardiogram Ultrasound 03/27/21
[2021-11-21] MEDS: sodium chloride 0.9% 1,000 ML 30 ML IV (09:08)
[2021-11-21] MEDS: vancomycin 1,000 MG in sodium chloride 0.9% 250 ML 250 MG IV (09:15)
--- NOTE | 2021-11-21 10:05 | SUR.OPER ---
Called and notified of surgical start and progress
[2021-11-21] MEDS: heparin, porcine 1,000 unit/mL INJ 10 mL 10000 UNIT IRRIGATION (10:16)
[2021-11-21] MEDS: vancomycin 1,000 MG SDV 1000 MG XX (10:17)
[2021-11-21] MEDS: magnesium sulfate premix 2 GM/50 ML PIGGYBACK IV (10:55)
--- NOTE | 2021-11-21 11:17 | SUR.OPER ---
Called and notified her of surgical progress
[2021-11-21 12:37] LABS: Basophils % 0.2 %; Eosinophils # 0.1 10^3/uL (0.0-0.8); Eosinophils % 0.4 %; Hematocrit 25.2 % (42.0-52.0); Hemoglobin 7.9 g/dL (11.7-16.6); Lymphocytes # 0.7 10^3/uL (0.8-4.8); Lymphocytes % 3.9 %; Mean Corpuscular HGB Conc 31.3 g/dL (30.0-36.0); Mean Platelet Volume 8.4 fL (7.4-10.4); Monocytes # 0.9 10^3/uL (0.2-0.9); Monocytes % 4.7 %; Neutrophils # 15.97 10^3/uL (1.8-7.7); Neutrophils % 89.2 %; Nucleated Red Blood Cells % 0 %; Platelet Count 518 10^3/cmm (130-400); Red Blood Count 2.93 10^6/uL (4.1-5.3); Red Cell Distribution Width 15.8 % (12.1-15.1); White Blood Count 17.9 10^3/uL (4.0-10.0)
[2021-11-21 12:38] LABS: Alanine Aminotransferase 28 U/L (0-41); Albumin Level 3.2 g/dL (3.5-5.2); Alkaline Phosphatase 98 IU/L (40-130); Anion Gap 16.7 (5-19); Aspartate Amino Transferase 18 U/L (0-40); Blood Urea Nitrogen 24 mg/dL (8-23); Calcium 8.1 mg/dL (8.5-10.5); Carbon Dioxide 20 mmol/L (22-29); Chloride 102 mmol/L (98-107); Globulin 2.6 g/dL (1.3-4.6); Glucose 145 mg/dL (65-115); Magnesium 2.6 mg/dL (1.7-2.3); Osmolality Calculated 285 mOsm/kg (285-295); Potassium 4.7 mmol/L (3.5-5.1); Sodium 134 mmol/L (136-145); Total Bilirubin 0.5 mg/dL (0.15-1.2); Total Protein 5.8 g/dL (6.6-8.7)
--- NOTE | 2021-11-21 12:48 | SUR.OPER ---
called and notified of surgical progress
--- NOTE | 2021-11-21 14:06 | XR_ITS ---
WS: [id number] XR lumbar spine 1V [id number] REASON FOR EXAM: OR PICS FINDINGS: Posterior pedicle screws and rods from the sacrum to L1. Surgical appliances are in proper position and alignment. XR/XR lumbar spine 1V [id number] IMPRESSION: Postoperative lumbosacral spine as above.
--- NOTE | 2021-11-21 14:41 | PM.OP ---
Operative Report Date of procedure: November 21, 2021 Pre-op diagnosis: Preop Diagnosis Lumbar stenosis with neurogenic claudication, degenerative disc disease lum Post-op diagnosis: same Procedure done: 1. L1-pelvis posterior spine fusion 2. L1 to S1 Instrumentation 3. Lumbopelvic fixation 4. L3/4 laminectomy with partial facetectomies 5. L4/5 Lamainectomy with partialfacetectomies 6. L5/S1 laminectomies with partial facetectomies 7. Bone marrow aspiration from right iliac crest separate incision 8. Use of computer navigation/ stereotactic for the spine Surgeon: Joaquín Jain Mechanical Engineering Technician: Mike Burch Mechanical Engineering Technician: The printing assistant, Mike Burch, PAC was needed for his expertise under the microscope. He was important and necessary throughout the procedure to complete in a safe and timely manner. He assisted with patient positioning prepping and draping tissue retraction suctioning of the operative field protection of the dural sac and tissue closure Estimated blood loss (mL): 1,200 Procedure: 1. L1-pelvis posterior spine fusion 2. L1 to S1 Instrumentation 3. Lumbopelvic fixation 4. L3/4 laminectomy with partial facetectomies 5. L4/5 Lamainectomy with partialfacetectomies 6. L5/S1 laminectomies with partial facetectomies 7. Bone marrow aspiration from right iliac crest separate incision 8. Use of computer navigation/ stereotactic for the spine 9. use of Allograft 10 Use of autograft Is brought to the operative suite. After undergoing anesthesia patient was placed in the prone position. All areas of pain were well-padded. Neuro monitoring was attached. Patient was then prepped and draped normal sterile fashion. All areas impingement were well-padded lines and folds well in the prepositions. After timeout was completed the incision was made from L1 down to the sacrum. Subperiosteal dissection was made from L1 to the transverse processes bilaterally down to the sacrum and out to the sacral areas. Once dissection was completed attention was then brought to aspirating the bone marrow aspirate from the right iliac crest. The bone marrow aspirate using the region of cell kit was taken from the right iliac crest. The sharp awl was inserted moment was aspirated and the blunt insertion device was inserted and the tube was inserted further into the iliac crest. Again bent bone marrow was aspirated. Then the aspirate kit was inserted and in 1 mm increments the bone marrow aspirate was taken while withdrawing. And 20 cc of bone marrow aspirate were taken and this was combined with the osteo amp bone graft. Next attention was brought to placing the fiducial for the computer navigation. The 2 pins were placed into the right iliac crest. The fiducial was then attached to these 2 pins. The pins were taken out at the end of the case. The fiducial was attached and linked to the computer system and then the C-arm was brought in and spun around the patient in order to get information. This was done twice for L4 down to the pelvis and then for L1-L3. Once this was completed the information was loaded in the computer system. Patient was brought to placing the screws. Screws were placed starting at S1 this was done by using the computer navigated awl. Once the awl/gearshift was inserted into the pedicle of S1 the measurements were taken the pedicle feeler was used to feel it is appropriate position was measured and then a computer navigated screw was placed this was done under computer navigation guidance. This process was repeated on the contralateral side of S1. And the same technique was done at L5 bilaterally, L4 bilaterally, L3 bilaterally, L2 on the left side, and bilaterally at L1. Once all the screws were placed attention was then brought to doing the laminectomies. Attention was first brought to the L3-4 level. A L3 laminectomy was performed using the high-speed bur curettes Kerrison rongeurs and [place]. The ligament had been thinned and thickened and there was significant amount of scar tissue. Once the drill was used to drill out all the lamina attention was then brought to the facet on the left side. The medial aspect of the facet was taken down. The L3 nerve was traced and using a Kerrison into the facet and the foramen the L3 nerve was completely freed up. This was done bilaterally. Next attention was brought to tracing the L4 nerve around the L4 pedicle. This was done traced down to the lamina of L4 and the medial aspect the facet joint was taken down more so up to the pedicles in order to ensure the L4 as it went around the pedicle was completely freed up. This again was also done bilaterally. Attention was first brought to the L4/5 level. A L4 laminectomy was performed using the high-speed bur curettes Kerrison rongeurs and [place]. The ligament had been thinned and thickened and there was significant amount of scar tissue. Once the drill was used to drill out all the lamina attention was then brought to the facet on the left side. The medial aspect of the facet was taken down. The L4 nerve was traced and using a Kerrison into the facet and the foramen the L4 nerve was completely freed up. This was done bilaterally. Next attention was brought to tracing the L5 nerve around the L5 pedicle. This was done traced down to the lamina of L4 and the medial aspect the facet joint was taken down more so up to the pedicles in order to ensure the L5 as it went around the pedicle was completely freed up. This again was also done bilaterally. Attention was first brought to the L5/S1 level. A L5 laminectomy was performed using the high-speed bur curettes Kerrison ronhéctor and [place]. The ligament had been thinned and thickened and there was significant amount of scar tissue. Once the drill was used to drill out all the lamina attention was then brought to the facet on the left side. The medial aspect of the facet was taken down. The L5 nerve was traced and using a Kerrison into the facet and the foramen the L5 nerve was completely freed up. This was done bilaterally. Next attention was brought to tracing the S1 nerve around the S1 pedicle. This was done traced down to the lamina of S1 and the medial aspect the facet joint was taken down more so up to the pedicles in order to ensure the S1 as it went around the pedicle was completely freed up. This again was also done bilaterally. Once laminectomies and facetectomies were completed attention was then brought to irrigating. A liter of irrigation was used. And then attention was brought to decorticating the transverse processes of L1 down to L5. As well as the sacral ala this was done bilaterally. The high-speed bur was used to decorticate the transverse processes bilaterally. And then autograft and osteoamp allograft were packed into the gutters. The wound was then irrigated more a deep drain was placed as well as vancomycin powder. And wound was closed in a layered fashion with 0 Vicryl 2-0 Vicryl Monocryl suture and Steri-Strips. A sterile Silverlon dressing was placed and patient was then transferred to the PACU in stable condition.
[2021-11-21 15:01] LABS: ABG PCO2 47.6 mmHg (35-45); ABG PH Result 7.24 (7.35-7.45); Arterial Blood Gas Hematocrit 26.5 % (42-52); Base Excess ABG -6.9 mmol/L (-2.0-2.0); Blood Gas Operator Identificat MONRO; Blood Gas Sample Site Not specified; Blood Gas Sample Type Arterial; Carboxyhemoglobin 1.5 %THgb (0.4-20.1); HCO3 ABG 20.2 mmol/L (22-26); HGB O2 Sat 96.3 % (95-100); Ionized Calcium Level - ABG 1.1 mmol/L (1.1-1.4); Methemoglobin 0.5 % (0.4-1.5); Oxygen Device SIMPLE MASK; Oxygen Saturation ABG 98.2; Potassium Level - ABG 4.9 mmol/L (3.5-5.0); Total Hemoglobin 8.6 g/dL (14-18)
[2021-11-21 15:02] LABS: Basophils % 0.2 %; Eosinophils % 0.1 %; Hematocrit 26.7 % (42.0-52.0); Hemoglobin 8.1 g/dL (11.7-16.6); Lymphocytes # 0.8 10^3/uL (0.8-4.8); Lymphocytes % 3.7 %; Mean Corpuscular HGB Conc 30.3 g/dL (30.0-36.0); Mean Corpuscular Hemoglobin 27.6 pg (28.0-34.0); Mean Corpuscular Volume 90.8 fl (80-94); Mean Platelet Volume 8.3 fL (7.4-10.4); Monocytes # 0.9 10^3/uL (0.2-0.9); Monocytes % 4.3 %; Neutrophils # 18.67 10^3/uL (1.8-7.7); Neutrophils % 89.5 %; Nucleated Red Blood Cells % 0 %; Platelet Count 499 10^3/cmm (130-400); Red Blood Count 2.94 10^6/uL (4.1-5.3); Red Cell Distribution Width 15.5 % (12.1-15.1); White Blood Count 20.9 10^3/uL (4.0-10.0)
[2021-11-21] MEDS: sodium chloride 0.9% 1,000 ML 999 ML IV (15:10)
--- NOTE | 2021-11-21 15:16 | SUR.PHASEI ---
1541 PT TO PACU PT WITH ORAL AIRWAY IN PLACE RESP RAPID BUT ADEQUATE, IV TO RT HAND WITH NS 200ML UP AT FAST RATE PT HOB FLAT, PT DOES NOT AWAKE TO VOICE, ART LINE TO LT RADIAL, PATENT FLUSHED AND ZEROED, BLOOD DRAWN FOR STAT LABS AND ABG. PT HAS LONG SILVERON DRESSING TO LOWER BACK WITH ABD BINDER IN PLACE, BILAT SCDS ON AND PT HAS SWANSON AND STATLOCK TO RT THIGH. 1505 PT ON CPAP PER RT, 45% 31/[address] MATTHEWS AT BEDSIDE SEE ALICIA GIVEN PER . PT ART LINE WORKING BP IMPROVES WITH MED IV NS 1000ML UP W/O WITH PRESSSURE BAG, HOB REVERSE TRENDELENBURG TO FLAT BP IMPROVES. IV #20 STARTED BY KADE CUELLAR TO LT AC PT DRESSING TO BACK D/I SCDS ON BILAT PT HAS HEMOVAC DRAIN RED DRAINAGE APPROX 50ML DRAIN COMPRESSED.
[2021-11-21 15:21] LABS: Anion Gap 16.3 (5-19); Blood Urea Nitrogen 28 mg/dL (8-23); Calcium 7.9 mg/dL (8.5-10.5); Carbon Dioxide 20 mmol/L (22-29); Chloride 104 mmol/L (98-107); Glucose 192 mg/dL (65-115); Osmolality Calculated 291 mOsm/kg (285-295); Potassium 5.3 mmol/L (3.5-5.1); Sodium 135 mmol/L (136-145)
[2021-11-21 15:24] LABS: Creatinine Clr Calc Pharmacy 46.5089
--- NOTE | 2021-11-21 15:58 | PC.NURSE ---
1537 Pt arrived from OR via OR staff. Connected to ICU monitor. VSS. BP labile. Orders obtained for levophed gtt if needed. Pt drowsy but follows commands. Bipap in place, 31/03 45%. ABD binder in place, hemovac drain draining freely. Gallardo cath in place. Denies ant needs at this time. Will monitor.
--- NOTE | 2021-11-21 16:00 | SUR.PHASEI ---
1535 DR MATTHEWS AT BEDSIDE, PT TO GO TO ICU 4 REPORT GIVEN TO HOSPITALIST PER DR MATTHEWS, PT OPENS EYES NOW, BUT OTHERWISE SLEEPS, PT REMAINS ON CPAP 45 % RATE 16 PEEP 8 IV NS AT FAST RATE PER PRESSURE BAG, HOB IN REVERSE TRENDELENBURG, PT MOVING ARMS AND LEGS AT TIMES. SCDS ON SWANSON PATENT OF SMALL AMT OF DARK YELLOW URINE APPROX [address] MATTHEWS ORDERED ANOTHER UNIT PRBC TO BE IN FUSED , 1538ICU NURSE GIVEN BEDSIDE HANDOFF WHEN PT TO ICU PER BED DR MOORE AWARE AND DR MOORE CALLED PT WITH UPDATE.
--- NOTE | 2021-11-21 16:12 | SUR.PHASEI ---
1453 STAT LABS DRAWN FROM LT RADIAL ART LINE, FOR BMP , CBC, AND ABG, RESPIRATORY AT BEDSIDE, ART LINE PATENT 10ML WASTE AND LINE FLUSHED EASILY PER PRESSURE BAG. GOOD WAVEFORM MAINTAINED ON MONITOR PT SR WITH OCC PVC AND OCCASIONAL EARLY BEATS NOTED. UNIFOCAL PVCS WERE RARE PT MOSTLY SR.
[2021-11-21] MEDS: sodium chloride 0.9% 1,000 ML 75 ML IV (16:58)
--- NOTE | 2021-11-21 17:02 | PC.NURSE ---
1st 15 min VS in TAR. All other VSS automatically pulled over from monitor.
[2021-11-21] MEDS: piperacillin-tazobactam 3.375 GM in sodium chloride 0.9% (plus) 50 ML IV (17:20)
--- NOTE | 2021-11-21 17:20 | P.PN_ITS ---
Subjective Subjective: Patient was seen and examined this morning after the surgery, currently saturating well on BiPAP, Still under the influence of anesthesia, patient required IV fluid bolus, blood transfusion, vasopressors Post surgery as he was hypotensive, likely secondary blood loss. Medications: Medication Review Details: Generic Name Dose Route Start Last Admin Trade Name Freq PRN Reason Stop Dose Admin Cyclobenzaprine HC l 10 mg 11/16/21 23:13 11/17/21 07:59 Cyclobenzaprine 10 Mg Tablet PO 10 mg TID PRN Administration MUSCLE SPASMS Sodium Chloride 1,000 mls @ 50 ml s/hr 11/15/21 23:00 11/17/21 09:15 Sodium Chloride 0.9% IV 50 mls/hr .Q20H PINKY Infusion Lidocaine 1 patch 11/16/21 09:00 11/17/21 07:59 Lidocaine 5% Pat ch TOPICAL 1 patch [id number] PINKY Administration Morphine Sulfate 4 mg 11/16/21 03:50 11/17/21 09:15 Morphine 4 Mg/Ml Sdv 1 Ml IVP 4 mg Q4H PRN Administration SEVERE PAIN Non-Formulary Medi cation 2 puff 11/17/21 09:00 11/17/21 09:35 Tiotropium Bromi de [Spiriva Respim at] INHALATION Not Given DAILY PINKY Pantoprazole Sodiu m 40 mg 11/16/21 09:00 11/17/21 07:[address] 40 Mg Tablet PO 40 mg DAILY PINKY Administration Pantoprazole Sodiu m 40 mg 11/17/21 09:00 11/17/21 10:[address] 40 Mg Tablet PO 40 mg DAILY PINKY Administration Vitals/I&O/Wt Last Vital Signs Temp 98.3 F 11/21/21 16:57 Pulse 96 11/21/21 16:57 Resp 14 11/21/21 16:57 BP 109/53 11/21/21 16:57 Pulse Ox 95 11/21/21 16:57 11/21/21 11/21/21 11/21/21 06:59 14:59 22:59 Intake Total 2060 / 2060 800 / 2860 Output Total 500 / 2350 2200 / 2200 850 / 3050 Balance -500 / -1230 -140 / -140 -50 / -190 Physical Exam HENMT: COMMON NORMALS: normocephalic and atraumatic HEAD & SCALP: normocephalic and atraumatic Chest: COMMONS NORMALS: normal inspection of the chest and normal palpation of entire chest wall CHEST: Yes Symmetrical chest wall rise Resp: COMMON NORMALS: normal respiratory effort, No retractions, No use of accessory muscles and clear to auscultation bilaterally EFFORT & INSPECTION: Yes symmetric chest movement AUSCULTATION: clear to auscultation bilaterally Cardio: COMMON NORMALS: regular rate, regular rhythm, S1 normal heart sound present, S2 normal heart sound present, No gallops present (Cardio), No murmurs present (Cardio), No rub (Cardio) and Peripheral pulses 2+ throughout RATE: regular rate RHYTHM: regular rhythm HEART SOUNDS: S1 normal heart sound present and S2 normal heart sound present PERIPHERAL PULSES: Peripheral pulses 2+ throughout GI: COMMON NORMALS: Normal to inspection, nondistended, normoactive bowel sounds present, Soft to palpation, non-tender, No hepatosplenomegaly present and no masses AUSCULTATION: Yes normoactive bowel sounds PALPATION: Yes Soft to palpation and Yes No hepatosplenomegaly present RECTAL EXAM: Yes deferred Extremity: COMMON NORMALS: no clubbing, cyanosis or edema and no pedal edema Urinary Catheter Management: Gallardo: Cath Placed During This Visit: yes Reason for Continuing Indwelling Catheter: Required Immobilization for Trauma or Surgery or Anesthesia Urinary Catheter Date of Insertion: 11/19/21 Urinary Catheter Time of Insertion: 18:07 Data : 11/21/21 14:53 11/21/21 14:53 A&P Assessment and plan (1) Intractable back pain: Status: Acute (2) Spinal stenosis: Status: Acute (3) Lumbosacral radiculopathy: Status: Acute (4) Unable to ambulate: Status: Acute (5) Acute renal insufficiency: Status: Acute (6) Spondylolisthesis at L3-L4 level: Status: Acute (7) Fever: Status: Acute (8) Hyperkalemia: Status: Acute Plan #Hypovolemic shock: Likely secondary to blood loss during surgery: Currently the plan is to monitor H&H: Transfuse 2 units PRBC. Continue IV hydration Continue vasopressors as needed #Leukocytosis: Possibly secondary to recent steroid use, Follow blood culture Urine culture Procalcitonin Lactic acid X-ray chest Patient has been empirically started on Vanco and Zosyn. #Acute kidney injury on chronic kidney disease. Creatinine up to 2.1. Not entirely clear etiology. BUN is elevated. Denies taking NSAIDs at home, but appears to use Voltaren gel. Would discontinue. Takes lisinopril, will hold for now. Gentle fluid challenge. Reassess renal function. Kidney US. ?Low normal size kidneys. No hydronephrosis or solid mass.Moderate prostate gland encroachment into the bladder. Intractable lower back pain: Secondary to spondylolithiasis : Patient has history of chronic lower back pain for which he has been using spi nal stimulator in the past and has seen pain specialist as an outpatient. CT : Lumbar spine: Diffuse severe spondylosis throughout the lumbar spine, as above. Severe spinal canal stenosis demonstrated at L3-L4 and L4-L5. ?IR myelogram sp lumbar: ?Abrupt termination of the contrast column at the L4 level. Probably combination of disc disease and facet disease and ligamentum flavum disease. Without an MRI with contrast additional mass causing the obstruction would be difficult to exclude. Patient has a known 7 mm nodule at the L4 level which is not responsible for the obstruction. Advanced lumbar spondylosis and degenerative scoliosis. MRI cannot be done due to presence of a spinal stimulator Repeat CT lumbar spine w con: Severe central stenosis at L4-5 with complete block of the column of contrast. Combination of disc and facet disease. Very similar in appearance to the prior study from 10/12/2019. It would be difficult to exclude a mass at this location. Patient has a known intrathecal nodule measuring 5.5 mm at the L4 level which is stable. Severe subarticular and bilateral foraminal stenosis at L4-5. Moderate to severe LEFT foraminal stenosis at L3-4. Moderate central with [id number] bilateral foraminal stenosis at L5-L6. Mild progression. Advanced multilevel degenerative disc disease with facet arthritis. Current plan is to continue with pain management: MS Contin, morphine, lidocaine patch, Percocet Spine surgery on board: S/P L1-S1 fusion with decompression on 11/21 # Recent GI bleed: continues to hold Pradaxa.? Is on Protonix. #A. fib: Currently in sinus: Continue Cardizem Anticoagulation on hold #Fever: Noted Tmax: 100.7,Low clinical suspicion for infection. Will monitor for now. #COPD, not normally on oxygen. Not in exacerbation. #KERRY: On nightly CPAP #HTN #CODE STATUS: Full code #DVT prophylaxis: On SCDs because of recent history of GI bleed. Attestations Medical Necessity Statement*: Patient is to be in hospital for management of hypovolemic shock. Time Spent in Patient Care: Greater than 35 minutes (>than 50% of time spent in counselling and/or direct pt care on unit) . Critical Care Time: The high probability of a clinically significant, sudden or life threatening deterioration of the patient's [] system(s) required my full and direct attention, intervention and personal management. The critical care time is as shown. This time is in addition to time spent performing any reported procedures but includes the following: [x] Data and vital sign review and interpretation [x] Patient assessment, examination and intervention [x] Documentation [x] Medication orders and management Critical Care Time (min): 45 Coding Level of Care Code Acute Inventory Control Supervisor for g Fwd Diagnoses Intractable back pain M54.9 Spinal stenosis M48.00 Lumbosacral radiculopathy M54.17 Unable to ambulate R26.2 Acute renal insufficiency N28.9 Spondylolisthesis at L3-L4 level M43.16 Fever R50.9 Hyperkalemia E87.5
[2021-11-21] MEDS: sennosides-docusate Tablet 1 TAB PO (18:20)
[2021-11-21] MEDS: docusate sodium 100 mg Capsule PO (18:20)
[2021-11-21] MEDS: morphine ER (12 HR) 30 mg tablet PO (18:20)
[2021-11-21] MEDS: vancomycin 1,500 MG/300 ML PIGGYBACK 200 MG IV (21:12)
[2021-11-21] MEDS: ketorolac 30 mg/mL INJ IVP (21:13)
[2021-11-21] MEDS: lidocaine 5% Patch 1 PATCH TOPICAL (21:47)
[2021-11-22] VITALS (33 sets, daily range): BP systolic 75–126; BP diastolic 41–78; PULSE 86–111; RESP 10–21; TEMP 36.6–37.3; O2SAT 88–98
[2021-11-22] MEDS: piperacillin-tazobactam 3.375 GM in sodium chloride 0.9% (plus) 50 ML IV ×3 (01:08→16:46)
[2021-11-22] MEDS: lactated ringers 1,000 ML 90 ML IV ×2 (02:11→23:27)
[2021-11-22 03:46] LABS: Basophils % 0.1 %; Eosinophils % 0.1 %; Hematocrit 25.3 % (42.0-52.0); Hemoglobin 7.9 g/dL (11.7-16.6); Lymphocytes # 0.8 10^3/uL (0.8-4.8); Lymphocytes % 5.1 %; Mean Corpuscular HGB Conc 31.2 g/dL (30.0-36.0); Mean Corpuscular Volume 89.7 fl (80-94); Mean Platelet Volume 8.5 fL (7.4-10.4); Monocytes # 1.2 10^3/uL (0.2-0.9); Monocytes % 7.4 %; Neutrophils # 13.38 10^3/uL (1.8-7.7); Neutrophils % 86.3 %; Nucleated Red Blood Cells % 0 %; Platelet Count 399 10^3/cmm (130-400); Red Blood Count 2.82 10^6/uL (4.1-5.3); Red Cell Distribution Width 15.5 % (12.1-15.1); White Blood Count 15.5 10^3/uL (4.0-10.0)
[2021-11-22 04:09] LABS: Anion Gap 15.8 (5-19); Blood Urea Nitrogen 34 mg/dL (8-23); Calcium 7.4 mg/dL (8.5-10.5); Carbon Dioxide 19 mmol/L (22-29); Chloride 104 mmol/L (98-107); Glucose 143 mg/dL (65-115); Osmolality Calculated 288 mOsm/kg (285-295); Potassium 4.8 mmol/L (3.5-5.1); Sodium 134 mmol/L (136-145)
--- NOTE | 2021-11-22 06:00 | XRR_ITS ---
PROCEDURE INFORMATION: Exam: XR Chest Exam date and time: 11/22/2021 4:49 AM Age: 76 years old Clinical indication: Shortness of breath; Prior surgery; Surgery type: Spinal stimulator; Patient HX: F/u for SOB. History of copd. TECHNIQUE: Imaging protocol: XR of the chest. Views: 1 view. Total images: 2 COMPARISON: CT chest con [id number] 05/14/2021 9:13 AM FINDINGS: Tubes, catheters and devices: Intraspinal nerve stimulator electrodes noted. Lungs: Coarse chronic pulmonary markings. Pleural spaces: Unremarkable. No pleural effusion. No pneumothorax. Heart/Mediastinum: Unremarkable. No cardiomegaly. Bones/joints: Partially visualized spinal fusion hardware noted. Osseous structures are unchanged from the prior exam. XR/XR chest 1V portable [id number] IMPRESSION: 1. Coarse chronic pulmonary markings. 2. No acute cardiopulmonary process.
--- NOTE | 2021-11-22 07:25 | ANE.PACU2 ---
Inpatient post-anesthesia follow up: Airway intact: Yes Vital signs: Temperature 99.1 F Pulse Rate 110 Respiratory Rate 19 Blood Pressure 126/63 Pulse Oximetry 96 Oxygen Delivery Me thod BiPAP Oxygen Flow Rate 45 Fraction of Inspir ed Oxygen 28 Hydration adequate: No Nausea and vomiting: No Pain level: 1 Mental status: Altered Additional Comments: patient hypotensive and hard to arouse after surgery, fluid bolus and blood ordered, bipap initiated, brought to iCU for closer monitoring
[2021-11-22] MEDS: pantoprazole 40 mg SDV IVP (08:01)
[2021-11-22] MEDS: morphine ER (12 HR) 30 mg tablet PO ×2 (08:02→17:01)
[2021-11-22] MEDS: docusate sodium 100 mg Capsule PO ×2 (08:02→17:01)
[2021-11-22] MEDS: levothyroxine 50 mcg Tablet PO (08:02)
[2021-11-22] MEDS: sennosides-docusate Tablet 1 TAB PO ×2 (08:02→17:01)
[2021-11-22] MEDS: cholecalciferol (vitamin D3) 1,000 unit Tablet 1000 UNIT PO (08:02)
[2021-11-22] MEDS: lidocaine 5% Patch 1 PATCH TOPICAL ×2 (08:03→23:20)
--- NOTE | 2021-11-22 08:26 | PM.PN ---
Documented by User: Mike Burch PA-C 11/22/21 08:31 Subjective Subjective: POD 1 Pt resting comfortably. Denies CP,SOB or HERNANDEZ. Legs feel different with back sore. Vitals/I&O/Wt Last Vital Signs Temp 99.1 F 11/22/21 04:00 Pulse 110 H 11/22/21 05:35 Resp 17 11/22/21 08:02 BP 126/63 11/22/21 00:00 Pulse Ox 96 11/22/21 03:23 11/21/21 11/22/21 11/22/21 22:59 06:59 14:59 Intake Total 2160.417 / 4220.417 901.25 / 5121.667 Output Total 1215 / 3415 Balance 945.417 / 805.417 901.25 / 1706.667 Physical Exam Narrative: AO x3, Good general Appearance, normal mood and affect. Fires in all motor groups with good strength and sensation. feet warm, incision c/d with hemovac intact. Urinary Catheter Management: Yates: Cath Placed During This Visit: yes Reason for Continuing Indwelling Catheter: Accurate Measurement of Urinary Output in Critically Ill Patients Urinary Catheter Date of Insertion: 11/19/21 Urinary Catheter Time of Insertion: 18:07 Data : 11/22/21 02:50 11/22/21 02:50 Micro: Microbiology 11/22/21 02:55 Blood Culture - Preliminary Blood SPECIMEN COLLECTED 11/22/21 02:50 Blood Culture - Preliminary Blood SPECIMEN COLLECTED A&P Assessment and plan (1) Acute blood loss anemia: Physical Therapy to eval and mobilize. When ambulating DC yates cath. Ok from ortho standppoint to transfer back to [facility] when cleared with Hospitalist team. Encourage Incentive Spirometer every hour. Status: Acute (2) Status post lumbar spinal fusion: Status: Acute Attestations Medical Necessity Statement*: defer to medical team Coding Level of Care Code Acute Floor Scrubber for Chg Fwd Diagnoses Acute blood loss anemia D62 Status post lumbar spinal fusion Z98.1 Documented by User: Joaquín Jain DO 11/22/21 10:33 Subjective Subjective: POD 1 Pt resting comfortably. Denies CP,SOB or HERNANDEZ. Legs feel different with back sore. pt sitting up in chair when I saw him. Pain controlled (Dr. Jain) Physical Exam Narrative: AO x3, Good general Appearance, normal mood and affect. Fires in all motor groups with good strength and sensation. feet warm, incision c/d with hemovac intact. little drainage on dressing since sitting up (Dr. Jain) Urinary Catheter Management: Yates: Cath Placed During This Visit: yes Data : 11/22/21 02:50 11/22/21 02:50 A&P Assessment and plan (1) Acute blood loss anemia: Physical Therapy to eval and mobilize. When ambulating DC yates cath. Ok from ortho standppoint to transfer back to [facility] when cleared with Hospitalist team. Encourage Incentive Spirometer every hour. Pt now getting another unit of blood Told the Nurse to change dressing if able to get silvalon from OR. Ok to change tomorrow or mn asl saloni as saturation does not get worse. continue antibiotics UP with PT. Status: Acute (2) Status post lumbar spinal fusion: Status: Acute Coding Level of Care Code Acute Floor Scrubber for Chg Fwd Diagnoses Acute blood loss anemia D62 Status post lumbar spinal fusion Z98.1
[2021-11-22] MEDS: dilTIAZem 30 mg Tablet PO ×2 (08:27→14:31)
[2021-11-22] MEDS: HYDROcodone-acetaminophen 5-325 mg Tablet PO (08:27)
--- NOTE | 2021-11-22 09:37 | PC.NURSE ---
1st 15 min blood VS in TAR. All others pulled across from monitor.
[2021-11-22] MEDS: sodium chloride 0.9% 1,000 ML 75 ML IV (10:02)
--- NOTE | 2021-11-22 12:33 | PM.PN ---
Subjective Subjective: Patient was seen and examined this, currently he is off any vasopressor, maintaining good map, Status post 4 unit PRBC transfusion, continue to monitor H&H, BUN and serum creatinine has worsened Likely secondary to acute hypotension, continue to have good urine output, For now the plan is to continue to monitor BMP continue IV hydration, We will resume Cardizem at 30 mg p.o. every 6, for now hold long-acting diltiazem. Medications: Medication Review Details: Generic Name Dose Route Start Last Admin Trade Name Freq PRN Reason Stop Dose Admin Cyclobenzaprine HC l 10 mg 11/16/21 23:13 11/17/21 07:59 Cyclobenzaprine 10 Mg Tablet PO 10 mg TID PRN Administration MUSCLE SPASMS Sodium Chloride 1,000 mls @ 50 ml s/hr 11/15/21 23:00 11/17/21 09:15 Sodium Chloride 0.9% IV 50 mls/hr .Q20H PINKY Infusion Lidocaine 1 patch 11/16/21 09:00 11/17/21 07:59 Lidocaine 5% Pat ch TOPICAL 1 patch [id number] PINKY Administration Morphine Sulfate 4 mg 11/16/21 03:50 11/17/21 09:15 Morphine 4 Mg/Ml Sdv 1 Ml IVP 4 mg Q4H PRN Administration SEVERE PAIN Non-Formulary Medi cation 2 puff 11/17/21 09:00 11/17/21 09:35 Tiotropium Bromi de [Spiriva Respim at] INHALATION Not Given DAILY PINKY Pantoprazole Sodiu m 40 mg 11/16/21 09:00 11/17/21 07:[address] 40 Mg Tablet PO 40 mg DAILY PINKY Administration Pantoprazole Sodiu m 40 mg 11/17/21 09:00 11/17/21 10:[address] 40 Mg Tablet PO 40 mg DAILY PINKY Administration Vitals/I&O/Wt Last Vital Signs Temp 97.9 F 11/22/21 09:29 Pulse 111 H 11/22/21 09:29 Resp 19 H 11/22/21 09:29 BP 109/62 11/22/21 09:29 Pulse Ox 94 11/22/21 08:45 11/21/21 11/22/21 11/22/21 22:59 06:59 14:59 Intake Total 2160.417 / 4220.417 901.25 / 5121.667 1481.5 / 1481.5 Output Total 1215 / 3415 Balance 945.417 / 805.417 901.25 / 8421.611 5528.5 / 1481.5 Physical Exam Const: COMMON NORMALS: patient oriented x3 HENMT: COMMON NORMALS: normocephalic and atraumatic HEAD & SCALP: normocephalic and atraumatic Eye: COMMON NORMALS: no scleral icterus GENERAL EYE: appearance normal, both eyes and all related structures Chest: COMMONS NORMALS: normal inspection of the chest and normal palpation of entire chest wall CHEST: Yes Symmetrical chest wall rise Resp: COMMON NORMALS: normal respiratory effort, No retractions, No use of accessory muscles and clear to auscultation bilaterally EFFORT & INSPECTION: Yes symmetric chest movement AUSCULTATION: clear to auscultation bilaterally Cardio: COMMON NORMALS: regular rate, regular rhythm, S1 normal heart sound present, S2 normal heart sound present, No gallops present (Cardio), No murmurs present (Cardio), No rub (Cardio) and Peripheral pulses 2+ throughout RATE: regular rate RHYTHM: regular rhythm HEART SOUNDS: S1 normal heart sound present and S2 normal heart sound present PERIPHERAL PULSES: Peripheral pulses 2+ throughout GI: COMMON NORMALS: Normal to inspection, nondistended, normoactive bowel sounds present, Soft to palpation, non-tender, No hepatosplenomegaly present and no masses AUSCULTATION: Yes normoactive bowel sounds PALPATION: Yes Soft to palpation and Yes No hepatosplenomegaly present RECTAL EXAM: Yes deferred Extremity: COMMON NORMALS: no clubbing, cyanosis or edema and no pedal edema Neuro: COMMON NORMALS: patient oriented x3 Urinary Catheter Management: Gallardo: Cath Placed During This Visit: yes Reason for Continuing Indwelling Catheter: Accurate Measurement of Urinary Output in Critically Ill Patients Urinary Catheter Date of Insertion: 11/19/21 Urinary Catheter Time of Insertion: 18:07 Data : 11/22/21 02:50 11/22/21 02:50 Micro: Microbiology 11/22/21 02:55 Blood Culture - Preliminary Blood SPECIMEN COLLECTED 11/22/21 02:50 Blood Culture - Preliminary Blood SPECIMEN COLLECTED A&P Assessment and plan (1) Intractable back pain: Status: Acute (2) Spinal stenosis: Status: Acute (3) Lumbosacral radiculopathy: Status: Acute (4) Unable to ambulate: Status: Acute (5) Acute renal insufficiency: Status: Acute (6) Spondylolisthesis at L3-L4 level: Status: Acute (7) Fever: Status: Acute (8) Hyperkalemia: Status: Acute Plan #Hypovolemic shock: Likely secondary to blood loss during surgery: Currently the plan is to monitor H&H: s/p 4 units PRBC. Continue IV hydration Continue vasopressors as needed #Leukocytosis: Possibly secondary to recent steroid use, Follow blood culture: Urine culture Procalcitonin: Lactic acid; X-ray chest: No infiltrates, no effusion no pneumothorax Patient has been empirically started on Vanco and Zosyn. #GEETHA ON CKD stage III. Creatinine up to 2.1. Not entirely clear etiology. BUN is elevated. Denies taking NSAIDs at home, but appears to use Voltaren gel. Would discontinue. Takes lisinopril, will hold for now. Gentle fluid challenge. Reassess renal function. Kidney US. ?Low normal size kidneys. No hydronephrosis or solid mass.Moderate prostate gland encroachment into the bladder. #Intractable lower back pain: Secondary to spondylolithiasis : Patient has history of chronic lower back pain for which he has been using spinal stimulator in the past and has seen pain specialist as an outpatient. CT : Lumbar spine: Diffuse severe spondylosis throughout the lumbar spine, as above. Severe spinal canal stenosis demonstrated at L3-L4 and L4-L5. ?IR myelogram sp lumbar: ?Abrupt termination of the contrast column at the L4 level. Probably combination of disc disease and facet disease and ligamentum flavum disease. Without an MRI with contrast additional mass causing the obstruction would be difficult to exclude. Patient has a known 7 mm nodule at the L4 level which is not responsible for the obstruction. Advanced lumbar spondylosis and degenerative scoliosis. MRI cannot be done due to presence of a spinal stimulator Repeat CT lumbar spine w con: Severe central stenosis at L4-5 with complete block of the column of contrast. Combination of disc and facet disease. Very similar in appearance to the prior study from 10/12/2019. It would be difficult to exclude a mass at this location. Patient has a known intrathecal nodule measuring 5.5 mm at the L4 level which is stable. Severe subarticular and bilateral foraminal stenosis at L4-5. Moderate to severe LEFT foraminal stenosis at L3-4. Moderate central with [id number] bilateral foraminal stenosis at L5-L6. Mild progression. Advanced multilevel degenerative disc disease with facet arthritis. Current plan is to continue with pain management: MS Contin, morphine, lidocaine patch, Percocet Spine surgery on board: S/P L1-S1 fusion with decompression on 11/21 # Recent GI bleed: continues to hold Pradaxa.? Is on Protonix. #A. fib: Currently in sinus: Continue Cardizem Anticoagulation on hold #Fever: Noted Tmax: 100.7,Low clinical suspicion for infection. Will monitor for now. #COPD, not normally on oxygen. Not in exacerbation. #KERRY: On nightly CPAP #HTN #CODE STATUS: Full code #DVT prophylaxis: On SCDs because of recent history of GI bleed. Attestations Medical Necessity Statement*: Patient is to be in hospital for management of above defined problems. Time Spent in Patient Care: Greater than 35 minutes (>than 50% of time spent in counselling and/or direct pt care on unit). Critical Care Time: The high probability of a clinically significant, sudden or life threatening deterioration of the patient's [] system(s) required my full and direct attention, intervention and personal management. The critical care time is as shown. This time is in addition to time spent performing any reported procedures but includes the following: [x] Data and vital sign review and interpretation [x] Patient assessment, examination and intervention [x] Documentation [x] Medication orders and management Critical Care Time (min): 35 Coding Level of Care Code Acute Lithographer Apprentice for [facility] Fwd Diagnoses Intractable back pain M54.9 Spinal stenosis M48.00 Lumbosacral radiculopathy M54.17 Unable to ambulate R26.2 Acute renal insufficiency N28.9 Spondylolisthesis at L3-L4 level M43.16 Fever R50.9 Hyperkalemia E87.5
--- NOTE | 2021-11-22 13:40 | PC.NURSE ---
Silverlon dressing changed per MD orders. ABD binder soiled, removed. Pt tolerated standing well. Requires assist x1. BP remains soft. Will monitor.
[2021-11-22] MEDS: lactulose oral liq 20 gm/30 mL UDC PO (14:31)
[2021-11-22 17:15] LABS: Hematocrit 28.3 % (42.0-52.0); Hemoglobin 8.7 g/dL (11.7-16.6)
[2021-11-22] MEDS: vancomycin 1,500 MG/300 ML PIGGYBACK 200 MG IV (19:55)
[2021-11-23] VITALS (29 sets, daily range): BP systolic 80–106; BP diastolic 43–68; PULSE 87–114; RESP 13–21; TEMP 36.9–37.4; O2SAT 90–97
[2021-11-23] MEDS: piperacillin-tazobactam 3.375 GM in sodium chloride 0.9% (plus) 50 ML IV ×3 (01:15→17:08)
[2021-11-23] MEDS: lactulose oral liq 20 gm/30 mL UDC PO (01:15)
[2021-11-23 04:38] LABS: Basophils # 0.1 10^3/uL (0.0-0.1); Basophils % 0.2 %; Eosinophils # 0.2 10^3/uL (0.0-0.8); Eosinophils % 0.8 %; Hematocrit 30.6 % (42.0-52.0); Hemoglobin 9.2 g/dL (11.7-16.6); Lymphocytes # 1.3 10^3/uL (0.8-4.8); Lymphocytes % 6.1 %; Mean Corpuscular HGB Conc 30.1 g/dL (30.0-36.0); Mean Corpuscular Hemoglobin 27.2 pg (28.0-34.0); Mean Corpuscular Volume 90.5 fl (80-94); Mean Platelet Volume 8.5 fL (7.4-10.4); Monocytes # 1.5 10^3/uL (0.2-0.9); Neutrophils # 17.79 10^3/uL (1.8-7.7); Nucleated Red Blood Cells % 0 %; Platelet Count 466 10^3/cmm (130-400); Red Blood Count 3.38 10^6/uL (4.1-5.3); Red Cell Distribution Width 16.3 % (12.1-15.1); White Blood Count 21.2 10^3/uL (4.0-10.0)
[2021-11-23 05:11] LABS: Procalcitonin 1.69 ng/mL (0-0.5)
[2021-11-23 05:25] LABS: Anion Gap 19.2 (5-19); Blood Urea Nitrogen 44 mg/dL (8-23); Calcium 8.3 mg/dL (8.5-10.5); Carbon Dioxide 18 mmol/L (22-29); Chloride 106 mmol/L (98-107); Glucose 167 mg/dL (65-115); Osmolality Calculated 301 mOsm/kg (285-295); Potassium 5.2 mmol/L (3.5-5.1); Sodium 138 mmol/L (136-145)
[2021-11-23] MEDS: sodium chloride 0.9% 1,000 ML 75 ML IV ×2 (07:34→17:08)
[2021-11-23] MEDS: morphine ER (12 HR) 30 mg tablet PO (08:02)
[2021-11-23] MEDS: docusate sodium 100 mg Capsule PO ×2 (08:02→17:08)
[2021-11-23] MEDS: levothyroxine 50 mcg Tablet PO (08:03)
[2021-11-23] MEDS: cholecalciferol (vitamin D3) 1,000 unit Tablet 1000 UNIT PO (08:03)
[2021-11-23] MEDS: lidocaine 5% Patch 1 PATCH TOPICAL ×2 (08:03→20:16)
[2021-11-23] MEDS: sennosides-docusate Tablet 1 TAB PO ×2 (08:03→17:07)
[2021-11-23] MEDS: pantoprazole 40 mg SDV IVP (08:04)
--- NOTE | 2021-11-23 09:06 | P.PN_ITS ---
Subjective Subjective: POD 2 Patient up in the chair resting comfortably. Complains of some mild back pain. Legs are weak. Denies any chest pain or headaches. Is on O2 nasal cannula. Vitals/I&O/Wt Last Vital Signs Temp 97.9 F 11/22/21 09:29 Pulse 109 H 11/23/21 08:42 Resp 16 11/23/21 08:42 BP 80/58 11/23/21 04:00 Pulse Ox 94 11/23/21 08:42 11/22/21 11/23/21 11/23/21 22:59 06:59 14:59 Intake Total 710 / 2481.5 1050 / 3531.5 769.5 / 769.5 Output Total 920 / 920 210 / 1130 Balance -210 / 1561.5 840 / 2401.5 769.5 / 769.5 Physical Exam Narrative: Patient presents alert and oriented x3 with a good general appearance normal mood and affect. Mild tenderness around the incisional site with the incision appear to be healing nicely. No signs of erythema or drainage. No signs of infection. Patient denies any fevers or chills. 4/5 motor strength both lower extremities with negative straight leg raise bilaterally. Calves are supple no medial thigh tenderness. Pulses are 2+ at the dorsalis pedis and posterior tibial region. Good capillary refill, improving sensation light touch both lower extremities. HENMT: COMMON NORMALS: normocephalic HEAD & SCALP: normocephalic Urinary Catheter Management: Gallardo: Cath Placed During This Visit: yes Reason for Continuing Indwelling Catheter: Accurate Measurement of Urinary Output in Critically Ill Patients Urinary Catheter Date of Insertion: 11/19/21 Urinary Catheter Time of Insertion: 18:07 Data : 11/23/21 03:52 11/23/21 03:52 Micro: Microbiology 11/21/21 23:15 Urine Culture - Preliminary Urine Catheterized 11/22/21 02:55 Blood Culture - Preliminary Blood NEGATIVE TO DATE 11/22/21 02:50 Blood Culture - Preliminary Blood NEGATIVE TO DATE A&P Assessment and plan (1) Status post lumbar spinal fusion: Discussed with the patient to continue mobilization. Encourage incentive spirometry for pulmonary toilet. Would recommend discontinuation of Gallardo catheter as this is day 6. We will discontinue Hemovac drain. From orthopedic standpoint it is reasonable to transfer him to the floor when medically stable. Status: Acute (2) Acute blood loss anemia: Status: Acute Attestations Medical Necessity Statement*: defer to medical team Coding Level of Care Code Acute Coat Joiner Lockstitch for [facility] Fwd Diagnoses Status post lumbar spinal fusion Z98.1 Acute blood loss anemia D62
--- NOTE | 2021-11-23 09:23 | PC.NURSE ---
Addendum entered by Gilberto Jimenez RN 11/23/21 09:28: Orders also to remove yates per ortho. Medical was in room when orders were relayed and ordered to keep yates catheter for strict i/o. Original Note: Hemovac drain removed per MD order. Tolerated well. Covered with 4x4 and tegaderm. Will monitor.
--- NOTE | 2021-11-23 10:13 | PC.NURSE ---
dressing changed to back d/t oozing from surgical site. Pt assisted back to bed. Pt is slightly confused at this time. Seems kind of absent-minded . notified.
--- NOTE | 2021-11-23 13:07 | PC.NURSE ---
Report given to Saundra LANGFORD.
--- NOTE | 2021-11-23 13:22 | PM.PN ---
Subjective Subjective: Patient was seen and examined this, currently the blood pressure has been soft, his BUN and serum creatinine has gone up, Currently has good urine output, serum potassium is also gone slightly high at 5.2, H&H is stable after 4 units PRBC transfusion. Complaining of constipation has not passed stool since the admission Lactulose 30 3 times daily. As well as Colace, will likely need enema. Medications: Medication Review Details: Generic Name Dose Route Start Last Admin Trade Name Freq PRN Reason Stop Dose Admin Cyclobenzaprine HC l 10 mg 11/16/21 23:13 11/17/21 07:59 Cyclobenzaprine 10 Mg Tablet PO 10 mg TID PRN Administration MUSCLE SPASMS Sodium Chloride 1,000 mls @ 50 ml s/hr 11/15/21 23:00 11/17/21 09:15 Sodium Chloride 0.9% IV 50 mls/hr .Q20H PINKY Infusion Lidocaine 1 patch 11/16/21 09:00 11/17/21 07:59 Lidocaine 5% Pat ch TOPICAL 1 patch [id number] PINKY Administration Morphine Sulfate 4 mg 11/16/21 03:50 11/17/21 09:15 Morphine 4 Mg/Ml Sdv 1 Ml IVP 4 mg Q4H PRN Administration SEVERE PAIN Non-Formulary Medi cation 2 puff 11/17/21 09:00 11/17/21 09:35 Tiotropium Bromi de [Spiriva Respim at] INHALATION Not Given DAILY PINKY Pantoprazole Sodiu m 40 mg 11/16/21 09:00 11/17/21 07:[address] 40 Mg Tablet PO 40 mg DAILY PINKY Administration Pantoprazole Sodiu m 40 mg 11/17/21 09:00 11/17/21 10:[address] 40 Mg Tablet PO 40 mg DAILY PINKY Administration Vitals/I&O/Wt Last Vital Signs Temp 98.4 F 11/23/21 08:00 Pulse 100 11/23/21 12:00 Resp 16 11/23/21 12:00 BP 81/62 11/23/21 12:00 Pulse Ox 95 11/23/21 12:00 11/22/21 11/23/21 11/23/21 22:59 06:59 14:59 Intake Total 710 / 2481.5 1050 / 3531.5 1059.5 / 1059.5 Output Total 920 / 920 210 / 1130 50 / 50 Balance -210 / 1561.5 840 / 2401.5 1009.5 / 1009.5 Physical Exam Const: COMMON NORMALS: patient oriented x3 HENMT: COMMON NORMALS: normocephalic and atraumatic HEAD & SCALP: normocephalic and atraumatic Eye: COMMON NORMALS: no scleral icterus GENERAL EYE: appearance normal, both eyes and all related structures Chest: COMMONS NORMALS: normal inspection of the chest and normal palpation of entire chest wall CHEST: Yes Symmetrical chest wall rise Resp: COMMON NORMALS: normal respiratory effort, No retractions, No use of accessory muscles and clear to auscultation bilaterally EFFORT & INSPECTION: Yes symmetric chest movement AUSCULTATION: clear to auscultation bilaterally Cardio: COMMON NORMALS: regular rate, regular rhythm, S1 normal heart sound present, S2 normal heart sound present, No gallops present (Cardio), No murmurs present (Cardio), No rub (Cardio) and Peripheral pulses 2+ throughout RATE: regular rate RHYTHM: regular rhythm HEART SOUNDS: S1 normal heart sound present and S2 normal heart sound present PERIPHERAL PULSES: Peripheral pulses 2+ throughout GI: COMMON NORMALS: Normal to inspection, nondistended, normoactive bowel sounds present, Soft to palpation, non-tender, No hepatosplenomegaly present and no masses AUSCULTATION: Yes normoactive bowel sounds PALPATION: Yes Soft to palpation and Yes No hepatosplenomegaly present RECTAL EXAM: Yes deferred Extremity: COMMON NORMALS: no clubbing, cyanosis or edema and no pedal edema Neuro: COMMON NORMALS: patient oriented x3 Urinary Catheter Management: Gallardo: Cath Placed During This Visit: yes Reason for Continuing Indwelling Catheter: Accurate Measurement of Urinary Output in Critically Ill Patients Urinary Catheter Date of Insertion: 11/19/21 Urinary Catheter Time of Insertion: 18:07 Data : 11/23/21 03:52 11/23/21 03:52 Micro: Microbiology 11/23/21 05:50 MRSA Culture - Final Nose 11/21/21 23:15 Urine Culture - Preliminary Urine Catheterized 11/22/21 02:55 Blood Culture - Preliminary Blood NEGATIVE TO DATE 11/22/21 02:50 Blood Culture - Preliminary Blood NEGATIVE TO DATE A&P Assessment and plan (1) Intractable back pain: Status: Acute (2) Spinal stenosis: Status: Acute (3) Lumbosacral radiculopathy: Status: Acute (4) Unable to ambulate: Status: Acute (5) Acute renal insufficiency: Status: Acute (6) Spondylolisthesis at L3-L4 level: Status: Acute (7) Fever: Status: Acute (8) Hyperkalemia: Status: Acute Plan #Hypovolemic shock: Likely secondary to blood loss during surgery: Currently the plan is to monitor H&H: s/p 4 units PRBC. Continue IV hydration Continue vasopressors as needed #Leukocytosis: Possibly secondary to recent steroid use, and stress related Blood culture: Negative to date MRSA is negative: Negative Urine culture Procalcitonin: 1.69 Lactic acid; X-ray chest: No infiltrates, no effusion no pneumothorax Patient has been empirically started on Vanco and Zosyn. Vancomycin was discontinued on 11/23 #EGETHA ON CKD stage III. Creatinine up to 2.1. Not entirely clear etiology. BUN is elevated. Denies taking NSAIDs at home, but appears to use Voltaren gel. Would discontinue. Takes lisinopril, will hold for now. Gentle fluid challenge. Reassess renal function. Kidney US. ?Low normal size kidneys. No hydronephrosis or solid mass.Moderate prostate gland encroachment into the bladder. #Intractable lower back pain: Secondary to spondylolithiasis : Patient has history of chronic lower back pain for which he has been using spinal stimulator in the past and has seen pain specialist as an outpatient. CT : Lumbar spine: Diffuse severe spondylosis throughout the lumbar spine, as above. Severe spinal canal stenosis demonstrated at L3-L4 and L4-L5. ?IR myelogram sp lumbar: ?Abrupt termination of the contrast column at the L4 level. Probably combination of disc disease and facet disease and ligamentum flavum disease. Without an MRI with contrast additional mass causing the obstruction would be difficult to exclude. Patient has a known 7 mm nodule at the L4 level which is not responsible for the obstruction. Advanced lumbar spondylosis and degenerative scoliosis. MRI cannot be done due to presence of a spinal stimulator Repeat CT lumbar spine w con: Severe central stenosis at L4-5 with complete block of the column of contrast. Combination of disc and facet disease. Very similar in appearance to the prior study from 10/12/2019. It would be difficult to exclude a mass at this location. Patient has a known intrathecal nodule measuring 5.5 mm at the L4 level which is stable. Severe subarticular and bilateral foraminal stenosis at L4-5. Moderate to severe LEFT foraminal stenosis at L3-4. Moderate central with [id number] bilateral foraminal stenosis at L5-L6. Mild progression. Advanced multilevel degenerative disc disease with facet arthritis. Current plan is to continue with pain management: MS Contin, morphine, lidocaine patch, Percocet Spine surgery on board: S/P L1-S1 fusion with decompression on 11/21 # Recent GI bleed: continues to hold Pradaxa.? Is on Protonix. #A. fib: Currently in sinus: Continue Cardizem Anticoagulation on hold #Fever: Noted Tmax: 100.7,Low clinical suspicion for infection. Will monitor for now. #COPD, not normally on oxygen. Not in exacerbation. #KERRY: On nightly CPAP #HTN #CODE STATUS: Full code #DVT prophylaxis: On SCDs because of recent history of GI bleed. Attestations Medical Necessity Statement*: Patient is to be in hospital for management of above defined problems. Time Spent in Patient Care: Greater than 35 minutes (>than 50% of time spent in counselling and/or direct pt care on unit). Coding Level of Care Code Acute Senior Wind Turbine Technician for [facility] Fwd Diagnoses Intractable back pain M54.9 Spinal stenosis M48.00 Lumbosacral radiculopathy M54.17 Unable to ambulate R26.2 Acute renal insufficiency N28.9 Spondylolisthesis at L3-L4 level M43.16 Fever R50.9 Hyperkalemia E87.5
[2021-11-23] MEDS: lactulose oral liq 20 gm/30 mL UDC 30 GM PO ×2 (13:47→20:08)
[2021-11-23] MEDS: ipratropium-albuterol 3 mL Neb INHALATION ×2 (14:47→20:17)
[2021-11-23 16:21] LABS: ABG PCO2 40.9 mmHg (35-45); ABG PH Result 7.24 (7.35-7.45); HCO3 ABG 17.4 mmol/L (22-26); PO2 ABG 63.9 mmHg (80.0-100.0)
[2021-11-23 16:22] LABS: Arterial Blood Gas Hematocrit 27.1 % (42-52); Base Excess ABG -9.4 mmol/L (-2.0-2.0); Blood Gas Allen Test POS; Blood Gas Sample Type ARTERIAL; Oxygen Device NC; Oxygen Saturation ABG 91.8; Potassium Level - ABG 4.9 mmol/L (3.5-5.0)
[2021-11-23 16:23] LABS: Carboxyhemoglobin 1.2 %THgb (0.4-20.1); Ionized Calcium Level - ABG 1.1 mmol/L (1.1-1.4); Methemoglobin 0.9 % (0.4-1.5); Total Hemoglobin 8.8 g/dL (14-18)
--- NOTE | 2021-11-23 22:48 | PC.NURSE ---
report called to ANASTASIYA chin 11/23/2021 at 3224
[2021-11-24] VITALS (35 sets, daily range): BP systolic 85–121; BP diastolic 53–67; PULSE 83–113; RESP 16–24; TEMP 36.6–38.7; O2SAT 85–97
[2021-11-24] MEDS: piperacillin-tazobactam 3.375 GM in sodium chloride 0.9% (plus) 50 ML IV ×3 (00:39→16:05)
[2021-11-24] MEDS: ipratropium-albuterol 3 mL Neb INHALATION ×4 (02:01→20:11)
[2021-11-24] MEDS: acetaminophen 325 mg Tablet 650 MG PO (05:50)
[2021-11-24] MEDS: sodium chloride 0.9% 1,000 ML 75 ML IV (05:50)
--- NOTE | 2021-11-24 06:25 | PC.NURSE ---
PATIENT SLEEPS UNLESS AROUSED, UNABLE TO GET UP TO CHAIR AT THIS TIME.
--- NOTE | 2021-11-24 06:58 | P.PN_ITS ---
Subjective Subjective: POD 3 Patient very somnolent this morning appears overmedicated. Vitals/I&O/Wt Last Vital Signs Temp 101.6 F H 11/24/21 04:00 Pulse 105 H 11/24/21 05:38 Resp 16 11/24/21 04:00 BP 99/55 11/24/21 04:00 Pulse Ox 91 11/24/21 04:00 11/23/21 11/23/21 11/24/21 14:59 22:59 06:59 Intake Total 1059.5 / 1059.5 767.5 / 1827.0 1002.5 / 2829.5 Output Total 50 / 50 200 / 250 Balance 1009.5 / 1009.5 567.5 / 1577.0 1002.5 / 2579.5 Physical Exam Narrative: Patient presents awakes when spoken to but very somnolent with a good general appearance. Normal coordination normal stability. Mild tenderness around the incisional site with the incision appear to be healing nicely. No signs of erythema or drainage. No signs of infection. Patient denies any fevers or chills. 4/5 motor strength both lower extremities with negative straight leg raise bilaterally. Calves are supple no medial thigh tenderness. Pulses are 2+ at the dorsalis pedis and posterior tibial region. Good capillary refill throughout normal sensation light touch both lower extremities. Urinary Catheter Management: Gallardo: Cath Placed During This Visit: yes Reason for Continuing Indwelling Catheter: Accurate Measurement of Urinary Output in Critically Ill Patients Urinary Catheter Date of Insertion: 11/19/21 Urinary Catheter Time of Insertion: 18:07 Data : 11/23/21 03:52 11/23/21 03:52 Micro: Microbiology 11/23/21 05:50 MRSA Culture - Final Nose 11/21/21 23:15 Urine Culture - Preliminary Urine Catheterized 11/22/21 02:55 Blood Culture - Preliminary Blood NEGATIVE TO DATE 11/22/21 02:50 Blood Culture - Preliminary Blood NEGATIVE TO DATE A&P Assessment and plan (1) Status post lumbar spinal fusion: Patient appears very overmedicated this morning. Very somnolent. Would recommend holding all pain medications until patient becomes more alert. Status: Acute (2) Acute blood loss anemia: Status: Acute Attestations Medical Necessity Statement*: defer to medical team Coding Level of Care Code Acute Set And Exhibit Designer for [facility] Fwd Diagnoses Status post lumbar spinal fusion Z98.1 Acute blood loss anemia D62
[2021-11-24 08:29] LABS: ABG PCO2 37.6 mmHg (35-45); ABG PH Result 7.23 (7.35-7.45); Alveolar-Arterial Oxygen Gradi 15.9 mmHg (5-10); Arterial Blood Gas Hematocrit 27.6 % (42-52); Blood Gas Allen Test Pos; Blood Gas Operator Identificat MONRO; Blood Gas Sample Site Radial, left; Blood Gas Sample Type Arterial; Carboxyhemoglobin 1.2 %THgb (0.4-20.1); HCO3 ABG 15.7 mmol/L (22-26); HGB O2 Sat 95.2 % (95-100); Ionized Calcium Level - ABG 1.1 mmol/L (1.1-1.4); Methemoglobin 0.6 % (0.4-1.5); Oxygen Device NC; Oxygen Saturation ABG 96.9; PO2 ABG 85.3 mmHg (80.0-100.0)
--- NOTE | 2021-11-24 08:35 | CT_ITS ---
WS: [id number] CT HEAD NONCONTRAST HISTORY: encephalopathy TECHNIQUE: Contiguous axial imaging performed through the brain in 2.5 mm imaging. Bone and soft tiss ue windows. Sagittal and coronal reformats reviewed. All CT scans at [facility] use at least one of these dose optimization techniques: automated exposure control; mA and/or kV adjustment per pa tient size (includes targeted exams where dose is matched to clinical indication); or iterative recon struction. DLP: 954.92 mGy.cm COMPARISON: 08/29/2018 No acute intracranial hemorrhage, midline shift or mass effect. Moderate atrophy and mild chronic microvascular ischemic changes. No prior infarct. Ventricles: Ventricles are very mildly prominent, similar to the prior study. No inferior displacement of cerebellar tonsils. Paranasal sinuses: As visualized are clear. Mastoid air cells: Well pneumatized. Calvarium and scalp: Skull is intact with no soft tissue edema or swelling. 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 CT/CT head wo con* [id number] IMPRESSION: 1. No acute intracranial hemorrhage or edema. 2. Moderate atrophy and mild small vessel ischemic disease similar to the prio r study.
[2021-11-24] MEDS: FUROsemide 10 mg/mL SDV 4mL 40 MG IVP (08:42)
[2021-11-24] MEDS: sodium bicarbonate 8.4% 1 mEq/mL 50mL Syr 50 MEQ IVP (08:44)
[2021-11-24] MEDS: sodium bicarbonate 150 MEQ in dextrose 5% 1,000 ML 100 MEQ IV (08:53)
--- NOTE | 2021-11-24 08:55 | P.CONIM_ITS ---
Providers/Reason For Consult Consulting Physician/Specialty*: cheo lake md / telenephrology Reason for Consult*: GEETHA, metabolic acidosis Requesting Physician: Dr Abelardo Gonzalez Attending Physician: Abelardo Gonzalez MD Primary Care Provider: Keshawn Little DO History of Present Illness History of Present Illness Abdiel Duran is a 76 year old male admitted on 11-16-21 w/ severe low back pain. CT scan revealed severe spondylosis w/ severe spinal canal stenosis in L3-4, and L4-5. On 11-21-21 the pt went to the OR for lumbar spine fusion, laminectomies and facetectomies. Recent GI bleeds, Post-op required bipap, ivf, prbc tx, and pressors. Post-op uop dec, bp remained low, cr and k leeann. Renal called today for AMS, lethargic, GEETHA. Pt is on bipap for met acidosis and hypoxemia Review of Systems Narrative: not able to obtain Medications/Allergies Home Medications Medication Instructions Recorded Confirmed Last Taken Type cetirizine 10 mg capsule 10 mg PO DAILY@0800 cap 10/23/19 11/16/21 11/11/21 History cholecalciferol (vitamin D3) 1,250 1,250 mcg PO DAILY@0800 10/23/19 11/16/21 11/11/21 History mcg (50,000 unit) tablet cyclobenzaprine 10 mg tablet 10 mg PO TID PRN 10/23/19 11/16/21 Unknown History diltiazem HCl 240 mg 240 mg PO DAILY@0800 10/23/19 11/16/21 11/11/21 History capsule,extended release 24 hr levothyroxine 50 mcg capsule 50 mcg PO DAILY@0800 10/23/19 11/16/21 11/11/21 History lisinopril 40 mg tablet 40 mg PO DAILY@0800 10/23/19 11/16/21 11/11/21 History guaifenesin 400 mg tablet 400 mg PO Q4H PRN 11/13/19 11/16/21 10/04/20 History acetaminophen 500 mg tablet 500 mg PO Q6H PRN 10/04/20 11/16/21 Unknown History (Tylenol Extra Strength) tiotropium bromide 1.25 2 puff INHALATION DAILY #4 g 06/09/21 11/16/21 11/11/21 Rx mcg/actuation mist for inhalation (Spiriva Respimat) albuterol sulfate 90 mcg/actuation 1 inh INHALATION QID PRN #8.5 g 07/16/21 11/16/21 Unknown Rx aerosol inhaler custom orthotics #1 ea 09/02/21 11/16/21 Unknown Rx hydrocodone 5 mg-acetaminophen 325 1 tab PO Q6H PRN 14 Days #30 tab 11/05/21 11/16/21 Unknown Rx mg tablet dabigatran etexilate 150 mg 150 mg PO BID 11/11/21 11/16/21 11/10/21 History capsule (Pradaxa) diclofenac sodium 1 % topical gel 4 g TOPICAL QID PRN 11/11/21 11/16/21 Unknown History (Voltaren Arthritis Pain) mometasone-formoterol HFA 200 2 puff INHALATION BID 11/11/21 11/16/21 11/11/21 History mcg-5 mcg/actuation aerosol inhaler (Dulera) omeprazole 20 mg capsule,delayed 20 mg PO DAILY #90 cap 11/13/21 11/16/21 Unknown Rx release Allergies Allergy/AdvReac Type Severity Reaction Status Date / Time Sulfa (Sulfonamide Allergy Mild Unknown Verified 11/15/21 19:58 Antibiotics) apixaban [From Eliquis] Allergy ALGY-Rash Verified 11/15/21 19:58 clopidogrel [From Plavix] Allergy ALGY-Rash Verified 11/15/21 19:58 tamsulosin [From Flomax] AdvReac Mild rash Verified 11/15/21 19:58 Current Medications Generic Name Dose Route Start Last Admin Trade Name Freq PRN Reason Stop Dose Admin Acetaminophen 650 mg 11/16/21 03:50 11/24/21 05:50 Acetaminophen 325 Mg Tablet PO 650 mg Q6H PRN Administration Mild/Mod Pain Or Temp >/= 101 Hydrocodone Bitart/Acetaminophen 1 - 2 tab 11/21/21 14:19 11/22/21 08:27 Hydrocodone-Acetaminophen 5-325 Mg Tablet PO 2 tab Q4H PRN Administration MODERATE TO SEVERE PAIN Albuterol/Ipratropium 3 ml 11/23/21 15:00 11/24/21 08:34 Ipratropium-Albuterol 3 Ml Neb INHALATION 3 ml Q6H.RESPIRATORY PINKY Administration Cyclobenzaprine HCl 10 mg 11/16/21 23:13 11/21/21 21:13 Cyclobenzaprine 10 Mg Tablet PO 10 mg TID PRN Administration MUSCLE SPASMS Diltiazem HCl 30 mg 11/22/21 08:30 11/22/21 14:31 Diltiazem 30 Mg Tablet PO 30 mg Q6H [facility] Administration Docusate Sodium 100 mg 11/21/21 18:00 11/23/21 17:08 Docusate Sodium 100 Mg Capsule PO 100 mg BID [facility] Administration Piperacillin Sod/Tazobactam 50 mls @ 12.5 mls/hr 11/21/21 17:00 11/24/21 04:39 Sod 3.375 gm/ Sodium Chloride IV Infused Q8H [facility] Infusion Protocol Ketorolac Tromethamine 30 mg 11/21/21 14:19 11/21/21 21:13 Ketorolac 30 Mg/Ml Inj IVP 30 mg Q6H PRN Administration BREAKTHROUGH PAIN Lactulose 30 gm 11/23/21 15:00 11/23/21 20:08 Lactulose Oral Liq 20 Gm/30 Ml Udc PO 30 gm TID [facility] Administration Levothyroxine Sodium 50 mcg 11/18/21 08:00 11/23/21 08:03 Levothyroxine 50 Mcg Tablet PO 50 mcg DAILY@0800 [facility] Administration Lidocaine 1 patch 11/16/21 09:00 11/23/21 20:16 Lidocaine 5% Patch TOPICAL 1 patch [id number] [facility] Administration Morphine Sulfate 30 mg 11/19/21 18:00 11/23/21 18:03 Morphine Er (12 Hr) 30 Mg Tablet PO Not Given BID [facility] Morphine Sulfate 4 mg 11/20/21 08:09 11/20/21 17:58 Morphine 4 Mg/Ml Sdv 1 Ml IVP 4 mg Q4H PRN Administration SEVERE PAIN Non-Formulary Medication 2 puff 11/17/21 09:00 11/23/21 11:15 Tiotropium [place] [Spiriva Respimat] INHALATION Not Given DAILY [facility] Ondansetron HCl 4 mg 11/20/21 06:20 11/20/21 07:00 Ondansetron 2 Mg/Ml Sdv 2 Ml IVP 4 mg Q4H PRN Administration NAUSEA AND VOMITING Oxycodone/Acetaminophen 1 tab 11/18/21 14:30 11/21/21 04:00 Oxycodone-Apap 5-325 Mg Tablet PO 1 tab Q4H PRN Administration MODERATE PAIN Pantoprazole Sodium 40 mg 11/20/21 09:00 11/23/21 08:04 Pantoprazole 40 Mg Sdv IVP 40 mg DAILY PINKY Administration Senna/Docusate Sodium 1 tab 11/20/21 09:00 11/23/21 17:07 Sennosides-Docusate Tablet PO 1 tab BID PINKY Administration Vitamin D 1,000 unit 11/18/21 08:00 11/23/21 08:03 Cholecalciferol (Vitamin D3) 1,000 Unit Tablet PO 1,000 unit DAILY@0800 PINKY Administration PFSH Acute PFSH: Medical History Acute bronchitis with chronic obstructive pulmonary disease (COPD) GEETHA (acute kidney injury) GEETHA V/S GEETHA ON CKD Stage 3 Anticoagulant long-term use Atrial fibrillation COPD (chronic obstructive pulmonary disease) COPD (chronic obstructive pulmonary disease) Degenerative arthritis of left shoulder region Ex-smoker History of cardiac dysrhythmia Hydrocele, left Hyperkalemia Hypertension Hyponatremia Hyponatremia 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, lumbar region Pneumonia due to COVID-19 virus Respiratory failure with hypoxia Improving Spondylolisthesis, lumbar region Testalgia Urinary retention Surgical History H/O arthroscopic knee surgery H/O carpal tunnel repair H/O vasectomy S/P insertion of spinal cord stimulator (~10/15/16) Family History Grandmother Cancer Social History Smoking and tobacco status: former smoker Quit status (tobacco): has quit using tobacco Year quit tobacco: 1984 Alcohol intake: current Lives independently: Yes Household members: spouse Marital status: Current occupational status: retired Vitals/I&O/Wt Last Vital Signs Temp 101.2 F H 11/24/21 08:00 Pulse 109 H 11/24/21 08:42 Resp 18 11/24/21 08:35 BP 100/60 11/24/21 08:00 Pulse Ox 93 11/24/21 08:40 11/23/21 11/24/21 11/24/21 22:59 06:59 14:59 Intake Total 767.5 / 1827.0 1002.5 / 2829.5 Output Total 200 / 250 Balance 567.5 / 1577.0 1002.5 / 2579.5 Physical Exam Narrative: uncomfortable on bipap, hypotensive, febrile heent- nc/at, eomi neck supple lungs- crackles b/l heart tachy, + s1, s2 abd soft, nt, nd, + bs ext b/l edema neuro- lethargic and confused Urinary Catheter Management: Gallardo: Cath Placed During This Visit: yes Reason for Continuing Indwelling Catheter: Accurate Measurement of Urinary Output in Critically Ill Patients Urinary Catheter Date of Insertion: 11/19/21 Urinary Catheter Time of Insertion: 18:07 Data : 11/23/21 03:52 11/23/21 03:52 Micro: Microbiology 11/21/21 23:15 Urine Culture - Final Urine Catheterized 11/23/21 05:50 MRSA Culture - Final Nose A&P Assessment and plan (1) Acute renal insufficiency: 76 yr old man s/p Spinal Fusion L1-Pelvis fusion and Lumbar Spine Decompression L3-S1. Surgery complicated by bleed. Post-op hypotension 1. GEETHA- likely ATN -from hypotension, NSAID use, and recent CT w/ contrast on 11-18-21 -check ck, c3, c4= eval for possible rhabdo -if acidosis perssits, or refractory hyperkalemia- may need HD soon 2. fevers, hypotension, leukocytosis-- sepsis eval- -check ua, cxr -evaluate surgical sites -renal dose abx 3. AMS - likely from meds and sepsis- dec pain meds 4. met acidosis- AG of 14- check lacate - on bicarb drip -repeat chem 7 and abg in 2 hrs -check ua 5. electrolytes- monitor k seen and examine dw/ RN- telehealth visit discussed w/ Dr Abelardo Gonzalez -time spent 50 min Status: Acute Plan see above Consult Attestations Medical Necessity Statement: geetha, hyperkalemia, sepsis Time Spent in Patient Care: Greater than 35 minutes (>than 50% of time spent in counselling and/or direct pt care on unit) . 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
[2021-11-24] MEDS: pantoprazole 40 mg SDV IVP (09:51)
[2021-11-24 10:51] LABS: Basophils % 0.2 %; Eosinophils # 0.2 10^3/uL (0.0-0.8); Eosinophils % 1.2 %; Hematocrit 26.7 % (42.0-52.0); Hemoglobin 8.1 g/dL (11.7-16.6); Lymphocytes # 1.2 10^3/uL (0.8-4.8); Lymphocytes % 7.2 %; Mean Corpuscular HGB Conc 30.3 g/dL (30.0-36.0); Mean Corpuscular Hemoglobin 28.1 pg (28.0-34.0); Mean Corpuscular Volume 92.7 fl (80-94); Mean Platelet Volume 8.3 fL (7.4-10.4); Monocytes % 6.1 %; Neutrophils # 13.75 10^3/uL (1.8-7.7); Neutrophils % 83.2 %; Nucleated Red Blood Cells % 0 %; Platelet Count 396 10^3/cmm (130-400); Red Blood Count 2.88 10^6/uL (4.1-5.3); White Blood Count 16.5 10^3/uL (4.0-10.0)
[2021-11-24 11:05] LABS: ABG PCO2 55.4 mmHg (35-45); ABG PH Result 7.25 (7.35-7.45); Arterial Blood Gas Hematocrit 21.4 % (42-52); Base Excess ABG -2.8 mmol/L (-2.0-2.0); Blood Gas Allen Test Pos; Blood Gas Sample Type Arterial; Carboxyhemoglobin 1.4 %THgb (0.4-20.1); HCO3 ABG 24.3 mmol/L (22-26); HGB O2 Sat 87.1 % (95-100); Methemoglobin 0.5 % (0.4-1.5); Oxygen Saturation ABG 88.8; PO2 ABG 55.7 mmHg (80.0-100.0); Potassium Level - ABG 4.3 mmol/L (3.5-5.0)
[2021-11-24 11:06] LABS: Alveolar-Arterial Oxygen Gradi 16.3 mmHg (5-10); Blood Gas Sample Site Radial, right; Oxygen Device BIPAP
[2021-11-24 11:12] LABS: Lactic Sepsis W/Reflex 0.7 mmol/L (0.5-2.2)
[2021-11-24 11:33] LABS: Alanine Aminotransferase 8 U/L (0-41); Albumin Level 2.4 g/dL (3.5-5.2); Alkaline Phosphatase 293 IU/L (40-130); Aspartate Amino Transferase 71 U/L (0-40); Blood Urea Nitrogen 56 mg/dL (8-23); Calcium 7.9 mg/dL (8.5-10.5); Carbon Dioxide 17 mmol/L (22-29); Chloride 105 mmol/L (98-107); Complement C3 118 mg/dL (90-180); Globulin 3.1 g/dL (1.3-4.6); Glucose 153 mg/dL (65-115); Osmolality Calculated 305 mOsm/kg (285-295); Sodium 138 mmol/L (136-145); Total Bilirubin 0.4 mg/dL (0.15-1.2); Total Protein 5.5 g/dL (6.6-8.7)
[2021-11-24 11:35] LABS: Creatine Phosphokinase 1351 U/L (39-308)
--- NOTE | 2021-11-24 11:45 | XRR_ITS ---
PROCEDURE INFORMATION: Exam: XR Chest Exam date and time: 11/24/2021 12:14 PM Age: 76 years old Clinical indication: Condition or disease; Lung condition and disease; Respiratory distress; Shortness of breath; Additional info: SOB, resp distress TECHNIQUE: Imaging protocol: XR of the chest. Views: 1 view. COMPARISON: CR (CHEST, ) 11/22/2021 4:49 AM FINDINGS: Tubes, catheters and devices: There is an electronic stimulator wire in place in the mid dorsal spine. Lungs: Unremarkable. No consolidation. Pleural spaces: Unremarkable. No pleural effusion. No pneumothorax. Heart/Mediastinum: Unremarkable. No cardiomegaly. Bones/joints: For metallic hardware is present in the lumbar spine.. XR/XR chest 1V portable [id number] IMPRESSION: 1. No acute findings. 2. Electronic stimulator mid dorsal spine. 3. Metallic hardware lumbar spine
[2021-11-24 11:51] LABS: Vancomycin Random 26.2 ug/mL (20.0-40.0)
[2021-11-24] MEDS: FUROsemide 10 mg/mL SDV 10mL 80 MG IVP (12:19)
[2021-11-24 13:31] LABS: ABG PCO2 55.1 mmHg (35-45); ABG PH Result 7.25 (7.35-7.45); Alveolar-Arterial Oxygen Gradi 14.8 mmHg (5-10); Arterial Blood Gas Hematocrit 20.7 % (42-52); Blood Gas Allen Test Pos; Blood Gas Sample Site Radial, right; Blood Gas Sample Type Arterial; Carboxyhemoglobin 1.3 %THgb (0.4-20.1); HCO3 ABG 24.1 mmol/L (22-26); HGB O2 Sat 92.2 % (95-100); Methemoglobin 0.5 % (0.4-1.5); Oxygen Device BIPAP; Oxygen Saturation ABG 93.9; PO2 ABG 67.3 mmHg (80.0-100.0); Potassium Level - ABG 4.3 mmol/L (3.5-5.0); Total Hemoglobin 6.8 g/dL (14-18)
--- NOTE | 2021-11-24 14:02 | USCV_ITS ---
LE Venous Duplex BILATERAL Abdiel Duran Age: 76 Gender: M : 1945 Exam Date: 11/24/2021 20:54 Ordering Phys: Abelardo Gonzalez MD Technologist: TRAM [place] [facility] [place]ication: R/O DVT PROCEDURES: Venous duplex imaging was performed in bilateral lower extremities. The following venous structures were evaluated: common femoral vein, profunda vein, proximal portion of the greater saphenous vein, superficial femoral vein, and the popliteal vein. In addition, the posterior tibial and peroneal trunk were evaluated. Serial compression, augmentation maneuvers, and spectral Doppler flow evaluation were performed. FINDINGS: The veins were found to be easily compressible bilaterally. Multiple echolucent areas are noted bilaterally in the subcutaneous tissue CONCLUSIONS No evidence of DVT in the above-mentioned identifiable veins. Features of extensive edema/fluid retention bilaterally Dr Lupe Du MD [facility] (Electronically Signed) Final Date: 24 November 2021 22:47 S
[2021-11-24] MEDS: sodium chloride 0.9% (100 ml) 100 ML (14:24)
[2021-11-24 15:34] LABS: Hepatitis B Surface AB 3.5 (11.5-1000); Hepatitis B Surface Antigen Non-Reactive (Nonreactive); Hepatitis C Virus Antibody Non-Reactive (Nonreactive)
[2021-11-24] MEDS: heparin, porcine 1,000 unit/mL INJ 10 mL HE (16:18)
--- NOTE | 2021-11-24 16:43 | PM.PN ---
Vitals/I&O/Wt Last Vital Signs Temp 97.8 F 11/24/21 15:47 Pulse 86 11/24/21 16:32 Resp 19 H 11/24/21 16:00 BP 101/64 11/24/21 16:00 Pulse Ox 96 11/24/21 16:32 11/24/21 11/24/21 11/24/21 06:59 14:59 22:59 Intake Total 1002.5 / 2829.5 711.25 / 711.25 359.5 / 1070.75 Balance 1002.5 / 2579.5 711.25 / 711.25 359.5 / 1070.75 Physical Exam Back/Pelvis: OTHER: Severe pain in lower back at times unexpected with repositioning or PROM of lower extremities. Antalgic positioning. Extremity: OTHER: Severe shooting back pain, electric-like down the posterior thigh with straight leg raise on the left side. We did not attempt a right side. Neuro: OTHER: Symmetrical sensation. Denies sensory loss lower extremities to touch. Urinary Catheter Management: Gallardo: Cath Placed During This Visit: yes Reason for Continuing Indwelling Catheter: Accurate Measurement of Urinary Output in Critically Ill Patients Urinary Catheter Date of Insertion: 11/19/21 Urinary Catheter Time of Insertion: 18:07 Data : 11/24/21 10:36 11/24/21 10:36 Micro: Microbiology 11/24/21 10:36 Blood Culture - Preliminary Blood SPECIMEN COLLECTED 11/24/21 10:40 Blood Culture - Preliminary Blood SPECIMEN COLLECTED 11/21/21 23:15 Urine Culture - Final Urine Catheterized A&P Assessment and plan (1) Intractable back pain: Status: Acute (2) Spinal stenosis: Status: Acute (3) Lumbosacral radiculopathy: Status: Acute (4) Unable to ambulate: Status: Acute (5) Acute renal insufficiency: Status: Acute (6) Spondylolisthesis at L3-L4 level: Status: Acute (7) Fever: Status: Acute (8) Hyperkalemia: Status: Acute Plan #Hypovolemic shock: Likely secondary to blood loss during surgery: Cannot conclusively rule out an underlying infection: Blood culture: Negative to date MRSA is negative: Negative Urine culture: Procalcitonin: 1.69 Lactic acid; normal X-ray chest: No infiltrates, no effusion no pneumothorax Currently the plan is to monitor H&H: s/p 5 units PRBC. Continue IV hydration Continue vasopressors as needed Empirically started on Vanco and Zosyn. #Acute renal failure: Likely secondary to ATN secondary to hypotension secondary to acute blood loss. Possible contribution from contrast during CT studies. No NSAID use in the past Kidney US.??Low normal size kidneys. No hydronephrosis or solid mass.Moderate prostate gland encroachment into the bladder. Patient was initially admitted with GETEHA on CKD stage III: On admission serum creatinine was 2.1, progressively improved with IV hydration , unfortunately post surgery, his kidney function started to worsen, currently he developed oliguric renal failure. Renal on board current plan is to put patient on hemodialysis Status post right femoral hemodialysis catheter placement. #Mixed acidosis: Metabolic as well as respiratory: Currently on bicarb drip Monitor BMP Monitor ABG Continue BiPAP #Acute on chronic hypercapnic respiratory failure: Continue BiPAP. DuoNebs Low threshold for intubation Monitor ABG #Acute encephalopathy multifactorial: Hypercapnia-uremia, possible sepsis. CT head without contrast: No acute intracranial pathology Continue to monitor mentation Currently is able to protect the airways. #COPD: #HFpEF : Currently compensated Monitor intake output charting Daily weight K>4,MG>2 #Intractable lower back pain: Secondary to spondylolithiasis : Patient has history of chronic lower back pain for which he has been using spinal stimulator in the past and has seen pain specialist as an outpatient. CT : Lumbar spine:?Diffuse severe spondylosis throughout the lumbar spine, as above. Severe spinal canal stenosis demonstrated at L3-L4 and L4-L5. ?IR myelogram sp lumbar: ?Abrupt termination of the contrast column at the L4 level. Probably combination of disc disease and facet disease and ligamentum flavum disease. Without an MRI with contrast additional mass causing the obstruction would be difficult to exclude. Patient has a known 7 mm nodule at the L4 level which is not responsible for the obstruction. Advanced lumbar spondylosis and degenerative scoliosis. MRI cannot be done due to presence of a spinal stimulator Repeat?CT lumbar spine w con: Severe central stenosis at L4-5 with complete block of the column of contrast. Combination of disc and facet disease. Very similar in appearance to the prior study from 10/12/2019. It would be difficult to exclude a mass at this location. Patient has a known intrathecal nodule measuring 5.5 mm at the L4 level which is stable. Severe subarticular and bilateral foraminal stenosis at L4-5. Moderate to severe LEFT foraminal stenosis at L3-4. Moderate central with [id number] bilateral foraminal stenosis at L5-L6. Mild progression. Advanced multilevel degenerative disc disease with facet arthritis. Current plan is to continue with pain management: MS Contin, morphine, lidocaine patch, Percocet Spine surgery on board: S/P L1-S1 fusion with decompression on 11/21 # Recent GI bleed: continues to hold Pradaxa.? Is on Protonix. #A. fib: Currently in sinus: Was on Cardizem: Currently on hold Heart rate is well controlled Anticoagulation on hold #KERRY: On nightly CPAP #HTN #CODE STATUS: Full code #DVT prophylaxis: On SCDs because of recent history of GI bleed. Attestations Medical Necessity Statement*: Patient is to be in hospital for management of acute renal failure. Time Spent in Patient Care: Greater than 35 minutes (>than 50% of time spent in counselling and/or direct pt care on unit). Critical Care Time: The high probability of a clinically significant, sudden or life threatening deterioration of the patient's [] system(s) required my full and direct attention, intervention and personal management. The critical care time is as shown. 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
--- NOTE | 2021-11-24 17:02 | PM.ACPR ---
Acute Procedures Central Line Placement: Left Femoral: Time out performed: Yes Patient placed on monitor/pulse ox: Yes MD prep: mask, gown and gloves Central line prep: Chlorhexidine scrub Local anesthesia used: lidocaine 1% Ultrasound used for placement: Yes Central line lumen inserted: triple Post procedure: sutured in place, good blood return, all ports aspirated, flushed, capped and sterile dressing applied Patient tolerated procedure: well and no complications
--- NOTE | 2021-11-24 17:03 | P.PCN_ITS ---
Procedure Note: Date of procedure: 11/24/21 Pre-op diagnosis: Acute renal failure Post-op diagnosis: same Procedure Performed: femoral dialysis catheter Procedure: Ultrasound guided placement of 12 [place] 16 cm in length temporary dialysis catheter in right femoral vein. Medications were reviewed to assess for anticoagulant usage is. Risk and benefit and prevention of central line associated bloodstream infections were discussed with the patient and a consent was obtained.Monitors were placed and monitored throughout the procedure. All necessary supplies were available prior to start.Hand hygiene was completed prior to start. Maximum barrier technique was utilized including a sterile gown and sterile gloves hat and mask. Site was prepped with chlorhexidine and a full body drape was placed. 5 mL of 2% lidocaine was injected into the skin with a 25-gauge needle. Both right and left groin was evaluated with ultrasound to change the correct site. Ultrasound-guided right femoral vein stick was obtained in 1 attempt with return of non pulsating venous blood , needle entry into femoral vein was tracked in real-time with ultrasound, there was no intraluminal thrombosis at the access site and femoral vein , access site femoral vein was fully compressible , a guidewire was then threaded at that point , needle was withdrawn , correct placement of guidewire was tracked with ultrasound before any dilation, serial dilation was done , dilator was then taken out , guidewire position was intact , thereafter 12 [place] 16 cm dialysis catheter was introduced, guidewire was removed, Venous and arterial hubs were flushed and retrieved venous blood without difficulty. The catheter was then secured to the skin with sutures Biopatch was applied hep locks were then applied. Patient tolerated the procedure well. Estimated blood loss (mL): 10 Coding Level of Care Code Acute Clinical Exercise Specialist for [facility]
--- NOTE | 2021-11-24 18:11 | PC.NURSE ---
Multiple procedures performed today, left groin central venous line, right groin dialysis line, all performed by Dr. Gonzalez in sterile procedure. Patient currently receiving diaylsis. Amiodorone started due to patient going in and out of afib with RVR, titrate amio gtt to 0.5mg/min at 0000 on 11/25/21.
[2021-11-24 19:18] LABS: ABG PH Result 7.31 (7.35-7.45); Base Excess ABG -3.1 mmol/L (-2.0-2.0); Blood Gas Allen Test Pos; Blood Gas Sample Site Radial, right; Blood Gas Sample Type Arterial; HCO3 ABG 23.1 mmol/L (22-26); Oxygen Device BIPAP; PO2 ABG 83.9 mmHg (80.0-100.0)
[2021-11-25] VITALS (37 sets, daily range): BP systolic 94–153; BP diastolic 39–82; PULSE 82–103; RESP 15–31; TEMP 37–37.9; O2SAT 91–98
[2021-11-25] MEDS: piperacillin-tazobactam 3.375 GM in sodium chloride 0.9% (plus) 50 ML IV ×3 (00:52→17:21)
[2021-11-25] MEDS: ipratropium-albuterol 3 mL Neb INHALATION ×4 (03:12→20:01)
[2021-11-25 03:59] LABS: ABG PCO2 49.3 mmHg (35-45); Alveolar-Arterial Oxygen Gradi 11.5 mmHg (5-10); Base Excess ABG -2.3 mmol/L (-2.0-2.0); Blood Gas Allen Test Pos; Blood Gas Sample Site Radial, right; Blood Gas Sample Type Arterial; Carboxyhemoglobin 1.4 %THgb (0.4-20.1); HCO3 ABG 24.3 mmol/L (22-26); HGB O2 Sat 96.7 % (95-100); Ionized Calcium Level - ABG 1.1 mmol/L (1.1-1.4); Methemoglobin 0.6 % (0.4-1.5); Oxygen Device BIPAP; Oxygen Saturation ABG 98.7; PO2 ABG 98.8 mmHg (80.0-100.0); Potassium Level - ABG 4.2 mmol/L (3.5-5.0); Total Hemoglobin 9.5 g/dL (14-18)
[2021-11-25] MEDS: sodium bicarbonate 150 MEQ in dextrose 5% 1,000 ML 50 MEQ IV (05:17)
[2021-11-25 06:02] LABS: Basophils % 0.2 %; Eosinophils # 0.2 10^3/uL (0.0-0.8); Eosinophils % 1.4 %; Hematocrit 27.2 % (42.0-52.0); Hemoglobin 8.2 g/dL (11.7-16.6); Lymphocytes % 5.8 %; Mean Corpuscular HGB Conc 30.1 g/dL (30.0-36.0); Mean Corpuscular Hemoglobin 27.5 pg (28.0-34.0); Mean Corpuscular Volume 91.3 fl (80-94); Mean Platelet Volume 9.1 fL (7.4-10.4); Monocytes % 6.2 %; Neutrophils # 14.03 10^3/uL (1.8-7.7); Neutrophils % 85.1 %; Nucleated Red Blood Cells % 0 %; Platelet Count 394 10^3/cmm (130-400); Red Blood Count 2.98 10^6/uL (4.1-5.3); Red Cell Distribution Width 16.6 % (12.1-15.1); White Blood Count 16.5 10^3/uL (4.0-10.0)
[2021-11-25 06:22] LABS: Alanine Aminotransferase 7 U/L (0-41); Carbon Dioxide 23 mmol/L (22-29); Chloride 102 mmol/L (98-107); Globulin 3.3 g/dL (1.3-4.6); Sodium 139 mmol/L (136-145); Total Bilirubin 0.5 mg/dL (0.15-1.2)
[2021-11-25 06:37] LABS: Alkaline Phosphatase 312 IU/L (40-130)
[2021-11-25 06:41] LABS: Albumin Level 2.1 g/dL (3.5-5.2); Anion Gap 18.6 (5-19); Blood Urea Nitrogen 51 mg/dL (8-23); Calcium 7.9 mg/dL (8.5-10.5); Glucose 164 mg/dL (65-115); Magnesium 2.7 mg/dL (1.7-2.3); Osmolality Calculated 305 mOsm/kg (285-295); Phosphorus 6.4 mg/dL (2.5-4.5); Potassium 4.6 mmol/L (3.5-5.1); Total Protein 5.4 g/dL (6.6-8.7)
[2021-11-25 06:42] LABS: Aspartate Amino Transferase 73 U/L (0-40)
--- NOTE | 2021-11-25 08:01 | PM.PN ---
Subjective Subjective: POD 4 Patient very somnolent this AM. Moves BLE.. Vitals/I&O/Wt Last Vital Signs Temp 98.6 F 11/25/21 00:00 Pulse 101 H 11/25/21 07:55 Resp 26 H 11/25/21 04:00 BP 115/54 11/25/21 04:00 Pulse Ox 96 11/25/21 07:55 11/24/21 11/25/21 11/25/21 22:59 06:59 14:59 Intake Total 512.5 / 1223.75 1051.784 / 2275.534 50 / 50 Output Total 150 / 150 150 / 300 Balance 362.5 / 1073.75 901.784 / 1975.534 50 / 50 Physical Exam Narrative: Patient appears Somnolent. Mild tenderness around the incisional site with the incision appear to be c/d. No signs of erythema or drainage. No signs of infection. Patient denies any fevers or chills. 4/5 motor strength both lower extremities with negative straight leg raise bilaterally. Calves are supple no medial thigh tenderness. Pulses weak at the dorsalis pedis and posterior tibial region. Good capillary refill throughout normal sensation light touch both lower extremities. Urinary Catheter Management: Gallardo: Cath Placed During This Visit: yes Reason for Continuing Indwelling Catheter: Accurate Measurement of Urinary Output in Critically Ill Patients Urinary Catheter Date of Insertion: 11/19/21 Urinary Catheter Time of Insertion: 18:07 Data : 11/25/21 05:17 11/25/21 05:17 Micro: Microbiology 11/24/21 10:36 Blood Culture - Preliminary Blood SPECIMEN COLLECTED 11/24/21 10:40 Blood Culture - Preliminary Blood SPECIMEN COLLECTED 11/21/21 23:15 Urine Culture - Final Urine Catheterized A&P Assessment and plan (1) Status post lumbar spinal fusion: Physical therapy to continue to mobilize to the chair or around the room when patient is stable. Continue to proceed when medically stable. 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
--- NOTE | 2021-11-25 08:27 | P.PN_ITS ---
Subjective Subjective: Patient was seen and examined this morning, more, awake and oriented today , minimal urine output Noted T-max: 100.3 , H&H is stable at 8.2/27 , AM ABG: pH 7.30 PCO2 49 PO2 98 FiO2 35% , on AVAPS. Blood culture has been negative so far. Medications: Medication Review Details: Generic Name Dose Route Start Last Admin Trade Name Freq PRN Reason Stop Dose Admin Acetaminophen 650 mg 11/16/21 03:50 11/24/21 05:50 Acetaminophen 32 5 Mg Tablet PO 650 mg Q6H PRN Administration Mild/Mod Pain Or Temp >/= 101 Albuterol/Ipratrop ium 3 ml 11/23/21 15:00 11/25/21 14:47 Ipratropium-Albu terol 3 Ml Neb INHALATION 3 ml Q6H.RESPIRATORY S CH Administration Cyclobenzaprine HC l 10 mg 11/16/21 23:13 11/21/21 21:13 Cyclobenzaprine 10 Mg Tablet PO 10 mg TID PRN Administration MUSCLE SPASMS Diltiazem HCl 30 mg 11/22/21 08:30 11/22/21 14:31 Diltiazem 30 Mg Tablet PO 30 mg Q6H PINKY Administration Docusate Sodium 100 mg 11/21/21 18:00 11/25/21 09:09 Docusate Sodium 100 Mg Capsule PO 100 mg BID PINKY Administration Amiodarone HCl 900 mg/ 518 mls @ 0 mls/h r 11/24/21 17:15 11/25/21 00:05 Dextrose/ IV Misce llaneous IV 0.5 mg/min Supplies .Q0M PINKY 17.27 mls/hr Titration Protocol Per Protocol Lactulose 30 gm 11/23/21 15:00 11/25/21 15:11 Lactulose Oral L iq 20 Gm/30 Ml Udc PO 30 gm TID PINKY Administration Levothyroxine Sodi um 50 mcg 11/18/21 08:00 11/25/21 09:09 Levothyroxine 50 Mcg Tablet PO 50 mcg DAILY@0800 PINKY Administration Lidocaine 1 patch 11/16/21 09:00 11/25/21 09:11 Lidocaine 5% Pat ch TOPICAL 1 patch [id number] PINKY Administration Morphine Sulfate 30 mg 11/19/21 18:00 11/25/21 09:11 Morphine Er (12 Hr) 30 Mg Tablet PO Not Given BID [facility] Morphine Sulfate 4 mg 11/20/21 08:09 11/25/21 11:45 Morphine 4 Mg/Ml Sdv 1 Ml IVP 4 mg Q4H PRN Administration SEVERE PAIN Non-Formulary Medi cation 2 puff 11/17/21 09:00 11/25/21 09:12 Tiotropium Bromi de [Spiriva Respim at] INHALATION Not Given DAILY [facility] Ondansetron HCl 4 mg 11/20/21 06:20 11/20/21 07:00 Ondansetron 2 Mg /Ml Sdv 2 Ml IVP 4 mg Q4H PRN Administration NAUSEA AND VOMITI NG Oxycodone/Acetamin ophen 1 tab 11/18/21 14:30 11/21/21 04:00 Oxycodone-Apap 5 -325 Mg Tablet PO 1 tab Q4H PRN Administration MODERATE PAIN Pantoprazole Sodiu m 40 mg 11/20/21 09:00 11/25/21 09:10 Pantoprazole 40 Mg Sdv IVP 40 mg DAILY [facility] Administration Senna/Docusate Sod ium 1 tab 11/20/21 09:00 11/25/21 09:09 Sennosides-Docus ate Tablet PO 1 tab BID [facility] Administration Vitamin D 1,000 unit 11/18/21 08:00 11/25/21 09:09 Cholecalciferol (Vitamin D3) 1,000 Unit Tablet PO 1,000 unit DAILY@0800 [facility] Administration Vitals/I&O/Wt Last Vital Signs Temp 98.6 F 11/25/21 00:00 Pulse 101 H 11/25/21 08:04 Resp 22 H 11/25/21 08:01 BP 115/54 11/25/21 04:00 Pulse Ox 96 11/25/21 08:01 11/24/21 11/25/21 11/25/21 22:59 06:59 14:59 Intake Total 512.5 / 1223.75 1051.784 / 2275.534 50 / 50 Output Total 150 / 150 150 / 300 Balance 362.5 / 1073.75 901.784 / 1975.534 50 / 50 Physical Exam Const: COMMON NORMALS: patient oriented x3 HENMT: COMMON NORMALS: normocephalic, atraumatic, hearing grossly normal bilaterally and external ears normal HEAD & SCALP: normocephalic and atra umatic EXTERNAL EAR: Yes external ears normal Eye: COMMON NORMALS: no scleral icterus GENERAL EYE: appearance normal, both eyes and all related structures Chest: COMMONS NORMALS: normal inspection of the chest and normal palpation of entire chest wall CHEST: Yes Symmetrical chest wall rise Resp: COMMON NORMALS: normal respiratory effort, No retractions, No use of accessory muscles and clear to auscultation bilaterally EFFORT & INSPECTION: Yes symmetric chest movement AUSCULTATION: clear to auscultation bilaterally Cardio: COMMON NORMALS: regular rate, regular rhythm, S1 normal heart sound present, S2 normal heart sound present, No gallops present (Cardio), No murmurs present (Cardio), No rub (Cardio) and Peripheral pulses 2+ throughout RATE: regular rate RHYTHM: regular rhythm HEART SOUNDS: S1 normal heart sound present and S2 normal heart sound present PERIPHERAL PULSES: Peripheral pulses 2+ throughout GI: COMMON NORMALS: Normal to inspection, nondistended, normoactive bowel sounds present, Soft to palpation, non-tender, No hepatosplenomegaly present and no masses AUSCULTATION: Yes normoactive bowel sounds PALPATION: Yes Soft to palpation and Yes No hepatosplenomegaly present RECTAL EXAM: Yes deferred Extremity: COMMON NORMALS: no clubbing, cyanosis or edema and no pedal edema Neuro: COMMON NORMALS: patient oriented x3 Urinary Catheter Management: Gallardo: Cath Placed During This Visit: yes Reason for Continuing Indwelling Catheter: Accurate Measurement of Urinary Output in Critically Ill Patients Urinary Catheter Date of Insertion: 11/19/21 Urinary Catheter Time of Insertion: 18:07 Data : 11/25/21 05:17 11/25/21 05:17 Micro: Microbiology 11/24/21 10:36 Blood Culture - Preliminary Blood SPECIMEN COLLECTED 11/24/21 10:40 Blood Culture - Preliminary Blood SPECIMEN COLLECTED 11/21/21 23:15 Urine Culture - Final Urine Catheterized A&P Assessment and plan (1) Intractable back pain: Status: Acute (2) Spinal stenosis: Status: Acute (3) Lumbosacral radiculopathy: Status: Acute (4) Unable to ambulate: Status: Acute (5) Acute renal insufficiency: Status: Acute (6) Spondylolisthesis at L3-L4 level: Status: Acute (7) Fever: Status: Acute (8) Hyperkalemia: Status: Acute Plan #Hypovolemic shock: Likely secondary to blood loss during surgery: Cannot conclusively rule out an underlying infection: Blood culture: Negative to date MRSA is negative: Negative Lower extremity Dopplers were negative for DVT Urine culture: Procalcitonin: 1.69 Lactic acid; normal X-ray chest: No infiltrates, no effusion no pneumothorax Currently the plan is to monitor H&H: s/p 5 units PRBC. Continue IV hydration Continue vasopressors as needed Empirically started on Vanco and Zosyn. #Acute renal failure: Likely secondary to ATN secondary to hypotension secondary to acute blood loss. Possible contribution from contrast during CT studies. No NSAID use in the past Kidney US.??Low normal size kidneys. No hydronephrosis or solid mass.Moderate prostate gland encroachment into the bladder. Patient was initially admitted with GEETHA on CKD stage III: On admission serum creatinine was 2.1, progressively improved with IV hydration , unfortunately post surgery, his kidney function started to worsen, currently he developed oliguric renal failure. Renal on board current plan is to put patient on hemodialysis Status post right femoral hemodialysis catheter placement. #Mixed acidosis: Metabolic as well as respiratory: Currently on bicarb drip Monitor BMP Monitor ABG Continue BiPAP #Acute on chronic hypercapnic respiratory failure: Continue BiPAP. DuoNebs Low threshold for intubation Monitor ABG #Acute encephalopathy multifactorial: Hypercapnia-uremia, possible sepsis. CT head without contrast: No acute intracranial pathology Continue to monitor mentation Currently is able to protect the airways. #COPD: #HFpEF : Currently compensated Monitor intake output charting Daily weight K>4,MG>2 #Intractable lower back pain: Secondary to spondylolithiasis : Patient has history of chronic lower back pain for which he has been using spinal stimulator in the past and has seen pain specialist as an outpatient. CT : Lumbar spine:?Diffuse severe spondylosis throughout the lumbar spine, as above. Severe spinal canal stenosis demonstrated at L3-L4 and L4-L5. ?IR myelogram sp lumbar: ?Abrupt termination of the contrast column at the L4 level. Probably combination of disc disease and facet disease and ligamentum flavum disease. Without an MRI with contrast additional mass causing the obstruction would be difficult to exclude. Patient has a known 7 mm nodule at the L4 level which is not responsible for the obstruction. Advanced lumbar spondylosis and degenerative scoliosis. MRI cannot be done due to presence of a spinal stimulator Repeat?CT lumbar spine w con: Severe central stenosis at L4-5 with complete block of the column of contrast. Combination of disc and facet disease. Very similar in appearance to the prior study from 10/12/2019. It would be difficult to exclude a mass at this location. Patient has a known intrathecal nodule measuring 5.5 mm at the L4 level which is stable. Severe subarticular and bilateral foraminal stenosis at L4-5. Moderate to severe LEFT foraminal stenosis at L3-4. Moderate central with [id number] bilateral foraminal stenosis at L5-L6. Mild progression. Advanced multilevel degenerative disc disease with facet arthritis. Current plan is to continue with pain management: MS Contin, morphine, lidocaine patch, Percocet Spine surgery on board: S/P L1-S1 fusion with decompression on 11/21 # Recent GI bleed: continues to hold Pradaxa.? Is on Protonix. #A. fib: With RVR: Given the soft blood pressure Cardizem has been stopped Patient is currently on amnio drip Anticoagulation on hold due to recent history of GI bleed. #Constipation: Likely narcotic associated X-ray KUB: No acute GI abnormality Patient currently denies any nausea vomiting abdominal pain We will attempt enema today #KERRY: On nightly CPAP #HTN #CODE STATUS: Full code #DVT prophylaxis: On SCDs because of recent history of GI bleed. Attestations Medical Necessity Statement*: Patient is to be in hospital for management of acute renal failure. 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
[2021-11-25] MEDS: lactulose oral liq 20 gm/30 mL UDC 30 GM PO ×2 (09:07→15:11)
[2021-11-25] MEDS: sennosides-docusate Tablet 1 TAB PO (09:09)
[2021-11-25] MEDS: cholecalciferol (vitamin D3) 1,000 unit Tablet 1000 UNIT PO (09:09)
[2021-11-25] MEDS: levothyroxine 50 mcg Tablet PO (09:09)
[2021-11-25] MEDS: docusate sodium 100 mg Capsule PO (09:09)
[2021-11-25] MEDS: pantoprazole 40 mg SDV IVP (09:10)
[2021-11-25] MEDS: lidocaine 5% Patch 1 PATCH TOPICAL (09:11)
[2021-11-25 09:32] LABS: Anti-streptolysin O <50 IU/mL (<200)
--- NOTE | 2021-11-25 11:03 | PM.PN ---
Subjective Subjective: Mr Duran received dialysis yesterday evening. After dialysis was initiated, he developed atrial fibrillation with RVR with unstable hemodynamics. Amiodarone infusion was initiated, his pulse is now well controlled and blood pressure remained stable. Labs look good today, no obvious uremic symptoms. Minimal urine output over the last 24 hours, only 150 mL recorded. Bicarb infusion stopped this morning. Vitals/I&O/Wt Last Vital Signs Temp 100.3 F H 11/25/21 09:00 Pulse 103 H 11/25/21 09:24 Resp 25 H 11/25/21 09:00 BP 120/66 11/25/21 09:00 Pulse Ox 96 11/25/21 09:24 11/24/21 11/25/21 11/25/21 22:59 06:59 14:59 Intake Total 512.5 / 1223.75 1051.784 / 2275.534 290 / 290 Output Total 150 / 150 150 / 300 Balance 362.5 / 1073.75 901.784 / 1975.534 290 / 290 Weight last 48 hrs Weight 109.316 kg Physical Exam Urinary Catheter Management: Gallardo: Cath Placed During This Visit: yes Reason for Continuing Indwelling Catheter: Accurate Measurement of Urinary Output in Critically Ill Patients Urinary Catheter Date of Insertion: 11/19/21 Urinary Catheter Time of Insertion: 18:07 Data : 11/25/21 05:17 11/25/21 05:17 Micro: Microbiology 11/24/21 10:36 Blood Culture - Preliminary Blood NEGATIVE TO DATE 11/24/21 10:40 Blood Culture - Preliminary Blood NEGATIVE TO DATE 11/21/21 23:15 Urine Culture - Final Urine Catheterized A&P Assessment and plan (1) Acute renal insufficiency: 1. Acute kidney injury Oliguric GEETHA, likely ATN. No acute indication for dialysis today, however, if FiO2 needs increased through this afternoon/pulmonary edema seen on chest x-ray I will dialyze him with an attempt to pull off some volume. A.m. labs Strict I's and O's Avoid use nephrotoxic agents. 2. Chemistry Looks well-balanced now, bicarb infusion now stopped. Close monitoring of serum chemistry over the next few days. 3. Hemodynamics A. fib with RVR now rate controlled on amiodarone infusion 4. 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
[2021-11-25] MEDS: morphine 4 mg/mL SDV 1 mL IVP (11:45)
--- NOTE | 2021-11-25 12:40 | XRR_ITS ---
PROCEDURE INFORMATION: Exam: XR Abdomen Exam date and time: 11/25/2021 12:52 PM Age: 76 years old Clinical indication: Other: Distended abdomen/no bowel movement TECHNIQUE: Imaging protocol: XR of the abdomen. Views: Frontal supine view of the abdomen. 1 View. COMPARISON: CT angio abdomen pelvis [id number] 11/11/2021 4:52 PM FINDINGS: Tubes, catheters and devices: Electronic stimulator wire is seen extending into the dorsal spine. Gastrointestinal tract: There is moderate dilatation of the transverse colon. No evidence of bowel obstruction. Bones/joints: Extensive orthopedic hardware is seen throughout the lumbar spine extending to the iliac bones. XR/XR KUB portable [id number] IMPRESSION: 1. No acute GI abnormality 2. Metallic orthopedic hardware lumbar spine. 3. Electronic stimulator extending into the dorsal spine
--- NOTE | 2021-11-25 18:14 | PC.NURSE ---
Pt resting in bed. Intermittent confusion noted. Remains on bipap. Soap suds enema given earlier with excellent results. VSS. No other issues noted. Will monitor.
[2021-11-26] VITALS (36 sets, daily range): BP systolic 100–134; BP diastolic 61–81; PULSE 72–97; RESP 14–27; TEMP 36.6; O2SAT 94–99; BMI 35.3
--- NOTE | 2021-11-26 | CTR_ITS ---
PROCEDURE INFORMATION: Exam: CT Head Without Contrast Exam date and time: 11/26/2021 12:36 AM Age: 76 years old Clinical indication: Altered mental status/memory loss and visual disturbance; Patient HX: Increased confusion/unresponsiveness. Uneven pupils. ; Additional info: Pupil change TECHNIQUE: Imaging protocol: Computed tomography of the head without contrast. Radiation optimization: All CT scans at this facility use at least one of these dose optimization techniques: automated exposure control; mA and/or kV adjustment per patient size (includes targeted exams where dose is matched to clinical indication); or iterative reconstruction. COMPARISON: CT head wo con* [id number] 11/24/2021 10:15 AM RADIATION DOSE METRICS: Total DLP (mGy-cm): 1627.61 FINDINGS: Brain: No acute intracranial hemorrhage or mass effect. There is decreased attenuation in the periventricular white matter, likely from microvascular disease. No definite acute infarct by CT. MRI could be more sensitive/specific for detection, as clinically directed. Cerebral ventricles: Ventricle size is normal for age. Paranasal sinuses: Included paranasal sinuses are essentially clear. Mastoid air cells: No significant acute finding. Vasculature: Vascular calcifications in the internal carotid and vertebral basilar systems. As before, there is diffuse ectasia of the vertebral and basilar arteries. Bones/joints: No definite acute skull fracture. Soft tissues: No significant acute finding. CT/CT head wo con* [id number] IMPRESSION: 1. No acute intracranial hemorrhage or mass effect. 2. Changes of microvascular disease. 3. No definite acute infarct by CT, see above. 4. Other findings discussed above.
[2021-11-26] MEDS: LORazepam 2 mg/mL INJ 1 mL IVP (00:22)
[2021-11-26] MEDS: ipratropium-albuterol 3 mL Neb INHALATION ×4 (02:53→20:02)
[2021-11-26 03:16] LABS: ABG PCO2 52.1 mmHg (35-45); ABG PH Result 7.26 (7.35-7.45); Alveolar-Arterial Oxygen Gradi 11.8 mmHg (5-10); Arterial Blood Gas Hematocrit 25.6 % (42-52); Blood Gas Allen Test Pos; Blood Gas Sample Site Radial, right; Blood Gas Sample Type Arterial; Carboxyhemoglobin 1.2 %THgb (0.4-20.1); HCO3 ABG 23.1 mmol/L (22-26); HGB O2 Sat 95.7 % (95-100); Ionized Calcium Level - ABG 1.1 mmol/L (1.1-1.4); Methemoglobin 0.1 % (0.4-1.5); Oxygen Device BIPAP; PO2 ABG 91.3 mmHg (80.0-100.0); Potassium Level - ABG 4.1 mmol/L (3.5-5.0); Total Hemoglobin 8.4 g/dL (14-18)
[2021-11-26 05:03] LABS: Basophils # 0.1 10^3/uL (0.0-0.1); Basophils % 0.4 %; Eosinophils # 0.3 10^3/uL (0.0-0.8); Eosinophils % 1.7 %; Hematocrit 27.4 % (42.0-52.0); Hemoglobin 8.3 g/dL (11.7-16.6); Lymphocytes # 1.1 10^3/uL (0.8-4.8); Lymphocytes % 7.1 %; Mean Corpuscular HGB Conc 30.3 g/dL (30.0-36.0); Mean Corpuscular Hemoglobin 27.9 pg (28.0-34.0); Mean Corpuscular Volume 91.9 fl (80-94); Mean Platelet Volume 8.6 fL (7.4-10.4); Monocytes # 0.8 10^3/uL (0.2-0.9); Monocytes % 5.4 %; Neutrophils # 13.16 10^3/uL (1.8-7.7); Neutrophils % 83.9 %; Nucleated Red Blood Cells % 0 %; Platelet Count 397 10^3/cmm (130-400); Red Blood Count 2.98 10^6/uL (4.1-5.3); Red Cell Distribution Width 16.2 % (12.1-15.1); White Blood Count 15.7 10^3/uL (4.0-10.0)
[2021-11-26 05:35] LABS: Alanine Aminotransferase < 5 U/L (0-41); Albumin Level 2.3 g/dL (3.5-5.2); Alkaline Phosphatase 314 IU/L (40-130); Anion Gap 19.2 (5-19); Aspartate Amino Transferase 46 U/L (0-40); Blood Urea Nitrogen 58 mg/dL (8-23); Calcium 8.3 mg/dL (8.5-10.5); Carbon Dioxide 22 mmol/L (22-29); Chloride 103 mmol/L (98-107); Globulin 3.4 g/dL (1.3-4.6); Glucose 139 mg/dL (65-115); Magnesium 2.8 mg/dL (1.7-2.3); Osmolality Calculated 308 mOsm/kg (285-295); Potassium 4.2 mmol/L (3.5-5.1); Sodium 140 mmol/L (136-145); Total Bilirubin 0.3 mg/dL (0.15-1.2); Total Protein 5.7 g/dL (6.6-8.7)
[2021-11-26 06:20] LABS: Phosphorus 7.8 mg/dL (2.5-4.5)
[2021-11-26] MEDS: piperacillin-tazobactam 3.375 GM in sodium chloride 0.9% (plus) 50 ML IV ×2 (07:39→18:33)
--- NOTE | 2021-11-26 08:51 | PM.PN ---
Subjective Subjective: on bipap in icu. Medications: Reviewed: Yes Medication Review Details: Current Medications Acetaminophen (Acetaminophen 325 Mg Tablet) 650 mg PO Q6H PRN PRN Reason: Mild/Mod Pain Or Temp >/= 101 Last Admin: 11/24/21 05:50 Dose: 650 mg Documented by: Albuterol/Ipratropium (Ipratropium-Albuterol 3 Ml Neb) 3 ml INHALATION Q6H.RESPIRATORY PINKY Last Admin: 11/26/21 08:08 Dose: 3 ml Documented by: Calcium Acetate (Calcium Acetate 667 Mg Capsule) 1,334 mg PO TIDWM PINKY Last Admin: 11/26/21 08:47 Dose: Not Given Documented by: Cyclobenzaprine HCl (Cyclobenzaprine 10 Mg Tablet) 10 mg PO TID PRN PRN Reason: MUSCLE SPASMS Last Admin: 11/21/21 21:13 Dose: 10 mg Documented by: Diltiazem HCl (Diltiazem 30 Mg Tablet) 30 mg PO Q6H PINKY Last Admin: 11/22/21 14:31 Dose: 30 mg Documented by: Docusate Sodium (Docusate Sodium 100 Mg Capsule) 100 mg PO BID [facility] Last Admin: 11/26/21 08:47 Dose: Not Given Documented by: Norepinephrine Bitartrate 4 mg (/ Dextrose) 254 mls @ 0 mls/hr IV .Q0M PINKY; Protocol Vancomycin/PEG/NADA/Lysine/Water (Vancocin) 1,500 mg in 300 mls @ 200 mls/hr IV Q48H PINKY Albumin Human (Albumin) 12.5 gm in 50 mls @ 60 mls/hr IV PRN PRN PRN Reason: Hypotension and/or symptomatic Norepinephrine Bitartrate 8 mg (/ Dextrose) 508 mls @ 0 mls/hr IV .Q0M PINKY; Protocol Amiodarone HCl 900 mg/Dextrose/ IV Miscellaneous Supplies 518 mls @ 0 mls/hr IV .Q0M PINKY; Protocol Last Admin: 11/25/21 10:45 Dose: 0.5 mg/min, 17.27 mls/hr Documented by: Piperacillin Sod/Tazobactam (Sod 3.375 gm/ Sodium Chloride) 50 mls @ 12.5 mls/hr IV Q12H PINKY; Protocol Last Admin: 11/26/21 07:39 Dose: 12.5 mls/hr Documented by: Lactulose (Lactulose Oral Liq 20 Gm/30 Ml Udc) 30 gm PO TID [facility] Last Admin: 11/26/21 08:47 Dose: Not Given Documented by: Levothyroxine Sodium (Levothyroxine 50 Mcg Tablet) 50 mcg PO DAILY@0800 [facility] Last Admin: 11/26/21 08:47 Dose: Not Given Documented by: Lidocaine (Lidocaine 5% Patch) 1 patch TOPICAL [id number] [facility] Last Admin: 11/25/21 20:53 Dose: Not Given Documented by: Magnesium Hydroxide (Magnesium Hydroxide 30 Ml Udc) 30 ml PO Q4H PRN PRN Reason: Constipation/indigestion Metoprolol Tartrate (Metoprolol Tartrate 1 Mg/1 Ml Sdv 5 Ml) 5 mg IVP Q4H PRN PRN Reason: Tachycardia Non-Formulary Medication (Tiotropium [place] [Spiriva Respimat]) 2 puff INHALATION DAILY [facility] Last Admin: 11/25/21 09:12 Dose: Not Given Documented by: Ondansetron HCl (Ondansetron 2 Mg/Ml Sdv 2 Ml) 4 mg IVP Q4H PRN PRN Reason: NAUSEA AND VOMITING Last Admin: 11/20/21 07:00 Dose: 4 mg Documented by: Ondansetron HCl (Ondansetron 2 Mg/Ml Sdv 2 Ml) 4 mg IVP Q6H PRN PRN Reason: NAUSEA AND VOMITING Pantoprazole Sodium (Pantoprazole 40 Mg Sdv) 40 mg IVP DAILY [facility] Last Admin: 11/25/21 09:10 Dose: 40 mg Documented by: Senna/Docusate Sodium (Sennosides-Docusate Tablet) 1 tab PO BID [facility] Last Admin: 11/26/21 08:47 Dose: Not Given Documented by: Vitamin D (Cholecalciferol (Vitamin D3) 1,000 Unit Tablet) 1,000 unit PO DAILY@0800 [facility] Last Admin: 11/26/21 08:47 Dose: Not Given Documented by: Vitals/I&O/Wt Last Vital Signs Temp 97.8 F 11/26/21 08:37 Pulse 86 11/26/21 08:15 Resp 22 H 11/26/21 08:14 BP 107/61 11/26/21 08:00 Pulse Ox 97 04/13/22 08:15 11/25/21 11/26/21 11/26/21 22:59 06:59 14:59 Intake Total 250 / 774.213 100 / 874.213 0 / 0 Output Total 200 / 200 220 / 420 Balance 50 / 574.213 -120 / 454.213 0 / 0 Weight last 48 hrs Weight 111.64 kg Weight 109.316 kg Physical Exam Narrative: in ICU on amiodarone drip on bipap heent- nc/at, eomi neck supple lungs- crackles b/l heart -rrr, + s1, s2 abd soft, nt, nd, + bs ext b/l edema neuro- lethargic and confused Urinary Catheter Management: Gallardo: Cath Placed During This Visit: yes Reason for Continuing Indwelling Catheter: Accurate Measurement of Urinary Output in Critically Ill Patients Urinary Catheter Date of Insertion: 11/19/21 Urinary Catheter Time of Insertion: 18:07 Data : 11/26/21 04:36 11/26/21 04:36 Micro: Microbiology 11/24/21 10:36 Blood Culture - Preliminary Blood NEGATIVE TO DATE 11/24/21 10:40 Blood Culture - Preliminary Blood NEGATIVE TO DATE A&P Assessment and plan (1) Acute renal insufficiency: 76 yr old man s/p Spinal Fusion L1-Pelvis fusion and Lumbar Spine Decompression L3-S1. Surgery complicated by bleed. Post-op hypotension 1. GEETHA- likely ATN -from hypotension, NSAID use, and recent CT w/ contrast on 11-18-21 -check ck, c3, c4= eval for possible rhabdo -will attempt hd again - 3.5 hrs, remove 1.5l 2. AMS - likely from meds and sepsis- dec pain meds 4. resp and met acidosis- 5. anemia- monitor hgb- start sandrine 6. a fib controlled on amio seen and examined w/ RN- telehealth visit -time spent 30 min Status: Acute Plan see above Attestations Medical Necessity Statement*: icu on bipap Time Spent in Patient Care: 16 - 35 minutes (>than 50% of time spent in counselling and/or direct pt care on unit). 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
[2021-11-26] MEDS: pantoprazole 40 mg SDV IVP (09:29)
[2021-11-26] MEDS: lidocaine 5% Patch 1 PATCH TOPICAL (09:30)
--- NOTE | 2021-11-26 12:02 | P.PN_ITS ---
Subjective Subjective: POD 5 Patient on BiPAP awakes when talking to but very lethargic. He does follow commands wiggles his toes bends his knees up. Vitals/I&O/Wt Last Vital Signs Temp 97.8 F 11/26/21 08:37 Pulse 85 11/26/21 10:13 Resp 22 H 11/26/21 08:14 BP 107/61 11/26/21 08:00 Pulse Ox 98 11/26/21 10:13 11/25/21 11/26/21 11/26/21 22:59 06:59 14:59 Intake Total 250 / 774.213 100 / 874.213 0 / 0 Output Total 200 / 200 220 / 420 Balance 50 / 574.213 -120 / 454.213 0 / 0 Weight last 48 hrs Weight 246 lb 2 oz Weight 241 lb Physical Exam Narrative: Patient appears Somnolent.? ? Mild tenderness around the incisional site with the incision appear to be c/d.? No signs of erythema or drainage.? No signs of infection.? Patient denies any fevers or chills.? 4/5 motor strength both lower extremities with negative straight leg raise bilaterally.? Calves are supple no medial thigh tenderness.? Pulses weak at the dorsalis pedis and posterior tibial region.? Good capillary refill throughout normal sensation light touch both lower extremities. Urinary Catheter Management: Gallardo: Cath Placed During This Visit: yes Reason for Continuing Indwelling Catheter: Accurate Measurement of Urinary Output in Critically Ill Patients Urinary Catheter Date of Insertion: 11/19/21 Urinary Catheter Time of Insertion: 18:07 Data : 11/26/21 04:36 11/26/21 04:36 Micro: Microbiology 11/24/21 10:36 Blood Culture - Preliminary Blood NEGATIVE TO DATE 11/24/21 10:40 Blood Culture - Preliminary Blood NEGATIVE TO DATE A&P Assessment and plan (1) Status post lumbar spinal fusion: Continue SCDs on both lower extremities. Continue physical therapy for active assist passive range of motion of his legs. 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
[2021-11-26] MEDS: heparin, porcine 1,000 unit/mL INJ 10 mL HE (13:18)
--- NOTE | 2021-11-26 14:23 | PC.SOCIAL ---
IMM Update IMM updated with patient. Verbalized an understanding. Copy Pg 2 provided. Initialled, dated, timed, and placed in chart.
--- NOTE | 2021-11-26 16:31 | PM.PN ---
Subjective Subjective: Patient was seen and examined this morning, more, awake and oriented today , minimal urine output Has remained Afebrile overnight. Blood culture has been negative so far. Repeat head CT was done last night: 4 likely pupillary asymmetry: No acute intracranial hemorrhage. Medications: Medication Review Details: Generic Name Dose Route Start Last Admin Trade Name Tdq PRN Reason Stop Dose Admin Acetaminophen 650 mg 11/16/21 03:50 11/24/21 05:50 Acetaminophen 32 5 Mg Tablet PO 650 mg Q6H PRN Administration Mild/Mod Pain Or Temp >/= 101 Albuterol/Ipratrop ium 3 ml 11/23/21 15:00 11/25/21 14:47 Ipratropium-Albu terol 3 Ml Neb INHALATION 3 ml Q6H.RESPIRATORY S CH Administration Cyclobenzaprine HC l 10 mg 11/16/21 23:13 11/21/21 21:13 Cyclobenzaprine 10 Mg Tablet PO 10 mg TID PRN Administration MUSCLE SPASMS Diltiazem HCl 30 mg 11/22/21 08:30 11/22/21 14:31 Diltiazem 30 Mg Tablet PO 30 mg Q6H PINKY Administration Docusate Sodium 100 mg 11/21/21 18:00 11/25/21 09:09 Docusate Sodium 100 Mg Capsule PO 100 mg BID PINKY Administration Amiodarone HCl 900 mg/ 518 mls @ 0 mls/h r 11/24/21 17:15 11/25/21 00:05 Dextrose/ IV Misce llaneous IV 0.5 mg/min Supplies .Q0M PINKY 17.27 mls/hr Titration Protocol Per Protocol Lactulose 30 gm 11/23/21 15:00 11/25/21 15:11 Lactulose Oral L iq 20 Gm/30 Ml Udc PO 30 gm TID PINKY Administration Levothyroxine Sodi um 50 mcg 11/18/21 08:00 11/25/21 09:09 Levothyroxine 50 Mcg Tablet PO 50 mcg DAILY@0800 PINKY Administration Lidocaine 1 patch 11/16/21 09:00 11/25/21 09:11 Lidocaine 5% Pat ch TOPICAL 1 patch [id number] PINKY Administration Morphine Sulfate 30 mg 11/19/21 18:00 11/25/21 09:11 Morphine Er (12 Hr) 30 Mg Tablet PO Not Given BID PINKY Morphine Sulfate 4 mg 11/20/21 08:09 11/25/21 11:45 Morphine 4 Mg/Ml Sdv 1 Ml IVP 4 mg Q4H PRN Administration SEVERE PAIN Non-Formulary Medi cation 2 puff 11/17/21 09:00 11/25/21 09:12 Tiotropium Bromi de [Spiriva Respim at] INHALATION Not Given DAILY [facility] Ondansetron HCl 4 mg 11/20/21 06:20 11/20/21 07:00 Ondansetron 2 Mg /Ml Sdv 2 Ml IVP 4 mg Q4H PRN Administration NAUSEA AND VOMITI NG Oxycodone/Acetamin ophen 1 tab 11/18/21 14:30 11/21/21 04:00 Oxycodone-Apap 5 -325 Mg Tablet PO 1 tab Q4H PRN Administration MODERATE PAIN Pantoprazole Sodiu m 40 mg 11/20/21 09:00 11/25/21 09:10 Pantoprazole 40 Mg Sdv IVP 40 mg DAILY [facility] Administration Senna/Docusate Sod ium 1 tab 11/20/21 09:00 11/25/21 09:09 Sennosides-Docus ate Tablet PO 1 tab BID [facility] Administration Vitamin D 1,000 unit 11/18/21 08:00 11/25/21 09:09 Cholecalciferol (Vitamin D3) 1,000 Unit Tablet PO 1,000 unit DAILY@0800 PINKY Administration Vitals/I&O/Wt Last Vital Signs Temp 97.8 F 11/26/21 08:37 Pulse 75 11/26/21 13:48 Resp 23 H 11/26/21 13:48 BP 124/67 11/26/21 12:00 Pulse Ox 95 11/26/21 13:48 11/26/21 11/26/21 11/26/21 06:59 14:59 22:59 Intake Total 100 / 874.213 50 / 50 Output Total 220 / 420 Balance -120 / 454.213 50 / 50 Weight last 48 hrs Weight 111.64 kg Weight 109.316 kg Physical Exam Const: COMMON NORMALS: patient oriented x3 HENMT: COMMON NORMALS: normocephalic, atraumatic, hearing grossly normal bilaterally and external ears normal HEAD & SCALP: normocephalic and atraumatic EXTERNAL EAR: Yes external ears normal Eye: COMMON NORMALS: no scleral icterus GENERAL EYE: appearance normal, both eyes and all related structures Chest: COMMONS NORMALS: normal inspection of the chest and normal palpation of entire chest wall CHEST: Yes Symmetrical chest wall rise Resp: COMMON NORMALS: normal respiratory effort, No retractions, No use of accessory muscles and clear to auscultation bilaterally EFFORT & INSPECTION: Yes symmetric chest movement AUSCULTATION: clear to auscultation bilaterally Cardio: COMMON NORMALS: regular rate, regular rhythm, S1 normal heart sound present, S2 normal heart sound present, No gallops present (Cardio), No murmurs present (Cardio), No rub (Cardio) and Peripheral pulses 2+ throughout RATE: regular rate RHYTHM: regular rhythm HEART SOUNDS: S1 normal heart sound present and S2 normal heart sound present PERIPHERAL PULSES: Peripheral pulses 2+ throughout GI: COMMON NORMALS: Normal to inspection, nondistended, normoactive bowel sounds present, Soft to palpation, non-tender, No hepatosplenomegaly present and no masses AUSCULTATION: Yes normoactive bowel sounds PALPATION: Yes Soft to palpation and Yes No hepatosplenomegaly present RECTAL EXAM: Yes deferred Back/Pelvis: OTHER: Severe pain in lower back at times unexpected with repositioning or PROM of lower extremities. Antalgic positioning. Extremity: COMMON NORMALS: no clubbing, cyanosis or edema and no pedal edema OTHER: Severe shooting back pain, electric-like down the posterior thigh with straight leg raise on the left side. We did not attempt a right side. Neuro: COMMON NORMALS: patient oriented x3 OTHER: Symmetrical sensation. Denies sensory loss lower extremities to touch. Urinary Catheter Management: Gallardo: Cath Placed During This Visit: yes Reason for Continuing Indwelling Catheter: Accurate Measurement of Urinary Output in Critically Ill Patients Urinary Catheter Date of Insertion: 11/19/21 Urinary Catheter Time of Insertion: 18:07 Data : 11/26/21 04:36 11/26/21 04:36 A&P Assessment and plan (1) Intractable back pain: Status: Acute (2) Spinal stenosis: Status: Acute (3) Lumbosacral radiculopathy: Status: Acute (4) Unable to ambulate: Status: Acute (5) Acute renal insufficiency: Status: Acute (6) Spondylolisthesis at L3-L4 level: Status: Acute (7) Fever: Status: Acute (8) Hyperkalemia: Status: Acute Plan #Hypovolemic shock: Likely secondary to blood loss during surgery: Cannot conclusively rule out an underlying infection: Blood culture: Negative to date MRSA is negative: Negative Lower extremity Dopplers were negative for DVT Urine culture: Negative Procalcitonin: 1.69 Lactic acid; normal X-ray chest: No infiltrates, no effusion no pneumothorax Currently the plan is to monitor H&H: s/p 5 units PRBC. Continue IV hydration Continue vasopressors as needed Empirically started on Vanco and Zosyn. #Acute renal failure: Likely secondary to ATN secondary to hypotension secondary to acute blood loss. Possible contribution from contrast during CT studies. No NSAID use in the past Kidney US.??Low normal size kidneys. No hydronephrosis or solid mass.Moderate prostate gland encroachment into the bladder. Patient was initially admitted with GEETHA on CKD stage III: On admission serum creatinine was 2.1, progressively improved with IV hydration , unfortunately post surgery, his kidney function started to worsen, currently he developed oliguric renal failure. Renal on board current plan is to put patient on hemodialysis Status post right femoral hemodialysis catheter placement. #Mixed acidosis: Metabolic as well as respiratory: Currently on bicarb drip Monitor BMP Monitor ABG Continue BiPAP #Acute on chronic hypercapnic respiratory failure: Continue BiPAP. DuoNebs Low threshold for intubation Monitor ABG #Acute encephalopathy multifactorial: Hypercapnia-uremia, possible sepsis. CT head without contrast: No acute intracranial pathology Continue to monitor mentation Currently is able to protect the airways. #COPD: #HFpEF : Currently compensated Monitor intake output charting Daily weight K>4,MG>2 #Intractable lower back pain: Secondary to spondylolithiasis : Patient has history of chronic lower back pain for which he has been using spinal stimulator in the past and has seen pain specialist as an outpatient. CT : Lumbar spine:?Diffuse severe spondylosis throughout the lumbar spine, as above. Severe spinal canal stenosis demonstrated at L3-L4 and L4-L5. ?IR myelogram sp lumbar: ?Abrupt termination of the contrast column at the L4 level. Probably combination of disc disease and facet disease and ligamentum flavum disease. Without an MRI with contrast additional mass causing the obstruction would be difficult to exclude. Patient has a known 7 mm nodule at the L4 level which is not responsible for the obstruction. Advanced lumbar spondylosis and degenerative scoliosis. MRI cannot be done due to presence of a spinal stimulator Repeat?CT lumbar spine w con: Severe central stenosis at L4-5 with complete block of the column of contrast. Combination of disc and facet disease. Very similar in appearance to the prior study from 10/12/2019. It would be difficult to exclude a mass at this location. Patient has a known intrathecal nodule measuring 5.5 mm at the L4 level which is stable. Severe subarticular and bilateral foraminal stenosis at L4-5. Moderate to severe LEFT foraminal stenosis at L3-4. Moderate central with [id number] bilateral foraminal stenosis at L5-L6. Mild progression. Advanced multilevel degenerative disc disease with facet arthritis. Current plan is to continue with pain management: MS Contin, morphine, lidocaine patch, Percocet Spine surgery on board: S/P L1-S1 fusion with decompression on 11/21 # Recent GI bleed: continues to hold Pradaxa.? Is on Protonix. #A. fib: With RVR: Given the soft blood pressure Cardizem has been stopped Patient is currently on amnio drip Anticoagulation on hold due to recent history of GI bleed. #Constipation: Likely narcotic associated X-ray KUB: No acute GI abnormality Patient currently denies any nausea vomiting abdominal pain Bowel regimen enema prn #KERRY: On nightly CPAP #HTN #CODE STATUS: Full code #DVT prophylaxis: On SCDs because of recent history of GI bleed. Attestations Medical Necessity Statement*: Patient is to be in hospital for management of acute renal failure. Time Spent in Patient Care: Greater than 35 minutes (>than 50% of time spent in counselling and/or direct pt care on unit). Critical Care Time: The high probability of a clinically significant, sudden or life threatening deterioration of the patient's [] system(s) required my full and direct attention, intervention and personal management. The critical care time is as shown. This time is in addition to time spent performing any reported procedures but includes the following: [x] Data and vital sign review and interpretation [x] Patient assessment, examination and intervention [x] Documentation [x] Medication orders and management Critical Care Time (min): 35 Coding Level of Care Code Acute Aerial Survey Technician for [facility] Fwd Exam Comprehensive Diagnoses Intractable back pain M54.9 Spinal stenosis M48.00 Lumbosacral radiculopathy M54.17 Unable to ambulate R26.2 Acute renal insufficiency N28.9 Spondylolisthesis at L3-L4 level M43.16 Fever R50.9 Hyperkalemia E87.5
[2021-11-26] MEDS: acetaminophen 325 mg Tablet 650 MG PO (18:35)
[2021-11-27] VITALS (33 sets, daily range): BP systolic 110–162; BP diastolic 63–124; PULSE 75–102; RESP 15–30; TEMP 36.4–37.1; O2SAT 89–100
[2021-11-27] MEDS: ipratropium-albuterol 3 mL Neb INHALATION ×4 (02:27→20:35)
--- NOTE | 2021-11-27 02:33 | PC.NURSE ---
Upon cleaning up patient from BM the surgical dressing on mid/lower back is begining to have small amounts of blood around dressing. Will have day shift convey to surgeon during day shift. Also patient has pressure injury to buttocks that is begining to slough off.
[2021-11-27 03:44] LABS: Basophils # 0.1 10^3/uL (0.0-0.1); Basophils % 0.4 %; Eosinophils # 0.3 10^3/uL (0.0-0.8); Hematocrit 27.9 % (42.0-52.0); Hemoglobin 8.3 g/dL (11.7-16.6); Lymphocytes # 1.1 10^3/uL (0.8-4.8); Lymphocytes % 7.7 %; Mean Corpuscular HGB Conc 29.7 g/dL (30.0-36.0); Mean Corpuscular Hemoglobin 27.4 pg (28.0-34.0); Mean Corpuscular Volume 92.1 fl (80-94); Mean Platelet Volume 8.6 fL (7.4-10.4); Monocytes # 0.8 10^3/uL (0.2-0.9); Monocytes % 5.7 %; Neutrophils # 11.35 10^3/uL (1.8-7.7); Neutrophils % 82.7 %; Nucleated Red Blood Cells % 0 %; Platelet Count 440 10^3/cmm (130-400); Red Blood Count 3.03 10^6/uL (4.1-5.3); Red Cell Distribution Width 15.9 % (12.1-15.1); White Blood Count 13.7 10^3/uL (4.0-10.0)
[2021-11-27 04:00] LABS: Alanine Aminotransferase < 5 U/L (0-41); Albumin Level 2.1 g/dL (3.5-5.2); Alkaline Phosphatase 249 IU/L (40-130); Anion Gap 20.3 (5-19); Aspartate Amino Transferase 26 U/L (0-40); Blood Urea Nitrogen 48 mg/dL (8-23); Calcium 8.4 mg/dL (8.5-10.5); Carbon Dioxide 22 mmol/L (22-29); Chloride 100 mmol/L (98-107); Globulin 3.7 g/dL (1.3-4.6); Glucose 130 mg/dL (65-115); Magnesium 2.5 mg/dL (1.7-2.3); Osmolality Calculated 300 mOsm/kg (285-295); Potassium 4.3 mmol/L (3.5-5.1); Sodium 138 mmol/L (136-145); Total Bilirubin 0.3 mg/dL (0.15-1.2); Total Protein 5.8 g/dL (6.6-8.7)
[2021-11-27 04:31] LABS: Vancomycin Random 14.7 ug/mL (20.0-40.0)
[2021-11-27 05:09] LABS: Blood Gas Operator Identificat JB; Blood Gas Sample Type Arterial; Ionized Calcium Level - ABG 1.1 mmol/L (1.1-1.4); Oxygen Device BIPAP; Potassium Level - ABG 4.4 mmol/L (3.5-5.0)
[2021-11-27 05:25] LABS: ABG PCO2 45.5 mmHg (35-45); ABG PH Result 7.33 (7.35-7.45); Alveolar-Arterial Oxygen Gradi 12.6 mmHg (5-10); Arterial Blood Gas Hematocrit 26.3 % (42-52); Blood Gas Sample Site Brachial, right; Carboxyhemoglobin 0.7 %THgb (0.4-20.1); HCO3 ABG 23.9 mmol/L (22-26); HGB O2 Sat 98.1 % (95-100); Methemoglobin < 0.0 % (0.4-1.5); Oxygen Saturation ABG 98.4; PO2 ABG 96.1 mmHg (80.0-100.0); Total Hemoglobin 8.6 g/dL (14-18)
[2021-11-27] MEDS: piperacillin-tazobactam 3.375 GM in sodium chloride 0.9% (plus) 50 ML IV ×2 (05:35→17:32)
[2021-11-27] MEDS: calcium acetate 667 mg Capsule 1334 MG PO ×3 (07:10→17:32)
[2021-11-27] MEDS: levothyroxine 50 mcg Tablet PO (07:12)
[2021-11-27] MEDS: cholecalciferol (vitamin D3) 1,000 unit Tablet 1000 UNIT PO (07:12)
[2021-11-27] MEDS: acetaminophen 325 mg Tablet 650 MG PO ×2 (07:13→12:43)
--- NOTE | 2021-11-27 08:45 | P.PN_ITS ---
Subjective Subjective: POD 6 Patient was evaluated in ICU 7. Nurses present. Patient still confused but improvement in his alertness since yesterday. Appears in no apparent distress. Vitals/I&O/Wt Last Vital Signs Temp 98.7 F 11/27/21 08:00 Pulse 75 11/27/21 08:27 Resp 16 11/27/21 08:27 BP 150/124 11/27/21 08:00 Pulse Ox 97 11/27/21 08:27 11/26/21 11/27/21 11/27/21 22:59 06:59 14:59 Intake Total 50 / 100 60 / 60 Output Total 150 / 150 150 / 300 Balance -100 / -50 -150 / -200 60 / 60 Weight last 48 hrs Weight 246 lb Weight 246 lb 2 oz Weight 241 lb Physical Exam Narrative: Patient appears confused.? ? Mild tenderness around the incisional site with the incision appears with some bloody drainage.? No signs of erythema or drainage.? No signs of infection.? Patient denies any fevers or chills.? 4/5 motor strength both lower extremities with negative straight leg raise bilaterally.? Calves are supple no medial thigh tenderness.? Pulses weak at the dorsalis pedis and posterior tibial region.? Good capillary refill throughout normal sensation light touch both lower extremities. Urinary Catheter Management: Gallardo: Cath Placed During This Visit: yes Reason for Continuing Indwelling Catheter: Accurate Measurement of Urinary Output in Critically Ill Patients Urinary Catheter Date of Insertion: 11/19/21 Urinary Catheter Time of Insertion: 18:07 Data : 11/27/21 03:27 11/27/21 03:27 Micro: Microbiology 11/22/21 02:55 Blood Culture - Final Blood NO GROWTH AFTER 5 DAYS 11/22/21 02:50 Blood Culture - Final Blood NO GROWTH AFTER 5 DAYS A&P Assessment and plan (1) Status post lumbar spinal fusion: Patient remains confused but seems to have improved. Dressing was changed and his lumbar wound with Silverlon application. Status: Acute Attestations Medical Necessity Statement*: defer to medical team Coding Level of Care Code Acute Radiotelephone Technical Operator for [facility] Fwd Diagnoses Status post lumbar spinal fusion Z98.1
--- NOTE | 2021-11-27 08:51 | PM.PN ---
Subjective Subjective: more awake and alert. off pressors. on amio drip. hr controlled Medications: Reviewed: Yes Medication Review Details: Current Medications Acetaminophen (Acetaminophen 325 Mg Tablet) 650 mg PO Q6H PRN PRN Reason: Mild/Mod Pain Or Temp >/= 101 Last Admin: 11/27/21 07:13 Dose: 650 mg Documented by: Albuterol/Ipratropium (Ipratropium-Albuterol 3 Ml Neb) 3 ml INHALATION Q6H.RESPIRATORY PINKY Last Admin: 11/27/21 08:25 Dose: 3 ml Documented by: Calcium Acetate (Calcium Acetate 667 Mg Capsule) 1,334 mg PO TIDWM PINKY Last Admin: 11/27/21 07:10 Dose: 1,334 mg Documented by: Cyclobenzaprine HCl (Cyclobenzaprine 10 Mg Tablet) 10 mg PO TID PRN PRN Reason: MUSCLE SPASMS Last Admin: 11/21/21 21:13 Dose: 10 mg Documented by: Diltiazem HCl (Diltiazem 30 Mg Tablet) 30 mg PO Q6H PINKY Docusate Sodium (Docusate Sodium 100 Mg Capsule) 100 mg PO BID [facility] Last Admin: 11/27/21 08:28 Dose: Not Given Documented by: Norepinephrine Bitartrate 4 mg (/ Dextrose) 254 mls @ 0 mls/hr IV .Q0M PINKY; Protocol Vancomycin/PEG/[place]/Lysine/Water (Vancocin) 1,500 mg in 300 mls @ 200 mls/hr IV Q48H PINKY Albumin Human (Albumin) 12.5 gm in 50 mls @ 60 mls/hr IV PRN PRN PRN Reason: Hypotension and/or symptomatic Norepinephrine Bitartrate 8 mg (/ Dextrose) 508 mls @ 0 mls/hr IV .Q0M PINKY; Protocol Amiodarone HCl 900 mg/Dextrose/ IV Miscellaneous Supplies 518 mls @ 0 mls/hr IV .Q0M PINKY; Protocol Last Admin: 11/25/21 10:45 Dose: 0.5 mg/min, 17.27 mls/hr Documented by: Piperacillin Sod/Tazobactam (Sod 3.375 gm/ Sodium Chloride) 50 mls @ 12.5 mls/hr IV Q12H PINKY; Protocol Last Admin: 11/27/21 05:35 Dose: 12.5 mls/hr Documented by: Levothyroxine Sodium (Levothyroxine 50 Mcg Tablet) 50 mcg PO DAILY@0800 [facility] Last Admin: 11/27/21 07:12 Dose: 50 mcg Documented by: Lidocaine (Lidocaine 5% Patch) 1 patch TOPICAL [id number] [facility] Last Admin: 11/26/21 20:35 Dose: Not Given Documented by: Magnesium Hydroxide (Magnesium Hydroxide 30 Ml Udc) 30 ml PO Q4H PRN PRN Reason: Constipation/indigestion Metoprolol Tartrate (Metoprolol Tartrate 1 Mg/1 Ml Sdv 5 Ml) 5 mg IVP Q4H PRN PRN Reason: Tachycardia Non-Formulary Medication (Tiotropium [place] [Spiriva Respimat]) 2 puff INHALATION DAILY [facility] Last Admin: 11/26/21 09:21 Dose: Not Given Documented by: Ondansetron HCl (Ondansetron 2 Mg/Ml Sdv 2 Ml) 4 mg IVP Q4H PRN PRN Reason: NAUSEA AND VOMITING Last Admin: 11/20/21 07:00 Dose: 4 mg Documented by: Ondansetron HCl (Ondansetron 2 Mg/Ml Sdv 2 Ml) 4 mg IVP Q6H PRN PRN Reason: NAUSEA AND VOMITING Pantoprazole Sodium (Pantoprazole 40 Mg Sdv) 40 mg IVP DAILY [facility] Last Admin: 11/26/21 09:29 Dose: 40 mg Documented by: Senna/Docusate Sodium (Sennosides-Docusate Tablet) 1 tab PO BID [facility] Last Admin: 11/26/21 18:31 Dose: Not Given Documented by: Vitamin D (Cholecalciferol (Vitamin D3) 1,000 Unit Tablet) 1,000 unit PO DAILY@0800 [facility] Last Admin: 11/27/21 07:12 Dose: 1,000 unit Documented by: Vitals/I&O/Wt Last Vital Signs Temp 98.7 F 11/27/21 08:00 Pulse 75 11/27/21 08:27 Resp 16 11/27/21 08:27 BP 150/124 11/27/21 08:00 Pulse Ox 97 11/27/21 08:27 11/26/21 11/27/21 11/27/21 22:59 06:59 14:59 Intake Total 50 / 100 60 / 60 Output Total 150 / 150 150 / 300 Balance -100 / -50 -150 / -200 60 / 60 Weight last 48 hrs Weight 111.584 kg Weight 111.64 kg Weight 109.316 kg Physical Exam Narrative: in ICU on amiodarone drip on nc o2 heent- nc/at, eomi neck supple lungs- improved ir movement b/l heart -rrr, + s1, s2 abd soft, nt, nd, + bs ext b/l edema neuro- more awake and interactive- responsive Urinary Catheter Management: Gallardo: Cath Placed During This Visit: yes Reason for Continuing Indwelling Catheter: Accurate Measurement of Urinary Output in Critically Ill Patients Urinary Catheter Date of Insertion: 11/19/21 Urinary Catheter Time of Insertion: 18:07 Data : 11/27/21 03:27 11/27/21 03:27 Micro: Microbiology 11/22/21 02:55 Blood Culture - Final Blood NO GROWTH AFTER 5 DAYS 11/22/21 02:50 Blood Culture - Final Blood NO GROWTH AFTER 5 DAYS A&P Assessment and plan (1) Acute renal insufficiency: 76 yr old man s/p Spinal Fusion L1-Pelvis fusion and Lumbar Spine Decompression L3-S1. Surgery complicated by bleed. Post-op hypotension 1. GEETHA- likely ATN -from hypotension, NSAID use, and recent CT w/ contrast on 11-18-21 -check ck, c3, c4= eval for possible rhabdo -will start lasix and monitor for renal recovery vs HD needs in am -if needs further HD, will need a new dialysis access. 2. resp and met acidosis- 3. anemia- monitor hgb- start sandrine 4. a fib controlled on amio 5. htn- monitor w/ diuresis 6. poor MS- ct noted. monitor seen and examined w/ RN- telehealth visit -time spent 30 min Status: Acute Plan see above Attestations Medical Necessity Statement*: geetha, ams, spinal fusion Time Spent in Patient Care: 16 - 35 minutes (>than 50% of time spent in counselling and/or direct pt care on unit). 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
[2021-11-27] MEDS: lidocaine 5% Patch 1 PATCH TOPICAL ×2 (10:09→20:49)
[2021-11-27] MEDS: pantoprazole 40 mg SDV IVP (10:09)
[2021-11-27] MEDS: dilTIAZem 30 mg Tablet PO ×3 (10:09→20:49)
[2021-11-27] MEDS: FUROsemide 10 mg/mL SDV 10mL 60 MG IVP ×2 (10:10→20:48)
--- NOTE | 2021-11-27 13:47 | P.PN_ITS ---
Subjective Subjective: Patient was seen and examined this morning, mentation is improving with each passing day, worked with physical therapy today, started on clear liquid diets, remained afebrile in the last 24 hours, Currently maintaining a fairly decent MAP, amiodarone drip has been discontinued, started on p.o. Cardizem Currently anticoagulation is on hold. No need for dialysis today, currently on Lasix 60 twice daily, Close to 700 cc urine output in the last 12 hours, a.m. ABG reviewed, Currently saturating well on 3 L oxygen.Having bowel movements. Medications: Medication Review Details: Generic Name Dose Route Start Last Admin Trade Name Freq PRN Reason Stop Dose Admin Acetaminophen 650 mg 11/16/21 03:50 11/24/21 05:50 Acetaminophen 32 5 Mg Tablet PO 650 mg Q6H PRN Administration Mild/Mod Pain Or Temp >/= 101 Albuterol/Ipratrop ium 3 ml 11/23/21 15:00 11/25/21 14:47 Ipratropium-Albu terol 3 Ml Neb INHALATION 3 ml Q6H.RESPIRATORY S CH Administration Cyclobenzaprine HC l 10 mg 11/16/21 23:13 11/21/21 21:13 Cyclobenzaprine 10 Mg Tablet PO 10 mg TID PRN Administration MUSCLE SPASMS Diltiazem HCl 30 mg 11/22/21 08:30 11/22/21 14:31 Diltiazem 30 Mg Tablet PO 30 mg Q6H PINKY Administration Docusate Sodium 100 mg 11/21/21 18:00 11/25/21 09:09 Docusate Sodium 100 Mg Capsule PO 100 mg BID PINKY Administration Amiodarone HCl 900 mg/ 518 mls @ 0 mls/h r 11/24/21 17:15 11/25/21 00:05 Dextrose/ IV Misce llaneous IV 0.5 mg/min Supplies .Q0M PINKY 17.27 mls/hr Titration Protocol Per Protocol Lactulose 30 gm 11/23/21 15:00 11/25/21 15:11 Lactulose Oral L iq 20 Gm/30 Ml Udc PO 30 gm TID PINKY Administration Levothyroxine Sodi um 50 mcg 11/18/21 08:00 11/25/21 09:09 Levothyroxine 50 Mcg Tablet PO 50 mcg DAILY@0800 PINKY Administration Lidocaine 1 patch 11/16/21 09:00 11/25/21 09:11 Lidocaine 5% Pat ch TOPICAL 1 patch [facility] Administration Morphine Sulfate 30 mg 11/19/21 18:00 11/25/21 09:11 Morphine Er (12 Hr) 30 Mg Tablet PO Not Given BID [facility] Morphine Sulfate 4 mg 11/20/21 08:09 11/25/21 11:45 Morphine 4 Mg/Ml Sdv 1 Ml IVP 4 mg Q4H PRN Administration SEVERE PAIN Non-Formulary Medi cation 2 puff 11/17/21 09:00 11/25/21 09:12 Tiotropium Bromi de [Spiriva Respim at] INHALATION Not Given DAILY [facility] Ondansetron HCl 4 mg 11/20/21 06:20 11/20/21 07:00 Ondansetron 2 Mg /Ml Sdv 2 Ml IVP 4 mg Q4H PRN Administration NAUSEA AND VOMITI NG Oxycodone/Acetamin ophen 1 tab 11/18/21 14:30 11/21/21 04:00 Oxycodone-Apap 5 -325 Mg Tablet PO 1 tab Q4H PRN Administration MODERATE PAIN Pantoprazole Sodiu m 40 mg 11/20/21 09:00 11/25/21 09:10 Pantoprazole 40 Mg Sdv IVP 40 mg DAILY [facility] Administration Senna/Docusate Sod ium 1 tab 11/20/21 09:00 11/25/21 09:09 Sennosides-Docus ate Tablet PO 1 tab BID PINKY Administration Vitamin D 1,000 unit 11/18/21 08:00 11/25/21 09:09 Cholecalciferol (Vitamin D3) 1,000 Unit Tablet PO 1,000 unit DAILY@0800 PINKY Administration Vitals/I&O/Wt Last Vital Signs Temp 98.7 F 11/27/21 08:00 Pulse 75 11/27/21 08:27 Resp 16 11/27/21 08:27 BP 150/124 11/27/21 08:00 Pulse Ox 97 11/27/21 08:27 11/26/21 11/27/21 11/27/21 22:59 06:59 14:59 Intake Total 50 / 100 628 / 628 Output Total 150 / 150 150 / 300 Balance -100 / -50 -150 / -200 628 / 628 Weight last 48 hrs Weight 111.584 kg Weight 111.64 kg Physical Exam HENMT: COMMON NORMALS: normocephalic and atraumatic HEAD & SCALP: normocephalic and atraumatic Chest: COMMONS NORMALS: normal inspection of the chest and normal palpation of entire chest wall CHEST: Yes Symmetrical chest wall rise Resp: COMMON NORMALS: normal respiratory effort, No retractions, No use of accessory muscles and clear to auscultation bilaterally EFFORT & INSPECTION: Yes symmetric chest movement AUSCULTATION: clear to auscultation bilaterally Cardio: COMMON NORMALS: regular rate, regular rhythm, S1 normal heart sound present, S2 normal heart sound present, No gallops present (Cardio), No murmurs present (Cardio), No rub (Cardio) and Peripheral pulses 2+ throughout RATE: regular rate RHYTHM: regular rhythm HEART SOUNDS: S1 normal heart sound present and S2 normal heart sound present PERIPHERAL PULSES: Peripheral pulses 2+ throughout GI: COMMON NORMALS: Normal to inspection, nondistended, normoactive bowel sounds present, Soft to palpation, non-tender, No hepatosplenomegaly present and no masses AUSCULTATION: Yes normoactive bowel sounds PALPATION: Yes Soft to palpation and Yes No hepatosplenomegaly present RECTAL EXAM: Yes deferred Extremity: COMMON NORMALS: no clubbing, cyanosis or edema and no pedal edema Urinary Catheter Management: Gallardo: Cath Placed During This Visit: yes Reason for Continuing Indwelling Catheter: Accurate Measurement of Urinary Output in Critically Ill Patients Urinary Catheter Date of Insertion: 11/19/21 Urinary Catheter Time of Insertion: 18:07 Data : 11/27/21 03:27 11/27/21 03:27 Micro: Microbiology 11/25/21 17:07 Urine Culture - Preliminary Urine Catheterized 11/22/21 02:55 Blood Culture - Final Blood NO GROWTH AFTER 5 DAYS 11/22/21 02:50 Blood Culture - Final Blood NO GROWTH AFTER 5 DAYS A&P Assessment and plan (1) Intractable back pain: Status: Acute (2) Spinal stenosis: Status: Acute (3) Lumbosacral radiculopathy: Status: Acute (4) Unable to ambulate: Status: Acute (5) Acute renal insufficiency: Status: Acute (6) Spondylolisthesis at L3-L4 level: Status: Acute (7) Fever: Status: Acute (8) Hyperkalemia: Status: Acute Plan #Hypovolemic shock: Likely secondary to blood loss during surgery: Cannot conclusively rule out an underlying infection: Blood culture: Negative to date MRSA is negative: Negative Lower extremity Dopplers were negative for DVT Urine culture: Negative Procalcitonin: 1.69 Lactic acid; normal X-ray chest: No infiltrates, no effusion no pneumothorax Currently the plan is to monitor H&H: s/p 5 units PRBC. Continue IV hydration Continue vasopressors as needed Empirically started on Vanco and Zosyn. #Acute renal failure: Likely secondary to ATN secondary to hypotension secondary to acute blood loss. Possible contribution from contrast during CT studies. No NSAID use in the past Kidney US.??Low normal size kidneys. No hydronephrosis or solid mass.Moderate prostate gland encroachment into the bladder. Patient was initially admitted with GEETHA on CKD stage III: On admission serum c reatinine was 2.1, progressively improved with IV hydration , unfortunately post surgery, his kidney function started to worsen, currently he developed oliguric renal failure. Renal on board current plan is to put patient on hemodialysis Status post right femoral hemodialysis catheter placement. #Mixed acidosis: Metabolic as well as respiratory: Currently on bicarb drip Monitor BMP Monitor ABG Continue BiPAP #Acute on chronic hypercapnic respiratory failure: Continue BiPAP. DuoNebs Low threshold for intubation Monitor ABG #Acute encephalopathy multifactorial: Hypercapnia-uremia, possible sepsis. CT head without contrast: No acute intracranial pathology Continue to monitor mentation Currently is able to protect the airways. #COPD: #HFpEF : Currently compensated Monitor intake output charting Daily weight K>4,MG>2 #Intractable lower back pain: Secondary to spondylolithiasis : Patient has history of chronic lower back pain for which he has been using spinal stimulator in the past and has seen pain specialist as an outpatient. CT : Lumbar spine:?Diffuse severe spondylosis throughout the lumbar spine, as above. Severe spinal canal stenosis demonstrated at L3-L4 and L4-L5. ?IR myelogram sp lumbar: ?Abrupt termination of the contrast column at the L4 level. Probably combination of disc disease and facet disease and ligamentum flavum disease. Without an MRI with contrast additional mass causing the obstruction would be difficult to exclude. Patient has a known 7 mm nodule at the L4 level which is not responsible for the obstruction. Advanced lumbar spondylosis and degenerative scoliosis. MRI cannot be done due to presence of a spinal stimulator Repeat?CT lumbar spine w con: Severe central stenosis at L4-5 with complete block of the column of contrast. Combination of disc and facet disease. Very similar in appearance to the prior study from 10/12/2019. It would be difficult to exclude a mass at this location. Patient has a known intrathecal nodule measuring 5.5 mm at the L4 level which is stable. Severe subarticular and bilateral foraminal stenosis at L4-5. Moderate to severe LEFT foraminal stenosis at L3-4. Moderate central with [id number] bilateral foraminal stenosis at L5-L6. Mild progression. Advanced multilevel degenerative disc disease with facet arthritis. Current plan is to continue with pain management: MS Contin, morphine, lidocaine patch, Percocet Spine surgery on board: S/P L1-S1 fusion with decompression on 11/21 # Recent GI bleed: continues to hold Pradaxa.? Is on Protonix. #A. fib: With RVR: Given the soft blood pressure Cardizem has been stopped Patient is currently on amnio drip Anticoagulation on hold due to recent history of GI bleed. #Constipation: Likely narcotic associated X-ray KUB: No acute GI abnormality Patient currently denies any nausea vomiting abdominal pain Bowel regimen enema prn #KERRY: On nightly CPAP #HTN #CODE STATUS: Full code #DVT prophylaxis: On SCDs because of recent history of GI bleed. Attestations Medical Necessity Statement*: Needs to be in hospital for management of renal failure. Time Spent in Patient Care: Greater than 35 minutes (>than 50% of time spent in counselling and/or direct pt care on unit) . Critical Care Time: The high probability of a clinically significant, sudden or life threatening deterioration of the patient's [] system(s) required my full and direct attention, intervention and personal management. The critical care time is as shown. 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
--- NOTE | 2021-11-27 23:32 | PC.NURSE ---
Patient was confused. Wanting to call the police. Asked why he needed the police. He said that we were holding him against his will. Explained to him that he was in the hospital and that he was safe. He didn't believe he was in the hospital. He was getting increasingly agitated and frustrated with staff. Attempted to call , and she did not answer so left a message. Called son in [place] and patient talked to him for approximately 30min. Followed by his calling back and he talked to her for 15min. He is now resting quietly. He still will not let me turn him. Explained that he was developing a bed sore on his bottom and he needed to turn, but he still is refusing.
[2021-11-28] VITALS (35 sets, daily range): BP systolic 116–175; BP diastolic 66–97; PULSE 79–109; RESP 12–31; TEMP 36.9; O2SAT 92–100
[2021-11-28 01:45] LABS: Bilirubin Urine Neg (Negative); Blood Urine 3+ (Negative); Glucose Urine UA Norm (Normal); Ketones Urine Negative (Negative); Leukocyte Esterase Urine 1+ (Negative); Nitrate Urine Negative (Negative); Potassium, Radom Urine 10 mmol/L; Protein Urine Trace (Negative); Urine Appearance Cloudy (CLEAR); Urine Color Yellow (Yellow); Urine Random Chloride 108 mmol/L; Urine Random Sodium 112 mmol/L; Urobilinogen Urine Norm (Negative); pH Urine 5 (5-7)
[2021-11-28 01:46] LABS: Amorphous Sediment Urine TRACE /hpf; Bacteria Urine TRACE /hpf; Coarse Granular Casts Urine 0-4 /lpf; Mucus Urine TRACE /hpf; Squamous Epithelial Cell Urine 0-4 /hpf (0-5)
[2021-11-28 01:47] LABS: Add Urine Culture? Yes
[2021-11-28] MEDS: dilTIAZem 30 mg Tablet PO ×4 (02:35→20:33)
[2021-11-28] MEDS: acetaminophen 325 mg Tablet 650 MG PO ×2 (02:39→11:18)
[2021-11-28] MEDS: ipratropium-albuterol 3 mL Neb INHALATION ×4 (03:25→20:55)
[2021-11-28 05:42] LABS: Alanine Aminotransferase < 5 U/L (0-41); Albumin Level 2.4 g/dL (3.5-5.2); Alkaline Phosphatase 226 IU/L (40-130); Anion Gap 20.1 (5-19); Aspartate Amino Transferase 22 U/L (0-40); Blood Urea Nitrogen 53 mg/dL (8-23); Carbon Dioxide 22 mmol/L (22-29); Chloride 99 mmol/L (98-107); Globulin 3.4 g/dL (1.3-4.6); Glucose 117 mg/dL (65-115); Magnesium 2.4 mg/dL (1.7-2.3); Osmolality Calculated 299 mOsm/kg (285-295); Phosphorus 5.8 mg/dL (2.5-4.5); Potassium 4.1 mmol/L (3.5-5.1); Sodium 137 mmol/L (136-145); Total Bilirubin 0.2 mg/dL (0.15-1.2); Total Protein 5.8 g/dL (6.6-8.7)
[2021-11-28 05:51] LABS: Vancomycin Random 14.7 ug/mL (20.0-40.0)
[2021-11-28] MEDS: piperacillin-tazobactam 3.375 GM in sodium chloride 0.9% (plus) 50 ML IV ×2 (06:01→17:53)
[2021-11-28 06:24] LABS: Basophils # 0.1 10^3/uL (0.0-0.1); Basophils % 0.4 %; Eosinophils # 0.3 10^3/uL (0.0-0.8); Eosinophils % 2.1 %; Hematocrit 28.7 % (42.0-52.0); Hemoglobin 8.6 g/dL (11.7-16.6); Lymphocytes % 7.6 %; Mean Corpuscular Hemoglobin 27.5 pg (28.0-34.0); Mean Corpuscular Volume 91.7 fl (80-94); Mean Platelet Volume 8.5 fL (7.4-10.4); Monocytes # 0.7 10^3/uL (0.2-0.9); Monocytes % 4.8 %; Neutrophils # 11.44 10^3/uL (1.8-7.7); Neutrophils % 83.9 %; Nucleated Red Blood Cells % 0 %; Platelet Count 497 10^3/cmm (130-400); Red Blood Count 3.13 10^6/uL (4.1-5.3); Red Cell Distribution Width 15.7 % (12.1-15.1); White Blood Count 13.6 10^3/uL (4.0-10.0)
--- NOTE | 2021-11-28 07:03 | P.PN_ITS ---
Subjective Subjective: more alert this am Vitals/I&O/Wt Last Vital Signs Temp 98.5 F 11/27/21 20:00 Pulse 91 11/28/21 05:00 Resp 23 H 11/28/21 04:00 BP 147/72 11/28/21 04:00 Pulse Ox 98 11/28/21 03:28 11/27/21 11/28/21 11/28/21 22:59 06:59 14:59 Intake Total 290 / 1318 500 / 1818 Output Total 850 / 850 1350 / 2200 Balance -560 / 468 -850 / -382 Weight last 48 hrs Weight 133 lb 14.4 oz Weight 246 lb Physical Exam Narrative: moving alll 4 extremities in bed Urinary Catheter Management: Gallardo: Cath Placed During This Visit: yes Reason for Continuing Indwelling Catheter: Accurate Measurement of Urinary Output in Critically Ill Patients Urinary Catheter Date of Insertion: 11/19/21 Urinary Catheter Time of Insertion: 18:07 Data : 11/28/21 05:56 11/28/21 04:14 Micro: Microbiology 11/25/21 17:07 Urine Culture - Preliminary Urine Catheterized 11/22/21 02:55 Blood Culture - Final Blood NO GROWTH AFTER 5 DAYS 11/22/21 02:50 Blood Culture - Final Blood NO GROWTH AFTER 5 DAYS A&P Assessment and plan (1) Status post lumbar spinal fusion: up with therapy when ok with primary service Status: Acute Attestations 2 Medical Necessity Statement*: per primary service Coding Level of Care Code 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
[2021-11-28] MEDS: calcium acetate 667 mg Capsule 1334 MG PO ×2 (08:43→17:53)
[2021-11-28] MEDS: cholecalciferol (vitamin D3) 1,000 unit Tablet 1000 UNIT PO (08:44)
[2021-11-28] MEDS: levothyroxine 50 mcg Tablet PO (08:44)
[2021-11-28] MEDS: lidocaine 5% Patch 1 PATCH TOPICAL ×2 (08:44→20:34)
[2021-11-28] MEDS: pantoprazole 40 mg SDV IVP (09:33)
--- NOTE | 2021-11-28 10:50 | PC.CHAP ---
Pastoral Care Encounter/Spiritual Assessment Type of Contact [] Declined senior piping designer visit [] Patient/Family/Request visit [] Outpatient visit [] Follow-up visit [] Physician referral [] Code/Alert [x] Routine visit [] Staff referral [] Actively dying [] Patient sleeping [] Family support [] [] Out of room [] Palliative care [] [] Receiving care in room [] Pre-surgical visit [] Trauma [] Long length of stay x] ICU visit [] Other: Relational/Emotional Strength [] Patient feels connected with others/family/visitors/staff [] Distress [] Loneliness/isolation [] Abandonment Spirituality of Patient [] Person of Allie [] Attends Yarsanism of their Allie [] Believes in Prayer [] Reads Bible or Taoism materials [] There are Spiritual issues to be addressed Grounds And Nursery Specialist Interventions [x] Prayer [] Active listening [] Non-anxious presence [] Spiritual/emotional support [] Crisis/trauma care [] Spiritual counseling [] Bereavement support [] Provided bereavement packet [] Provided Bible/devotional materials [] Provided toy/stuffed animal, coloring book to patient or family member [] Provided Communion [] Anointing/[place] [] Salvation [x] Completed spiritual assessment [] Other: Impact on Illness or Injury [] Angry [] Fearful [] Anxious [] Often cries [] Exhaustion [] Unable to work [] Unable to attend mandaeism [] Unable to walk/stand [] Unable to read [] Unable to drive [] Unable to eat/drink [] Unable to sleep [] Unable to be with family [] Patient intubated [] Other: Summary Time spent with patient
[2021-11-28] MEDS: FUROsemide 10 mg/mL SDV 10mL 60 MG IVP ×2 (11:17→20:34)
--- NOTE | 2021-11-28 12:18 | PM.PN ---
Subjective Subjective: Patient was seen and examined this morning, had some confusion last night likely ICU acquired delirium, Was seen talking to the family members over the phone today in the morning, tolerated clear liquid diet well Will advance the diet to renal diet,good urine output overnight, has remained afebrile, maintaining good maps, WBC count is slowly trending down, cultures have remained negative so far. Medications: Medication Review Details: Generic Name Dose Route Start Last Admin Trade Name Tdq PRN Reason Stop Dose Admin Acetaminophen 650 mg 11/16/21 03:50 11/24/21 05:50 Acetaminophen 32 5 Mg Tablet PO 650 mg Q6H PRN Administration Mild/Mod Pain Or Temp >/= 101 Albuterol/Ipratrop ium 3 ml 11/23/21 15:00 11/25/21 14:47 Ipratropium-Albu terol 3 Ml Neb INHALATION 3 ml Q6H.RESPIRATORY S CH Administration Cyclobenzaprine HC l 10 mg 11/16/21 23:13 11/21/21 21:13 Cyclobenzaprine 10 Mg Tablet PO 10 mg TID PRN Administration MUSCLE SPASMS Diltiazem HCl 30 mg 11/22/21 08:30 11/22/21 14:31 Diltiazem 30 Mg Tablet PO 30 mg Q6H PINKY Administration Docusate Sodium 100 mg 11/21/21 18:00 11/25/21 09:09 Docusate Sodium 100 Mg Capsule PO 100 mg BID PINKY Administration Amiodarone HCl 900 mg/ 518 mls @ 0 mls/h r 11/24/21 17:15 11/25/21 00:05 Dextrose/ IV Misce llaneous IV 0.5 mg/min Supplies .Q0M PINKY 17.27 mls/hr Titration Protocol Per Protocol Lactulose 30 gm 11/23/21 15:00 11/25/21 15:11 Lactulose Oral L iq 20 Gm/30 Ml Udc PO 30 gm TID PINKY Administration Levothyroxine Sodi um 50 mcg 11/18/21 08:00 11/25/21 09:09 Levothyroxine 50 Mcg Tablet PO 50 mcg DAILY@0800 PINKY Administration Lidocaine 1 patch 11/16/21 09:00 11/25/21 09:11 Lidocaine 5% Pat ch TOPICAL 1 patch PINKY Administration Morphine Sulfate 30 mg 11/19/21 18:00 11/25/21 09:11 Morphine Er (12 Hr) 30 Mg Tablet PO Not Given BID [facility] Morphine Sulfate 4 mg 11/20/21 08:09 11/25/21 11:45 Morphine 4 Mg/Ml Sdv 1 Ml IVP 4 mg Q4H PRN Administration SEVERE PAIN Non-Formulary Medi cation 2 puff 11/17/21 09:00 11/25/21 09:12 Tiotropium Bromi de [Spiriva Respim at] INHALATION Not Given DAILY [facility] Ondansetron HCl 4 mg 11/20/21 06:20 11/20/21 07:00 Ondansetron 2 Mg /Ml Sdv 2 Ml IVP 4 mg Q4H PRN Administration NAUSEA AND VOMITI NG Oxycodone/Acetamin ophen 1 tab 11/18/21 14:30 11/21/21 04:00 Oxycodone-Apap 5 -325 Mg Tablet PO 1 tab Q4H PRN Administration MODERATE PAIN Pantoprazole Sodiu m 40 mg 11/20/21 09:00 11/25/21 09:10 Pantoprazole 40 Mg Sdv IVP 40 mg DAILY [facility] Administration Senna/Docusate Sod ium 1 tab 11/20/21 09:00 11/25/21 09:09 Sennosides-Docus ate Tablet PO 1 tab BID [facility] Administration Vitamin D 1,000 unit 11/18/21 08:00 11/25/21 09:09 Cholecalciferol (Vitamin D3) 1,000 Unit Tablet PO 1,000 unit DAILY@0800 PINKY Administration Vitals/I&O/Wt Last Vital Signs Temp 98.5 F 11/27/21 20:00 Pulse 89 11/28/21 09:00 Resp 16 11/28/21 09:00 BP 150/84 11/28/21 09:00 Pulse Ox 98 11/28/21 09:00 11/27/21 11/28/21 11/28/21 22:59 06:59 14:59 Intake Total 290 / 1318 500 / 1818 240 / 240 Output Total 850 / 850 1350 / 2200 550 / 550 Balance -560 / 468 -850 / -382 -310 / -310 Weight last 48 hrs Weight 60.736 kg Weight 111.584 kg Physical Exam Const: COMMON NORMALS: patient oriented x3 HENMT: COMMON NORMALS: normocephalic and atraumatic HEAD & SCALP: normocephalic and atraumatic Eye: COMMON NORMALS: no scleral icterus GENERAL EYE: appearance normal, both eyes and all related structures Chest: COMMONS NORMALS: normal inspection of the chest and normal palpation of entire chest wall CHEST: Yes Symmetrical chest wall rise Resp: COMMON NORMALS: normal respiratory effort, No retractions, No use of accessory muscles and clear to auscultation bilaterally EFFORT & INSPECTION: Yes symmetric chest movement AUSCULTATION: clear to auscultation bilaterally Cardio: COMMON NORMALS: regular rate, regular rhythm, S1 normal heart sound present, S2 normal heart sound present, No gallops present (Cardio), No murmurs present (Cardio), No rub (Cardio) and Peripheral pulses 2+ throughout RATE: regular rate RHYTHM: regular rhythm HEART SOUNDS: S1 normal heart sound present and S2 normal heart sound present PERIPHERAL PULSES: Peripheral pulses 2+ throughout GI: COMMON NORMALS: Normal to inspection, nondistended, normoactive bowel sounds present, Soft to palpation, non-tender, No hepatosplenomegaly present and no masses AUSCULTATION: Yes normoactive bowel sounds PALPATION: Yes Soft to palpation and Yes No hepatosplenomegaly present RECTAL EXAM: Yes deferred Back/Pelvis: OTHER: Severe pain in lower back at times unexpected with repositioning or PROM of lower extremities. Antalgic positioning. Extremity: COMMON NORMALS: no clubbing, cyanosis or edema and no pedal edema OTHER: Severe shooting back pain, electric-like down the posterior thigh with straight leg raise on the left side. We did not attempt a right side. Neuro: COMMON NORMALS: patient oriented x3 OTHER: Symmetrical sensation. Denies sensory loss lower extremities to touch. Urinary Catheter Management: Gallardo: Cath Placed During This Visit: yes Reason for Continuing Indwelling Catheter: Accurate Measurement of Urinary Output in Critically Ill Patients Urinary Catheter Date of Insertion: 11/19/21 Urinary Catheter Time of Insertion: 18:07 Data : 11/28/21 05:56 11/28/21 04:14 Micro: Microbiology 11/25/21 17:07 Urine Culture - Final Urine Catheterized A&P Assessment and plan (1) Intractable back pain: Status: Acute (2) Spinal stenosis: Status: Acute (3) Lumbosacral radiculopathy: Status: Acute (4) Unable to ambulate: Status: Acute (5) Acute renal insufficiency: Status: Acute (6) Spondylolisthesis at L3-L4 level: Status: Acute (7) Fever: Status: Acute (8) Hyperkalemia: Status: Acute Plan #Hypovolemic shock: Likely secondary to blood loss during surgery:?Cannot conclusively rule out an?underlying?infection: Blood culture: Negative to date MRSA is negative: Negative Lower extremity Dopplers were negative for DVT Urine culture: Negative Procalcitonin: 1.69 Lactic acid;?normal X-ray chest: No infiltrates, no effusion no pneumothorax Currently the plan is to monitor H&H: s/p 5 units PRBC. Continue IV hydration Continue vasopressors as needed Empirically started on Vanco and Zosyn. #Acute renal failure: Likely secondary to ATN secondary to hypotension secondary to acute blood loss. Possible contribution from contrast during CT studies. No NSAID use in the past Kidney US.??Low normal size kidneys. No hydronephrosis or solid mass.Moderate prostate gland encroachment into the bladder. Patient was initially admitted with GEETHA on CKD stage III: On admission serum creatinine was 2.1, progressively improved with IV hydration , unfortunately post surgery, his kidney function started to worsen, currently he developed oliguric renal failure. Renal on board current plan is to put patient on hemodialysis Status post right femoral hemodialysis catheter placement. #Mixed acidosis: Metabolic as well as respiratory: Currently on bicarb drip Monitor BMP Monitor ABG Continue BiPAP #Acute on chronic hypercapnic respiratory failure: Continue BiPAP. DuoNebs Low threshold for intubation Monitor ABG #Acute encephalopathy multifactorial: Hypercapnia-uremia, possible sepsis. CT head without contrast: No acute intracranial pathology Continue to monitor mentation Currently is able to protect the airways. #COPD: #HFpEF : Currently compensated Monitor intake output charting Daily weight K>4,MG>2 #Intractable lower back pain: Secondary to spondylolithiasis : Patient has history of chronic lower back pain for which he has been using spinal stimulator in the past and has seen pain specialist as an outpatient. CT : Lumbar spine:?Diffuse severe spondylosis throughout the lumbar spine, as above. Severe spinal canal stenosis demonstrated at L3-L4 and L4-L5. ?IR myelogram sp lumbar: ?Abrupt termination of the contrast column at the L4 level. Probably combination of disc disease and facet disease and ligamentum flavum disease. Without an MRI with contrast additional mass causing the obstruction would be difficult to exclude. Patient has a known 7 mm nodule at the L4 level which is not responsible for the obstruction. Advanced lumbar spondylosis and degenerative scoliosis. MRI cannot be done due to presence of a spinal stimulator Repeat?CT lumbar spine w con: Severe central stenosis at L4-5 with complete block of the column of contrast. Combination of disc and facet disease. Very similar in appearance to the prior study from 10/12/2019. It would be difficult to exclude a mass at this location. Patient has a known intrathecal nodule measuring 5.5 mm at the L4 level which is stable. Severe subarticular and bilateral foraminal stenosis at L4-5. Moderate to severe LEFT foraminal stenosis at L3-4. Moderate central with [id number] bilateral foraminal stenosis at L5-L6. Mild progression. Advanced multilevel degenerative disc disease with facet arthritis. Current plan is to continue with pain management: MS Contin, morphine, lidocaine patch, Percocet Spine surgery on board: S/P L1-S1 fusion with decompression on 11/21 # Recent GI bleed: continues to hold Pradaxa.? Is on Protonix. #A. fib: With RVR: Given the soft blood pressure Cardizem has been stopped Patient is currently on amnio drip Anticoagulation on hold due to recent history of GI bleed. Risk and benefit of holding anticoagulation has been explained to the family, currently in agreement to hold the anticoagulation #Constipation: Likely narcotic associated X-ray KUB:?No acute GI abnormality Patient currently denies any nausea vomiting abdominal pain Bowel regimen ?enema prn #KERRY: On nightly CPAP #HTN #CODE STATUS: Full code #Disposition: SNF #DVT prophylaxis: On SCDs because of recent history of GI bleed. Attestations Medical Necessity Statement*: Patient is still in hospital for management of acute renal failure. Time Spent in Patient Care: Greater than 35 minutes (>than 50% of time spent in counselling and/or direct pt care on unit). Critical Care Time: The high probability of a clinically significant, sudden or life threatening deterioration of the patient's [] system(s) required my full and direct attention, intervention and personal management. The critical care time is as shown. This time is in addition to time spent performing any reported procedures but includes the following: [x] Data and vital sign review and interpretation [x] Patient assessment, examination and intervention [x] Documentation [x] Medication orders and management Critical Care Time (min): 30 Coding Level of Care Code Acute It Solutions Architect for Adamg Fwd Diagnoses Intractable back pain M54.9 Spinal stenosis M48.00 Lumbosacral radiculopathy M54.17 Unable to ambulate R26.2 Acute renal insufficiency N28.9 Spondylolisthesis at L3-L4 level M43.16 Fever R50.9 Hyperkalemia E87.5
--- NOTE | 2021-11-28 13:42 | P.PN_ITS ---
Subjective Subjective: Mr Duran feels okay today with no specific complaints. A little bit confused last night, oriented by family members. Urine output is picking up nicely. No other overt uremic symptoms. Some mild lower extremity edema although seems to be better as well. Breathing comfortably on 3 L nasal cannula. Medications: Reviewed: Yes Medication Review Details: Generic Name Dose Route Start Last Admin Trade Name Tdq PRN Reason Stop Dose Admin Acetaminophen 650 mg 11/16/21 03:50 11/24/21 05:50 Acetaminophen 32 5 Mg Tablet PO 650 mg Q6H PRN Administration Mild/Mod Pain Or Temp >/= 101 Albuterol/Ipratrop ium 3 ml 11/23/21 15:00 11/25/21 14:47 Ipratropium-Albu terol 3 Ml Neb INHALATION 3 ml Q6H.RESPIRATORY S CH Administration Cyclobenzaprine HC l 10 mg 11/16/21 23:13 11/21/21 21:13 Cyclobenzaprine 10 Mg Tablet PO 10 mg TID PRN Administration MUSCLE SPASMS Diltiazem HCl 30 mg 11/22/21 08:30 11/22/21 14:31 Diltiazem 30 Mg Tablet PO 30 mg Q6H PINKY Administration Docusate Sodium 100 mg 11/21/21 18:00 11/25/21 09:09 Docusate Sodium 100 Mg Capsule PO 100 mg BID PINKY Administration Amiodarone HCl 900 mg/ 518 mls @ 0 mls/h r 11/24/21 17:15 11/25/21 00:05 Dextrose/ IV Misce llaneous IV 0.5 mg/min Supplies .Q0M PINKY 17.27 mls/hr Titration Protocol Per Protocol Lactulose 30 gm 11/23/21 15:00 11/25/21 15:11 Lactulose Oral L iq 20 Gm/30 Ml Udc PO 30 gm TID PINKY Administration Levothyroxine Sodi um 50 mcg 11/18/21 08:00 11/25/21 09:09 Levothyroxine 50 Mcg Tablet PO 50 mcg DAILY@0800 PINKY Administration Lidocaine 1 patch 11/16/21 09:00 11/25/21 09:11 Lidocaine 5% Pat ch TOPICAL 1 patch [id number] PINKY Administration Morphine Sulfate 30 mg 11/19/21 18:00 11/25/21 09:11 Morphine Er (12 Hr) 30 Mg Tablet PO Not Given BID [facility] Morphine Sulfate 4 mg 11/20/21 08:09 11/25/21 11:45 Morphine 4 Mg/Ml Sdv 1 Ml IVP 4 mg Q4H PRN Administration SEVERE PAIN Non-Formulary Medi cation 2 puff 11/17/21 09:00 11/25/21 09:12 Tiotropium Bromi de [Spiriva Respim at] INHALATION Not Given DAILY [facility] Ondansetron HCl 4 mg 11/20/21 06:20 11/20/21 07:00 Ondansetron 2 Mg /Ml Sdv 2 Ml IVP 4 mg Q4H PRN Administration NAUSEA AND VOMITI NG Oxycodone/Acetamin ophen 1 tab 11/18/21 14:30 11/21/21 04:00 Oxycodone-Apap 5 -325 Mg Tablet PO 1 tab Q4H PRN Administration MODERATE PAIN Pantoprazole Sodiu m 40 mg 11/20/21 09:00 11/25/21 09:10 Pantoprazole 40 Mg Sdv IVP 40 mg DAILY [facility] Administration Senna/Docusate Sod ium 1 tab 11/20/21 09:00 11/25/21 09:09 Sennosides-Docus ate Tablet PO 1 tab BID [facility] Administration Vitamin D 1,000 unit 11/18/21 08:00 11/25/21 09:09 Cholecalciferol (Vitamin D3) 1,000 Unit Tablet PO 1,000 unit DAILY@0800 [facility] Administration Vitals/I&O/Wt Last Vital Signs Temp 98.5 F 11/27/21 20:00 Pulse 85 11/28/21 12:00 Resp 31 H 11/28/21 12:00 BP 136/97 11/28/21 12:00 Pulse Ox 100 11/28/21 12:00 11/27/21 11/28/21 11/28/21 22:59 06:59 14:59 Intake Total 290 / 1318 500 / 1818 530 / 530 Output Total 850 / 850 1350 / 2200 550 / 550 Balance -560 / 468 -850 / -382 -20 / -20 Weight last 48 hrs Weight 60.736 kg Weight 111.584 kg Physical Exam Urinary Catheter Management: Gallardo: Cath Placed During This Visit: yes Reason for Continuing Indwelling Catheter: Accurate Measurement of Urinary Outp ut in Critically Ill Patients Urinary Catheter Date of Insertion: 11/19/21 Urinary Catheter Time of Insertion: 18:07 Data : 11/28/21 05:56 11/28/21 04:14 Micro: Microbiology 11/25/21 17:07 Urine Culture - Final Urine Catheterized A&P Assessment and plan (1) Acute renal insufficiency: 1. Acute kidney injury Oliguric GEETHA, likely ATN. Urine output now increasing nicely although creatinine is increasing between dialysis sessions, 5.1 now 5.6 mg/dL. No other overt uremic symptoms except for mild confusion last night. Still has hypervolemia but breathing comfortably on nasal cannula. With this in mind we will hold off dialysis today, evaluate him first thing tomorrow morning to see if he needs dialysis tomorrow, however, I do believe he is recovering from kidney failure. A.m. labs Strict I's and O's Avoid use nephrotoxic agents. 2. Chemistry Looks well-balanced now 3. Hemodynamics A. fib with RVR now rate controlled on amiodarone infusion 4. Status post spinal fusion Input from surgery is appreciated PT/OT as tolerated, analgesics as tolerated Yemi Bishop MD Nephrology [phone] Patient seen and examined via telemedicine, with the assistance of the bedside RN > 25 min spent in evaluation and mgmt of patient Status: Acute Attestations Medical Necessity Statement*: eval for renal failure Coding Level of Care Code Acute Secy for Charlee Givens Diagnoses Acute renal insufficiency N28.9
--- NOTE | 2021-11-28 15:49 | PC.SOCIAL ---
IMM Update pg 2 of IMM updated and reviewed w/ patient. Copy provided and copy in chart updated.
[2021-11-29] VITALS (26 sets, daily range): BP systolic 106–168; BP diastolic 71–97; PULSE 70–111; RESP 16–24; TEMP 36.6–37.2; O2SAT 88–100; BMI 33.0
[2021-11-29] MEDS: dilTIAZem 30 mg Tablet PO ×4 (02:21→22:49)
[2021-11-29] MEDS: ipratropium-albuterol 3 mL Neb INHALATION ×4 (02:33→20:40)
[2021-11-29 04:41] LABS: Basophils # 0.1 10^3/uL (0.0-0.1); Basophils % 0.4 %; Eosinophils # 0.3 10^3/uL (0.0-0.8); Eosinophils % 2.1 %; Hematocrit 29.2 % (42.0-52.0); Hemoglobin 8.8 g/dL (11.7-16.6); Lymphocytes # 1.1 10^3/uL (0.8-4.8); Lymphocytes % 7.5 %; Mean Corpuscular HGB Conc 30.1 g/dL (30.0-36.0); Mean Corpuscular Hemoglobin 27.1 pg (28.0-34.0); Mean Corpuscular Volume 89.8 fl (80-94); Mean Platelet Volume 8.7 fL (7.4-10.4); Monocytes # 0.7 10^3/uL (0.2-0.9); Monocytes % 4.9 %; Neutrophils # 12.18 10^3/uL (1.8-7.7); Neutrophils % 83.5 %; Nucleated Red Blood Cells % 0 %; Platelet Count 558 10^3/cmm (130-400); Red Blood Count 3.25 10^6/uL (4.1-5.3); Red Cell Distribution Width 15.5 % (12.1-15.1); White Blood Count 14.6 10^3/uL (4.0-10.0)
[2021-11-29 05:05] LABS: Vancomycin Random 14.5 ug/mL (20.0-40.0)
[2021-11-29 05:06] LABS: Alanine Aminotransferase < 5 U/L (0-41); Albumin Level 2.6 g/dL (3.5-5.2); Alkaline Phosphatase 200 IU/L (40-130); Anion Gap 18.7 (5-19); Aspartate Amino Transferase 22 U/L (0-40); Blood Urea Nitrogen 55 mg/dL (8-23); Calcium 8.8 mg/dL (8.5-10.5); Carbon Dioxide 24 mmol/L (22-29); Chloride 97 mmol/L (98-107); Globulin 3.8 g/dL (1.3-4.6); Glucose 114 mg/dL (65-115); Magnesium 2.2 mg/dL (1.7-2.3); Osmolality Calculated 298 mOsm/kg (285-295); Phosphorus 4.7 mg/dL (2.5-4.5); Potassium 3.7 mmol/L (3.5-5.1); Sodium 136 mmol/L (136-145); Total Bilirubin 0.3 mg/dL (0.15-1.2); Total Protein 6.4 g/dL (6.6-8.7)
[2021-11-29] MEDS: piperacillin-tazobactam 3.375 GM in sodium chloride 0.9% (plus) 50 ML IV ×2 (05:52→18:43)
--- NOTE | 2021-11-29 07:21 | PC.NURSE ---
Up to chair Patient able to transfer from bed to bedside commode to chair with 2x assist while utilizing a walker. All vitals remained stable. patient tolerated activity fair.
[2021-11-29] MEDS: lidocaine 5% Patch 1 PATCH TOPICAL (08:24)
[2021-11-29] MEDS: docusate sodium 100 mg Capsule PO (08:24)
[2021-11-29] MEDS: sennosides-docusate Tablet 1 TAB PO (08:24)
[2021-11-29] MEDS: calcium acetate 667 mg Capsule 1334 MG PO ×2 (08:24→18:43)
[2021-11-29] MEDS: FUROsemide 10 mg/mL SDV 10mL 60 MG IVP (08:25)
[2021-11-29] MEDS: pantoprazole 40 mg SDV IVP (08:25)
[2021-11-29] MEDS: levothyroxine 50 mcg Tablet PO (08:25)
[2021-11-29] MEDS: cholecalciferol (vitamin D3) 1,000 unit Tablet 1000 UNIT PO (08:25)
--- NOTE | 2021-11-29 11:12 | P.PN_ITS ---
Subjective Subjective: Mr. Duran is doing essentially well. No significant pain or discomfort. Robust urine output in response to intravenous Lasix. Some mild lower extremity edema but no other signs of hypervolemia. Breathing comfortably on nasal cannula. No uremic symptoms. Medications: Reviewed: Yes Vitals/I&O/Wt Last Vital Signs Temp 98.1 F 11/29/21 10:00 Pulse 111 H 11/29/21 10:00 Resp 17 11/29/21 10:00 BP 138/80 11/29/21 10:00 Pulse Ox 98 11/29/21 10:00 11/28/21 11/29/21 11/29/21 22:59 06:59 14:59 Intake Total 290 / 820 290 / 290 Output Total 900 / 1450 1475 / 2925 Balance -610 / -630 -1475 / -2105 290 / 290 Weight last 48 hrs Weight 104.326 kg Weight 60.736 kg Physical Exam Urinary Catheter Management: Gallardo: Cath Placed During This Visit: yes Reason for Continuing Indwelling Catheter: Accurate Measurement of Urinary Output in Critically Ill Patients Urinary Catheter Date of Insertion: 11/19/21 Urinary Catheter Time of Insertion: 18:07 Data : 11/29/21 03:05 11/29/21 03:05 Micro: Microbiology 11/24/21 10:36 Blood Culture - Final Blood NO GROWTH AFTER 5 DAYS 11/24/21 10:40 Blood Culture - Final Blood NO GROWTH AFTER 5 DAYS 11/25/21 17:07 Urine Culture - Final Urine Catheterized A&P Assessment and plan (1) Acute renal insufficiency: 1. Acute kidney injury ischemic ATN Urine output is increasing nicely, creatinine is now stable. No indication for dialysis and it appears that he is now in the earliest stages of recovery. Currently on Lasix twice a day, will stop this. Defer additional IV fluid given the lower extremity edema need for oxygen, however, he could well be in an auto diuretic phase of recovery as well. He may need some IV fluid. He has a right temporary dialysis line in his groin. We will take this out in the next day or so. A.m. labs Strict I's and O's Avoid use nephrotoxic agents. 2. Chemistry Looks well-balanced now 3. Hemodynamics A. fib with RVR now rate controlled on amiodarone infusion 4. Status post spinal fusion Input from surgery is appreciated PT/OT as tolerated, analgesics as tolerated Yemi Bishop MD Nephrology [phone] Patient seen and examined via telemedicine, with the assistance of the bedside RN > 25 min spent in evaluation and mgmt of patient Status: Acute Attestations Medical Necessity Statement*: Eval for renal failure Coding Level of Care Code Acute Gear Tooth Lapping Machine Operator for Chg Fwd Diagnoses Acute renal insufficiency N28.9
--- NOTE | 2021-11-29 14:05 | PM.PN ---
Subjective Subjective: Patient was seen and examined this morning , was seen sitting in the chair, clinically is improving, robust urine output overnight, patient is in polyuric phase of ATN , is getting slightly dry, Lasix has been discontinued, scr has plateaued, Continue to remain afebrile. H&H is stable, WBC count is slightly high today likely secondary to overdiuresis.Given the fact that all the cultures so far has remained negative we will discontinue vancomycin. Medications: Reviewed: Yes Medication Review Details: Generic Name Dose Route Start Last Admin Trade Name Freq PRN Reason Stop Dose Admin Acetaminophen 650 mg 11/16/21 03:50 11/28/21 11:18 Acetaminophen 32 5 Mg Tablet PO 650 mg Q6H PRN Administration Mild/Mod Pain Or Temp >/= 101 Albuterol/Ipratrop ium 3 ml 11/23/21 15:00 11/29/21 09:15 Ipratropium-Albu terol 3 Ml Neb INHALATION 3 ml Q6H.RESPIRATORY S CH Administration Calcium Acetate 1,334 mg 11/26/21 08:00 11/29/21 13:36 Calcium Acetate 667 Mg Capsule PO 1,334 mg TIDWM PINKY Administration Cyclobenzaprine HC l 10 mg 11/16/21 23:13 11/21/21 21:13 Cyclobenzaprine 10 Mg Tablet PO 10 mg TID PRN Administration MUSCLE SPASMS Diltiazem HCl 30 mg 11/27/21 09:00 11/29/21 08:25 Diltiazem 30 Mg Tablet PO 30 mg Q6H PINKY Administration Docusate Sodium 100 mg 11/21/21 18:00 11/29/21 08:24 Docusate Sodium 100 Mg Capsule PO 100 mg BID PINKY Administration Piperacillin Sod/T azobactam 50 mls @ 12.5 mls /hr 11/25/21 18:00 11/29/21 09:55 Sod 3.375 gm/ So dium Chloride IV Infused Q12H PINKY Infusion Protocol Levothyroxine Sodi um 50 mcg 11/18/21 08:00 11/29/21 08:25 Levothyroxine 50 Mcg Tablet PO 50 mcg DAILY@0800 PINKY Administration Lidocaine 1 patch 11/16/21 09:00 11/29/21 08:24 Lidocaine 5% Pat ch TOPICAL 1 patch PINKY Administration Non-Formulary Medi cation 2 puff 11/17/21 09:00 11/29/21 10:35 Tiotropium Bromi de [Spiriva Respim at] INHALATION Not Given DAILY [facility] Ondansetron HCl 4 mg 11/20/21 06:20 11/20/21 07:00 Ondansetron 2 Mg /Ml Sdv 2 Ml IVP 4 mg Q4H PRN Administration NAUSEA AND VOMITI NG Pantoprazole Sodiu m 40 mg 11/20/21 09:00 11/29/21 08:25 Pantoprazole 40 Mg Sdv IVP 40 mg DAILY [facility] Administration Senna/Docusate Sod ium 1 tab 11/20/21 09:00 11/29/21 08:24 Sennosides-Docus ate Tablet PO 1 tab BID [facility] Administration Vitamin D 1,000 unit 11/18/21 08:00 11/29/21 08:25 Cholecalciferol (Vitamin D3) 1,000 Unit Tablet PO 1,000 unit DAILY@0800 PINKY Administration Vitals/I&O/Wt Last Vital Signs Temp 97.8 F 11/29/21 11:47 Pulse 82 11/29/21 12:00 Resp 17 11/29/21 12:00 BP 132/89 11/29/21 12:00 Pulse Ox 93 11/29/21 12:00 11/28/21 11/29/21 11/29/21 22:59 06:59 14:59 Intake Total 290 / 820 390 / 390 Output Total 900 / 1450 1475 / 2925 Balance -610 / -630 -1475 / -2105 390 / 390 Weight last 48 hrs Weight 104.326 kg Weight 60.736 kg Physical Exam Const: COMMON NORMALS: patient oriented x3 HENMT: COMMON NORMALS: normocephalic and atraumatic HEAD & SCALP: normocephalic and atraumatic Chest: CHEST: Yes Symmetrical chest wall rise Resp: COMMON NORMALS: normal respiratory effort and clear to auscultation bilaterally EFFORT & INSPECTION: Yes symmetric chest movement AUSCULTATION: clear to auscultation bilaterally Cardio: COMMON NORMALS: regular rate, regular rhythm, S1 normal heart sound present, S2 normal heart sound present, No gallops present (Cardio), No murmurs present (Cardio), No rub (Cardio) and Peripheral pulses 2+ throughout RATE: regular rate RHYTHM: regular rhythm HEART SOUNDS: S1 normal heart sound present and S2 normal heart sound present PERIPHERAL PULSES: Peripheral pulses 2+ throughout GI: COMMON NORMALS: Normal to inspection, nondistended, normoactive bowel sounds present, Soft to palpation, non-tender, No hepatosplenomegaly present and no masses AUSCULTATION: Yes normoactive bowel sounds PALPATION: Yes Soft to palpation and Yes No hepatosplenomegaly present RECTAL EXAM: Yes deferred Extremity: COMMON NORMALS: no clubbing, cyanosis or edema and no pedal edema Neuro: COMMON NORMALS: patient oriented x3 Urinary Catheter Management: Gallardo: Cath Placed During This Visit: yes Reason for Continuing Indwelling Catheter: Accurate Measurement of Urinary Output in Critically Ill Patients Urinary Catheter Date of Insertion: 11/19/21 Urinary Catheter Time of Insertion: 18:07 Data : 11/29/21 03:05 11/29/21 03:05 Micro: Microbiology 11/28/21 00:35 Urine Culture - Preliminary Urine,Clean Catch 11/24/21 10:36 Blood Culture - Final Blood NO GROWTH AFTER 5 DAYS 11/24/21 10:40 Blood Culture - Final Blood NO GROWTH AFTER 5 DAYS 11/25/21 17:07 Urine Culture - Final Urine Catheterized A&P Assessment and plan (1) Intractable back pain: Status: Acute (2) Spinal stenosis: Status: Acute (3) Lumbosacral radiculopathy: Status: Acute (4) Unable to ambulate: Status: Acute (5) Acute renal insufficiency: Status: Acute (6) Spondylolisthesis at L3-L4 level: Status: Acute (7) Fever: Status: Acute (8) Hyperkalemia: Status: Acute Plan #Hypovolemic shock: Likely secondary to blood loss during surgery:?Cannot conclusively rule out an?underlying?infection: Blood culture: Negative to date MRSA is negative: Negative Lower extremity Dopplers were negative for DVT Urine culture: Negative Procalcitonin: 1.69 Lactic acid;?normal X-ray chest: No infiltrates, no effusion no pneumothorax Currently the plan is to monitor H&H: s/p 5 units PRBC. Was on IV hydration. Continue vasopressors as needed Empirically started on Vanco and Zosyn. #Acute renal failure: Likely secondary to ATN secondary to hypotension secondary to acute blood loss. Possible contribution from contrast during CT studies. No NSAID use in the past Kidney US.??Low normal size kidneys. No hydronephrosis or solid mass.Moderate prostate gland encroachment into the bladder. Patient was initially admitted with GEETHA on CKD stage III: On admission serum creatinine was 2.1, progressively improved with IV hydration , unfortunately post surgery, his kidney function started to worsen, currently he developed oliguric renal failure. Renal on board current plan is to put patient on hemodialysis Status post right femoral hemodialysis catheter placement. #Mixed acidosis: Metabolic as well as respiratory: Currently on bicarb drip Monitor BMP Monitor ABG Continue BiPAP #Acute on chronic hypercapnic respiratory failure: Continue BiPAP. DuoNebs Low threshold for intubation Monitor ABG #Acute encephalopathy multifactorial: Hypercapnia-uremia, possible sepsis. CT head without contrast: No acute intracranial pathology Continue to monitor mentation Currently is able to protect the airways. #COPD: #HFpEF : Currently compensated Monitor intake output charting Daily weight K>4,MG>2 #Intractable lower back pain: Secondary to spondylolithiasis : Patient has history of chronic lower back pain for which he has been using spinal stimulator in the past and has seen pain specialist as an outpatient. CT : Lumbar spine:?Diffuse severe spondylosis throughout the lumbar spine, as above. Severe spinal canal stenosis demonstrated at L3-L4 and L4-L5. ?IR myelogram sp lumbar: ?Abrupt termination of the contrast column at the L4 level. Probably combination of disc disease and facet disease and ligamentum flavum disease. Without an MRI with contrast additional mass causing the obstruction would be difficult to exclude. Patient has a known 7 mm nodule at the L4 level which is not responsible for the obstruction. Advanced lumbar spondylosis and degenerative scoliosis. MRI cannot be done due to presence of a spinal stimulator Repeat?CT lumbar spine w con: Severe central stenosis at L4-5 with complete block of the column of contrast. Combination of disc and facet disease. Very similar in appearance to the prior study from 10/12/2019. It would be difficult to exclude a mass at this location. Patient has a known intrathecal nodule measuring 5.5 mm at the L4 level which is stable. Severe subarticular and bilateral foraminal stenosis at L4-5. Moderate to severe LEFT foraminal stenosis at L3-4. Moderate central with [id number] bilateral foraminal stenosis at L5-L6. Mild progression. Advanced multilevel degenerative disc disease with facet arthritis. Current plan is to continue with pain management: MS Contin, morphine, lidocaine patch, Percocet Spine surgery on board: S/P L1-S1 fusion with decompression on 11/21 # Recent GI bleed: continues to hold Pradaxa.? Is on Protonix. #A. fib: With RVR: Given the soft blood pressure Cardizem has been stopped Patient is currently on amnio drip Anticoagulation on hold due to recent history of GI bleed. Risk and benefit of holding anticoagulation has been explained to the family, currently in agreement to hold the anticoagulation #Constipation: Likely narcotic associated X-ray KUB:?No acute GI abnormality Patient currently denies any nausea vomiting abdominal pain Bowel regimen ?enema prn #KERRY: On nightly CPAP #HTN #CODE STATUS: Full code #Disposition: SNF #DVT prophylaxis: On SCDs because of recent history of GI bleed. Attestations Medical Necessity Statement*: Patient is still in hospital for management of acute renal failure. Time Spent in Patient Care: Greater than 35 minutes (>than 50% of time spent in counselling and/or direct pt care on unit). Critical Care Time: The high probability of a clinically significant, sudden or life threatening deterioration of the patient's [] system(s) required my full and direct attention, intervention and personal management. The critical care time is as shown. This time is in addition to time spent performing any reported procedures but includes the following: [x] Data and vital sign review and interpretation [x] Patient assessment, examination and intervention [x] Documentation [x] Medication orders and management Critical Care Time (min): 30 Coding Level of Care Code Acute Medical Artist for [facility] Fwd Exam Detailed Diagnoses Intractable back pain M54.9 Spinal stenosis M48.00 Lumbosacral radiculopathy M54.17 Unable to ambulate R26.2 Acute renal insufficiency N28.9 Spondylolisthesis at L3-L4 level M43.16 Fever R50.9 Hyperkalemia E87.5
--- NOTE | 2021-11-29 20:09 | PC.NURSE ---
Pt has tremors of bilateral arms, which he states is chronic. HD catheter found with no dressing. Site cleaned with Chloraprep and redressed.
--- NOTE | 2021-11-29 20:12 | PC.NURSE ---
Aloevesta applied to buttocks.
--- NOTE | 2021-11-29 21:05 | PC.NURSE ---
Oral fluid intake encouraged. Pt's mouth and lips are pale and dry.
--- NOTE | 2021-11-29 21:19 | PC.NURSE ---
Cardizem will be given late due to last dose being administered late.
[2021-11-30] VITALS (24 sets, daily range): BP systolic 117–156; BP diastolic 68–93; PULSE 68–135; RESP 16–35; TEMP 36.9–37.1; O2SAT 84–99
[2021-11-30] MEDS: dilTIAZem 30 mg Tablet PO ×2 (03:41→08:20)
[2021-11-30 03:55] LABS: Basophils # 0.1 10^3/uL (0.0-0.1); Basophils % 0.4 %; Eosinophils # 0.3 10^3/uL (0.0-0.8); Eosinophils % 2.6 %; Hematocrit 29.1 % (42.0-52.0); Hemoglobin 9.1 g/dL (11.7-16.6); Lymphocytes # 1.3 10^3/uL (0.8-4.8); Lymphocytes % 9.7 %; Mean Corpuscular HGB Conc 31.3 g/dL (30.0-36.0); Mean Corpuscular Hemoglobin 27.6 pg (28.0-34.0); Mean Corpuscular Volume 88.2 fl (80-94); Mean Platelet Volume 8.8 fL (7.4-10.4); Monocytes # 0.6 10^3/uL (0.2-0.9); Monocytes % 4.7 %; Neutrophils # 10.69 10^3/uL (1.8-7.7); Neutrophils % 80.3 %; Nucleated Red Blood Cells % 0 %; Platelet Count 603 10^3/cmm (130-400); Red Cell Distribution Width 15.2 % (12.1-15.1); White Blood Count 13.3 10^3/uL (4.0-10.0)
[2021-11-30 04:18] LABS: Alanine Aminotransferase < 5 U/L (0-41); Albumin Level 2.5 g/dL (3.5-5.2); Alkaline Phosphatase 178 IU/L (40-130); Anion Gap 17.4 (5-19); Aspartate Amino Transferase 21 U/L (0-40); Blood Urea Nitrogen 50 mg/dL (8-23); Calcium 8.6 mg/dL (8.5-10.5); Carbon Dioxide 27 mmol/L (22-29); Chloride 95 mmol/L (98-107); Globulin 3.4 g/dL (1.3-4.6); Glucose 116 mg/dL (65-115); Osmolality Calculated 296 mOsm/kg (285-295); Phosphorus 4.8 mg/dL (2.5-4.5); Potassium 3.4 mmol/L (3.5-5.1); Sodium 136 mmol/L (136-145); Total Bilirubin 0.3 mg/dL (0.15-1.2); Total Protein 5.9 g/dL (6.6-8.7)
[2021-11-30] MEDS: piperacillin-tazobactam 3.375 GM in sodium chloride 0.9% (plus) 50 ML IV ×2 (05:43→17:25)
--- NOTE | 2021-11-30 06:40 | PM.PN ---
Subjective Subjective: Patient was seen and examined this morning, continues to have robust urine output , BUN, serum creatinine has started trending down Continues to be in A. fib with well-controlled heart rate, H&H is stable. No other acute events. Medications: Reviewed: Yes Medication Review Details: Generic Name Dose Route Start Last Admin Trade Name Freq PRN Reason Stop Dose Admin Acetaminophen 650 mg 11/16/21 03:50 11/28/21 11:18 Acetaminophen 32 5 Mg Tablet PO 650 mg Q6H PRN Administration Mild/Mod Pain Or Temp >/= 101 Albuterol/Ipratrop ium 3 ml 11/23/21 15:00 11/29/21 09:15 Ipratropium-Albu terol 3 Ml Neb INHALATION 3 ml Q6H.RESPIRATORY S CH Administration Calcium Acetate 1,334 mg 11/26/21 08:00 11/29/21 13:36 Calcium Acetate 667 Mg Capsule PO 1,334 mg TIDWM PINKY Administration Cyclobenzaprine HC l 10 mg 11/16/21 23:13 11/21/21 21:13 Cyclobenzaprine 10 Mg Tablet PO 10 mg TID PRN Administration MUSCLE SPASMS Diltiazem HCl 30 mg 11/27/21 09:00 11/29/21 08:25 Diltiazem 30 Mg Tablet PO 30 mg Q6H PINKY Administration Docusate Sodium 100 mg 11/21/21 18:00 11/29/21 08:24 Docusate Sodium 100 Mg Capsule PO 100 mg BID PINKY Administration Piperacillin Sod/T azobactam 50 mls @ 12.5 mls /hr 11/25/21 18:00 11/29/21 09:55 Sod 3.375 gm/ So dium Chloride IV Infused Q12H PINKY Infusion Protocol Levothyroxine Sodi um 50 mcg 11/18/21 08:00 11/29/21 08:25 Levothyroxine 50 Mcg Tablet PO 50 mcg DAILY@0800 PINKY Administration Lidocaine 1 patch 11/16/21 09:00 11/29/21 08:24 Lidocaine 5% Pat ch TOPICAL 1 patch [id number] PINKY Administration Non-Formulary Medi cation 2 puff 11/17/21 09:00 11/29/21 10:35 Tiotropium Bromi de [Spiriva Respim at] INHALATION Not Given DAILY [facility] Ondansetron HCl 4 mg 11/20/21 06:20 11/20/21 07:00 Ondansetron 2 Mg /Ml Sdv 2 Ml IVP 4 mg Q4H PRN Administration NAUSEA AND VOMITI NG Pantoprazole Sodiu m 40 mg 11/20/21 09:00 11/29/21 08:25 Pantoprazole 40 Mg Sdv IVP 40 mg DAILY PINKY Administration Senna/Docusate Sod ium 1 tab 11/20/21 09:00 11/29/21 08:24 Sennosides-Docus ate Tablet PO 1 tab BID PINKY Administration Vitamin D 1,000 unit 11/18/21 08:00 11/29/21 08:25 Cholecalciferol (Vitamin D3) 1,000 Unit Tablet PO 1,000 unit DAILY@0800 PINKY Administration Vitals/I&O/Wt Last Vital Signs Temp 98.8 F 11/30/21 04:00 Pulse 102 H 11/30/21 05:48 Resp 18 11/30/21 05:00 BP 117/72 11/30/21 05:00 Pulse Ox 96 11/30/21 05:00 11/29/21 11/29/21 11/30/21 14:59 22:59 06:59 Intake Total 390 / 390 290 / 680 Output Total 1900 / 1900 600 / 2500 Balance 390 / 390 -1610 / -1220 -600 / -1820 Weight last 48 hrs Weight 103.328 kg Weight 104.326 kg Physical Exam Const: COMMON NORMALS: patient oriented x3 HENMT: COMMON NORMALS: normocephalic and atraumatic HEAD & SCALP: normocephalic and atraumatic Chest: CHEST: Yes Symmetrical chest wall rise Resp: COMMON NORMALS: normal respiratory effort and clear to auscultation bilaterally EFFORT & INSPECTION: Yes symmetric chest movement AUSCULTATION: clear to auscultation bilaterally Cardio: COMMON NORMALS: regular rate, regular rhythm, S1 normal heart sound present, S2 normal heart sound present, No gallops present (Cardio), No murmurs present (Cardio), No rub (Cardio) and Peripheral pulses 2+ throughout RATE: regular rate RHYTHM: regular rhythm HEART SOUNDS: S1 normal heart sound present and S2 normal heart sound present PERIPHERAL PULSES: Peripheral pulses 2+ throughout GI: COMMON NORMALS: Normal to inspection, nondistended, normoactive bowel sounds present, Soft to palpation, non-tender, No hepatosplenomegaly present and no masses AUSCULTATION: Yes normoactive bowel sounds PALPATION: Yes Soft to palpation and Yes No hepatosplenomegaly present RECTAL EXAM: Yes deferred Extremity: COMMON NORMALS: no clubbing, cyanosis or edema and no pedal edema Neuro: COMMON NORMALS: patient oriented x3 Urinary Catheter Management: Gallardo: Cath Placed During This Visit: yes Reason for Continuing Indwelling Catheter: Accurate Measurement of Urinary Output in Critically Ill Patients Urinary Catheter Date of Insertion: 11/19/21 Urinary Catheter Time of Insertion: 18:07 Data : 11/30/21 02:45 11/30/21 02:45 Micro: Microbiology 11/28/21 00:35 Urine Culture - Preliminary Urine,Clean Catch 11/24/21 10:36 Blood Culture - Final Blood NO GROWTH AFTER 5 DAYS 11/24/21 10:40 Blood Culture - Final Blood NO GROWTH AFTER 5 DAYS A&P Assessment and plan (1) Intractable back pain: Status: Acute (2) Spinal stenosis: Status: Acute (3) Lumbosacral radiculopathy: Status: Acute (4) Unable to ambulate: Status: Acute (5) Acute renal insufficiency: Status: Acute (6) Spondylolisthesis at L3-L4 level: Status: Acute (7) Fever: Status: Acute (8) Hyperkalemia: Status: Acute Plan #Hypovolemic shock: Likely secondary to blood loss during surgery:?Cannot conclusively rule out an?underlying?infection: Blood culture: Negative to date MRSA is negative: Negative Stool studies negative. Urine culture: Negative Procalcitonin: 1.69 Lactic acid;?normal X-ray chest: No infiltrates, no effusion no pneumothorax Lower extremity Dopplers were negative for DVT Currently the plan is to monitor H&H: s/p 5 units PRBC. Was on IV hydration. Continue vasopressors as needed Empirically worse on Vanco and Zosyn. Vancomycin was discontinued on 11/30 #Acute renal failure: Likely secondary to ATN secondary to hypotension secondary to acute blood loss. Possible contribution from contrast during CT studies. No NSAID use in the past Kidney US.??Low normal size kidneys. No hydronephrosis or solid mass.Moderate prostate gland encroachment into the bladder. Patient was initially admitted with GEETHA on CKD stage III: On admission serum creatinine was 2.1, progressively improved with IV hydration , unfortunately post surgery, his kidney function started to worsen, currently he developed oliguric renal failure. Status post right femoral hemodialysis catheter placement. Patient received 2 sessions of hemodialysis Current plan is to remove hemodialysis catheter in the morning #Mixed acidosis: Metabolic as well as respiratory: Was on bicarb drip Monitor BMP Monitor ABG Continue BiPAP #Acute on chronic hypercapnic respiratory failure: Continue BiPAP. At night DuoNebs Monitor ABG #Acute encephalopathy multifactorial: Hypercapnia-uremia, low clinical suspicion for sepsis.: Resolved CT head without contrast: X2 : no acute intracranial pathology Continue to monitor mentation #HFpEF : Currently compensated Monitor intake output charting Daily weight K>4,MG>2 #Intractable lower back pain: Secondary to spondylolithiasis : Patient has history of chronic lower back pain for which he has been using spinal stimulator in the past and has seen pain specialist as an outpatient. CT : Lumbar spine:?Diffuse severe spondylosis throughout the lumbar spine, as above. Severe spinal canal stenosis demonstrated at L3-L4 and L4-L5. ?IR myelogram sp lumbar: ?Abrupt termination of the contrast column at the L4 level. Probably combination of disc disease and facet disease and ligamentum flavum disease. Without an MRI with contrast additional mass causing the obstruction would be difficult to exclude. Patient has a known 7 mm nodule at the L4 level which is not responsible for the obstruction. Advanced lumbar spondylosis and degenerative scoliosis. MRI cannot be done due to presence of a spinal stimulator Repeat?CT lumbar spine w con: Severe central stenosis at L4-5 with complete block of the column of contrast. Combination of disc and facet disease. Very similar in appearance to the prior study from 10/12/2019. It would be difficult to exclude a mass at this location. Patient has a known intrathecal nodule measuring 5.5 mm at the L4 level which is stable. Severe subarticular and bilateral foraminal stenosis at L4-5. Moderate to severe LEFT foraminal stenosis at L3-4. Moderate central with [id number] bilateral foraminal stenosis at L5-L6. Mild progression. Advanced multilevel degenerative disc disease with facet arthritis. Current plan is to continue with pain management: MS Contin, morphine, lidocaine patch, Percocet Spine surgery on board: S/P L1-S1 fusion with decompression on 11/21 # Recent GI bleed: continues to hold Pradaxa.? Is on Protonix. #A. fib: With RVR: Patient is on Cardizem at home, at one point in time during hospital stay when his blood pressure was extremely soft he was on amiodarone drip, which was later discontinued, currently Cardizem has been restarted at 120 mg p.o. daily. Anticoagulation on hold due to recent history of GI bleed. He is on Pradaxa at home. Risk and benefit of holding anticoagulation has been explained to the family, currently in agreement to hold the anticoagulation #Constipation: Likely narcotic associated X-ray KUB:?No acute GI abnormality Patient currently denies any nausea vomiting abdominal pain Bowel regimen enema prn #KERRY: On nightly CPAP #HTN #CODE STATUS: Full code #Disposition: SNF #DVT prophylaxis: On SCDs because of recent history of GI bleed. Attestations Medical Necessity Statement*: Patient is to be in hospital for management of renal failure. Need for continued monitoring of improving renal function. Time Spent in Patient Care: Greater than 35 minutes Critical Care Time: The high probability of a clinically significant, sudden or life threatening deterioration of the patient's [] system(s) required my full and direct attention, intervention and personal management. The critical care time is as shown. This time is in addition to time spent performing any reported procedures but includes the following: [x] Data and vital sign review and interpretation [x] Patient assessment, examination and intervention [x] Documentation [x] Medication orders and management Critical Care Time (min): 30 Coding Level of Care Code Acute Cloth Sponger for [facility] Fwd Exam Detailed Diagnoses Intractable back pain M54.9 Spinal stenosis M48.00 Lumbosacral radiculopathy M54.17 Unable to ambulate R26.2 Acute renal insufficiency N28.9 Spondylolisthesis at L3-L4 level M43.16 Fever R50.9 Hyperkalemia E87.5
[2021-11-30] MEDS: cholecalciferol (vitamin D3) 1,000 unit Tablet 1000 UNIT PO (07:30)
[2021-11-30] MEDS: levothyroxine 50 mcg Tablet PO (07:30)
[2021-11-30] MEDS: calcium acetate 667 mg Capsule 1334 MG PO ×3 (07:30→17:25)
[2021-11-30] MEDS: lidocaine 5% Patch 1 PATCH TOPICAL (08:20)
[2021-11-30] MEDS: pantoprazole 40 mg SDV IVP (08:20)
--- NOTE | 2021-11-30 08:39 | PM.PN ---
Subjective Subjective: No new issues. Making good urine vol 2500mL yesterday. Lasix dc'd yesterday. Still has some mild LE edema. No uremic Sx. Mobilizing to his chair. Medications: Reviewed: Yes Medication Review Details: Generic Name Dose Route Start Last Admin Trade Name Jennifer PRN Reason Stop Dose Admin Acetaminophen 650 mg 11/16/21 03:50 11/28/21 11:18 Acetaminophen 32 5 Mg Tablet PO 650 mg Q6H PRN Administration Mild/Mod Pain Or Temp >/= 101 Albuterol/Ipratrop ium 3 ml 11/23/21 15:00 11/29/21 09:15 Ipratropium-Albu terol 3 Ml Neb INHALATION 3 ml Q6H.RESPIRATORY S CH Administration Calcium Acetate 1,334 mg 11/26/21 08:00 11/29/21 13:36 Calcium Acetate 667 Mg Capsule PO 1,334 mg TIDWM PINKY Administration Cyclobenzaprine HC l 10 mg 11/16/21 23:13 11/21/21 21:13 Cyclobenzaprine 10 Mg Tablet PO 10 mg TID PRN Administration MUSCLE SPASMS Diltiazem HCl 30 mg 11/27/21 09:00 11/29/21 08:25 Diltiazem 30 Mg Tablet PO 30 mg Q6H PINKY Administration Docusate Sodium 100 mg 11/21/21 18:00 11/29/21 08:24 Docusate Sodium 100 Mg Capsule PO 100 mg BID PINKY Administration Piperacillin Sod/T azobactam 50 mls @ 12.5 mls /hr 11/25/21 18:00 11/29/21 09:55 Sod 3.375 gm/ So dium Chloride IV Infused Q12H [facility] Infusion Protocol Levothyroxine Sodi um 50 mcg 11/18/21 08:00 11/29/21 08:25 Levothyroxine 50 Mcg Tablet PO 50 mcg DAILY@0800 [facility] Administration Lidocaine 1 patch 11/16/21 09:00 11/29/21 08:24 Lidocaine 5% Pat ch TOPICAL 1 patch [id number] PINKY Administration Non-Formulary Medi cation 2 puff 11/17/21 09:00 11/29/21 10:35 Tiotropium Bromi de [Spiriva Respim at] INHALATION Not Given DAILY [facility] Ondansetron HCl 4 mg 11/20/21 06:20 11/20/21 07:00 Ondansetron 2 Mg /Ml Sdv 2 Ml IVP 4 mg Q4H PRN Administration NAUSEA AND VOMITI NG Pantoprazole Sodiu m 40 mg 11/20/21 09:00 11/29/21 08:25 Pantoprazole 40 Mg Sdv IVP 40 mg DAILY PINKY Administration Senna/Docusate Sod ium 1 tab 11/20/21 09:00 11/29/21 08:24 Sennosides-Docus ate Tablet PO 1 tab BID PINKY Administration Vitamin D 1,000 unit 11/18/21 08:00 11/29/21 08:25 Cholecalciferol (Vitamin D3) 1,000 Unit Tablet PO 1,000 unit DAILY@0800 PINKY Administration Vitals/I&O/Wt Last Vital Signs Temp 98.8 F 11/30/21 07:30 Pulse 96 11/30/21 08:00 Resp 16 11/30/21 08:00 BP 149/88 11/30/21 08:00 Pulse Ox 97 11/30/21 08:00 11/29/21 11/30/21 11/30/21 22:59 06:59 14:59 Intake Total 290 / 680 Output Total 1900 / 1900 600 / 2500 Balance -1610 / -1220 -600 / -1820 Weight last 48 hrs Weight 103.328 kg Weight 104.326 kg Physical Exam Urinary Catheter Management: Gallardo: Cath Placed During This Visit: yes Reason for Continuing Indwelling Catheter: Accurate Measurement of Urinary Output in Critically Ill Patients Urinary Catheter Date of Insertion: 11/19/21 Urinary Catheter Time of Insertion: 18:07 Data : 11/30/21 02:45 11/30/21 02:45 Micro: Microbiology 11/28/21 00:35 Urine Culture - Final Urine,Clean Catch 11/24/21 10:36 Blood Culture - Final Blood NO GROWTH AFTER 5 DAYS 11/24/21 10:40 Blood Culture - Final Blood NO GROWTH AFTER 5 DAYS A&P Assessment and plan (1) Acute renal insufficiency: 1. Acute kidney injury ischemic ATN Urine output is increasing nicely, creatinine improving Defer ivf, Lasix stopped OK to DC vascath in am A.m. labs Strict I's and O's Avoid use nephrotoxic agents. 2. Chemistry Looks well-balanced now; K replacement 3. Hemodynamics A. fib with RVR now rate controlled on amiodarone infusion 4. Status post spinal fusion Input from surgery is appreciated PT/OT as tolerated, analgesics as tolerated Yemi Bishop MD Nephrology [phone] Patient seen and examined via telemedicine, with the assistance of the bedside RN > 25 min spent in evaluation and mgmt of patient Status: Acute Attestations Medical Necessity Statement*: GEETHA Coding Level of Care Code Acute Barrel And Receiver Aligner for Chg Fwd Diagnoses Acute renal insufficiency N28.9
[2021-11-30] MEDS: potassium chloride ER 20 mEq Tablet 40 MEQ PO (09:15)
[2021-11-30] MEDS: ipratropium-albuterol 3 mL Neb INHALATION ×2 (09:28→21:10)
--- NOTE | 2021-11-30 14:17 | PC.SOCIAL ---
IMM Updated Updated pt on IMM. No questions voiced. Provided pt a copy. Initialed, dated, & timed copy in chart.
[2021-11-30] MEDS: dilTIAZem ER (24HR) 120 mg Capsule PO (16:59)
--- NOTE | 2021-11-30 17:30 | PC.NURSE ---
1728- Patient transferred to second floor room 276-2. Patient resting in bed with nurse at bedside. Patient paper chart left with supervisor front staff.
[2021-12-01] VITALS (14 sets, daily range): BP systolic 163–186; BP diastolic 72–98; PULSE 57–107; RESP 16–18; TEMP 36.4–36.9; O2SAT 91–98
[2021-12-01] MEDS: ipratropium-albuterol 3 mL Neb INHALATION ×4 (02:35→20:41)
[2021-12-01 04:57] LABS: Basophils # 0.1 10^3/uL (0.0-0.1); Basophils % 0.7 %; Eosinophils # 0.3 10^3/uL (0.0-0.8); Hematocrit 30.3 % (42.0-52.0); Hemoglobin 8.8 g/dL (11.7-16.6); Lymphocytes # 1.2 10^3/uL (0.8-4.8); Lymphocytes % 9.4 %; Mean Corpuscular Hemoglobin 27.6 pg (28.0-34.0); Mean Platelet Volume 9.1 fL (7.4-10.4); Monocytes # 0.7 10^3/uL (0.2-0.9); Neutrophils # 9.61 10^3/uL (1.8-7.7); Neutrophils % 78.5 %; Nucleated Red Blood Cells % 0 %; Platelet Count 374 10^3/cmm (130-400); Red Blood Count 3.19 10^6/uL (4.1-5.3); Red Cell Distribution Width 15.2 % (12.1-15.1); White Blood Count 12.2 10^3/uL (4.0-10.0)
[2021-12-01 05:14] LABS: Blood Urea Nitrogen 43 mg/dL (8-23); Calcium 8.3 mg/dL (8.5-10.5); Carbon Dioxide 21 mmol/L (22-29); Chloride 95 mmol/L (98-107); Glucose 123 mg/dL (65-115); Osmolality Calculated 290 mOsm/kg (285-295); Sodium 134 mmol/L (136-145)
[2021-12-01] MEDS: piperacillin-tazobactam 3.375 GM in sodium chloride 0.9% (plus) 100 ML IV (10:24)
[2021-12-01] MEDS: pantoprazole 40 mg SDV IVP (10:26)
[2021-12-01] MEDS: lidocaine 5% Patch 1 PATCH TOPICAL (10:27)
[2021-12-01] MEDS: dilTIAZem ER (24HR) 120 mg Capsule PO (10:27)
[2021-12-01] MEDS: cholecalciferol (vitamin D3) 1,000 unit Tablet 1000 UNIT PO (10:28)
[2021-12-01] MEDS: calcium acetate 667 mg Capsule 1334 MG PO ×2 (10:28→11:59)
[2021-12-01] MEDS: levothyroxine 50 mcg Tablet PO (10:28)
--- NOTE | 2021-12-01 11:13 | PC.NURSE ---
notified dr. Westbrook of patients blood pressure 90/46 after morning bp meds. Patient is not responding to us talking with him. He will open eye occassionaly. Dr. Westbrook coming to floor.
--- NOTE | 2021-12-01 13:43 | P.PN_ITS ---
Subjective Subjective: POD 10 Patient sitting up at the bedside reports improvement of his back and leg pain. Vitals/I&O/Wt Last Vital Signs Temp 98.3 F 12/01/21 11:45 Pulse 71 12/01/21 11:45 Resp 18 12/01/21 11:45 BP 175/94 12/01/21 11:45 Pulse Ox 96 12/01/21 11:45 11/30/21 12/01/21 12/01/21 22:59 06:59 14:59 Intake Total 288 / 1338 240 / 240 Output Total 1100 / 1700 600 / 600 Balance 288 / 738 -1100 / -362 -360 / -360 Weight last 48 hrs Weight 228 lb 4.8 oz Weight 227 lb 12.8 oz Physical Exam Narrative: Patient presents alert and oriented x3 with a good general appearance normal mood and affect. Normal coordination normal stability. Mild tenderness around the incisional site with the incision appear to be healing nicely. No signs of erythema or drainage. No signs of infection. Patient denies any fevers or chills. 4/5 motor strength both lower extremities with negative straight leg raise bilaterally. Calves are supple no medial thigh tenderness. Pulses are 2+ at the dorsalis pedis and posterior tibial region. Good capillary refill throughout normal sensation light touch both lower extremities. Urinary Catheter Management: Gallardo: Cath Placed During This Visit: yes Reason for Continuing Indwelling Catheter: Accurate Measurement of Urinary Output in Critically Ill Patients Urinary Catheter Date of Insertion: 11/19/21 Urinary Catheter Time of Insertion: 18:07 Data : 12/01/21 04:15 12/01/21 04:15 Micro: Microbiology 11/30/21 08:44 Parasite Antigen Panel - Final Stool Routine Collection 11/30/21 08:44 Enteric Pathogens (PCR) - Final Stool Routine Collection C.difficile Toxin B Gene (PCR) - Final A&P Assessment and plan (1) Status post lumbar spinal fusion: The nursing staff to please change the lumbar incision. Continue to mobilize with physical therapy. Continue incentive spirometer for pulmonary toilet. manager social services consult for rehab facility. We will continue to follow during hospitalization. Status: Acute Attestations Medical Necessity Statement*: defer to medical team Coding Level of Care Code Acute Interactive Web Developer for Adamg Fwyahir Diagnoses Status post lumbar spinal fusion Z98.1
--- NOTE | 2021-12-01 14:04 | PM.PN ---
Subjective Subjective: Mr. Duran is doing well. No acute complaints. Passing urine via Gallardo catheter. Hemodialysis catheter remains in place. Minimal extremity edema, no shortness of breath. No uremic symptoms. Overall doing well. Medications: Reviewed: Yes Medication Review Details: Generic Name Dose Route Start Last Admin Trade Name Freq PRN Reason Stop Dose Admin Acetaminophen 650 mg 11/16/21 03:50 11/28/21 11:18 Acetaminophen 32 5 Mg Tablet PO 650 mg Q6H PRN Administration Mild/Mod Pain Or Temp >/= 101 Albuterol/Ipratrop ium 3 ml 11/23/21 15:00 11/29/21 09:15 Ipratropium-Albu terol 3 Ml Neb INHALATION 3 ml Q6H.RESPIRATORY S CH Administration Calcium Acetate 1,334 mg 11/26/21 08:00 11/29/21 13:36 Calcium Acetate 667 Mg Capsule PO 1,334 mg TIDWM PINKY Administration Cyclobenzaprine HC l 10 mg 11/16/21 23:13 11/21/21 21:13 Cyclobenzaprine 10 Mg Tablet PO 10 mg TID PRN Administration MUSCLE SPASMS Diltiazem HCl 30 mg 11/27/21 09:00 11/29/21 08:25 Diltiazem 30 Mg Tablet PO 30 mg Q6H PINKY Administration Docusate Sodium 100 mg 11/21/21 18:00 11/29/21 08:24 Docusate Sodium 100 Mg Capsule PO 100 mg BID PINKY Administration Piperacillin Sod/T azobactam 50 mls @ 12.5 mls /hr 11/25/21 18:00 11/29/21 09:55 Sod 3.375 gm/ So dium Chloride IV Infused Q12H [facility] Infusion Protocol Levothyroxine Sodi um 50 mcg 11/18/21 08:00 11/29/21 08:25 Levothyroxine 50 Mcg Tablet PO 50 mcg DAILY@0800 [facility] Administration Lidocaine 1 patch 11/16/21 09:00 11/29/21 08:24 Lidocaine 5% Pat ch TOPICAL 1 patch [id number] PINKY Administration Non-Formulary Medi cation 2 puff 11/17/21 09:00 11/29/21 10:35 Tiotropium Bromi de [Spiriva Respim at] INHALATION Not Given DAILY [facility] Ondansetron HCl 4 mg 11/20/21 06:20 11/20/21 07:00 Ondansetron 2 Mg /Ml Sdv 2 Ml IVP 4 mg Q4H PRN Administration NAUSEA AND VOMITI NG Pantoprazole Sodiu m 40 mg 11/20/21 09:00 11/29/21 08:25 Pantoprazole 40 Mg Sdv IVP 40 mg DAILY PINKY Administration Senna/Docusate Sod ium 1 tab 11/20/21 09:00 11/29/21 08:24 Sennosides-Docus ate Tablet PO 1 tab BID PINKY Administration Vitamin D 1,000 unit 11/18/21 08:00 11/29/21 08:25 Cholecalciferol (Vitamin D3) 1,000 Unit Tablet PO 1,000 unit DAILY@0800 PINKY Administration Vitals/I&O/Wt Last Vital Signs Temp 98.3 F 12/01/21 11:45 Pulse 71 12/01/21 11:45 Resp 18 12/01/21 11:45 BP 175/94 12/01/21 11:45 Pulse Ox 96 12/01/21 11:45 11/30/21 12/01/21 12/01/21 22:59 06:59 14:59 Intake Total 288 / 1338 240 / 240 Output Total 1100 / 1700 600 / 600 Balance 288 / 738 -1100 / -362 -360 / -360 Weight last 48 hrs Weight 103.555 kg Weight 103.328 kg Physical Exam Urinary Catheter Management: Gallardo: Cath Placed During This Visit: yes Reason for Continuing Indwelling Catheter: Accurate Measurement of Urinary Output in Critically Ill Patients Urinary Catheter Date of Insertion: 11/19/21 Urinary Catheter Time of Insertion: 18:07 Data : 12/01/21 04:15 12/01/21 04:15 Micro: Microbiology 11/30/21 08:44 Parasite Antigen Panel - Final Stool Routine Collection 11/30/21 08:44 Enteric Pathogens (PCR) - Final Stool Routine Collection C.difficile Toxin B Gene (PCR) - Final A&P Assessment and plan (1) Acute renal insufficiency: 1. Acute kidney injury ischemic ATN Now recovering nicely. Okay to remove hemodialysis catheter Okay to remove Gallardo catheter. A.m. labs Strict I's and O's Avoid use nephrotoxic agents. 2. Chemistry Looks well-balanced 3. Hemodynamics A. fib with RVR now rate controlled on amiodarone infusion 4. Status post spinal fusion Input from surgery is appreciated PT/OT as tolerated, analgesics as tolerated Yemi Bishop MD Nephrology [phone] Patient seen and examined via telemedicine, with the assistance of the bedside RN > 25 min spent in evaluation and mgmt of patient Status: Acute Attestations Medical Necessity Statement*: Eval for GEETHA Coding Level of Care Code Acute Traveling Inventory Associate for Chg Fwd Diagnoses Acute renal insufficiency N28.9
[2021-12-01] MEDS: ondansetron 2 mg/ML SDV 2 mL 4 MG IVP (14:46)
--- NOTE | 2021-12-01 15:35 | PM.PN ---
Subjective Subjective: Hospital course, labs appreciated. Examination patient sitting up in bed. Complaining of mild nausea today. Denies any dizziness, chest pain. Having daily bowel movements. Denies of any bleeding. Has remained afebrile. Blood pressure slightly elevated. Vitals/I&O/Wt Last Vital Signs Temp 98.3 F 12/01/21 11:45 Pulse 58 L 12/01/21 15:07 Resp 17 12/01/21 15:02 BP 175/94 12/01/21 11:45 Pulse Ox 91 12/01/21 15:02 12/01/21 12/01/21 12/01/21 06:59 14:59 22:59 Intake Total 340 / 340 Output Total 1100 / 1700 600 / 600 Balance -1100 / -362 -260 / -260 Weight last 48 hrs Weight 103.555 kg Weight 103.328 kg Physical Exam Const: COMMON NORMALS: patient oriented x3 HENMT: COMMON NORMALS: normocephalic and atraumatic HEAD & SCALP: normocephalic and atraumatic Chest: CHEST: Yes Symmetrical chest wall rise Resp: COMMON NORMALS: normal respiratory effort and clear to auscultation bilaterally EFFORT & INSPECTION: Yes symmetric chest movement AUSCULTATION: clear to auscultation bilaterally Cardio: COMMON NORMALS: regular rate, regular rhythm, S1 normal heart sound present, S2 normal heart sound present, No gallops present (Cardio), No murmurs present (Cardio), No rub (Cardio) and Peripheral pulses 2+ throughout RATE: regular rate RHYTHM: regular rhythm HEART SOUNDS: S1 normal heart sound present and S2 normal heart sound present PERIPHERAL PULSES: Peripheral pulses 2+ throughout GI: COMMON NORMALS: Normal to inspection, nondistended, normoactive bowel sounds present, Soft to palpation, non-tender, No hepatosplenomegaly present and no masses AUSCULTATION: Yes normoactive bowel sounds PALPATION: Yes Soft to palpation and Yes No hepatosplenomegaly present RECTAL EXAM: Yes deferred Extremity: COMMON NORMALS: no clubbing, cyanosis or edema and no pedal edema Neuro: COMMON NORMALS: patient oriented x3 Urinary Catheter Management: Gallardo: Cath Placed During This Visit: yes Reason for Continuing Indwelling Catheter: Accurate Measurement of Urinary Output in Critically Ill Patients Urinary Catheter Date of Insertion: 11/19/21 Urinary Catheter Time of Insertion: 18:07 Data : 12/01/21 04:15 12/01/21 04:15 Micro: Microbiology 11/30/21 08:44 Parasite Antigen Panel - Final Stool Routine Collection 11/30/21 08:44 Enteric Pathogens (PCR) - Final Stool Routine Collection C.difficile Toxin B Gene (PCR) - Final A&P Assessment and plan (1) Acute renal insufficiency: Status: Acute (2) Fever: Status: Acute (3) Intractable back pain: Status: Acute (4) Spinal stenosis: Status: Acute (5) Lumbosacral radiculopathy: Status: Acute (6) Unable to ambulate: Status: Acute (7) Spondylolisthesis at L3-L4 level: Status: Acute (8) Hyperkalemia: Status: Acute (9) Acute blood loss anemia: Status: Acute (10) Postoperative hypovolemic shock: Status: Acute Plan #Hypovolemic shock: Likely secondary to blood loss during surgery: Resolved. Blood cultures negative from admission. MRSA negative. Stool studies negative. Procalcitonin mildly elevated most likely secondary to GEETHA. Last dose of vancomycin on 11/30. Stop Zosyn as patient has been on antibiotics for more than 10 days. Post 5 unit blood transfusion. Hemoglobin stable. Maintain mean blood pressure over 65 mmHg. #Acute renal failure: Likely secondary to ATN secondary to hypotension secondary to acute blood loss. Possible contribution from contrast during CT studies. No NSAID use in the past Appreciate nephrology recommendations. Medical reconciliation done for nephrotoxic drugs. Post 2 sessions of hemodialysis. Holding off on hemodialysis for now. Blood work stable. Monitor for acidosis. Monitor urine output. Discussed with nephrology. Can remove Gallardo catheter and hemodialysis catheter. #Acute on chronic hypercapnic respiratory failure: Maintain oxygen saturation over 88%. BiPAP at night. Continue with home dose of Spiriva. Add Advair. #Hypertension: Goal blood pressure less than 140/90 mmHg with mean over 65. Blood pressure elevated. Continue with Cardizem 120 mg daily. Add hydralazine 25 mg 3 times daily. Hold off on metoprolol given bradycardia. #Acute encephalopathy multifactorial: Hypercapnia-uremia, low clinical suspicion for sepsis.: Resolved CT head without contrast: X2 : no acute intracranial pathology Continue to monitor mentation #HFpEF : Currently compensated Monitor intake output charting Daily weight K>4,MG>2 #Intractable lower back pain: Secondary to spondylolithiasis : Appreciated orthopedic recommendation. Post spinal fusion and decompression on 11/21. Continue physical therapy. # Recent GI bleed: Continue to hold Pradaxa for now. Continue with Protonix 40 mg daily. Monitor hemoglobin daily. #A. fib: With RVR: Rate controlled. Continue with home dose of Cardizem 120 mg daily. Anticoagulation on hold given GI bleed. Risk and benefit of holding anticoagulation has been explained to the family, currently in agreement to hold the anticoagulation #Constipation: Likely narcotic associated X-ray KUB:?No acute GI abnormality Patient currently denies any nausea vomiting abdominal pain Bowel regimen enema prn #KERRY: On nightly CPAP Heparin for DVT prophylaxis. Renal dialysis diet. Protonix OPD prophylaxis. Discharge planning: Monitor physical therapy evaluations. Plan to discharge to SNF for further rehabilitation. Attestations Medical Necessity Statement*: Requires further hospitalization for management of acute kidney injury requiring hemodialysis in setting of hypovolemic shock from acute blood loss anemia postoperatively while safe discharge planning discharge Time Spent in Patient Care: Greater than 35 minutes Coding Level of Care Code Acute Conveyor Line Battery Charger for g Fwd Diagnoses Intractable back pain M54.9 Spinal stenosis M48.00 Lumbosacral radiculopathy M54.17 Unable to ambulate R26.2 Acute renal insufficiency N28.9 Spondylolisthesis at L3-L4 level M43.16 Fever R50.9 Hyperkalemia E87.5 Acute blood loss anemia D62 Postoperative hypovolemic shock T81.19XA
--- NOTE | 2021-12-01 18:12 | PC.NURSE ---
Gallardo discontinued.
--- NOTE | 2021-12-01 18:59 | PC.NURSE ---
Dialysis catheter removed. Pressure dressing applied.
[2021-12-01] MEDS: hyDRALAzine 25 mg Tablet PO (20:04)
[2021-12-02] VITALS (11 sets, daily range): BP systolic 144–173; BP diastolic 70–81; PULSE 58–115; RESP 16–18; TEMP 36.6–36.8; O2SAT 91–98
[2021-12-02 02:07] LABS: Basophils # 0.1 10^3/uL (0.0-0.1); Basophils % 0.7 %; Eosinophils # 0.2 10^3/uL (0.0-0.8); Eosinophils % 1.4 %; Hematocrit 34.5 % (42.0-52.0); Hemoglobin 10.4 g/dL (11.7-16.6); Lymphocytes # 1.6 10^3/uL (0.8-4.8); Lymphocytes % 9.7 %; Mean Corpuscular HGB Conc 30.1 g/dL (30.0-36.0); Mean Corpuscular Hemoglobin 27.1 pg (28.0-34.0); Mean Corpuscular Volume 89.8 fl (80-94); Mean Platelet Volume 8.3 fL (7.4-10.4); Monocytes # 1.1 10^3/uL (0.2-0.9); Monocytes % 6.4 %; Neutrophils # 13.19 10^3/uL (1.8-7.7); Neutrophils % 78.6 %; Nucleated Red Blood Cells % 0 %; Platelet Count 680 10^3/cmm (130-400); Red Blood Count 3.84 10^6/uL (4.1-5.3); White Blood Count 16.8 10^3/uL (4.0-10.0)
[2021-12-02 02:28] LABS: Blood Urea Nitrogen 44 mg/dL (8-23); Carbon Dioxide 23 mmol/L (22-29); Chloride 95 mmol/L (98-107); Glucose 109 mg/dL (65-115); Osmolality Calculated 288 mOsm/kg (285-295); Sodium 133 mmol/L (136-145)
[2021-12-02 02:32] LABS: Anion Gap 19.3 (5-19); Potassium 4.3 mmol/L (3.5-5.1)
[2021-12-02] MEDS: ipratropium-albuterol 3 mL Neb INHALATION ×3 (04:59→14:29)
--- NOTE | 2021-12-02 05:44 | PC.NURSE ---
SHIFT SUMMARY Did not rest well tonight. Sat on side of bed for awhile then would lay down for awhile. Was only dribbling urine in urinal and some incont dribbling. Had urge to urinate. Bladder scan was done and showed 497ml in bladder. Dr was called and pt was straight cathed with 450ml return. Dressing to medial back is C&D. Dressings to both groins C&D. Denied pain with questioning.
--- NOTE | 2021-12-02 08:02 | P.PN_ITS ---
Subjective Subjective: POD 11 Patient sitting at the bedside no apparent distress. States his back and leg pain has improved significantly. Vitals/I&O/Wt Last Vital Signs Temp 98.2 F 12/02/21 07:41 Pulse 86 12/02/21 07:41 Resp 18 12/02/21 07:41 BP 163/79 12/02/21 07:41 Pulse Ox 93 12/02/21 07:41 12/01/21 12/02/21 12/02/21 22:59 06:59 14:59 Intake Total 120 / 460 240 / 700 Output Total 300 / 900 550 / 1450 Balance -180 / -440 -310 / -750 Weight last 48 hrs Weight 222 lb 3.2 oz Weight 228 lb 4.8 oz Physical Exam Narrative: Patient presents alert and oriented x3 with a good general appearance normal mood and affect.? Normal coordination normal stability.? Mild tenderness around the incisional site with the incision showing some bloody discharge.? No signs of erythema or drainage.? No signs of infection.? Patient denies any fevers or chills.? 4/5 motor strength both lower extremities with negative straight leg raise bilaterally.? Calves are supple no medial thigh tenderness.? Pulses are 2+ at the dorsalis pedis and posterior tibial region.? Good capillary refill throughout normal sensation light touch both lower extremities. Urinary Catheter Management: Gallardo: Cath Placed During This Visit: yes Reason for Continuing Indwelling Catheter: Accurate Measurement of Urinary Output in Critically Ill Patients Urinary Catheter Date of Insertion: 11/19/21 Urinary Catheter Time of Insertion: 18:07 Data : 12/02/21 01:52 12/02/21 01:52 A&P Assessment and plan (1) Status post lumbar spinal fusion: Dressing was changed Silverlon island dressing applied. Encourage continue physical therapy for mobilization. Be cautious with bending lifting and twisting. Status: Acute Attestations Medical Necessity Statement*: Defer to medical team Coding Level of Care Code Acute Grinder Operator Surface Tool for Chg Fwd Diagnoses Status post lumbar spinal fusion Z98.1
[2021-12-02] MEDS: hyDRALAzine 25 mg Tablet PO ×2 (08:27→15:26)
[2021-12-02] MEDS: pantoprazole 40 mg SDV IVP (08:27)
[2021-12-02] MEDS: cholecalciferol (vitamin D3) 1,000 unit Tablet 1000 UNIT PO (08:27)
[2021-12-02] MEDS: dilTIAZem ER (24HR) 120 mg Capsule PO (08:27)
[2021-12-02] MEDS: levothyroxine 50 mcg Tablet PO (08:27)
[2021-12-02] MEDS: lidocaine 5% Patch 1 PATCH TOPICAL (08:28)
--- NOTE | 2021-12-02 12:29 | P.DS_ITS ---
Discharge Providers Date of Admission: 11/21/21 16:08 Date of Discharge: December 02, 2021 Attending Provider at Admission: Timoteo Abad Attending Provider at Discharge: Manuel Kim MD Consults: Orthopedics: Dr. Jain Telemetry nephrology Primary Care Provider: Keshawn Little DO Diagnoses at Discharge Discharge Diagnosis (1) Status post lumbar spinal fusion: Status: Acute Reason for Visit Reason for Visit: back pain Brief History: History as per HPI: Admitted on 11/16: Pleasant 76-year-old gentleman came in for evaluation to the hospital due to severe low back pain, states normally he has been dealing with chronic back pain issues, has had spinal cord stimulator implanted in the past, follows with pain medicine, however, states after recent hospitalization pain has gotten progressively worse to the point that he cannot ambulate currently due to any movement of his legs causing pain.? He denies any urinary or fecal incontinence.? Denies any sensation loss.? Pain is sharp, severe, radiating down the back of his thighs.? He otherwise denies fever chills.? States has not had any further melanotic or bloody stools after recent hospitalization for GI bleed.? He has continued holding his Pradaxa. Hospital Course Hospital Course Patient going to the hospital for further evaluation and management of acute on chronic back pain. CT imaging was done which was consistent with spinal stenosis without any acute changes. Spinal surgery/orthopedics were consulted. On admission patient was found to have mild GEETHA on chronic kidney disease most likely secondary to multiple pain medications and home dose of lisinopril. He underwent spinal fusion and fissurectomy on 11/21. Postoperative stay was complicated by patient developing acute hypovolemic shock secondary to blood loss anemia. He required vasopressors and at least 5 units of blood transfusion overall. Patient also developed worsening of GEETHA on chronic kidney disease for which nephrology was consulted and he underwent 2 sessions of dialysis. Postoperatively patient was also kept on broad-spectrum antibiotics which were later discontinued as his blood cultures and all the cultures remain negative. Patient eventually showed improvement and was transferred out of ICU. Patient is dialysis catheter and Gallardo catheter were removed on 12/01 after confirmation with nephrology. Patient failed urine voiding trial and catheter was replaced on 12/02 after 600 cc of urine was retained. He has been discharged hemodynamically stable condition with advised to hold off on Pradaxa and lisinopril for next 10 days. He is advised to follow-up closely with nephrology/Dr. Gomez as an outpatient. He is to repeat his CMP and CBC with his primary care provider within the next 10 days. If hemoglobin is stable he can restart Pradaxa and then recheck hemoglobin in 1 week for initiation of Pradaxa. He is to maintain his blood pressure diary when checking her blood pressure twice or 3 times a day and follow-up with his primary care provider or Dr. Gomez for further adjustment of antihypertensives. Physical Exam Const: COMMON NORMALS: patient oriented x3 HENMT: COMMON NORMALS: normocephalic and atraumatic HEAD & SCALP: normocephalic and atraumatic Chest: CHEST: Yes Symmetrical chest wall rise Resp: COMMON NORMALS: normal respiratory effort and clear to auscultation bilaterally EFFORT & INSPECTION: Yes symmetric chest movement AU SCULTATION: clear to auscultation bilaterally Cardio: COMMON NORMALS: regular rate, regular rhythm, S1 normal heart sound present, S2 normal heart sound present, No gallops present (Cardio), No murmurs present (Cardio), No rub (Cardio) and Peripheral pulses 2+ throughout RATE: regular rate RHYTHM: regular rhythm HEART SOUNDS: S1 normal heart sound present and S2 normal heart sound present PERIPHERAL PULSES: Peripheral puls es 2+ throughout GI: COMMON NORMALS: Normal to inspection, nondistended, normoactive bowel sounds present, Soft to palpation, non-tender, No hepatosplenomegaly present and no masses AUSCULTATION: Yes normoactive bowel sounds PALPATION: Yes Soft to palpation and Yes No hepatosplenomegaly present RECTAL EXAM: Yes deferred Extremity: COMMON NORMALS: no clubbing, cyanosis or edema and no pedal edema Neuro: COMMON NORMALS: patient oriented x3 Urinary Catheter Management: Gallardo: Cath Placed During This Visit: yes Reason for Continuing Indwelling Catheter: Accurate Measurement of Urinary Output in Critically Ill Patients Urinary Catheter Date of Insertion: 12/02/21 Urinary Catheter Time of Insertion: 11:41 Discharge Data Studies Completed and Pending Completed Studies During Hospitalization Category Date Time Status CT head wo con* [id number] Stat Cat Scan 11/24/21 08:[address] head wo con* [id number] Stat Cat Scan 11/26/21 00:[address] lumbar spine w con 01301 Routine Cat Scan 11/18/21 14:[address] lumbar spine wo con* [id number] Urgent Cat Scan 11/15/21 20:19 Completed CXRP [XR chest 1V portable 14507] Stat Exams 11/24/21 11:45 Completed IR myelogram sp lumbar 47770 Routine Exams 11/18/21 13:00 Completed XR KUB portable [id number] Urgent Exams 11/25/21 12:40 Completed XR chest 1V portable [id number] Routine Exams 11/22/21 06:00 Completed XR lumbar spine 1V 52362 Routine Exams 11/21/21 14:06 Completed XR lumbar spine complete flexion extensi [XR lumbar Exams 11/17/21 11:59 Completed spine 6V w f/e 17763] Routine US renal BI* [id number] Routine Ultrasound 11/16/21 04:00 Completed US venous duplex lower extremity bilat [CV venous Ultrasound 11/24/21 14:02 [place] [id number]] Routine Pending at discharge Category Date Time Status ABG ROOM AIR [Arterial Blood Gas Room Air] Routine Lab 11/24/21 19:06 Results Arterial Blood Gas Full Routine Lab 11/24/21 19:06 Results BMP [Basic Metabolic Panel] AM LABS Lab 12/03/21 04:00 Ordered CBC Auto Diff [Complete Blood Count w/Auto] AM LABS Lab 12/03/21 04:00 Ordered Leukocyte Reduced RBC Stat Lab 11/21/21 07:30 Results RED BLOOD CELLS [Leukocyte Reduced RBC] Routine Lab 11/24/21 11:30 Results Type and Screen Routine Lab 11/24/21 11:30 Results Type and Screen Stat Lab 11/21/21 07:30 Results Radiology Impressions Renal Ultrasound 11/16/21 04:00 IMPRESSION: 1. Low normal size kidneys. 2. No hydronephrosis or solid mass. 3. Moderate prostate gland encroachment into the bladder. Myelogram,Lumbar Spine 11/18/21 13:00 IMPRESSION: 1. Uncomplicated lumbar myelogram. 2. Abrupt termination of the contrast column at the L4 level. Probably combination of disc disease and facet disease and ligamentum flavum disease. Without an MRI with contrast additional mass causing the obstruction would be difficult to exclude. Patient has a known 7 mm nodule at the L4 level which is not responsible for the obstruction. 3. Advanced lumbar spondylosis and degenerative scoliosis. Lumbar Spine CT 11/18/21 14:07 IMPRESSION: 1. 6 lumbar type vertebral bodies labeled 1 through 6 for the purposes of this dictation. This similar numbering pattern will be utilized as on 10/12/2019. 2. Severe central stenosis at L4-5 with complete block of the column of contrast. Combination of disc and facet disease. Very similar in appearance to the prior study from 10/12/2019. It would be difficult to exclude a mass at this location. Patient has a known intrathecal nodule measuring 5.5 mm at the L4 level which is stable. 3. Severe subarticular and bilateral foraminal stenosis at L4-5. 4. Moderate to severe LEFT foraminal stenosis at L3-4. 5. Moderate central with [id number] bilateral foraminal stenosis at L5- L6. Mild progression. Advanced multilevel degenerative disc disease with facet arthritis. Lumbar Spine X-Ray 11/21/21 14:06 IMPRESSION: Postoperative lumbosacral spine as above. Chest X-Ray 11/24/21 11:45 IMPRESSION: 1. No acute findings. 2. Electronic stimulator mid dorsal spine. 3. Metallic hardware lumbar spine KUB X-Ray 11/25/21 12:40 IMPRESSION: 1. No acute GI abnormality 2. Metallic orthopedic hardware lumbar spine. 3. Electronic stimulator extending into the dorsal spine Head CT 11/26/21 00:00 IMPRESSION: 1. No acute intracranial hemorrhage or mass effect. 2. Changes of microvascular disease. 3. No definite acute infarct by CT, see above. 4. Other findings discussed above. Microbiology 11/30/21 08:44 Stool Routine Collection Parasite Antigen Panel - Final 11/30/21 08:44 Stool Routine Collection Enteric Pathogens (PCR) - Final 11/30/21 08:44 Stool Routine Collection C.difficile Toxin B Gene (PCR) - Final 11/28/21 00:35 Urine,Clean Catch Urine Culture - Final 11/24/21 10:36 Blood Blood Culture - Final NO GROWTH AFTER 5 DAYS 11/24/21 10:40 Blood Blood Culture - Final NO GROWTH AFTER 5 DAYS 11/25/21 17:07 Urine Catheterized Urine Culture - Final 11/22/21 02:55 Blood Blood Culture - Final NO GROWTH AFTER 5 DAYS 11/22/21 02:50 Blood Blood Culture - Final NO GROWTH AFTER 5 DAYS 11/21/21 23:15 Urine Catheterized Urine Culture - Final 11/23/21 05:50 Nose MRSA Culture - Final Laboratory Results WBC 16.8 10^3/uL (4.0-10.0) H 12/02/21 01:52 Corrected WBC Cancelled 11/28/21 04:14 RBC 3.84 10^6/uL (4.1-5.3) L 12/02/21 01:52 Hgb 10.4 g/dL (11.7-16.6) L 12/02/21 01:52 Hct 34.5 % (42.0-52.0) L 12/02/21 01:52 MCV 89.8 fl (80-94) D 12/02/21 01:52 MCH 27.1 pg (28.0-34.0) L 12/02/21 01:52 MCHC 30.1 g/dL (30.0-36.0) 12/02/21 01:52 RDW 15.0 % (12.1-15.1) 12/02/21 01:52 Plt Count 680 10^3/cmm (130-400) H D 12/02/21 01:52 MPV 8.3 fL (7.4-10.4) 12/02/21 01:52 Gran % Cancelled 11/28/21 04:14 Neut % (Auto) 78.6 % 12/02/21 01:52 Lymph % (Auto) 9.7 % 12/02/21 01:52 Martin % (Auto) 6.4 % 12/02/21 01:52 Eos % (Auto) 1.4 % 12/02/21 01:52 Baso % (Auto) 0.7 % 12/02/21 01:52 Neut # (Auto) 13.19 10^3/uL (1.8-7.7) H 12/02/21 01:52 Lymph # (Auto) 1.6 10^3/uL (0.8-4.8) 12/02/21 01:52 Martin # (Auto) 1.1 10^3/uL (0.2-0.9) H 12/02/21 01:52 Eos # (Auto) 0.2 10^3/uL (0.0-0.8) 12/02/21 01:52 Baso # (Auto) 0.1 10^3/uL (0.0-0.1) 12/02/21 01:52 Absolute Gran (auto) Cancelled 11/28/21 04:14 Nucleated RBC % (auto) 0 % 12/02/21 01:52 Nucleated RBCs # 0.0 /100WBC 12/02/21 01:52 Specimen Type Arterial 11/27/21 04:55 Sample Site Brachial, right 11/27/21 04:55 ABG pH 7.33 (7.35-7.45) L 11/27/21 04:55 ABG pCO2 45.5 mmHg (35-45) H 11/27/21 04:55 ABG pO2 96.1 mmHg (80.0-100.0) 11/27/21 04:55 ABG HCO3 23.9 mmol/L (22-26) 11/27/21 04:55 ABG O2 Saturation 98.4 11/27/21 04:55 ABG Base Excess -2.0 mmol/L (-2.0-2.0) 11/27/21 04:55 Walt Test N/a 11/27/21 04:55 A-a O2 Gradient 12.6 mmHg (5-10) H 11/27/21 04:55 Hematocrit 26.3 % (42-52) L 11/27/21 04:55 Hgb O2 Saturation 98.1 % (95-100) 11/27/21 04:55 Carboxyhemoglobin 0.7 %THgb (0.4-20.1) 11/27/21 04:55 Methemoglobin < 0.0 % (0.4-1.5) L 11/27/21 04:55 Total Hemoglobin 8.6 g/dL (14-18) L 11/27/21 04:55 Sodium 141.0 mmol/L (131-143) 11/27/21 04:55 Potassium 4.4 mmol/L (3.5-5.0) 11/27/21 04:55 Glucose 123.0 mg/dL (70-115) H 11/27/21 04:55 Ionized Calcium 1.1 mmol/L (1.1-1.4) 11/27/21 04:55 O2 Delivery Device Bipap 11/27/21 04:55 O2 Liters/Min 4.0 % 11/24/21 08:15 FiO2 35.0 % 11/27/21 04:55 Tidal Volume 0.50 11/27/21 04:55 PEEP 6.0 cmH20 11/27/21 04:55 Pmp Project Manager ID Vish 11/27/21 04:55 Sodium 133 mmol/L (136-145) L 12/02/21 01:52 Potassium 4.3 mmol/L (3.5-5.1) 12/02/21 01:52 Chloride 95 mmol/L (98-107) L 12/02/21 01:52 Carbon Dioxide 23 mmol/L (22-29) 12/02/21 01:52 Anion Gap 19.3 (5-19) H 12/02/21 01:52 BUN 44 mg/dL (8-23) H 12/02/21 01:52 Creatinine 3.4 mg/dL (0.7-1.2) H 12/02/21 01:52 GFR Calculation Not Reportable 12/02/21 01:52 Glucose 109 mg/dL (65-115) 12/02/21 01:52 Calculated Osmolality 288 mOsm/kg (285-295) 12/02/21 01:52 Lactic Acid 0.7 mmol/L (0.5-2.2) 11/24/21 10:36 Calcium 10.0 mg/dL (8.5-10.5) 12/02/21 01:52 Phosphorus 4.8 mg/dL (2.5-4.5) H 11/30/21 02:45 Magnesium 2.0 mg/dL (1.7-2.3) 11/30/21 02:45 Total Bilirubin 0.3 mg/dL (0.15-1.2) 11/30/21 02:45 AST 21 U/L (0-40) 11/30/21 02:45 ALT < 5 U/L (0-41) 11/30/21 02:45 Alkaline Phosphatase 178 IU/L (40-130) H 11/30/21 02:45 Creatine Kinase 1351 U/L (39-308) H* 11/24/21 10:36 Total Protein 5.9 g/dL (6.6-8.7) L 11/30/21 02:45 Albumin 2.5 g/dL (3.5-5.2) L 11/30/21 02:45 Globulin 3.4 g/dL (1.3-4.6) 11/30/21 02:45 Procalcitonin 1.69 ng/mL (0-0.5) H 11/23/21 03:52 Urine Color Yellow (Yellow) 11/28/21 00:35 Urine Appearance Cloudy (CLEAR) A 11/28/21 00:35 Urine pH 5 (5-7) 11/28/21 00:35 Ur Specific P[place]roy 1.010 (1.005-1.030) 11/28/21 00:35 Urine Protein Trace (Negative) 11/28/21 00:35 Urine Glucose (UA) Norm (Normal) 11/28/21 00:35 Urine Ketones Negative (Negative) 11/28/21 00:35 Urine Blood 3+ (Negative) H 11/28/21 00:35 Urine Nitrate Negative (Negative) 11/28/21 00:35 Urine Bilirubin Neg (Negative) 11/28/21 00:35 Urine Urobilinogen Norm mg/dL (Negative) 11/28/21 00:35 Ur Leukocyte Esterase 1+ (Negative) H 11/28/21 00:35 Urine RBC 5-10 /hpf (0-2) H 11/28/21 00:35 Urine WBC 5-10 /hpf (0-5) H 11/28/21 00:35 Ur Squamous Epith Cells 0-4 /hpf (0-5) H 11/28/21 00:35 Amorphous Sediment Trace /hpf 11/28/21 00:35 Urine Bacteria Trace /hpf (NONE) 11/28/21 00:35 Coarse Granular Casts 0-4 /lpf H 11/28/21 00:35 Urine Mucus Trace /hpf 11/28/21 00:35 Ur Random Sodium 112 mmol/L 11/28/21 00:35 Ur Random Potassium 10 mmol/L 11/28/21 00:35 Ur Random Chloride 108 mmol/L 11/28/21 00:35 Random Vancomycin 14.5 ug/mL (20.0-40.0) L 11/29/21 03:05 Complement C3 118 mg/dL (90-180) 11/24/21 10:36 Complement C4 14 mg/dL (10-40) 11/24/21 10:36 Hep Bs Antigen Non-reactive (Nonreactive) 11/24/21 10:36 Hep Bs Antibody 3.5 (11.5-1000) L 11/24/21 10:36 Hepatitis C Antibody Non-reactive (Nonreactive) 11/24/21 10:36 Anti-Streptolysin O Ab <50 IU/mL (<200) 11/24/21 10:36 Blood Type O Positive 11/24/21 11:30 Rho(D) Type Positive 11/24/21 11:30 Antibody Screen Negative 11/24/21 11:30 Crossmatch See Detail 11/24/21 11:30 Vitals Last Vital Signs Temp 97.8 F 12/02/21 11:27 Pulse 97 12/02/21 11:27 Resp 18 12/02/21 11:27 BP 150/70 12/02/21 11:27 Pulse Ox 93 12/02/21 11:27 Discharge Plan Discharge Patient Disposition: Home Health Service Condition: Stable Prescriptions: New diltiazem HCl [Cardizem CD] 240 mg capsule,extended release 24hr 240 mg PO DAILY Qty: 30 0RF hydralazine 25 mg tablet 25 mg PO TID Qty: 90 0RF Continued guaifenesin 400 mg tablet 400 mg PO Q4H PRN (Reason: Cough) 0RF cholecalciferol (vitamin D3) 1,250 mcg (50,000 unit) tablet 1,250 mcg PO DAILY@0800 0RF levothyroxine 50 mcg capsule 50 mcg PO DAILY@0800 0RF cetirizine 10 mg capsule 10 mg PO DAILY@0800 0RF cyclobenzaprine 10 mg tablet 10 mg PO TID PRN (Reason: muscle spasms) 0RF albuterol sulfate 90 mcg/actuation HFA aerosol inhaler 1 inh inhalation QID PRN (Reason: shortness of breath or wheezing) Qty: 8.5 5RF Spiriva Respimat 1.25 mcg/actuation mist 2 puff inhalation DAILY Qty: 4 3RF hydrocodone-acetaminophen 5-325 mg tablet 1 tab PO Q6H PRN (Reason: pain) 14 Days Qty: 30 0RF acetaminophen [Tylenol Extra Strength] 500 mg Tablet 500 mg PO Q6H PRN (Reason: Pain) 0RF Dulera 200-5 mcg/actuation Hfa Aerosol Inhaler 2 puff INHALATION BID 0RF diclofenac sodium [Voltaren Arthritis Pain] 1 % gel 4 g topical QID PRN (Reason: Pain) 0RF omeprazole 20 mg capsule,delayed release(DR/EC) 20 mg PO DAILY Qty: 90 3RF Held lisinopril 40 mg tablet 40 mg PO DAILY@0800 0RF Hold Instructions: Resume on 12/12/21. Pradaxa 150 mg Capsule 150 mg PO BID 0RF Hold Instructions: Resume on 12/11/21. Discontinued diltiazem HCl 240 mg capsule,extended release 24hr 240 mg PO DAILY@0800 0RF No Action (DME) custom orthotics See Rx Instructions .Route .MEDSUPPLY Qty: 1 0RF Rx Instructions: As directed Discharge Orders: Discharge Order (Routine); Ordered 12/02/21 Ordered By: Manuel Kim Other Ambulatory Orders: DME: Walker (Order) Location: None Selected Ordered By: Abelardo Gonzalez Referrals: Keshawn Little DO [Primary Care Provider] - 7-10 days Sloan Gomez MD [Referring] - 7-10 days Joaquín Jain DO [Physician] - 4-7 days Ranjit Guillaume MD [Physician] - 7-10 days Discharge Diet: Usual diet Discharge Activity: Increase activity as tolerated Patient Instructions: Back Pain (ED), Opioid Safety Activity Restrictions/Additional Instructions: Continue with routine medications as directed for pain. Use a walker for ambulation. The pain should improve as you are up moving around more. It is important to maintain your activity as much as possible. Drink plenty of water with medication. Use acetaminophen or ibuprofen for control of pain. Use hydrocodone for severe pain. Follow-up with primary care for further instruction. Return to ER for new concerns or worsening symptoms. Follow up closely with nephrology/Dr. Gomez as an outpatient. He is to repeat his CMP and CBC with his primary care provider within the next 10 days. If hemoglobin is stable he can restart Pradaxa and then recheck hemoglobin in 1 week for initiation of Pradaxa. He is to maintain his blood pressure diary when checking her blood pressure twice or 3 times a day and follow-up with his primary care provider or Dr. Gomez for further adjustment of antihypertensives. Please follow-up with Dr. Guillaume from urology within the next 10 days. Continue with Gallardo catheter until then. A Gallardo catheter remains in for more than 3 weeks which should be replaced. Discharge Attestations Time Spent in Discharge Care*: greater than 30 min Specific Discharge Activities: educating patient, educating and/or supporting family/caregiver, discussing with pcp/other providers, discussing with bilingual case manager/social workers/dc planners, documenting/other paperwork and evaluating patient/reviewing data Status at Discharge: Cognitive status at discharge: cognitively intact , Behavioral status at discharge: cooperative , Functional status at discharge: independent ambulation , Quality Metrics Clinical Quality Measures [ No reported AMI, CVA or VTE this stay] Coding Level of Care Code Acute Chg FW DC note Diagnoses Status post lumbar spinal fusion Z98.1
--- NOTE | 2021-12-02 12:47 | P.PN_ITS ---
Subjective Subjective: Mrs. Duran feels relatively well today with no specific complaints. Difficulty passing his urine, straight cath last night drained 500 mL and this morning a Gallardo catheter was placed with another 600 mL drained. Medications: Reviewed: Yes Medication Review Details: Generic Name Dose Route Start Last Admin Trade Name Freq PRN Reason Stop Dose Admin Acetaminophen 650 mg 11/16/21 03:50 11/28/21 11:18 Acetaminophen 32 5 Mg Tablet PO 650 mg Q6H PRN Administration Mild/Mod Pain Or Temp >/= 101 Albuterol/Ipratrop ium 3 ml 11/23/21 15:00 11/29/21 09:15 Ipratropium-Albu terol 3 Ml Neb INHALATION 3 ml Q6H.RESPIRATORY S CH Administration Calcium Acetate 1,334 mg 11/26/21 08:00 11/29/21 13:36 Calcium Acetate 667 Mg Capsule PO 1,334 mg TIDWM PINKY Administration Cyclobenzaprine HC l 10 mg 11/16/21 23:13 11/21/21 21:13 Cyclobenzaprine 10 Mg Tablet PO 10 mg TID PRN Administration MUSCLE SPASMS Diltiazem HCl 30 mg 11/27/21 09:00 11/29/21 08:25 Diltiazem 30 Mg Tablet PO 30 mg Q6H PINKY Administration Docusate Sodium 100 mg 11/21/21 18:00 11/29/21 08:24 Docusate Sodium 100 Mg Capsule PO 100 mg BID PINKY Administration Piperacillin Sod/T azobactam 50 mls @ 12.5 mls /hr 11/25/21 18:00 11/29/21 09:55 Sod 3.375 gm/ So dium Chloride IV Infused Q12H PINKY Infusion Protocol Levothyroxine Sodi um 50 mcg 11/18/21 08:00 11/29/21 08:25 Levothyroxine 50 Mcg Tablet PO 50 mcg DAILY@0800 PINKY Administration Lidocaine 1 patch 11/16/21 09:00 11/29/21 08:24 Lidocaine 5% Pat ch TOPICAL 1 patch [id number] PINKY Administration Non-Formulary Medi cation 2 puff 11/17/21 09:00 11/29/21 10:35 Tiotropium Bromi de [Spiriva Respim at] INHALATION Not Given DAILY [facility] Ondansetron HCl 4 mg 11/20/21 06:20 11/20/21 07:00 Ondansetron 2 Mg /Ml Sdv 2 Ml IVP 4 mg Q4H PRN Administration NAUSEA AND VOMITI NG Pantoprazole Sodiu m 40 mg 11/20/21 09:00 11/29/21 08:25 Pantoprazole 40 Mg Sdv IVP 40 mg DAILY PINKY Administration Senna/Docusate Sod ium 1 tab 11/20/21 09:00 11/29/21 08:24 Sennosides-Docus ate Tablet PO 1 tab BID PINKY Administration Vitamin D 1,000 unit 11/18/21 08:00 11/29/21 08:25 Cholecalciferol (Vitamin D3) 1,000 Unit Tablet PO 1,000 unit DAILY@0800 PINKY Administration Vitals/I&O/Wt Last Vital Signs Temp 97.8 F 12/02/21 11:27 Pulse 97 12/02/21 11:27 Resp 18 12/02/21 11:27 BP 150/70 12/02/21 11:27 Pulse Ox 93 12/02/21 11:27 12/01/21 12/02/21 12/02/21 22:59 06:59 14:59 Intake Total 120 / 460 240 / 700 360 / 360 Output Total 300 / 900 550 / 1450 Balance -180 / -440 -310 / -750 360 / 360 Weight last 48 hrs Weight 100.788 kg Weight 103.555 kg Physical Exam Urinary Catheter Management: Gallardo: Cath Placed During This Visit: yes Reason for Continuing Indwelling Catheter: Accurate Measurement of Urinary Output in Critically Ill Patients Urinary Catheter Date of Insertion: 12/02/21 Urinary Catheter Time of Insertion: 11:41 Data : 12/02/21 01:52 12/02/21 01:52 A&P Assessment and plan (1) Acute renal insufficiency: 1. Acute kidney injury ischemic ATN Now recovering nicely. Okay to remove hemodialysis catheter Gallardo catheter replaced. Finasteride started, allergy to Flomax. Will need follow-up in 1-2 weeks for trial without catheter, if this fails he will need urology evaluation. A.m. labs Strict I's and O's Avoid use nephrotoxic agents. 2. Chemistry Looks well-balanced 3. Hemodynamics A. fib with RVR now rate controlled on amiodarone infusion 4. Status post spinal fusion Input from surgery is appreciated PT/OT as tolerated, analgesics as tolerated 5. Disposition Okay for discharge from IM perspective today. Close follow-up with outpatient team. May need to see nephrology down the road if renal function does not fully recover. Yemi Bishop MD Nephrology [phone] Patient seen and examined via telemedicine, with the assistance of the bedside RN > 25 min spent in evaluation and mgmt of patient Status: Acute Attestations Medical Necessity Statement*: Eval for GEETHA Coding Level of Care Code Acute Steel Shot Header Operator for Chg Fwd Diagnoses Acute renal insufficiency N28.9
--- NOTE | 2021-12-02 13:11 | PC.SOCIAL ---
IMM update IMM updated with patient. Copy Pg 2 provided. Verbalized an understanding. Initialled, dated, timed, and placed in chart.
[2021-12-02] MEDS: finasteride 5 mg Tablet PO (15:26)
== END 2021-12-02 15:45 | disposition home health service (06) | DRG 459 ==
LOC: ER 23:14 → MEDSURG 11-16 03:22 → ICU 11-21 15:45 → MEDSURG 11-23 23:07 → ICU 11-24 10:22 → MEDSURG 11-30 17:17
PROVIDERS: Anesthesiology; Emergency Medicine; Internal Medicine; Internal Medicine Nephrology; Orthopaedic Surgery; Admitting Provider Internal Medicine; Emergency Provider Nurse Practitioner Family; PCP Emergency Medicine Emergency Medical Services; Visit Provider Student in an Organized Health Care Education/Training Program
PROC: 0SG0071 Fusion of Lumbar Vertebral Joint with Autologous Tissue Substitute, Posterior Approach, Posterior Column, Open Approach (ICD-10-PCS; principal; 2021-11-21 09:50)
PROC: 0SG0071 Fusion of Lumbar Vertebral Joint with Autologous Tissue Substitute, Posterior Approach, Posterior Column, Open Approach (ICD-10-PCS; CPT 63005; 2021-11-21 09:50)
DX: M48.061 Spinal stenosis, lumbar region without neurogenic claudication (principal); J96.22 Acute and chronic respiratory failure with hypercapnia; R57.1 Hypovolemic shock; N17.9 Acute kidney failure, unspecified; I13.0 Hypertensive heart and chronic kidney disease with heart failure and stage 1 through stage 4 chronic kidney disease, or unspecified chronic kidney disease; I50.32 Chronic diastolic (congestive) heart failure; F05 Delirium due to known physiological condition; E87.4 Mixed disorder of acid-base balance; D62 Acute posthemorrhagic anemia; M51.16 Intervertebral disc disorders with radiculopathy, lumbar region; G89.29 Other chronic pain; Z87.891 Personal history of nicotine dependence; N18.30 Chronic kidney disease, stage 3 unspecified; Z86.16 Personal history of COVID-19; J44.9 Chronic obstructive pulmonary disease, unspecified; G47.33 Obstructive sleep apnea (adult) (pediatric); K59.03 Drug induced constipation; T40.605A Adverse effect of unspecified narcotics, initial encounter; Z79.891 Long term (current) use of opiate analgesic; Z79.51 Long term (current) use of inhaled steroids; I48.91 Unspecified atrial fibrillation; I95.9 Hypotension, unspecified
CPT/HCPCS: 36415; 36430; 36600; 51702; 62304; 70450; 71045; 72020; 72114; 72120; 72131; 72132; 74018; 76000; 76770; 76857; 80048; 80051; 80053; 80202; 81001; 81003; 82330; 82436; 82550; 82803; 82805; 83605; 83735; 84100; 84133; 84145; 84300; 85014; 85018; 85025; 86060; 86160; 86706; 86803; 86850; 86900; 86920; 87040; 87086; 87340; 87493; 87506; 87641; 90935; 93970; 94640; 94660; 94664; 94762; 96361; 96374; 96375; 97110; 97116; 97162; 97530; 99285; C1713; C1751; C9113; G0378; J0282; J0330; J0690; J1100; J1170; J1644; J1885; J1940; J2060; J2270; J2405; J2543; J2704; J2710; J2765; J3010; J3370; J3475; J3490; J7030; J7050; J7060; J7611; L0456; P9016; P9041; Q3014; Q9966

== ENCOUNTER 2021-12-08 11:42 | Outpatient (CLI) | payer OTHER, SELFPAY ==
[2021-12-08 12:22] LABS: Basophils # 0.1 10^3/uL (0.0-0.1); Basophils % 1.1 %; Eosinophils # 0.3 10^3/uL (0.0-0.8); Eosinophils % 2.4 %; Lymphocytes # 1.3 10^3/uL (0.8-4.8); Mean Corpuscular Hemoglobin 27.3 pg (28.0-34.0); Mean Corpuscular Volume 87.9 fl (80-94); Mean Platelet Volume 8.5 fL (7.4-10.4); Monocytes # 0.8 10^3/uL (0.2-0.9); Monocytes % 7.4 %; Neutrophils # 8.48 10^3/uL (1.8-7.7); Neutrophils % 76.1 %; Nucleated Red Blood Cells % 0 %; Platelet Count 595 10^3/cmm (130-400); Red Cell Distribution Width 15.3 % (12.1-15.1); White Blood Count 11.1 10^3/uL (4.0-10.0)
[2021-12-08 12:59] LABS: Alanine Aminotransferase 8 U/L (0-41); Albumin Level 3.1 g/dL (3.5-5.2); Alkaline Phosphatase 119 IU/L (40-130); Aspartate Amino Transferase 17 U/L (0-40); Blood Urea Nitrogen 15 mg/dL (8-23); Calcium 7.6 mg/dL (8.5-10.5); Carbon Dioxide 25 mmol/L (22-29); Chloride 100 mmol/L (98-107); Globulin 3.9 g/dL (1.3-4.6); Glucose 131 mg/dL (65-115); Osmolality Calculated 289 mOsm/kg (285-295); Sodium 138 mmol/L (136-145); Total Bilirubin 0.3 mg/dL (0.15-1.2)
== END 2021-12-08 11:43 | disposition home or self-care (01) ==
PROVIDERS: Internal Medicine; PCP Emergency Medicine Emergency Medical Services; Visit Provider Emergency Medicine Emergency Medical Services
DX: K92.2 Gastrointestinal hemorrhage, unspecified (principal); D63.1 Anemia in chronic kidney disease
CPT/HCPCS: 80053; 85025

== ENCOUNTER → 2021-12-09 13:50 | Outpatient (BNVA) | payer OTHER, SELFPAY | PROVIDERS: PCP Emergency Medicine Emergency Medical Services; Visit Provider Physician Assistant | DX: Z98.1 Arthrodesis status (principal); Z47.89 Encounter for other orthopedic aftercare; Z98.890 Other specified postprocedural states | CPT/HCPCS: 99024; 99999 ==

== ENCOUNTER → 2022-01-06 09:03 | Outpatient (BNVA) | payer OTHER, SELFPAY | PROVIDERS: PCP Emergency Medicine Emergency Medical Services; Visit Provider Physician Assistant | DX: Z47.89 Encounter for other orthopedic aftercare (principal); Z98.890 Other specified postprocedural states; Z98.1 Arthrodesis status | CPT/HCPCS: 72100; 99024; 99213 ==

== ENCOUNTER 2022-01-27 16:05 | Emergency (ER) | payer OTHER, SELFPAY ==
[2022-01-27 16:20] VITALS: BMI 27.2
--- NOTE | 2022-01-27 16:33 | W.ED.GENADLT ---
HPI - General Adult General: Chief complaint: Fever Stated complaint: Fever, post-surgery Time Seen by Provider: 01/27/22 16:28 History of Present Illness: Patient is a 76-year-old male with a history of spondylolisthesis with severe L3-L4 and L4-L5 spinal stenosis status/p L1-S1 fusion with decompression on 11/21 recently rehabilitated at [facility] discharged at 01/23/2022 presenting to the emergency room for concerns of generalized weakness, fever and chills and fever of 101.7 degrees at home. Patient tells me that since his discharge from the correction, he has had decreased energy and desire to ambulate. Patient has no other focal complaints other than chills, fever and generalized weakness. Patient reports that his back is healing and has had follow-up with Dr. Jain. Patient denies any weakness in the legs, states saddle anesthesia, bladder or bowel issues. Patient denies any fever/chills, cough, runny nose, sore throat, chest pain, shortness with all complaints, nausea/vomiting, diarrhe, melena hematochezia. Patient has a chronic stage I sacral ulcer for which he is receiving home nursing. Onset: 4 days ago Duration: 4 days Location:home Severity:modedrate Associated symptoms: Deny chest pain, dyspnea, nausea, rash, palpitations or vomiting Review of Systems Const: Denies: fever(s) or chills Eyes: Denies: change in vision ENMT: Denies: mouth pain Card: Denies: chest pain or palpitations Resp: Denies: dyspnea or non-productive cough GI: Denies: abdominal pain, nausea, vomiting or diarrhea : Denies: dysuria Musc: Denies: extremity pain Skin/Breast: Denies: rash or new lesions Neuro: Denies: weakness in extremities Psych: Reports: other (Normal mood) Guy/Lymph: Denies: easy bruising PFSH ED PFSH: Medical History Acute bronchitis with chronic obstructive pulmonary disease (COPD) GEETHA (acute kidney injury) GEETHA V/S GEETHA ON CKD Stage 3 Anticoagulant long-term use Atrial fibrillation COPD (chronic obstructive pulmonary disease) COPD (chronic obstructive pulmonary disease) DDD (degenerative disc disease), lumbar Degenerative arthritis of left shoulder region Ex-smoker History of cardiac dysrhythmia Hydrocele, left Hyperkalemia Hypertension Hyponatremia Hyponatremia Intractable back pain Lumbar spondylosis Lumbosacral radiculopathy 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, lumbar region Pneumonia due to COVID-19 virus Post-COVID chronic dyspnea Aug 2020 COVID positive Respiratory failure with hypoxia Improving Spinal stenosis Spinal stenosis of lumbar region with radiculopathy Spondylolisthesis at L3-L4 level Spondylolisthesis, lumbar region Testalgia Urinary retention Surgical History H/O arthroscopic knee surgery H/O carpal tunnel repair H/O vasectomy S/P insertion of spinal cord stimulator (~10/15/16) Family History Grandmother Cancer Social History Smoking and tobacco status: former smoker Quit status (tobacco): has quit using tobacco Year quit tobacco: 1984 Alcohol intake: current Lives independently: Yes Household members: spouse Marital status: Current occupational status: retired Physical Exam Const: COMMON NORMALS: alert HENMT: COMMON NORMALS: atraumatic HEAD & SCALP: atraumatic MOUTH: moist mucous membranes not abnormal Eye: COMMON NORMALS: EOMs intact bilaterally and conjunctivae normal CONJUNCTIVA: Yes conjunctivae normal Neck/C-Spine: COMMON NORMALS: full ROM and supple Resp: COMMON NORMALS: normal respiratory effort and clear to auscultation bilaterally AUSCULTATION: clear to auscultation bilaterally Cardio: COMMON NORMALS: regular rate RATE: regular rate GI: COMMON NORMALS: Soft to palpation and non-tender PALPATION: Yes Soft to palpation Back/Pelvis: OTHER: Postsurgical scar appears to be well-healed in the lumbar area without any surrounding erythema or palpable fluctuance Extremity: COMMON NORMALS: full ROM Neuro: SENSORIUM/ORIENTATION: Yes alert MOTOR EXAM: No Abnormal motor strength present and Other motor observations present (no focal motor deficits) Psych: COMMON NORMALS: speech normal SPEECH: Yes normal speech MOOD & AFFECT: Yes euthymic mood Skin: NARRATIVE SKIN EXAM: + Mild erythema at the sacral area with mild skin erosion consistent with stage I sacral ulcer, no crepitus, maceration, skin discoloration or significant tenderness palpation Course Vital Signs: Vital signs: Vital Signs Pulse Rate 92 01/27/22 19:54 Respiratory Rate 16 01/27/22 19:54 Blood Pressure 119/99 01/27/22 19:54 Pulse Oximetry 96 01/27/22 19:54 MDM - General Adult Medical Decision Making 76-year-old male with a history of recent lumbar procedure presenting to the emergency room with generalized weakness and concern for possible fever at home. Patient reports generalized weakness. On exam, patient is noted to have stage I sacral ulcer. The presentation and physical exam is not consistent with necrotizing soft tissue infection including Sánchez's gangrene. Patient is afebrile and has white count 9.[address] of the pelvis showed possible edema with his cellulitis of the groin area. I have given patient a prescription for antibiotics and instructed him to follow-up closely with his primary care provider for reassessment of this lesion. Patient currently thinks home health reports he will follow-up for the sacral ulcer. CT of pelvis negative for any other acute findings. X-ray chest negative for pneumonia. UA is negative for any UTI. Incidental findings of prostate discussed extensively with patient. Patient received a copy of the CT report with the documented findings. Patient is instructed to follow up urgently with specialists. Rx cephalexin 500 mg BID x 10 days Disposition: Discharge. Patient counseled regarding diagnostic impression, treatment plan. Patient given ED strict return precautions to return for continuation, worsening, or development of new symptoms. Instructed to f/u w/ PCP regarding symptoms today. Patient verbalized understanding. Lab Data : 01/27/22 17:18 01/27/22 17:18 Radiology Impressions Abdomen/Pelvis CT 01/27/22 16:54 IMPRESSION: 1. Mild subcutaneous soft tissue edema or cellulitis in the medial buttock. No organized fluid collection. 2. Diverticulosis of the colon without diverticulitis. 3. Enlarged prostate with a hypodense nodule which indents the urinary bladder. Prostate neoplasm is not excluded. 4. Cholelithiasis. Chest X-Ray 01/27/22 16:54 IMPRESSION: No acute findings. Laboratory Results WBC 9.0 10^3/uL (4.0-10.0) 01/27/22 17:18 RBC 3.42 10^6/uL (4.1-5.3) L 01/27/22 17:18 Hgb 8.8 g/dL (11.7-16.6) L 01/27/22 17:18 Hct 27.7 % (42.0-52.0) L 01/27/22 17:18 MCV 81.0 fl (80-94) 01/27/22 17:18 MCH 25.7 pg (28.0-34.0) L 01/27/22 17:18 MCHC 31.8 g/dL (30.0-36.0) 01/27/22 17:18 RDW 15.2 % (12.1-15.1) H 01/27/22 17:18 Plt Count 350 10^3/cmm (130-400) 01/27/22 17:18 MPV 8.6 fL (7.4-10.4) 01/27/22 17:18 Neut % (Auto) 79.6 % 01/27/22 17:18 Lymph % (Auto) 12.3 % 01/27/22 17:18 [place] % (Auto) 6.8 % 01/27/22 17:18 Eos % (Auto) 0.2 % 01/27/22 17:18 Baso % (Auto) 0.4 % 01/27/22 17:18 Neut # (Auto) 7.16 10^3/uL (1.8-7.7) 01/27/22 17:18 Lymph # (Auto) 1.1 10^3/uL (0.8-4.8) 01/27/22 17:18 [place] # (Auto) 0.6 10^3/uL (0.2-0.9) 01/27/22 17:18 Eos # (Auto) 0.0 10^3/uL (0.0-0.8) 01/27/22 17:18 Baso # (Auto) 0.0 10^3/uL (0.0-0.1) 01/27/22 17:18 Nucleated RBC % (auto) 0 % 01/27/22 17:18 Nucleated RBCs # 0.0 /100WBC 01/27/22 17:18 Sodium 134 mmol/L (136-145) L 01/27/22 17:18 Potassium 4.4 mmol/L (3.5-5.1) 01/27/22 17:18 Chloride 99 mmol/L (98-107) 01/27/22 17:18 Carbon Dioxide 22 mmol/L (22-29) 01/27/22 17:18 Anion Gap 17.4 (5-19) 01/27/22 17:18 BUN 44 mg/dL (8-23) H 01/27/22 17:18 Creatinine 2.1 mg/dL (0.7-1.2) H 01/27/22 17:18 GFR Calculation Not Reportable 01/27/22 17:18 Glucose 122 mg/dL (65-115) H 01/27/22 17:18 Calculated Osmolality 290 mOsm/kg (285-295) 01/27/22 17:18 Calcium 9.0 mg/dL (8.5-10.5) 01/27/22 17:18 Total Bilirubin 0.4 mg/dL (0.15-1.2) 01/27/22 17:18 AST 15 U/L (0-40) 01/27/22 17:18 ALT 10 U/L (0-41) 01/27/22 17:18 Alkaline Phosphatase 91 IU/L (40-130) 01/27/22 17:18 C-Reactive Protein 56.3 mg/L (0.0-4.9) H 01/27/22 17:18 Total Protein 7.4 g/dL (6.6-8.7) 01/27/22 17:18 Albumin 3.8 g/dL (3.5-5.2) 01/27/22 17:18 Globulin 3.6 g/dL (1.3-4.6) 01/27/22 17:18 Lipase 36 U/L (13-60) 01/27/22 17:18 Procalcitonin 0.79 ng/mL (0-0.5) H 01/27/22 17:18 Urine Color Yellow (Yellow) 01/27/22 16:50 Urine Appearance Clear (CLEAR) 01/27/22 16:50 Urine pH 5 (5-7) 01/27/22 16:50 Ur Specific [place] 1.015 (1.005-1.030) 01/27/22 16:50 Urine Protein Neg (Negative) 01/27/22 16:50 Urine Glucose (UA) Norm (Normal) 01/27/22 16:50 Urine Ketones Negative (Negative) 01/27/22 16:50 Urine Blood Neg (Negative) 01/27/22 16:50 Urine Nitrate Negative (Negative) 01/27/22 16:50 Urine Bilirubin Neg (Negative) 01/27/22 16:50 Urine Urobilinogen Norm mg/dL (Negative) 01/27/22 16:50 Ur Leukocyte Esterase Negative (Negative) 01/27/22 16:50 Influenza Type A Ag Negative (Negative) 01/27/22 17:46 Influenza Type B Ag Negative (Negative) 01/27/22 17:46 Imaging Data Other Imaging: Radiologist's impression: [facility] [address] [place] [address]. [place] [address] XRay Report Signed Patient: Abdiel Duran Unit #: [id number] : 1945 Age/Sex: 76 / M ADM Date: 01/27/22 Loc: ER Room/Bed: Attending Dr: Ordering Provider/Ordering MD: Deyvi Grimaldo MD Date of Service: 01/27/22 Procedure(s): XR chest 1V portable [id number] Accession Number(s): [id number] Report Number: [id number] PROCEDURE INFORMATION: Exam: XR Chest Exam date and time: 01/27/2022 5:03 PM Age: 76 years old Clinical indication: Fever TECHNIQUE: Imaging protocol: XR of the chest. Views: 1 view. COMPARISON: CR XR chest 1V portable [id number] 11/24/2021 12:14 PM FINDINGS: Tubes, catheters and devices: Stimulator lead projects over the midthoracic spine. Lungs: Mild atelectasis or scarring in the lung bases. No consolidation. Pleural spaces: Unremarkable. No pleural effusion. No pneumothorax. Heart/Mediastinum: Unremarkable. No cardiomegaly. Bones/joints: Lumbar fusion hardware. Severe degenerative changes of the left shoulder joint. Old right rib fractures. XR/XR chest 1V portable [id number] IMPRESSION: No acute findings. ? Dictated By: Toney Sutherland Signed By: Toney Sutherland Signed Date/Time: 01/27/22 180 DD/ 1703 [facility] [address] [place], [place] [address] CT Scan Report Signed Patient: Abdiel Duran Unit #: [id number] : 1945 Age/Sex: 76 / M ADM Date: 01/27/22 Loc: ER Room/Bed: Attending Dr: Ordering Provider/Ordering MD: Deyvi Grimaldo MD Date of Service: 01/27/22 Procedure(s): CT abdomen pelvis w con* [id number] Accession Number(s): [id number] Report Number: [id number] PROCEDURE INFORMATION: Exam: CT Abdomen And Pelvis With Contrast Exam date and time: 01/27/2022 7:08 PM Age: 76 years old Clinical indication: Other: No abd complaints per PT; Additional info: Glute erythema, recent back surgery TECHNIQUE: Imaging protocol: Computed tomography of the abdomen and pelvis with contrast. Radiation optimization: All CT scans at this facility use at least one of these dose optimization techniques: automated exposure control; mA and/or kV adjustment per patient size (includes targeted exams where dose is matched to clinical indication); or iterative reconstruction. Contrast material: VISI; Contrast volume: 50 ml; Contrast route: INTRAVENOUS (IV);? COMPARISON: CT angio abdomen pelvis [id number] 11/11/2021 4:52 PM RADIATION DOSE METRICS: Total DLP (mGy-cm): 1638.29 FINDINGS: Lungs: Interstitial scarring in the lung bases. Heart: Coronary artery calcifications. Liver: Cyst in the left liver lobe, Hounsfield units less than 20. No follow-up imaging recommended. Gallbladder and bile ducts: Small calcified stone in the gallbladder which is partially contracted. No visible wall thickening. The bile ducts are normal. Pancreas: Normal. No ductal dilation. Spleen: Normal. No splenomegaly. Adrenal glands: Normal. No mass. Kidneys and ureters: Normal. No hydronephrosis. Stomach and bowel: Diverticulosis of the colon without diverticulitis. Mild fecalization of the distal small bowel. No wall thickening or obstruction. The stomach is unremarkable. Appendix: The appendix is visualized and is normal. Intraperitoneal space: Unremarkable. No free air. No significant fluid collection. Vasculature: Arterial calcifications. No aneurysm. Lymph nodes: Unremarkable. No enlarged lymph nodes. Urinary bladder: Enlarged prostate which indents the trigone of the urinary bladder. 1.6 cm hypodensity in the superior prostate. Reproductive: The urinary bladder wall thickness is normal. Bones/joints: Posterior mechanical fusion from T12 through S1. The vertebral body stature is intact. Degenerative changes of the spine. Soft tissues:? Postsurgical scar in the lumbar region.? Mild subcutaneous fat stranding in the medial buttock.? No organized fluid collection.? Stimulator device in the left lumbar region with lead extending superiorly. CT/CT abdomen pelvis w con* [id number] IMPRESSION: 1. Mild subcutaneous soft tissue edema or cellulitis in the medial buttock.? No organized fluid collection. 2. Diverticulosis of the colon without diverticulitis. 3. Enlarged prostate with a hypodense nodule which indents the urinary bladder.? Prostate neoplasm is not excluded. 4. Cholelithiasis. ? Dictated By: Toney Sutherland Signed By: Toney Sutherland Signed Date/Time: 01/27/221934 DD/ 07 Discharge Plan Discharge Patient Disposition: Home Clinical Impression: Cellulitis Condition: Stable Prescriptions: New cephalexin 500 mg capsule 500 mg PO BID 10 Days Qty: 20 0RF No Action guaifenesin 400 mg tablet 400 mg PO Q4H PRN (Reason: Cough) 0RF cholecalciferol (vitamin D3) 1,250 mcg (50,000 unit) tablet 1,250 mcg PO DAILY@0800 0RF levothyroxine 50 mcg capsule 50 mcg PO DAILY@0800 0RF lisinopril 40 mg tablet 40 mg PO DAILY@0800 0RF Hold Instructions: Resume on 12/12/21. cetirizine 10 mg capsule 10 mg PO DAILY@0800 0RF cyclobenzaprine 10 mg tablet 10 mg PO TID PRN (Reason: muscle spasms) 0RF albuterol sulfate 90 mcg/actuation HFA aerosol inhaler 1 inh inhalation QID PRN (Reason: shortness of breath or wheezing) Qty: 8.5 5RF Spiriva Respimat 1.25 mcg/actuation mist 2 puff inhalation DAILY Qty: 4 3RF (DME) custom orthotics See Rx Instructions .Route .MEDSUPPLY Qty: 1 0RF Rx Instructions: As directed hydrocodone-acetaminophen 5-325 mg tablet 1 tab PO Q6H PRN (Reason: pain) 14 Days Qty: 30 0RF acetaminophen [Tylenol Extra Strength] 500 mg Tablet 500 mg PO Q6H PRN (Reason: Pain) 0RF Cardizem CD 240 mg capsule,extended release 24hr 240 mg PO DAILY Qty: 30 0RF hydralazine 25 mg tablet 25 mg PO TID Qty: 90 0RF Dulera 200-5 mcg/actuation Hfa Aerosol Inhaler 2 puff INHALATION BID 0RF Pradaxa 150 mg Capsule 150 mg PO BID 0RF Hold Instructions: Resume on 11/20/21. diclofenac sodium [Voltaren Arthritis Pain] 1 % gel 4 g topical QID PRN (Reason: Pain) 0RF omeprazole 20 mg capsule,delayed release(DR/EC) 20 mg PO DAILY Qty: 90 3RF Discharge Orders: Discharge ED (Routine); Ordered 01/27/22 Ordered By: Deyvi Grimaldo Referrals: Keshawn Little DO [Primary Care Provider] - Discharge Diet: Advance as tolerated Discharge Activity: Increase activity as tolerated Activity Restrictions/Additional Instructions: Please come back to the emergency room if you notice any other new or concerning issues. If he have any fever or chills, worsening buttock area pain/redness or any new or concerning issues. Please take your antibiotics as instructed. Watch out for signs of skin changes/redness, mouth redeness or swelling, nausea/vomiting, diarrhea, blood in the urine or any new or concering complaints. Here's a copy of your CT report. Please follow up for the prostate nodule. [address] [address] [address] Scan Report Signed Patient: Abdiel Duran Unit #: [id number] : 1945 Age/Sex: 76 / M ADM Date: 01/27/22 Loc: ER Room/Bed: Attending Dr: Ordering Provider/Ordering MD: Deyvi Grimaldo MD Date of Service: 01/27/22 Procedure(s): CT abdomen pelvis w con* [id number] Accession Number(s): [id number] Report Number: [id number] PROCEDURE INFORMATION: Exam: CT Abdomen And Pelvis With Contrast Exam date and time: 01/27/2022 7:08 PM Age: 76 years old Clinical indication: Other: No abd complaints per PT; Additional info: Glute erythema, recent back surgery TECHNIQUE: Imaging protocol: Computed tomography of the abdomen and pelvis with contrast. Radiation optimization: All CT scans at this facility use at least one of these dose optimization techniques: automated exposure control; mA and/or kV adjustment per patient size (includes targeted exams where dose is matched to clinical indication); or iterative reconstruction. Contrast material: VISI; Contrast volume: 50 ml; Contrast route: INTRAVENOUS (IV);? COMPARISON: CT angio abdomen pelvis [id number] 11/11/2021 4:52 PM RADIATION DOSE METRICS: Total DLP (mGy-cm): 1638.29 FINDINGS: Lungs: Interstitial scarring in the lung bases. Heart: Coronary artery calcifications. Liver: Cyst in the left liver lobe, Hounsfield units less than 20. No follow-up imaging recommended. Gallbladder and bile ducts: Small calcified stone in the gallbladder which is partially contracted. No visible wall thickening. The bile ducts are normal. Pancreas: Normal. No ductal dilation. Spleen: Normal. No splenomegaly. Adrenal glands: Normal. No mass. Kidneys and ureters: Normal. No hydronephrosis. Stomach and bowel: Diverticulosis of the colon without diverticulitis. Mild fecalization of the distal small bowel. No wall thickening or obstruction. The stomach is unremarkable. Appendix: The appendix is visualized and is normal. Intraperitoneal space: Unremarkable. No free air. No significant fluid collection. Vasculature: Arterial calcifications. No aneurysm. Lymph nodes: Unremarkable. No enlarged lymph nodes. Urinary bladder: Enlarged prostate which indents the trigone of the urinary bladder. 1.6 cm hypodensity in the superior prostate. Reproductive: The urinary bladder wall thickness is normal. Bones/joints: Posterior mechanical fusion from T12 through S1. The vertebral body stature is intact. Degenerative changes of the spine. Soft tissues:? Postsurgical scar in the lumbar region.? Mild subcutaneous fat stranding in the medial buttock.? No organized fluid collection.? Stimulator device in the left lumbar region with lead extending superiorly. CT/CT abdomen pelvis w con* [id number] IMPRESSION: 1. Mild subcutaneous soft tissue edema or cellulitis in the medial buttock.? No organized fluid collection. 2. Diverticulosis of the colon without diverticulitis. 3. Enlarged prostate with a hypodense nodule which indents the urinary bladder.? Prostate neoplasm is not excluded. 4. Cholelithiasis. ? Dictated By: Toney Sutherland Signed By: Toney Sutherland Signed Date/Time: 01/27/221934 DD/ 07 Coding Level of Care Code ED Hoisting Engine Operator for Chg Fwd Exam Comprehensive
--- NOTE | 2022-01-27 16:54 | CTR_ITS ---
PROCEDURE INFORMATION: Exam: CT Abdomen And Pelvis With Contrast Exam date and time: 01/27/2022 7:08 PM Age: 76 years old Clinical indication: Other: No abd complaints per PT; Additional info: Glute erythema, recent back surgery TECHNIQUE: Imaging protocol: Computed tomography of the abdomen and pelvis with contrast. Radiation optimization: All CT scans at this facility use at least one of these dose optimization techniques: automated exposure control; mA and/or kV adjustment per patient size (includes targeted exams where dose is matched to clinical indication); or iterative reconstruction. Contrast material: VISI; Contrast volume: 50 ml; Contrast route: INTRAVENOUS (IV); COMPARISON: CT angio abdomen pelvis [id number] 11/11/2021 4:52 PM RADIATION DOSE METRICS: Total DLP (mGy-cm): 1638.29 FINDINGS: Lungs: Interstitial scarring in the lung bases. Heart: Coronary artery calcifications. Liver: Cyst in the left liver lobe, Hounsfield units less than 20. No follow-up imaging recommended. Gallbladder and bile ducts: Small calcified stone in the gallbladder which is partially contracted. No visible wall thickening. The bile ducts are normal. Pancreas: Normal. No ductal dilation. Spleen: Normal. No splenomegaly. Adrenal glands: Normal. No mass. Kidneys and ureters: Normal. No hydronephrosis. Stomach and bowel: Diverticulosis of the colon without diverticulitis. Mild fecalization of the distal small bowel. No wall thickening or obstruction. The stomach is unremarkable. Appendix: The appendix is visualized and is normal. Intraperitoneal space: Unremarkable. No free air. No significant fluid collection. Vasculature: Arterial calcifications. No aneurysm. Lymph nodes: Unremarkable. No enlarged lymph nodes. Urinary bladder: Enlarged prostate which indents the trigone of the urinary bladder. 1.6 cm hypodensity in the superior prostate. Reproductive: The urinary bladder wall thickness is normal. Bones/joints: Posterior mechanical fusion from T12 through S1. The vertebral body stature is intact. Degenerative changes of the spine. Soft tissues: Postsurgical scar in the lumbar region. Mild subcutaneous fat stranding in the medial buttock. No organized fluid collection. Stimulator device in the left lumbar region with lead extending superiorly. CT/CT abdomen pelvis w con* [id number] IMPRESSION: 1. Mild subcutaneous soft tissue edema or cellulitis in the medial buttock. No organized fluid collection. 2. Diverticulosis of the colon without diverticulitis. 3. Enlarged prostate with a hypodense nodule which indents the urinary bladder. Prostate neoplasm is not excluded. 4. Cholelithiasis.
--- NOTE | 2022-01-27 16:54 | XRR_ITS ---
PROCEDURE INFORMATION: Exam: XR Chest Exam date and time: 01/27/2022 5:03 PM Age: 76 years old Clinical indication: Fever TECHNIQUE: Imaging protocol: XR of the chest. Views: 1 view. COMPARISON: CR XR chest 1V portable [id number] 11/24/2021 12:14 PM FINDINGS: Tubes, catheters and devices: Stimulator lead projects over the midthoracic spine. Lungs: Mild atelectasis or scarring in the lung bases. No consolidation. Pleural spaces: Unremarkable. No pleural effusion. No pneumothorax. Heart/Mediastinum: Unremarkable. No cardiomegaly. Bones/joints: Lumbar fusion hardware. Severe degenerative changes of the left shoulder joint. Old right rib fractures. XR/XR chest 1V portable [id number] IMPRESSION: No acute findings.
[2022-01-27 17:25] VITALS: BP 104/62; PULSE 94; O2SAT 93
[2022-01-27 17:30] VITALS: BP 100/74; O2SAT 91
[2022-01-27 17:37] LABS: Basophils % 0.4 %; Eosinophils % 0.2 %; Hematocrit 27.7 % (42.0-52.0); Hemoglobin 8.8 g/dL (11.7-16.6); Lymphocytes # 1.1 10^3/uL (0.8-4.8); Lymphocytes % 12.3 %; Mean Corpuscular HGB Conc 31.8 g/dL (30.0-36.0); Mean Corpuscular Hemoglobin 25.7 pg (28.0-34.0); Mean Platelet Volume 8.6 fL (7.4-10.4); Monocytes # 0.6 10^3/uL (0.2-0.9); Monocytes % 6.8 %; Neutrophils # 7.16 10^3/uL (1.8-7.7); Neutrophils % 79.6 %; Nucleated Red Blood Cells % 0 %; Platelet Count 350 10^3/cmm (130-400); Red Blood Count 3.42 10^6/uL (4.1-5.3); Red Cell Distribution Width 15.2 % (12.1-15.1)
[2022-01-27] MEDS: sodium chloride 0.9% 500 ML IV (17:41)
[2022-01-27] MEDS: acetaminophen 500 mg Tablet PO (18:15)
[2022-01-27 18:21] LABS: Add Urine Microscopic? NO; Bilirubin Urine Neg (Negative); Blood Urine Neg (Negative); Charge for UA Resulting for Rev; Glucose Urine UA Norm (Normal); Ketones Urine Negative (Negative); Leukocyte Esterase Urine Negative (Negative); Nitrate Urine Negative (Negative); Protein Urine Neg (Negative); Specific Gravity, Urine 1.015 (1.005-1.030); Urine Appearance Clear (CLEAR); Urine Color Yellow (Yellow); Urobilinogen Urine Norm (Negative); pH Urine 5 (5-7)
[2022-01-27 18:24] LABS: Procalcitonin 0.79 ng/mL (0-0.5)
[2022-01-27 18:30] VITALS: BP 123/60; PULSE 78; O2SAT 91
[2022-01-27 18:36] LABS: Influenza A by IFA Negative (Negative); Influenza B by IFA Negative (Negative)
[2022-01-27 18:48] LABS: Alanine Aminotransferase 10 U/L (0-41); Albumin Level 3.8 g/dL (3.5-5.2); Alkaline Phosphatase 91 IU/L (40-130); Anion Gap 17.4 (5-19); Aspartate Amino Transferase 15 U/L (0-40); Blood Urea Nitrogen 44 mg/dL (8-23); C Reactive Protein 56.3 mg/L (0.0-4.9); Carbon Dioxide 22 mmol/L (22-29); Chloride 99 mmol/L (98-107); Globulin 3.6 g/dL (1.3-4.6); Glucose 122 mg/dL (65-115); Lipase 36 U/L (13-60); Osmolality Calculated 290 mOsm/kg (285-295); Potassium 4.4 mmol/L (3.5-5.1); Sodium 134 mmol/L (136-145); Total Bilirubin 0.4 mg/dL (0.15-1.2); Total Protein 7.4 g/dL (6.6-8.7)
[2022-01-27] MEDS: iodixanol 320 mg/mL 100mL Btl IV (19:08)
[2022-01-27 19:40] VITALS: BP 120/73; PULSE 93; O2SAT 96
[2022-01-27 19:54] VITALS: BP 119/99; PULSE 92; RESP 16; O2SAT 96
== END 2022-01-27 19:56 | disposition home or self-care (01) ==
PROVIDERS: Emergency Provider Emergency Medicine; PCP Emergency Medicine Emergency Medical Services
DX: L03.314 Cellulitis of groin (principal); L89.151 Pressure ulcer of sacral region, stage 1; I12.9 Hypertensive chronic kidney disease with stage 1 through stage 4 chronic kidney disease, or unspecified chronic kidney disease; N18.30 Chronic kidney disease, stage 3 unspecified; N17.9 Acute kidney failure, unspecified
CPT/HCPCS: 71045; 74177; 80053; 81003; 83690; 84145; 85025; 86140; 87804; 96360; 99284; J7040; Q9967

== ENCOUNTER → 2022-01-29 12:48 | Outpatient (BNVA) | payer OTHER, SELFPAY | PROVIDERS: PCP Emergency Medicine Emergency Medical Services; Visit Provider Physician Assistant | DX: Z98.1 Arthrodesis status (principal); Z47.89 Encounter for other orthopedic aftercare; Z98.890 Other specified postprocedural states | CPT/HCPCS: 72100; 99024 ==

== ENCOUNTER → 2022-02-19 11:16 | Outpatient (BNVA) | payer OTHER, SELFPAY | PROVIDERS: PCP Emergency Medicine Emergency Medical Services; Visit Provider Physician Assistant | DX: Z98.890 Other specified postprocedural states (principal); Z47.89 Encounter for other orthopedic aftercare; Z98.1 Arthrodesis status | CPT/HCPCS: 72100; 99024 ==

== ENCOUNTER 2022-02-26 18:02 | Emergency (ER) | payer OTHER, SELFPAY ==
[2022-02-26 18:06] VITALS: BP 129/67; PULSE 98; RESP 16; TEMP 37.1; O2SAT 93
--- NOTE | 2022-02-26 18:13 | W.ED.ABDPA2 ---
HPI - Abdominal Pain General: Chief Complaint: Abdominal Pain Stated Complaint: Constipated x3days Time Seen by Provider: 02/26/22 18:13 History of Present Illness: Mr. Duran is a 76-year-old gentleman who presents to the emergency department due to abdominal pain and constipation. He reports onset of symptoms approximately 3 days ago. Since that time he has had increasing lower abdominal discomfort which is cramping in nature and now moderate in intensity. Symptoms are worse with movement. He has tried tgut-gui-gyzdoif medications without significant relief of his constipation. He does rarely still have small amounts of flatus. Denies frequent history of similar. No other specific changes in health, exacerbating, or alleviating factors identified. Onset (ago): day(s) Pain Consistency: constant Location: RLQ and LLQ Severity: moderate Quality: cramping Associated Symptoms: Reports constipation Review of Systems General: Reports: 10 or more systems reviewed and unremarkable except in HPI and below GI: Reports: constipation PFSH ED PFSH: Medical History Acute bronchitis with chronic obstructive pulmonary disease (COPD) GEETHA (acute kidney injury) GEETHA V/S GEETHA ON CKD Stage 3 Anticoagulant long-term use Atrial fibrillation COPD (chronic obstructive pulmonary disease) COPD (chronic obstructive pulmonary disease) DDD (degenerative disc disease), lumbar Degenerative arthritis of left shoulder region Ex-smoker History of cardiac dysrhythmia Hydrocele, left Hyperkalemia Hypertension Hyponatremia Hyponatremia Intractable back pain Lumbar spondylosis Lumbosacral radiculopathy 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, lumbar region Pneumonia due to COVID-19 virus Post-COVID chronic dyspnea Aug 2020 COVID positive Respiratory failure with hypoxia Improving Spinal stenosis Spinal stenosis of lumbar region with radiculopathy Spondylolisthesis at L3-L4 level Spondylolisthesis, lumbar region Testalgia Urinary retention Surgical History H/O arthroscopic knee surgery H/O carpal tunnel repair H/O vasectomy S/P insertion of spinal cord stimulator (~10/15/16) Family History Grandmother Cancer Social History Smoking and tobacco status: former smoker Quit status (tobacco): has quit using tobacco Year quit tobacco: 1984 Alcohol intake: current Lives independently: Yes Household members: spouse Marital status: Current occupational status: retired Physical Exam Const: COMMON NORMALS: alert GENERAL APPEARANCE: cooperative and well developed HENMT: COMMON NORMALS: normocephalic and atraumatic HEAD & SCALP: normocephalic and atraumatic Eye: COMMON NORMALS: conjunctivae normal CONJUNCTIVA: Yes conjunctivae normal SCLERA: sclerae normal Neck/C-Spine: COMMON NORMALS: supple GENERAL: Yes trachea midline Resp: COMMON NORMALS: normal respiratory effort and clear to auscultation bilaterally EFFORT & INSPECTION: Yes able to speak in complete sentences AUSCULTATION: clear to auscultation bilaterally Cardio: COMMON NORMALS: regular rate and regular rhythm RATE: regular rate RHYTHM: regular rhythm GI: COMMON NORMALS: Soft to palpation PALPATION: Yes Soft to palpation, Yes Tenderness to palpation present (GI), No Guarding due to palpation present (GI) and No Rigid due to palpation PERCUSSION: normal to percussion Extremity: GENERAL: Yes normal exam except as noted and No edema Neuro: COMMON NORMALS: moves all extremities SENSORIUM/ORIENTATION: Yes alert and No Orientation impaired Psych: COMMON NORMALS: mental status grossly normal and Normal thought process present THOUGHT PROCESS: Normal thought process present Course ED course: - Patient was seen and evaluated by me at bedside - Patient placed on cardiac monitors, IV access obtained - Initial evaluation notable for exam as above - Labs personally interpreted by me - Labs notable for minimal leukocytosis, microcytic anemia. Mild evidence of dehydration with elevated creatinine improved from prior. -Prior to imaging which was ordered patient has multiple large bowel movements and felt improved. He did not wish to undergo CT scan he had expressed desire for discharge. I discussed risks with patient. - Upon serial reexamination after treatment the patient was improved - Based on patient history, evaluation, and testing as interpreted the most likely cause of the patient's condition is constipation versus other pathology with limited ED evaluation secondary to patient's choice. - The results of ED evaluation were discussed with the patient including prescriptions and/or symptomatic cares (if applicable) including appropriate and responsible use, followup plan, and return precautions. The patient verbalized understanding and felt safe for discharge. - Patient discharged in satisfactory condition. Note: Click bubbles or prepopulated zendejas in note writing are used for assistance with data collection and billing and are inherently more limited than narrative and other text portions of this note. Please use narrative for additional clinical history and defer to narrative/free test for any case of contradictory information. If information appears in only free text or click bubble it should be considered present or absent as reported. Please contact note creative services writer for clarifications of clinical information or contradictory information. MDM is a brief summary, contradictory or erroneous seeming information should be clarified and full note should be reviewed. Vital Signs: Vital signs: Vital Signs Temperature 98.8 F 02/26/22 18:06 Pulse Rate 89 02/26/22 19:50 Respiratory Rate 16 02/26/22 18:06 Blood Pressure 128/72 02/26/22 19:50 Pulse Oximetry 93 02/26/22 18:06 MDM - Abdominal Pain Medical Decision Making 76-year-old gentleman presenting with abdominal pain and constipation. Labs obtained however prior to CT patient had multiple large bowel Minsky and felt improved. He does not wish to undergo CT. Risks discussed. Strict return cautions given. Patient satisfactory for outpatient management. Medical Records I reviewed the patient's medical records. Lab Data I reviewed the patient's lab results. : 02/26/22 20:17 02/26/22 20:17 Labs/Radiology: Laboratory Results WBC 10.3 10^3/uL (4.0-10.0) H 02/26/22 20:17 RBC 3.44 10^6/uL (4.1-5.3) L 02/26/22 20:17 Hgb 8.1 g/dL (11.7-16.6) L 02/26/22 20:17 Hct 25.8 % (42.0-52.0) L 02/26/22 20:17 MCV 75.0 fl (80-94) L 02/26/22 20:17 MCH 23.5 pg (28.0-34.0) L 02/26/22 20:17 MCHC 31.4 g/dL (30.0-36.0) 02/26/22 20:17 RDW 16.2 % (12.1-15.1) H 02/26/22 20:17 Plt Count 679 10^3/cmm (130-400) H 02/26/22 20:17 MPV 7.9 fL (7.4-10.4) 02/26/22 20:17 Neut % (Auto) 77.2 % 02/26/22 20:17 Lymph % (Auto) 14.0 % 02/26/22 20:17 [place] % (Auto) 7.1 % 02/26/22 20:17 Eos % (Auto) 0.6 % 02/26/22 20:17 Baso % (Auto) 0.5 % 02/26/22 20:17 Neut # (Auto) 7.92 10^3/uL (1.8-7.7) H 02/26/22 20:17 Lymph # (Auto) 1.4 10^3/uL (0.8-4.8) 02/26/22 20:17 [place] # (Auto) 0.7 10^3/uL (0.2-0.9) 02/26/22 20:17 Eos # (Auto) 0.1 10^3/uL (0.0-0.8) 02/26/22 20:17 Baso # (Auto) 0.1 10^3/uL (0.0-0.1) 02/26/22 20:17 Nucleated RBC % (auto) 0 % 02/26/22 20:17 Nucleated RBCs # 0.0 /100WBC 02/26/22 20:17 Sodium 135 mmol/L (136-145) L 02/26/22 20:17 Potassium 4.5 mmol/L (3.5-5.1) 02/26/22 20:17 Chloride 94 mmol/L (98-107) L 02/26/22 20:17 Carbon Dioxide 30 mmol/L (22-29) H 02/26/22 20:17 Anion Gap 15.5 (5-19) 02/26/22 20:17 BUN 23 mg/dL (8-23) 02/26/22 20:17 Creatinine 1.5 mg/dL (0.7-1.2) H 02/26/22 20:17 GFR Calculation Not Reportable 02/26/22 20:17 Glucose 120 mg/dL (65-115) H 02/26/22 20:17 Calculated Osmolality 285 mOsm/kg (285-295) 02/26/22 20:17 Calcium 9.9 mg/dL (8.5-10.5) 02/26/22 20:17 Total Bilirubin 0.4 mg/dL (0.15-1.2) 02/26/22 20:17 AST 9 U/L (0-40) 02/26/22 20:17 ALT 10 U/L (0-41) 02/26/22 20:17 Alkaline Phosphatase 91 IU/L (40-130) 02/26/22 20:17 Total Protein 7.5 g/dL (6.6-8.7) 02/26/22 20:17 Albumin 3.4 g/dL (3.5-5.2) L 02/26/22 20:17 Globulin 4.1 g/dL (1.3-4.6) 02/26/22 20:17 Lipase 17 U/L (13-60) 02/26/22 20:17 Discharge Plan Discharge Patient Disposition: Home Clinical Impression: Constipation, Abdominal pain, Leukocytosis, Thrombocytosis, Microcytic anemia, Creatinine elevation, Mild dehydration Condition: Stable Prescriptions: No Action guaifenesin 400 mg tablet 400 mg PO Q4H PRN (Reason: Cough) 0RF cholecalciferol (vitamin D3) 1,250 mcg (50,000 unit) tablet 1,250 mcg PO DAILY@0800 0RF levothyroxine 50 mcg capsule 50 mcg PO DAILY@0800 0RF lisinopril 40 mg tablet 40 mg PO DAILY@0800 0RF Hold Instructions: Resume on 12/12/21. cyclobenzaprine 10 mg tablet 10 mg PO TID PRN (Reason: muscle spasms) 0RF albuterol sulfate 90 mcg/actuation HFA aerosol inhaler 1 inh inhalation QID PRN (Reason: shortness of breath or wheezing) Qty: 8.5 5RF Spiriva Respimat 1.25 mcg/actuation mist 2 puff inhalation DAILY Qty: 4 3RF (DME) custom orthotics See Rx Instructions .Route .MEDSUPPLY Qty: 1 0RF Rx Instructions: As directed Xarelto 20 mg tablet 20 mg PO DAILY Qty: 90 3RF Rx Instructions: must administer with evening meal hydrocodone-acetaminophen 5-325 mg tablet 1 tab PO Q6H PRN (Reason: pain) 5 Days Qty: 30 0RF acetaminophen [Tylenol Extra Strength] 500 mg Tablet 500 mg PO Q6H PRN (Reason: Pain) 0RF hydralazine 25 mg tablet 25 mg PO TID Qty: 90 0RF Dulera 200-5 mcg/actuation Hfa Aerosol Inhaler 2 puff INHALATION BID 0RF diclofenac sodium [Voltaren Arthritis Pain] 1 % gel 4 g topical QID PRN (Reason: Pain) 0RF omeprazole 20 mg capsule,delayed release(DR/EC) 20 mg PO DAILY Qty: 90 3RF Discharge Orders: Discharge ED (Routine); Ordered 02/26/22 Ordered By: Rick Santiago Referrals: Keshawn Little, [Primary Care Provider] - Discharge Diet: Advance as tolerated and Clear Liquid Discharge Activity: Increase activity as tolerated Patient Instructions: Constipation (ED), Chronic Kidney Disease (ED), Abdominal Pain (ED), Anemia (ED) Activity Restrictions/Additional Instructions: Thank you for visiting the emergency department. You were seen and evaluated for abdominal pain with constipation. We are pleased that you had bowel movements while in the emergency department however, as discussed, without imaging I cannot be sure of any potential additional disease processes occurring. Please ensure that you are staying adequately hydrated. Please follow-up with your primary care provider within the next few days. Please return to the emergency department for abdominal pain or anything else that you are concerned about a feel needs emergency department evaluation. Coding Level of Care Code ED Eligibility Services Representative for Adam[facility] Fwd Exam Comprehensive
[2022-02-26 19:50] VITALS: BP 128/72; PULSE 89
[2022-02-26 20:25] LABS: Basophils # 0.1 10^3/uL (0.0-0.1); Basophils % 0.5 %; Eosinophils # 0.1 10^3/uL (0.0-0.8); Eosinophils % 0.6 %; Hematocrit 25.8 % (42.0-52.0); Hemoglobin 8.1 g/dL (11.7-16.6); Lymphocytes # 1.4 10^3/uL (0.8-4.8); Mean Corpuscular HGB Conc 31.4 g/dL (30.0-36.0); Mean Corpuscular Hemoglobin 23.5 pg (28.0-34.0); Mean Platelet Volume 7.9 fL (7.4-10.4); Monocytes # 0.7 10^3/uL (0.2-0.9); Monocytes % 7.1 %; Neutrophils # 7.92 10^3/uL (1.8-7.7); Neutrophils % 77.2 %; Nucleated Red Blood Cells % 0 %; Platelet Count 679 10^3/cmm (130-400); Red Blood Count 3.44 10^6/uL (4.1-5.3); Red Cell Distribution Width 16.2 % (12.1-15.1); White Blood Count 10.3 10^3/uL (4.0-10.0)
[2022-02-26 20:46] LABS: Alanine Aminotransferase 10 U/L (0-41); Albumin Level 3.4 g/dL (3.5-5.2); Alkaline Phosphatase 91 IU/L (40-130); Anion Gap 15.5 (5-19); Aspartate Amino Transferase 9 U/L (0-40); Blood Urea Nitrogen 23 mg/dL (8-23); Calcium 9.9 mg/dL (8.5-10.5); Carbon Dioxide 30 mmol/L (22-29); Chloride 94 mmol/L (98-107); Globulin 4.1 g/dL (1.3-4.6); Glucose 120 mg/dL (65-115); Lipase 17 U/L (13-60); Osmolality Calculated 285 mOsm/kg (285-295); Potassium 4.5 mmol/L (3.5-5.1); Sodium 135 mmol/L (136-145); Total Bilirubin 0.4 mg/dL (0.15-1.2); Total Protein 7.5 g/dL (6.6-8.7)
== END 2022-02-26 21:13 | disposition home or self-care (01) ==
PROVIDERS: Emergency Provider Emergency Medicine; PCP Emergency Medicine Emergency Medical Services
DX: K59.00 Constipation, unspecified (principal); D72.829 Elevated white blood cell count, unspecified; D75.839 Thrombocytosis, unspecified; D50.9 Iron deficiency anemia, unspecified; E86.0 Dehydration; R79.89 Other specified abnormal findings of blood chemistry; J44.9 Chronic obstructive pulmonary disease, unspecified; I10 Essential (primary) hypertension; Z87.891 Personal history of nicotine dependence
CPT/HCPCS: 36415; 80053; 83690; 85025; 99283

== ENCOUNTER → 2022-03-03 13:12 | Outpatient (BNVA) | payer OTHER, SELFPAY | PROVIDERS: PCP Emergency Medicine Emergency Medical Services; Visit Provider Nurse Practitioner Family | DX: I96 Gangrene, not elsewhere classified (principal); L89.323 Pressure ulcer of left buttock, stage 3; L89.313 Pressure ulcer of right buttock, stage 3 | CPT/HCPCS: 11042; 99203; 99213; A6212 ×2 ==

== ENCOUNTER → 2022-03-06 10:31 | Outpatient (BNVA) | payer OTHER, SELFPAY | PROVIDERS: PCP Emergency Medicine Emergency Medical Services; Visit Provider Internal Medicine | DX: I48.91 Unspecified atrial fibrillation (principal); I12.9 Hypertensive chronic kidney disease with stage 1 through stage 4 chronic kidney disease, or unspecified chronic kidney disease; N18.30 Chronic kidney disease, stage 3 unspecified; Z87.891 Personal history of nicotine dependence; J43.2 Centrilobular emphysema | CPT/HCPCS: 99214 ==

== ENCOUNTER → 2022-03-10 10:56 | Outpatient (BNVA) | payer OTHER, SELFPAY | PROVIDERS: PCP Emergency Medicine Emergency Medical Services; Visit Provider Nurse Practitioner Family | DX: I96 Gangrene, not elsewhere classified (principal); L89.323 Pressure ulcer of left buttock, stage 3; L89.313 Pressure ulcer of right buttock, stage 3 | CPT/HCPCS: 11042 ==